=== PATIENT | female | born 1990 | race Caucasian/White ===

== ENCOUNTER 2024-10-25 11:36 | Outpatient (CLI) | payer BC, SELFPAY | END 2024-10-25 11:37 | disposition home or self-care (01) | LOC: AMB 10-30 13:13 | PROVIDERS: Visit Provider Emergency Medicine | DX: R52 Pain, unspecified (principal); F41.9 Anxiety disorder, unspecified; Z59.02 Unsheltered homelessness | CPT/HCPCS: A0998 ==

== ENCOUNTER 2024-10-25 12:32 | Emergency (ER) | payer BC, SELFPAY ==
--- OUTSIDE RECORDS SUMMARY | 2014-03-06 08:46 | XMS_ITS | Continuity of Care Document ---
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 Operator Multiple Name Role Phone Unavailable Unavailable Unavailable Procedures Procedure Date Subsqt Hosp-da E&m Minr Compl 4 Init Inpt Cons [place] [facility] [place] Advance Directives Directive Yes / No Effective Date File Name No Information Encounters Encounter Description Practice Location Reason(s) For Visit Diagnoses Date Provider Providers Copied on Encounter [facility] [place], [address] [address], [place], [place], [id number], tel:[phone] [facility] No Information No Information Referring Provider: Referral Self, USE FOR SELF REFERRALS. Subsqt Hosp-da E&m Minr Compl [facility] [place], [address] [address], [place], [place], [id number], [place] tel:[phone] [facility] No Information 4 Aleksander Rahman. [address] [facility], [facility] [address], [place], [place], [id number], [place]. tel:[phone] Referring Provider: Boris Burdick, [address] [place], [address] . tel:[phone] Init Inpt [facility] New/est [facility] [place], [address] [address], [place], [place], [id number], [place] tel:[phone] [facility] No Information No Information Referring Provider: Boris Burdick, [address] [place], [address] . tel:[phone] Family History Family Member Type Diagnosis Age At Onset No Information Payers Payer name Insurance type Covered alliance party ID [id number] guillermo(s) [facility] [id number] Social History Type Description Quantity Date Captured Comments Sex Female Smoking Status No Information Chief Complaint And Reason For Visit No Information Reason For Referral Reason For Referral No Information History Of Present Illness Encounter Date Complaint History Of Prese nt Illness No Information Functional Status Date Functional Assessmen t No Information Instructions Date Instruction Additional Infor mation No Information Assessments Type Assessment Date No Information Patient Care Teams Name Effective Dates (start - stop) Status Members No Information
--- OUTSIDE RECORDS SUMMARY | 2024-09-30 17:13 | XMS_ITS | Encounter Summary ---
Author Organization [facility] Address [address] [place] [address] Care Team Providers Care Carpenter Mold Name Role Phone Lorraine Castaneda MD Unavailable [phone] Lorraine Castaneda MD Primary Care Provider Shell Menjivar MD Unavailable [phone] Bo Jiang MD Unavailable [phone] Jozef Sanchez [facility] Unavailable [phone] Alicia Montero Unavailable Unavailable Leonides Hernandez [facility] Unavailable [phone] Babar Ferrari PA-C Unavailable [phone] Priscilla Stoddard Unavailable Yaw Mckinney MD Unavailable [phone] Edmund Patel MD Unavailable [phone] Edmund Patel MD Unavailable [phone] Yaw Mckinney MD Unavailable [phone] Jenny Terrazas Pascual Unavailable + [phone] Petty Hassan DO Unavailable [phone] Gil Danielson SHANK CARRIER Unavailable Unavailable Reason for Referral * Care Coordination (Routine: Next available opening) - Pending Review Specialty Diagnoses / Procedures Referred By Lazaro t Referred To Contact Diagnoses Housing instability PTSD (post-traumatic stress disorder) Javy Ta CNP [address] [place] [address] Phone: tel: fax: Referral ID Status Reason Start Date Expiration Date V isits Requested Visits Authorized [id number] Pending Review 10/01/2024 10/01/2025 1 1 Question Answer Reason for Referral: Financial Support Financial Support: Housing, Food Clinical Staff have discussed the Care Coordination Referral with the patient and/or caregiver: Yes Comments Reason for Visit * Reason Comments Anxiety Encounter Details Date Type Department Care Team (Late st Contact Info) Description 09/30/2024 5:13 PM CDT - 10/01/2024 12:40 PM CDT Hospital Encounter [facility] Emergency Dept [address] [place] [id number] Oswaldo Florian MD Frohreich, Lucas, WAYNE [address] [place] [address] Preston Mathew MD [address] [facility] [address] [place], [place] [id number] Anxiety; Housing instability; PTSD (post-traumatic stress disorder) Discharge Disposition: Home or Self Care Social History Tobacco Use Types Packs/Day Years Used Date Smoking Tobacco: Some Days Cigarettes Passive Smoke Exposure: Never Smokeless Tobacco: Never Alcohol Use Standard Drinks/Week Comments No 0 (1 standard drink = 0.6 oz pur e alcohol) PHQ-2 Answer Date Recorded PHQ-2 Score 3 08/21/2024 Adolescent Education Answer Date Record ed Getting School Help Needed Not on file 01/29 Food Insecurity Answer Date Recorded Within the past 12 months, d id you worry that your food would run out before you got money to buy more? Yes 05/11/2023 Within the past 12 months, d id the food you bought just not last and you didn t have money to get more? No 05/11/2023 Housing Stability Answer Date Recorded Do you have housing? (Sawyer wilson is defined as stable permanent housing and does not include staying outside in a car, in a tent, in an abandoned building, in an overnight penitentiary, or couch-surfing.) Yes 05/11/2023 Are you worried about losing your housing? No 05/11/2023 Financial Resource Strain Answer Date R ecorded Within the past 12 months, h ave you or your family members you live with been unable to get utilities (heat, electricity) when it was really needed? No 05/11/2023 Transportation Needs Answer Date Record ed Within the past 12 months, h as lack of transportation kept you from medical appointments, getting your medicines, non-medical meetings or appointments, work, or from getting things that you need? No 05/11/2023 Interpersonal Safety Answer Date Record ed Do you feel physically and e motionally safe where you currently live? Yes 08/29/2024 Within the past 12 months, h ave you been hit, slapped, kicked or otherwise physically hurt by someone? No 08/29/2024 Within the past 12 months, h ave you been humiliated or emotionally abused in other ways by your partner or ex-partner? No 08/29/2024 Comments No Sex and Gender Information Value Date Recorded Sex Assigned at Female 11/23/2017 12:16 PM CDT Legal Sex Female 11:38 AM CDT Gender Identity Genderqueer 04/15/2024 10:21 PM AUTO BRAKE MECHANIC Sexual Orientation Lesbian 04/15/2024 10 :21 PM AUTO BRAKE MECHANIC Sexual Orientation Something else 04/15/2024 10 :21 PM AUTO BRAKE MECHANIC documented as of this encounter Last Filed Vital Signs Vital Sign Reading Time Taken Comments Blood Pressure 129/82 10/01/2024 10:00 AM CDT Pulse 61 10/01/2024 10:00 AM CDT Temperature 36.7 C (98 F) 10/01/2024 10:00 AM CDT Respiratory Rate 18 10/01/2024 10:00 AM CDT Oxygen Saturation 99% 10/01/2024 10:00 AM CDT Inhaled Oxygen Concentration - - Weight 78.9 kg (174 lb) 09/30/2024 5:14 PM CDT Height 165.1 cm (5' 5) 09/30/2024 5:14 PM CDT Body Mass Index 28.96 09/30/2024 5:14 PM CDT documented in this encounter Functional Status * Calculated C-SSRS Risk Score (Lifetime/Recent) Answer Date of Assessment Author No Risk Indicated 09/30/2024 9:33 PM CDT Megan Newberry LICSW * Question Answer Date of Assessment Author 3. Active Suicidal Ideation with any Methods (Not Plan) Without Intent to Act (Lifetime) No 09/30/2024 9:30 PM CDT Megan Hall LICSW 4. Active Suicidal Ideation with Some Intent to Act, Without Specific Plan (Lifetime) No 09/30/2024 9:30 PM CDT Megan Hall LICSW 5. Active Suicidal Ideation with Specific Plan and Intent (Lifetime) No 09/30/2024 9:30 PM CDT Megan Hall LICSW * Question Answer Date of Assessment Author Most Severe Ideation Rating (Past 1 Month) 2 09/30/2024 9:33 PM CDT Megan Hall LICSW Description of Most Severe Ideation (Past 1 Month) thoughts of wishing to be when feeling overwhelmed this past month 09/30/2024 9:33 PM CDT Megan Hall LICSW Frequency (Past 1 Month) 3 025 9:33 PM CDT Megan Hall LICSW Duration (Past 1 Month) 2 10/01/19 25 9:33 PM CDT Megan Hall LICSW Controllability (Past 1 Month) 2 09/30/2024 9:33 PM CDT Megan Hall LICSW Deterrents (Past 1 Month) 1 2024 9:33 PM CDT Megan Hall LICSW Reasons for Ideation (Past 1 Month) 5 09/30/2024 9:33 PM CDT Megan Hall LICSW * Question Answer Date of Assessment Author Actual Attempt (Past 3 Months) No 09/30/2024 9:33 PM CDT Megan Hall LICSW Total Number of Actual Attem pts (Past 3 Months) 0 09/30/2024 9:33 PM CDT Stottrup, Megan, BRAKE REPAIR MECHANIC Has subject engaged in non-suicidal self-injurious behavior? (Past 3 Months) No 09/30/2024 9:33 PM CDT StottruEmi patel, BRAKE REPAIR MECHANIC Interrupted Attempts (Past 3 Months) No 09/30/2024 9:33 PM CDT Stottrup, Megan, BRAKE REPAIR MECHANIC Total Number of Interrupted Attempts (Past 3 Months) 0 09/30/2024 9:33 PM CDT Stottrup, Ba alpay, BRAKE REPAIR MECHANIC Aborted or Self-Interrupted Attempt (Past 3 Months) No 09/30/2024 9:33 PM CDT Stottrup, Divine javad, BRAKE REPAIR MECHANIC Total Number of Aborted or Self-Interrupted Attempts (Past 3 Months) 0 09/30/2024 9:33 PM CDT Stottrup, Megan, BRAKE REPAIR MECHANIC Preparatory Acts or Behavior (Past 3 Months) No 09/30/2024 9:33 PM CDT Stottrup, Megan, BRAKE REPAIR MECHANIC Total Number of Preparatory Acts (Past 3 Months) 0 09/30/2024 9:33 PM CDT Stottrup, Megan , BRAKE REPAIR MECHANIC * Question Answer Date of Assessment Author Actual Attempt (Lifetime) No 09/30/2024 9:30 PM CDT Stottrup, Megan, BRAKE REPAIR MECHANIC Has subject engaged in non-suicidal self-injurious behavior? (Lifetime) No 09/30/2024 9:30 PM CDT Stottrup, Megan , BRAKE REPAIR MECHANIC Interrupted Attempts (Lifetime) No 9:30 PM CDT Stottrup, Megan, BRAKE REPAIR MECHANIC Aborted or Self-Interrupted Attempt (Lifetime) No 09/30/2024 9:30 PM CDT Stottrup, Megan, BRAKE REPAIR MECHANIC Preparatory Acts or Behavior (Lifetime) No 09/30/2024 9:30 PM CDT Stottrup, Megan, BRAKE REPAIR MECHANIC * Question Answer Date of Assessment Author Most Severe Ideation Rating (Lifetime) 2 09/30/2024 9:30 PM CDT Stottrup, Megan, BRAKE REPAIR MECHANIC Frequency (Lifetime) 1 09/30/2024 9:30 PM C DT Stottrup, Megan, BRAKE REPAIR MECHANIC Duration (Lifetime) 1 09/30/2024 9:30 PM CD T Stottrup, Megan, BRAKE REPAIR MECHANIC Controllability (Lifetime) 1 09/30/2024 9:3 0 PM CDT Megan Hall LICSW Deterrents (Lifetime) 1 09/30/2024 9:30 PM CDT Megan Hall LICSW Reasons for Ideation (Lifetime) 5 9:30 PM CDT Megan Hall LICSW documented as of this encounter Discharge Instructions * Discharge Instructions* Savana Layton AJ - 10/01/2024 8:36 AM CDT Mental health recommendations Please follow-up with your outpatient team about your visit today. 2. One of our care coordinators will reach out to you after your discharge. If you have any questions about additional resources please call our coordinators at # [phone]. If you would like to schedule an appointment for therapy or psychiatry please call our Behavioral Access Scheduling officeat [phone]. 3. Please use aftercare plan and already established coping skills and safety planning as needed. 4. Please call 911 and/or return to the emergency department if her symptoms worsen or your safety becomes compromised. [facility] Adult crisis line, Crisis Lines Crisis Text Line Text 594738 You will be connected with a trained live crisis counselor to provide support. Crisis Text Line provides free, text-based support 30/11. Caregiver Help Desk [phone] 7 am - 6 pm Staffed by caregiving experts, the Help Desk helps you find the right information you need to help you navigate your complex caregiving challenges. Disaster Distress Helpline The national Disaster Distress Helpline is available for anyone experiencing emotional #distress related to natural or human-caused disasters. Call or text to be connected to a trained, caring counselor, . disasterdistress.samhsa.gov Gambling Hotline [hope] [place] .[place] [address] or 800GAM 1800gamblerchat.org mnapg.org www.mnapg.org l??michael de crisis espa??laith [phone] [facility] Helpline [phone] [place] Domestic Violence Hot[place] [address] Boost Media.The Grandparent Caregivers Center for victims or survivors who need support National Sexual Assault Hotline 547.531.WXIG [1073] Speak with a trained staff member from a sexual assault service provider in your area. National Hope Line [hope] National Suicide Prevention Lifeline Free and confidential support 988 http://suicidepreventionlifeline.org The Artis Project (LGBTQ Youth Crisis Line) text START to 733810 A national 24-hour, toll free confidential suicide hotline for LGBTQ youth. Trans Lifeline 698.902.9350 Peer support hotline run by trans people, for trans, and questioning callers Miguel Ángel [place] Helpline Confidential and anonymous culturally-appropriate domestic violence and dating violence helpline for [place] Americans, available every day from 7 a.m. to 10 p.m. 's Crisis Line 988 (Press 1) or text 715861 [facility] Mental Health Crisis Response [facility] Crisis [phone] [facility] Mobile Crisis [phone] [facility] Crisis [phone] [facility] Mobile Crisis [phone] [facility] Mobile Crisis [phone] (adults) [phone] (children) [facility] Mobile Crisis [phone] [facility] Mobile Crisis [phone] Community Resources Fast Tracker Linking people to mental health and substance use disorder resources fasttrackermn.org [facility] Warmline Peer to peer support 9 am to 9 pm, 7 days/week 857.060.1488 [place] 855[place] [address] https://mentalhealthmn.org/ National [place] on Mental Illness (PAMELA) 075.070.5830 or 1.888.PAMELA.HELPS https://namimn.org/ [facility] Urgent Care for Adult Mental Health [facility] residents [address] [phone] [facility] Free mental health counseling https://walkin.org/ 182.236.5495 Mental Health Apps Calm Harm https://calmharm.co.uk/ My3 https://my3app.org/ VirtualHopeBox https://VideoPros/apps/jgvtmeq-cviz-zdu/ Suicide Safety Plan (eReplicant) Misael[employer]Utkarsh [employer] Safety Plan https://www.Sensinodelan.org/ TRANS SPECIFIC RESOURCES Name Change https://transequality.org/documents/nehkfsggy-cwkgmxew-fcqyyhfnu Therapy Specific Resources [facility] offers queer and trans folks ages 13-25 with individual, family, and couples counseling focused on identity development as it relates to sexuality, gender identity, and or gender expression. [facility] offers its counseling services with sliding scale and has equity-based pricing. https://www.recla.[facility]/what-we-do/overview.html [facility] Support Group list: https://[facility] state hospitalim.org/wp-content/uploads/sites//Vmeocep-Vgphw-Dvxy-for-We bsite__july.pdf Support Groups [place] Transgender [place] Support Group: http://www.UnderstorygenderalTORIA.LucidPort Technology/ General Supports [facility] T-Time (transfemme Brine Tank Operator) https://aliveness.org/tea-time/ OutFront [place] https://www.[facility].org/emjbetc-rlskrviaur-xasthcixmovzt Transgender, Intersex, Gender-Expansive [facility] Resources & Services https://tigerrs.org/ https://docs.Wisembly.com/document/d/1-1Z7KYtcjrxwvMOy3Luwt6ICnCpt5sgNTrYGPZtW_yk/ edit Transforming Families: https://tffmn.org/ Gender Affirming Care / HRT [facility] https://www.familytreeclinic.org/ THRIVE at Aliveness 783-587-1810 Planned Parenthood https://www.plannedparenthood.org/ The following DBT skills can assist me when: I want to act on your emotions and acting on them willonly make things worse, I am overwhelmed by my emotions, I want to try to be skillful and not act on self destructive behavior. Reduce Extreme Emotion QUICKLY: Changing Your Body Chemistry T: Change your body Temperature to change your autonomic nervous system Use Ice pack to calm yourself down FAST. Place ice pack underneath your eyes for a count of 30 seconds to initiate the divers reflex which will naturally calm down your heart rate and breathing. I: Intensely exercise to calm down a body revved up by emotion Examples: running, walking fast, jumping, playing basketball, weight lifting, swimming, calisthenics, etc. Engage in exercises that DO NOT include violent behaviors. Exercises that utilize violent behaviorstend to function as ???behavioral rehearsal,?? and rather than calming the person down, may actually ???rev?? the person up more, increasing the likelihood of violence, and lessening the likelihoodthat they will ???burn off?? energy P: Progressively relax your muscles Starting with your hands, moving to your forearms, upper arms, shoulders, neck, forehead, eyes, cheeks and lips, tongue and teeth, chest, upper back, stomach, buttocks, thighs, calves, ankles, feet Tense (10 seconds, ?? of the way), then relax each muscle (all the way) Notice the tension Notice the difference when relaxed (by tensing first, and then relaxing, you are able to get a morethorough relaxation than by simply relaxing) P: Paced breathing to relax The standard technique is to begin with counting the number of steps one takes for a typical inhale, then counting the steps one takes for a typical exhale, and then lengthening the amount of steps for the exhalation by one or two steps. OR repeat this pattern for 1-2 minutes: Inhale for four (4) seconds Exhale for six (6) to eight (8) seconds After using Distress Tolerance TIPP, TRY TO STOP! S- Stop Do not just react on your emotion urge. Stop! Freeze! Do not move a muscle! Your emotions may try to make you act without thinking. Stay in control! Take a step back Take a step back from the situation. T- Take a break Let go. Take a deep breath. Do not let your feelings make you act impulsively. O- Observe Notice what is going on inside and outside you. What is the situation? What are your thoughts and feelings? What are others saying or doing? Does my emotion make sense, is it justified? What is it that my emotions want me to do? Would that be effective? P- Proceed mindfully Act with awareness. In deciding what to do, consider your thoughts and feelings, the situation, andother people???s thoughts and feelings. Think about your goals. Ask Monroy Mind: Which actions will make it better or worse? If my emotion action urge would not be effective or helpful, practice acting OPPOSITE to the EMOTION ACTION URGE can help reduce the intensity or even change the emotion. Consider these examples: with FEAR we have the urge to run away/avoid. OPPOSITE would be to approach it with caution. ANGER we have the urge to attack. OPPOSITE would be to gently avoid or to demonstrate kindness towards it. SADNESS we have the urge to withdraw/isolate. OPPOSITE would be to get self to move and be active physically or socially. These additional skills may help with self-soothing and distracting you: Activities Focus attention on a task you need to get done. Rent movies; watch TV. Clean a room in your house. Find an event to go to. Play computer games. Go walking. Exercise. Surf the Internet. Write e-mails.Play sports. Go out for a meal or eat a favorite food. Call or go out with a friend. Listen to youriPod; download music. Build something. Spend time with your children. Play cards. Read magazines, books, comics. Do crossword puzzles or Sudoku. Emotions Read emotional books or stories, old letters. Watch emotional TV shows; go to emotional movies. Listen to emotional music. (Be sure the event creates different emotions.) Ideas: Scary movies, joke books, comedies, funny records, scientologist music, soothing music or music that fires you up, going to astore and reading funny greeting cards. Thoughts Count to 10; count colors in a painting or applications administrator or out the window; count anything. Repeat words to a song in your mind. Work puzzles. Watch TV or read. Sensations Squeeze a rubber ball very hard. Listen to very loud music. Hold ice in your hand or mouth. Go out in the rain or snow. Take a hot or cold shower. Remember that you can use your 5 senses as helpful self-soothing tools! I can help my own emotions by practicing the following to keep my emotional mind healthy and bring positive emotions: The ABC PLEASE skill is about taking good care of ourselves so that we can take care of others. Also, an important component of DBT is to reduce our vulnerability. When we take good care of ourselves, we are less likely to be vulnerable to disease and emotional crisis. ABC A- Accumulate positive emotions by doing things that are pleasant. B- Build mastery by doing things we enjoy. Whether it is reading, cooking, cleaning, fixing a car, working a cross word puzzle, or playing a musical instrument. Practice these things to manufactured buildings supervisor and in time we feel competent. C- Science [place] Ahead by rehearsing a plan ahead of time so that we can be prepared to cope skillfully. (Think of what makes situations difficult, and what helps in those situations) PLEASE Treat Physical Illness and take medications as prescribed. Balance eating in order to avoid mood swings. Avoid mood-Altering substances and have mood control. Maintain good sleep so you can enjoy your life. Get exercise to maintain high spirits. Here is the appointment details: Date: 10/04/2024 Time: 10:00 am - 11:00 am Provider: Maryellen GARCIA BUSINESS QUALITY ASSURANCE ANALYST,PMHNP,RN Location: [facility], [address] [place] [address], [address], [place] [address] Type: Medication Mgmt - (In-Person) Scheduling instructions Please no same-day or next day appointments- allow 3 business days between the time of scheduling & appointment date. This allows us time to confirm the patient???s appointment. You can assist patients in doing this by calling , after you have made the referral. *Appointments mustbe verified by the [facility] Intake Dept.*Date & time not guarenteed* If the patient does not s peak to our intake team, they will be unable to be seen for their scheduled appointment. IN-PERSON /Wed Patient instructions Thank you for choosing [facility]! *Due to high demand, your appt date & time is only guaranteed after you speak with [facility] intake. Our intake team will attempt to contact you. If you do nothear from them within 24 hours, please call them at and tell them you are a [facility] referral. If you do not speak with our Intake Department and complete the necessary paperwork they send you, we cannot see you at your scheduled appointment time. Thank you for helping us to help you! documented in this encounter Medications at Time of Discharge acetaminophen (TYLENOL) 500 MG tablet Take 500-1,000 mg by mouth every 6 hours as needed for mild pain celecoxib (CELEBREX) 200 MG capsuleIndication s:Polyarthralgia Take 1 capsule (200 mg) by mouth daily. 30 capsule 1 05/15/2024 EPINEPHrine (ANY BX GENERIC EQUIV) 0.3 MG/0.3ML injection 2-packIndications :Other allergy, initial encounter Inject 0.3 mLs (0.3 mg) into the muscle as needed for anaphylaxis. May repeat one time in 5-15 minutes if response to initial dose is inadequate. 2 each 3 01/26/2024 levonorgestrel (MIRENA) 52 MG (20 mcg/day) IUD 1 each by Intrauterine route once. Needle, Disp, 23G X 1 MISCIndications:T ransgender person on hormone therapy To use with weekly IM injection 25 each 3 05/24/2024 prazosin (MINIPRESS) 1 MG capsuleIndication s:PTSD (post-traumatic stress disorder),Nightma res TAKE 1 CAPSULE BY MOUTH AT BEDTIME 30 capsule 05/22/2024 sertraline (ZOLOFT) 100 MG tabletIndications :Anxiety,Moderate episode of recurrent major depressive disorder (H),PTSD (post-traumatic stress disorder),Mixed obsessional thoughts and acts TAKE 2 TABLETS BY MOUTH EVERY DAY 180 tablet 07/10/2024 syringe, disposable, 1 ML MISCIndications:T ransgender person on hormone therapy To use with weekly IM injection 25 each 3 05/24/2024 testosterone cypionate (DEPOTESTOSTERONE ) 200 MG/ML injectionIndicati ons:Transgender person on hormone therapy Inject 0.25 mLs (50 mg) into the muscle once a week. 4 mL 08/30/2024 documented as of this encounter Progress Notes * Savana Layton, BRAKE REPAIR MECHANIC - 10/01/2024 12:40 PM CDT Triage and Transition Services Extended Care Reassessment Patient: Nani goes by Nani, uses they/them pronouns Date of Service: October 01, 2024 Site of Service: [facility] Emergency Dept Patient was seen Mode of Assessment: Reason for Reassessment: History of Patient's Original Emergency Room Encounter: Pt reports that their worsening intrusive thoughts and anxiety symptoms of excessive worrying and insomnia have increased since they lost theirjob in May of this year. Pt says their intrusive thoughts don't center around a certain subjectand are mixed with trauma thoughts and catastrophizing. Pt reports that they decided to come to the hospital due to their stay at their hotel ending tomorrow and not knowing where else to go for help. Pt reports that they have diagnoses of OCD, ADHD, ADHD, and PTSD. Current Patient Presentation: Craft Coordinator met with pt in their recliner in the milieu. They were restingcomfortably. They were agreeable to meet with this caption writer in a conference room. Pt reported gettingsome rest last night. They still feel anxious and angry at their circumstances. They were open to talking and cooperative. Presentation Summary: Craft Coordinator met with pt in their recliner in the milieu. They were resting comfortably. They were agreeable to meet with this caption writer in a conference room. Pt reported getting some rest last night. They still feel anxious and angry at their circumstances. They have lots of supports from friends. Pt still does not have a plan for housing and is hoping to get some tangible support to stay with a friend until they can get housing. Pt is open to a crisis bed if one is available. If not, they would like to discharge and go on a road trip, and be adventurous. Pt has 2 cats and needs to find housing where they can have their cats. The cats are staying with the pt's friend for thetime being. Does not endorse SI, HI, SIB, substance use concerns, or AVH. Changes Observed Since Initial Assessment: decrease in presenting symptoms Therapeutic Interventions Provided: Engaged in safety planning, Coached on coping techniques/relaxation skills to help improve distress tolerance and managing intense emotions., Identified and practiced coping skills. Current Symptoms: anxious, racing thoughts low self esteem, impaired decision making, irritable, helplessness wandering, racing thoughts, anxious impulsive, flight of ideas (not assessed) Mental Status Exam Affect: Appropriate Appearance: Appropriate Attention Span/Concentration: Attentive Eye Contact: Engaged Fund of Knowledge: Appropriate Language /Speech Content: Fluent Language /Speech Volume: Normal Language /Speech Rate/Productions: Normal Recent Memory: Intact Remote Memory: Intact Mood: Anxious, Irritable Orientation to Person: Yes Orientation to Place: Yes Orientation to Time of Day: Yes Orientation to Date: Yes Situation (Do they understand why they are here?): Yes Psychomotor Behavior: Normal Thought Content: Clear Thought Form: Intact, Obsessive/Perseverative, Tangential Treatment Objective(s) Addressed: rapport building, orienting the patient to therapy, identifying and practicing coping strategies, processing feelings, safety planning, identifying an appropriate aftercare plan, building distress tolerance, anger management, assessing safety, identifying treatmentgoals, building self-esteem, identifying additional supports, exploring obstacles to safety in the community, building skills Patient Response to Interventions: acceptance expressed, verbalizes understanding Progress Towards Goals: Patient Reports Symptoms Are: stable Patient Progress Toward Goals: is making progress Comment: Pt ready to d/c and get fresh air and talk with their support network to decide next steps Next Step to Work Toward Discharge: follow up on referrals Symptom Stabilization Comment: referral made for med management Case Management: Case Management Included: completing or following up on referrals Details on completing or following up on referrals: referral made of op med management Summary of Interaction: appointment made C-SSRS Since Last Contact: 1. Wish to be (Since Last Contact): No 2. Non-Specific Active Suicidal Thoughts (Since Last Contact): No Actual Attempt (Since Last Contact): No Has subject engaged in non-suicidal self-injurious behavior? (Since Last Contact): No Interrupted Attempts (Since Last Contact): No Aborted or Self-Interrupted Attempt (Since Last Contact): No Preparatory Acts or Behavior (Since Last Contact): No Suicide (Since Last Contact): No Calculated C-SSRS Risk Score (Since Last Contact): No Risk Indicated Plan: Final Disposition / Recommended Care Path: discharge Plan for Care reviewed with assigned Medical Provider: yes Plan for Care Team Review: provider, RN Comments: Osamn Ta CNP Patient and/or validated legal guardian concurs: yes Clinical Substantiation: Pt came to the ED with increased depression and anxiety sxs related to significant psychosocial stressors. The pt remained in [facility] on observation overnight on 09/30. On 10/01ey were reassessed and reported their sxs of anxiety are continuing. They reported they have a robust community of supports who are willing to support them after d/c, they were willing to safety plan and were able to identify coping strategies to mitigate an upcoming mh crisis. Pt does not endorse SI, HI, SIB, AVH, or GLENN concerns. Discharge is recommended for this pt and an appointment was made with op psychiatry. This caption writer also collaborated with the pt's friend, Jose Armando to coordinate aftercare follow up and support. Legal Status: Legal Status: Voluntary/Patient has signed consent for treatment Session Status: Time session started: 756 Time session ended: 810 Session Duration (minutes): 14 minutes Session Number: 1 Anticipated number of sessions or this episode of care: 1 Session Start Time: 756 Session Stop Time: 810 CPT codes: Non-Billable Time Spent: 14 minutes CPT code(s) utilized: Non-Billable Diagnosis: Patient Active Problem List Diagnosis Code Moderate episode of recurrent major depressive disorder (H) F33.1 PTSD (post-traumatic stress disorder) F43.10 Anxiety F41.9 Bilateral hand pain M79.641, M79.642 Bilateral knee pain M25.561, M25.562 Hypermobility syndrome M35.7 Inflammatory arthritis M19.90 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.0, Z79.899 Mild intermittent asthma without complication J45.20 Rectal bleeding K62.5 Family history of endometriosis Z84.2 Irritable bowel syndrome with both constipation and diarrhea K58.2 Migraine without aura and without status migrainosus, not intractable G43.009 Nightmares F51.5 Housing instability Z59.819 Obsessive-compulsive disorder F42.9 Primary Problem This Admission: Active Hospital Problems Housing instability Obsessive-compulsive disorder Anxiety *PTSD (post-traumatic stress disorder) Savana [facility] Licensed Mental Health Professional (LMHP), [facility] [phone] * Tomasa Rosas RN - 10/01/2024 12:39 PM CDT Discharge instructions reviewed with patient including follow-up care plan. Educated on medication regimen and advised not to stop prescribed medication without consulting their physician. Reviewed safety plan and outpatient resources. Pt denies active SI. Pt has contracted for safety and completedsafety plan with [facility]. All belongings which were brought into the hospital have been returned to patient. Escorted off the unit at 12:39 PM, pt preferred to wait in ED lobby for friend to pick them up. Walked to lobby at 12:39 PM * Tomasa Rosas RN - 10/01/2024 11:30 AM CDT RN gave pt's friend, Jose Armando, an update on plan of care. He reports that pt's phone is getting turned off and would like his phone number used for the referrals to reach out to. Pt agrees with this. [facility] notified. * Tomasa Rosas RN - 10/01/2024 10:58 AM CDT Pt is calm and cooperative this morning. Pleasant and jovial with staff. They report feeling sad, helpless related to being denied disability and currently in a very stressful situation regarding possible homelessness. Pt notes her MA does not cover gender affirming care and feels frustrated and let down by this. Pt denies active SI today. They plan to call a friend to see if they can stay with them tonight. * Syed Suggs RN - 09/30/2024 9:40 PM CDT [id number]: Pt spent time this shift speaking with [facility]. Was going to d/c, however after consideration pt electedto stay night. Pt has chronic back pain and requested a sensory room with mattress. Pt also requested shoes as has chronic bilateral foot pain, and waking in socks is not comfortable. Plan to reassess in morning. * Yelitza Brown RN - 09/30/2024 7:39 PM CDT Patient reports uncontrolled anxiety about their living and employment situation. Patient denies any current SI, but has had intrusive (OCD) thoughts in the past month about SI with no plan. Patient is resting comfortably in their recliner. documented in this encounter Consult Notes * Megan Hall LICSW - 09/30/2024 10:28 PM CDTAssociated Order(s): DIAGNOSTIC EVALUATION CENTER (DEC) ASSESSMENT ORDER Diagnostic Evaluation Consultation Crisis Assessment Patient Name: Zoe Mcghee Age: [age] year old Legal Sex: unknown Gender Identity: genderqueer Pronouns: they/them/theirs Race: White Ethnicity: Not or Language: Citizen Of [place] Patient was assessed: In person Crisis Assessment Start Date: 09/30/24 Crisis Assessment Start Time: 1921 Crisis Assessment Stop Time: 2003 Patient location: [facility] Emergency Dept [id number] Referral Data and Chief Complaint Zoe Mcghee presents to the ED with family/friends. Patient is presenting to the ED for the following concerns: Anxiety, Worsening psychosocial stress. Factors that make the mental health crisis life threatening or complex are: Pt arrives to the ED with friends and reports that their anxiety and intrusive thoughts from OCD have been markedly worsening since May of this year when theylost their employment. Pt reports that they lost their job due to being bullied by a colleague and that since their job loss, have experienced stressors of subsequently losing their housing and benefits such as health insurance. Pt has been staying at a hotel for the past month, but their funds have run out and they face imminent homelessness. Pt says they have two cats, and their plan is to livein their car and go on an adventure since they do not want to stay in a penitentiary and don't have a friend or family's place to go to. Pt reports that their job loss was a trauma event for them, and that they face PTSD symptoms that make it difficult for them to return to working. Pt has been attempting to get set up with benefits and has been successful in establishing Medical Assistance and SNAP, but has been denied SSDI and is on waiting lists for housing assistance. Pt reports multiple friend supports who have been helping them with applying for these services. Pt is not currently set up with any mental health providers and is open to re-establishing services such as outpatient psychotherapy and psychiatry, but says that their number one priority right now is securing housing and that going to therapy appointments might stress them out more right now during their situation of housing instability. Pt expressed that they have coping skills, which include art, journaling, being in nature, and playing video games, but that the stress of their current housing instability has overwhelmed them, and their usual coping strategies are no longer helping. Pt denies AH/VH/HI/NSSIB. Pt endorses passive suicidal ideation that has increased in the past few days and includes thoughts of wishing they were , but denies having any thoughts around methods and denies any intent to kill their self, noting that they are very attached to their friends and pet cats and want to stay alive for them. Pt presents as engaged and oriented during assessment and became tearful a couple times upon describing their frustration about their housing instability. Pt is open to spending the night at [facility] for symptom stabilization. Pt is open to a ED Drag Out Worker referral in regards to their housing. Pt endorses daily THC use for their chronic pain. Pt says they take their prescribed psychotropic medications regularly.. Informed Consent and Assessment Methods Explained the crisis assessment process, including applicable information disclosures and limits toconfidentiality, assessed understanding of the process, and obtained consent to proceed with the assessment. Assessment methods included conducting a formal interview with patient, review of medical records, collaboration with medical staff, and obtaining relevant collateral information from familyand community providers when available. : done History of the Crisis Pt reports that their worsening intrusive thoughts and anxiety symptoms of excessive worrying and insomnia have increased since they lost their job in May of this year. Pt says their intrusive thoughts don't center around a certain subject and are mixed with trauma thoughts and catastrophizing. Pt reports that they decided to come to the hospital due to their stay at their hotel ending tomorrow and not knowing where else to go for help. Pt reports that they have diagnoses of OCD, ADHD, ADHD, and PTSD. Brief Psychosocial History Family: Single, Children no Support System: Friend (aunt) Employment Status: unemployed Source of Income: none Financial Environmental Concerns: unemployed Current Hobbies: arts/crafts, interaction with pets, outdoor activities, writing/journaling/blogging Barriers in Personal Life: mobility limitations Significant Clinical History Current Anxiety Symptoms: obsessions/compulsions, excessive worry, anxious Current Depression/Trauma: thoughts of /suicide, helplessness Current Somatic Symptoms: Current Psychosis/Thought Disturbance: Current Eating Symptoms: Chemical Use History: Alcohol: None Benzodiazepines: None Opiates: None Cocaine: None Marijuana: Daily Last Use:: 09/30/24 Other Use: None Past diagnosis: ADHD, PTSD, Anxiety Disorder (per pt, history of Autism rule-out) Family history: Depression, PTSD Past treatment: Individual therapy, Partial Hospitalization, Psychiatric Medication Management, Primary Care Details of most recent treatment: Pt reports they have completed DBT treatment twice. Pt completed IOP via [facility] in the Fall of 2023. Pt not currently established with any mental health providers. Pt denies any previous psychiatric inpatient hospitalizations. Other relevant history: Have there been any medication changes in the past two weeks: no Is the patient compliant with medications: yes Collateral Information Is there collateral information: Yes Collateral information name, relationship, phone number: Jose Armando Patel and Rose Melgar (friends of pt) What happened today: Pt has been living in a hotel the past month and faces homelessness tomorrow due to their funds running out. Pt lost their job in May of this year and since that time has been struggling with the stress of navigating social service systems. Pt has been unsuccessful in getting disability granted but with the help of [employer], has gotten SNAP benefits set up as well as Medical Assistance. Pt is currently on the waitlist for alexander assistance and housing services. Since pt's job loss, they have been exhibiting memory issues, increased dissociation, and trauma flashbacks that have made it hard for pt to function and seek employment again. They seem to become stuck more easily and fixate on things to the extent that it makes it hard for pt to problem-solve. What is different about patient's functioning: Pt's symptoms described above are markedly worsening. Pt used to be able to navigate problem-solving tough scenarios more easily in the past, but their current anxiety and mental health symptoms appear to be making it harder for pt to get back on theirfeet and be independent. Pt has never needed as much significant support as they have been requiring the past few months. 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 Pt's reporting of events and perception of events has been inconsistent and sometimes skewed. What do you think the patient needs: possibly a AR MANAGER to help pt with things like filling out web content & social media manager forms and other tasks Has patient made comments about wanting to kill themselves/others: no If d/c is recommended, can they take part in safety/aftercare planning: yes Additional collateral information: Pt uses cannabis daily for pain management. Risk Assessment Lipscomb Suicide Severity Rating Scale Full Clinical Version: 09/30/2024 Suicidal Ideation Q1 Wish to be (Lifetime): Yes Q2 Non-Specific Active Suicidal Thoughts (Lifetime): Yes 3. Active Suicidal Ideation with any Methods (Not Plan) Without Intent to Act (Lifetime): No 4. Active Suicidal Ideation with Some Intent to Act, Without Specific Plan (Lifetime): No 5. Active Suicidal Ideation with Specific Plan and Intent (Lifetime): No Q6 Suicide Behavior (Lifetime): no Intensity of Ideation (Lifetime) Most Severe Ideation Rating (Lifetime): 2 Frequency (Lifetime): Less than once a week Duration (Lifetime): Fleeting, few seconds or minutes Controllability (Lifetime): Easily able to control thoughts Deterrents (Lifetime): Deterrents definitely stopped you from attempting suicide Reasons for Ideation (Lifetime): Completely to end or stop the pain (You couldn't go on living withthe pain or how you were feeling) Suicidal Behavior (Lifetime) Actual Attempt (Lifetime): No Has subject engaged in non-suicidal self-injurious behavior? (Lifetime): No Interrupted Attempts (Lifetime): No Aborted or Self-Interrupted Attempt (Lifetime): No Preparatory Acts or Behavior (Lifetime): No Lipscomb Suicide Severity Rating Scale Recent: 09/30/2024 Suicidal Ideation (Recent) Q1 Wished to be (Past Month): yes Q2 Suicidal Thoughts (Past Month): yes Q3 Suicidal Thought Method: no Q4 Suicidal Intent without Specific Plan: no Q5 Suicide Intent with Specific Plan: no Level of Risk per Screen: low risk Intensity of Ideation (Recent) Most Severe Ideation Rating (Past 1 Month): 2 Description of Most Severe Ideation (Past 1 Month): thoughts of wishing to be when feeling overwhelmed this past month Frequency (Past 1 Month): 2-5 times in week Duration (Past 1 Month): Less than 1 hour/some of the time Controllability (Past 1 Month): Can control thoughts with little difficulty Deterrents (Past 1 Month): Deterrents definitely stopped you from attempting suicide (pt says that their cats are very important to them and they want to stay alive for them) Reasons for Ideation (Past 1 Month): Completely to end or stop the pain (You couldn't go on living with the pain or how you were feeling) Suicidal Behavior (Recent) Actual Attempt (Past 3 Months): No Total Number of Actual Attempts (Past 3 Months): 0 Actual Attempt Description (Past 3 Months): n/a Has subject engaged in non-suicidal self-injurious behavior? (Past 3 Months): No Interrupted Attempts (Past 3 Months): No Total Number of Interrupted Attempts (Past 3 Months): 0 Interrupted Attempt Description (Past 3 Months): n/a Aborted or Self-Interrupted Attempt (Past 3 Months): No Total Number of Aborted or Self-Interrupted Attempts (Past 3 Months): 0 Aborted or Self-Interrupted Attempt Description (Past 3 Months): n/a Preparatory Acts or Behavior (Past 3 Months): No Total Number of Preparatory Acts (Past 3 Months): 0 Preparatory Acts or Behavior Description (Past 3 Months): n/a Environmental or Psychosocial Events: helplessness/hopelessness, unemployment/underemployment, unstable housing, homelessness Protective Factors: Protective Factors: strong rocha to family unit, community support, or employment, responsibilities and duties to others, including pets and children, help seeking, reality testingability Does the patient have thoughts of harming others? Feels Like Hurting Others: no Previous Attempt to Hurt Others: no Is the patient engaging in sexually inappropriate behavior?: no Does Patient have a known history of aggressive behavior: No Has aggression occurred as a result of MH concerns/diagnosis: n/a Does patient have history of aggression in hospital: n/a Is the patient engaging in sexually inappropriate behavior? no Mental Status Exam Affect: Appropriate Appearance: Appropriate Attention Span/Concentration: Attentive Eye Contact: Engaged Fund of Knowledge: Appropriate Language /Speech Content: Fluent Language /Speech Volume: Normal Language /Speech Rate/Productions: Normal Recent Memory: Intact Remote Memory: Intact Mood: Depressed, Anxious Orientation to Person: Yes Orientation to Place: Yes Orientation to Time of Day: Yes Orientation to Date: Yes Situation (Do they understand why they are here?): Yes Psychomotor Behavior: Normal Thought Content: Clear Thought Form: Intact, Obsessive/Perseverative Medication Psychotropic medications: Medication Orders - Psychiatric (From admission, onward) Start Dose/Rate Route Frequency Ordered Stop 10/01/24 0800 sertraline (ZOLOFT) tablet 200 mg 200 mg Oral DAILY 09/30/24205809/30/242056 OLANZapine zydis (zyPREXA) ODT tab 5 mg 5 mg Oral EVERY 6 HOURS PRN 09/30/24205609/30/242056 traZODone (DESYREL) tablet 50 mg 50 mg Oral AT BEDTIME PRN 09/30/24205609/30/242056 hydrOXYzine HCl (ATARAX) tablet 25 mg 25 mg Oral EVERY 6 HOURS PRN 09/30/24205609/30/242055 nicotine polacrilex (NICORETTE) gum 4 mg Placed in Or Linked Group 4 mg Buccal EVERY 1 HOUR PRN 09/30/24205609/30/242055 nicotine (COMMIT) lozenge 4 mg Placed in Or Linked Group 4 mg Buccal EVERY 1 HOUR PRN 09/30/242056 Current Care Team Patient Care Team: Lorraine Castaneda MD as PCP - General (Family Practice) Lorraine Castaneda MD as Assigned PCP Shell Menjivar MD as MD (Dermatology) Bo Jiang MD as Physician (Plastic Surgery) [facility] Drag Out Worker (Plastic Surgery) Alicia Montero as Specialty Command Center Officer Leonides Hernandez [facility] as Pharmacist Babar Ferrari PA-C as Physician Sql Server Developer (Gastroenterology) Priscilla Stoddard as Assigned Behavioral Health Provider Yaw Mckinney MD as Physician (Rheumatology) Edmund Patel MD as MD (Allergy & Immunology) Edmund Patel MD as Assigned Allergy Provider Yaw Mckinney MD as Assigned Rheumatology Provider Jenny Terrazas CNM as Assigned OBGYN Provider Petty Hassan DO as Resident (Neurology) Gil Danielson LSW as Specialty Command Center Officer Diagnosis Patient Active Problem List Diagnosis Code Moderate episode of recurrent major depressive disorder (H) F33.1 PTSD (post-traumatic stress disorder) F43.10 Anxiety F41.9 Bilateral hand pain M79.641, M79.642 Bilateral knee pain M25.561, M25.562 Hypermobility syndrome M35.7 Inflammatory arthritis M19.90 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.0, Z79.899 Mild intermittent asthma without complication J45.20 Rectal bleeding K62.5 Family history of endometriosis Z84.2 Irritable bowel syndrome with both constipation and diarrhea K58.2 Migraine without aura and without status migrainosus, not intractable G43.009 Nightmares F51.5 Housing instability Z59.819 Obsessive-compulsive disorder F42.9 Primary Problem This Admission Active Hospital Problems Housing instability Obsessive-compulsive disorder (H) - F42.9 Anxiety - F41.9 *PTSD (post-traumatic stress disorder) - F43.10 Clinical Summary and Substantiation of Recommendations Clinical Substantiation: It is the recommendation of this clinician that the pt remain at [facility] inobservation status. Pt reports having increased anxiety related symptoms such as intrusive thoughts, insomnia, and excessive worrying due to psychosocial stressors. Pt lost their job in May of this year, which then led to an eviction and current housing instability, as well as loss of services such as health insurance. With the help of friends, pt has gotten set up with health insurance againbut is facing imminent houselessness. Pt reports that they are unable to return to work due to their symptoms of PTSD. During assessment, pt oriented and engaged. Pt appears to exhibit signs of helplessness and hoplessness. Pt is denying AH/VH/HI/NSSIB and endorses suicidal ideation that is passivein nature and is limited to thoughts of wishing they were . Pt endorses multiple supports and coping skills and has reality testing ability. Pt is med compliant and wishing to get set up with psychotherapy and psychiatry services again at some point but says that resumption of these services while they are without housing might make them feel more stressed. Pt said their primary goal at this point is to secure housing that is not at a penitentiary. Given pt's presentation, observation is the least restrictive level of care that also provides adequate risk mitigation. Additional time on the unit gives time and space from the precipitating stressor while engaging in therapeutic intervention aimed at increasing distress tolerance skills and creating a cope ahead plan for interpersonal stressors. There is a likelihood that this time in observation will lessen the acuity of the crisis, enabling the pt to effectively safety plan and return to the community. Goals for crisis stabilization: symptom stabilization Next steps for Care Team: safety planning prior to discharge, set-up of psychiatry or outpatient psychotherapy services to pt prior to discharge if they want them (pt was ambivalent about these service referrals during assessment), social work consult w/ pt for housing resources has been put in by caption writer Treatment Objectives Addressed: rapport building, processing feelings Therapeutic Interventions: Engaged in cognitive restructuring/ reframing, looked at common cognitive distortions and challenged negative thoughts., Taught the link between thoughts, feelings, and behaviors. Has a specific means been identified for suicidal/homicide actions: No Patient coping skills attempted to reduce the crisis: pt reports that they attempted coping skills of art, journaling, and video games Disposition Recommended referrals: Individual Therapy, Medication Management Reviewed case and recommendations with attending provider. Attending Name: Osman Ta CNP Attending concurs with disposition: yes Patient and/or validated legal guardian concurs with disposition: yes Final disposition: observation Legal status: Voluntary/Patient has signed consent for treatment Reviewed court records: yes Assessment Details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 oral disintegrating tablet through foil backing. Administer immediately on tongue and oral disintegrating tablet dissolves in seconds, then swallow with saliva. Liquid not required. sertraline (ZOLOFT) tablet 200 mg 200 mg, Oral, DAILY, First dose on 10/01/24 at 0800 $Given 10/01/2024 7:36 AM CDT 200 mg traZODone (DESYREL) tablet 50 mg 50 mg, Oral, AT BEDTIME PRN, sleep, Starting on 09/30/24 at 2056 $Given 09/30/2024 10:10 PM CDT 50 mg documented in this encounter Active and Recently Administered Medications Times are shown in CDT. Scheduled Medication Order 09/29/2024 09/30/2024 10/01/2024 celecoxib (celeBREX) capsule 200 mg 200 mg, Oral, DAILY, First dose on 10/01/24 at 0800 1022 ($Given - Provi merlyn: Tomasa Rosas RN) sertraline (ZOLOFT) tablet 200 mg 200 mg, Oral, DAILY, First dose on 10/01/24 at 0800 0736 ($Given - Provi merlyn: Tomasa Rosas RN) PRN Medication Order 09/29/2024 09/30/2024 10/01/2024 acetaminophen (TYLENOL) tablet 650 mg 650 mg, Oral, EVERY 6 HOURS PRN, mild pain, headaches, Starting on 09/30/24 at 2057, Maximum acetaminophen dose from all sources = 75 mg/kg/day not to exceed 4 grams/day. 2209 ($Given - Provider: Hakeem Suggs RN) hydrOXYzine HCl (ATARAX) tablet 25 mg 25 mg, Oral, EVERY 6 HOURS PRN, anxiety, Starting on 09/30/24 at 2056 nicotine (COMMIT) lozenge 4 mg(Linked Group 1) 4 mg, Buccal, EVERY 1 HOUR PRN, nicotine withdrawal symptoms, Starting on 09/30/24 at 2055, Allow lozenge to dissolve completely. Do Not Bite, Chew, or Swallow. nicotine polacrilex (NICORETTE) gum 4 mg(Linked Group 1) 4 mg, Buccal, EVERY 1 HOUR PRN, nicotine withdrawal symptoms, Starting on 09/30/24 at 2055, Gum should be chewed slowly until it tingles, then placed between cheek and gum: when tingle gone, repeat process until tingle gone (about 30 minutes). OLANZapine zydis (zyPREXA) ODT tab 5 mg 5 mg, Oral, EVERY 6 HOURS PRN, agitation, Starting on 09/30/24 at 2056, Combined IM and PO doses may significantly increase the risk of orthostatic hypotension at 30 mg per day or higher. With dry hands, peel back foil backing and gently remove tablet. Do not push oral disintegrating tablet through foil backing. Administer immediately on tongue and oral disintegrating tablet dissolves in seconds, then swallow with saliva. Liquid not required. traZODone (DESYREL) tablet 50 mg 50 mg, Oral, AT BEDTIME PRN, sleep, Starting on 09/30/24 at 2056 2209 ($Given - Provider: Hakeem Suggs RN) Linked Groups Order Group 1: nicotine polacrilex (NICORETTE) gum 4 mgJump to med 4 mg, Buccal, EVERY 1 HOUR PRN, nicotine withdrawal symptoms, Starting on 09/30/24 at 2055, Gum should be chewed slowly until it tingles, then placed between cheek and gum: when tingle gone, repeat process until tingle gone (about 30 minutes). Or nicotine (COMMIT) lozenge 4 mgJump to med 4 mg, Buccal, EVERY 1 HOUR PRN, nicotine withdrawal symptoms, Starting on 09/30/24 at 2055, Allow lozenge to dissolve completely. Do Not Bite, Chew, or Swallow. documented in this encounter Additional Health Concerns Assessment Noted Time PHQ-9 Depression Total Score: 025 10:01 AM CDT documented as of this encounter Care Teams Carpenter Mold Relationship Specialty Start Date End Date Lorraine Castaneda MD [address] [address] PCP - General Family Practice 07/25/19 Lorraine Castaneda MD [address] [address] Assigned PCP 06/18/19 Shell Menjivar MD [address] [place], [place] [address] Dermatology 08/31/19 Bo Jiang MD [address] [facility] [address] [place] [address] Physician Plastic Surgery 10/09/21 Jozef Sanchez [facility] [address] [place] [address] Drag Out Worker Plastic Surgery 10/09/21 Alicia Montero [facility] [employer] [facility] Officer 10/09/21 Leonides Hernandez [facility] [address] [facility] Pharmacist 05/18/23 Babar Ferrari PA-C [address] [place] [address] Physician Sql Server Developer Gastroenterology 06/01/23 Priscilla Stoddard [address] [place], [place] [address] Assigned Behavioral Health Provider 08/31/23 Yaw Mckinney MD [address] [place] [address] [id number] Physician Rheumatology 12/22/23 Edmund Patel MD [address] [place], [place] [phone] Allergy & Immunology 12/27/23 Edmund Patel MD [address] [place] [address] [id number] Assigned Allergy Provider 01/31/24 Yaw Mckinney MD [address] [place] [address] [id number] Assigned Rheumatology Provider 03/01/24 Jenny Terrazas CNM [address] [place], [place] [address] Assigned OBGYN Provider 03/01/24 Petty Hassan DO [address] [place], [place] [address] Resident Neurology 05/01/24 Gil Danielson LSW Specialty Command Center Officer 09/19/24 documented as of this encounter
--- OUTSIDE RECORDS SUMMARY | 2024-10-25 12:34 | XMS_ITS | Clinical Summary ---
Author Organization [facility] Address [address] [place] [id number] Care Team Providers Care Sales Representative Printing Paper Name Role Phone Keisha Astudillo Unavailable Unava ilable Pcp, No Primary Care Provider Unavailabl e Allergies Active Allergy Reactions Criticality Noted Date Comments Amoxicillin-Pot Clavulanate Diarrhea 07/10/2005 Blood-Group Specific Substance Other - Describe In Comment Field 07/07/2012 Pt has an anti-M. Blood product orders may be delayed. Draw two red top and two purple top tubes for all Type and Screen/Type and Crossmatch. This antibody does not cause HDN. Titers are not needed. Codeine Shortness Of Breath 07/10/2005 Medications No known medications Active Problems Patient Care Coordination No te Formatting of this note migh t be different from the original. Discussed pap smear recommendations and recommended paps every 3 years - next pap due 2014. 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 Allergic rhinitis, cause unspecified 01/06/2006 Resolved Problems Problem Noted Date Diagnosed Date Resolved Date GBS (group B Streptococcus c arrier), +RV culture, currently 02/02/2017 10/29/2021 Normal labor 02/02/2017 10/29/2021 Vacuum extractor delivery, delivered 02/02/2017 10/29/2021 care, subsequent 07/01/2016 10/29/2021 Overview (01/15/2017): Planned A Rh+ Hx of forceps delivery SAB on 12/23/15 +Antibody screen (anti-M), not clinically significant [ ] early Type/ Screen if necessary GCT: nl HGB: 11.8 GBS: pos TDAP: given US: NL care, subsequent 12/10/2015 07/30/2016 Overview (12/10/2015): Planned Hx of forceps delivery Hx of +GBS GCT: HGB: GBS: TDAP: US: Post term , deliver ed with or without mention of antepartum condition 02/23/2013 04/05/2013 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 1 06/05/2012 Supervision of normal first 07/06/2012 04/05/2013 Overview (01/10/2013): Pt with anti-M antibody (low titer)--this is NOT implicated in hemolytic disease of the Pt met with Holli and is cleared for Water Immunizations Immunization Administration Dates Next Due DTP 09/11/1989, 6,09/06/1984,09/1984,04/11/1984 HIB PRP-T (ActHIB,Hiberix) 02/15/1986 Hepatitis B (Adult) 12/26/2002,08/08/2002,2002 Influenza, IIV3 (Age >=3 years) 01/31/2013 Influenza,CCIIV4 PRESERV FREE 03/17/2017 Influenza,LAIV4 Live Intrana fabian (Flumist) 02/07/2020 MMR 11/10/1995,05/15/1985 Meningococcal Vaccine 12/26/2002 Oral Polio Vaccine 09/15/1989, 6,06/14/1984,07/1983 Td (Age >=7 Years) 11/10/1995 Tdap 11/23/2016,11/22/2012,12/03/2008 11/23/2026 Family History Medical History Relation Name Comments Good Health Brother Oswaldo Good Health Daughter Ailyn 13' Diabetes type II Father Heart Disease Father triple heart b ypass 2007 Stroke Father Heart Disease Maternal Grandfather No Known Problems Maternal Grandmother Good Health Mother Unknown Paternal Grandfather Lung cancer Paternal Grandmother Good Health Son Baudilio 17' Cancer-breast No Family History Cancer-colon No Family History Cancer-ovarian No Family History Relation Name Status Comments Brother Oswaldo Alive Daughter Ailyn 13' Alive Father Maternal Grandfather (Age 75) he art attack Maternal Grandmother (Age 70) ol d age Mother Alive Paternal Grandfather (Age 62) he art attack Paternal Grandmother (Age 58) co suresh cancer Son Baudilio 17' Alive Social History Tobacco Use Types Packs/Day Years Used Date Smoking Tobacco: Never Cigarettes Qu it: 10/07/2011 Passive Smoke Exposure: Never Smokeless Tobacco: Never Tobacco Cessation:Counseling Given: Not Answered Comments:non-smoker Alcohol Use Standard Drinks/Week Comments Yes 0 (1 standard drink = 0.6 oz pur e alcohol) occ PHQ-2 Answer Date Recorded PHQ-2 TOTAL SCORE 0 03/19/2023 Social Connections Answer Date Recorded Do you often feel lonely or isolated from those around you? 0 03/22/2024 Financial Resource Strain Answer Date R ecorded Difficulty of Paying Living Expenses 3 03/22/2024 Difficulty of Paying Living Expenses Not on file 03/22/2024 Food Insecurity Answer Date Recorded Do you worry your food will run out before you are able to buy more? 1 03/22/2024 Transportation Needs Answer Date Record ed Does lack of transportation keep you from medica l appointments? 1 03/22/2024 Does lack of transportation keep you from work, meetings or getting things that you need? 1 03/22/2024 Housing Stability Answer Date Recorded What is your housing situation today? 1 03/22/2024 Utilities Answer Date Recorded Do you have trouble paying f or utilities (for example, heat, electricity, water, phone)? 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 Last Filed Vital Signs Vital Sign Reading Time Taken Comments Blood Pressure 108/63 03/22/2024 6:49 PM LETTUCE CUTTER Pulse 70 03/22/2024 6:49 PM LETTUCE CUTTER Temperature 37.1 C (98.8 F) 03/22/2024 6:49 PM LETTUCE CUTTER Respiratory Rate 14 03/22/2024 6:49 PM LETTUCE CUTTER Oxygen Saturation 99% 03/22/2024 6:4 9 PM LETTUCE CUTTER Inhaled Oxygen Concentration - - Weight 68.1 kg (150 lb 3.2 oz) 03/22/20 6:49 PM LETTUCE CUTTER with shoes Height 167 cm (5' 5.75) 03/19/2023 10: 14 AM LETTUCE CUTTER Body Mass Index 24.43 03/19/2023 10:14 AM LETTUCE CUTTER Plan of Treatment Health Maintenance Due Date Last Done Comments COVID-19 vaccine series ( season) 2024 09/23/2020 BMI (ht and wt on same day) for age 18+ 03/19/2024 03/19/2023, 02/25/2022, 02/28/2020, Additional history exists Depression screening for age 12+ 03/19/2024 03/19/2023, 02/28/2020, 03/17/2017 Influenza Vaccine (Season Ended) 2025 02/07/2020, 03/17/2017, 01/31/2013 Pap test for age 21-65 02/27/2025 , 02/28/2020, 03/12/2015, Additional history exists Tetanus booster 11/23/2026 11/23/2016, 11/07, 12/03/2008, Additional history exists Hepatitis B series for 19+ Completed 12/26, 08/08/2002, 06/30/2002 HIV for age 15-65 Completed 07/01/2016, , 07/06/2012, Additional history exists Hepatitis C screening for age 18-79 Completed 07/01/2016, 06/19/2011, 04/17/2009, Additional history exists Tdap Completed 11/23/2016, 11/07, 12/03/2008 Pneumococcal series for age 6-49 Aged Out No longer eligible based on patient's age to complete this topic Procedures Procedure Name Priority Date/Time Associated Diagnosis Comments SENIOR OUTSIDE SALES REPRESENTATIVE THIN PREP PAP SCREEN IMAGED Routine 02/28/2020 11:06 AM CDT Cervical cancer screening ANTI HIV 1/2 Routine 07/01/2016 11:50 AM LETTUCE CUTTER care, subsequent , unspecified trimester (HC) ANTI HCV Routine 07/01/2016 11:50 AM LETTUCE CUTTER care, subsequent , unspecified trimester (HC) from Last 3 Months or Most Recently Relevant to Health Maintenance Results * SENIOR OUTSIDE SALES REPRESENTATIVE THIN PREP PAP SCREEN IMAGED (02/28/2020 11:06 AM CDT) Case Report Gynecologic Cytology Report Case: [id number] Authorizing Provider: Soumya Foster, Collected: 02/28/2020 1106 MD [facility]: 02/28/2020 1133 Clinic First Screen: Phyllis Calderón Pathologist: Neil Hensley MD Specimen: SENIOR OUTSIDE SALES REPRESENTATIVE ThinPrep Vial Screening, Cervical 03/06/2020 11:53 AM CDT [facility] INTERPRETATION/ RESULT NEGATIVE FOR INTRAEPITHELIAL LESION OR MALIGNANCY (NIL) (none) 03/06/2020 11:53 AM CDT [facility] at 1153 CDT OTHER NON-NEOPLASTIC FINDING(S) Reactive cellular changes associated with inflammation/repa ir 03/06/2020 11:53 AM CDT [facility] SPECIMEN ADEQUACY Satisfactory for evaluation Endocervical component present 03/06/2020 11:53 AM CDT [facility] HPV REQUEST HPV and PAP 03/06/2020 11:53 AM CDT [facility] Date of LMP 02/21/2020 03/06/2020 11:53 AM CDT [facility] Last Pap Date 03/12/15 03/06/2020 11:53 AM CDT [facility] Last Pap Result NIL 0 11:53 AM CDT [facility] Abnormal Pap or [place] Bx in last 5 years No 03/06/2020 11:53 AM CDT [facility] Menstrual Status Regular Periods 03/06/2020 11:53 AM CDT [facility] [place] Bx Done Today No 03/06/2020 11:53 AM CDT [facility] Additional Information None given 03/06/2020 11:53 AM CDT [facility] Comment: Cytology is screened at [facility] - [address], [place] [address] and [facility] - [address] [place] [address] and [facility] - [address] [place] [address] Interpreted at [facility] - [address], [place] [address] Automated Review Successful 03/06/2020 11:53 AM CDT [facility] Comment:Specimen processed s uccessfully by automated assembler deck and hull device, ThinPrep Imaging System, [employer] ANCILLARY TESTING SENIOR OUTSIDE SALES REPRESENTATIVE HPV Ordered, Please see separate report 03/06/2020 11:53 AM CDT [facility] Note The pap test is a screening technique, not a diagnostic procedure. It is used primarily to screen for squamous cancers and precursor lesions. Published studies have shown that it is subject to both false negative and false positive results. The pap test should not be used as the sole means to diagnose or exclude pre-malignant and malignant lesions. 03/06/2020 11:53 AM CDT [facility] Other (Cervical) Non-Blood / Unknown 02/28/2020 11:06 AM CDT 02/28/2020 11:33 AM CDT us Soumya Foster MD PATHOLOGY/CYTOLOGY Fi nal Result [facility] [address] [place] [address], * ANTI HCV (07/01/2016 11:50 AM LETTUCE CUTTER) HEPATITIS C ANTIBODY Non-Reacti ve Non-Reacti ve 07/01/2016 8:16 PM LETTUCE CUTTER [facility] Blood BLOOD SPECIMEN / Unknown Venipuncture / Unknown 07/01/2016 11:50 AM LETTUCE CUTTER 07/01/2016 11:54 AM LETTUCE CUTTER Narrative [facility] - 07/01/2016 8:16 PM LETTUCE CUTTER Antibodies to HCV not detected; does not exclude the possibility of exposure to HCV. Jerrica Ochoa MD SEND OUTS Final Res ult [facility] [address] [place] [address], * ANTI HIV 1/2 (07/01/2016 11:50 AM LETTUCE CUTTER) HIV-1/HIV-2 ANTIBODY Non-Reacti ve Non-Reacti ve 07/01/2016 8:16 PM LETTUCE CUTTER [facility] Blood BLOOD SPECIMEN / Unknown Venipuncture / Unknown 07/01/2016 11:50 AM LETTUCE CUTTER 07/01/2016 11:54 AM LETTUCE CUTTER Narrative [facility] - 07/01/2016 8:16 PM LETTUCE CUTTER HIV-1 p24 and HIV-1/HIV-2 Ab not detected Jerrica Ochoa MD SEND OUTS Final Res ult [facility] [address] [place] [address], from Last 3 Months or Most Recently Relevant to Health Maintenance Insurance [employer] Advance Directives * Full Code (Latest Code Status on File) Date Activated Date Inactivated Comments 02/02/2017 7:43 PM 02/03/2017 10:50 PM * Full Code Date Activated Date Inactivated Comments 02/02/2017 12:02 PM 02/02/2017 7:43 PM * Full Code Date Activated Date Inactivated Comments 02/02/2017 11:28 AM 02/02/2017 12:02 PM * Full Code Date Activated Date Inactivated Comments 02/23/2013 12:16 PM 02/25/2013 1:26 PM * Full Code Date Activated Date Inactivated Comments 02/23/2013 3:57 AM 02/23/2013 12:16 PM Care Teams Sales Representative Printing Paper Relationship Specialty Start Date End Date Pcp, Kathrin . PCP - General 02/28/20 Keisha Astudillo PA Dermatology Physician Section Repairer 05/17/17
--- OUTSIDE RECORDS SUMMARY | 2024-10-25 12:34 | XMS_ITS | Clinical Summary ---
Author Organization [facility] Address [address] [place] [address] Care Team Providers Care Tow Truck Dispatcher Name Role Phone Unassigned, Provider Primary Care Provider Unava ilable Source Comments You are receiving this document as you are listed as the primary care provider,follow-up provider, or the patient has been referred to you for consultation.This is in compliance with the Medicare and[facility] EHR Incentive Program,which states Providers who transition their patient to another setting of careor provider of care or refers their patient to another provider of care shouldprovide summary care record for each transition of care or referral. [employer] Allergies No known active allergies Medications multivitamin with minerals tablet Take 1 Tablet by mouth daily. Active probiotic (AKA SUPER PROBIOTIC) Take 2 Capsules by mouth daily. Active Active Problems No known active problems Immunizations Immunization Administration Dates Next Due DTP 09/11/1989, 6,09/06/1984,06/14,04/11/1984 Flu Vac (3+ yrs) 01/31/2013 HepB Adult (Engerix-B, 20+ y rs, 3 dose series) 12/26/2002,08/08/2002,06/30/2002 Hib (ActHIB) 02/15/1986 Influenza (Flucelvax), Prese rv Free QIV 03/17/2017 Influenza LAIV (Nasal, 2-49 yrs) 02/07/2020 Katiana COVID-19 Vaccine 09/23/2020 MMR 11/10/1995,05/15/1985 Meningococcal MCV4, Unspecif ied Formulation 12/26/2002 OPV, Trivalent (Orimune or tOPV) 990,08/17/1985,06/14/1984,04/11 Td 11/10/1995 Tdap 11/23/2016,11/22/2012,12/03/2008 Family History Medical History Relation Name Comments Diabetes, Type II Father Stroke Father Relation Name Status Comments Father (Age 69) Mother Alive Brother Alive Daughter Ailyn Alive Son Baudilio Alive Social History Tobacco Use Types Packs/Day Years Used Date Smoking Tobacco: Never Smokeless Tobacco: Never Tobacco Cessation:Counseling Given: Not Answered Alcohol Use Standard Drinks/Week Comments Yes 7 (1 standard drink = 0.6 oz pur e alcohol) 0-8 drinks per week Hunger Vital Sign Answer Date Recorded Within the past 12 months, y ou worried that your food would run out before you got the money to buy more. Never true 05/17/19 25 Within the past 12 months, t he food you bought just didn't last and you didn't have money to get more. Never true 05/17/2024 PRAPARE - Transportation Answer Date Re corded In the past 12 months, has l ack of transportation kept you from medical appointments or from getting medications? No 12/2024 In the past 12 months, has l ack of transportation kept you from meetings, work, or from getting things needed for daily living? No 05/17/2024 Housing Stability Vital Sign Answer Clarence e Recorded In the last 12 months, was t here a time when you were not able to pay the mortgage or rent on time? No 05/17/2024 In the past 12 months, how m any times have you moved where you were living? 1 05/17/2024 At any time in the past 12 m [facility], were you homeless or living in a usp (including now)? No 05/17/2024 Comments No Sex and Gender Information Value Date Recorded Sex Assigned at Not on file Legal Sex Female 4:45 PM CDT Gender Identity Not on file Sexual Orientation Not on file Last Filed Vital Signs Vital Sign Reading Time Taken Comments Blood Pressure 89/49 05/17/2024 8:48 AM [employer] Pulse 55 05/17/2024 8:48 AM [employer] Temperature 37.2 C (98.9 F) 03/29/2023 8:14 AM [employer] Respiratory Rate 14 03/29/2023 8:14 AM [employer] Oxygen Saturation 100% 03/29/2023 8:14 AM [employer] Inhaled Oxygen Concentration - - Weight 68 kg (150 lb) 05/17/2024 8:45 AM [employer] Height 166.4 cm (5' 5.5) 05/17/2024 8:45 AM [employer] Body Mass Index 24.58 05/17/2024 8:45 AM [employer] Plan of Treatment Health Maintenance Due Date Last Done Comments Mammogram 02/13/1984 COVID-19 Vaccine ( season) 2024 09/23/2020 Influenza Vaccine (Season Ended) 2025 02/07/2020, 03/17/2017, 01/31/2013 Cervical Cancer Screening 02/27/2025 02/28/2020 (Com pleted) Adult Preventive Visit 05/17/2026 05/17/2024 DTaP/Tdap/Td Vaccine (9 - Tdap) 11/23/2026 11/23/2016, 11/22/2012, 12/03/2008, Additional history exists Zoster/Shingles Vaccine (1 of 2) 02/11/2034 Hib Vaccine Completed 02/15/1986 IPV (Polio) Vaccine Completed 09/15/1989, 08/17/1985, 06/14/1984, Additional history exists HepB Vaccine Completed 12/26/2002, 05/2002, 06/30/2002 MCV4 Vaccine Completed 12/26/2002 HIV Screening (Preventive Services) Completed 05/17/2024, 07/01/2016, 12/10/2015, Additional history exists Hep C Screening (Preventive Services) Completed 05/17/2024 HPV Vaccine Aged Out No longer eligi ble based on patient's age to complete this topic HepA Vaccine Aged Out No longer eligi ble based on patient's age to complete this topic Meningococcal B Vaccine Aged Out No l onger eligible based on patient's age to complete this topic Pneumococcal Vaccine Aged Out No long er eligible based on patient's age to complete this topic Procedures Procedure Name Priority Date/Time Associated Diagnosis Comments HIV 1/2 AG/AB 4TH GEN Routine 05/17/2024 8:21 AM [employer] Preventative health care HEPATITIS C ANTIBODY, WITH REFLEX (ANTI-HCV) Routine 05/17/2024 8:21 AM [employer] Preventative health care from Last 3 Months or Most Recently Relevant to Health Maintenance Results * HIV 1/2 Ag/Ab 4th Generation (05/17/2024 8:21 AM [employer]) HIV 1/2 Antigen/Antib anselmo (4th generation) Negative (Non Reactive) Negative (Non Reactive) 05/17/2024 12:01 PM [employer] [facility] Comment:HIV-1 p24 Antigen an d HIV-1/HIV-2 Antibody not detected Blood Venipuncture / Unknown 05/17/2024 8:21 AM [employer] 05/17/2024 8:21 AM [employer] us Saskia Morales MD LAB_1 Final Resu lt Performing Organization Address [facility] de Phone Number [facility] [address] * Hepatitis C Antibody, with Reflex (05/17/2024 8:21 AM [employer]) Hepatitis C Antibody Negative (Non Reactive) Negative (Non Reactive) 05/17/2024 12:01 PM [employer] [facility] Comment:Antibodies to HCV no t detected. Does not exclude the possiblity of exposure to HCV. Blood Venipuncture / Unknown 05/17/2024 8:21 AM [employer] 05/17/2024 8:21 AM [employer] Saskia Morales MD LAB_1 Final Resu lt Performing Organization Address [facility] Co de Phone Number [facility] [address] from Last 3 Months or Most Recently Relevant to Health Maintenance Insurance [employer] [id number] [facility] [id number] Care Teams Tow Truck Dispatcher Relationship Specialty Start Date End Date Unassigned, Provider [address] [place] [id number] PCP - General 02/11/00
[2024-10-25 12:45] VITALS: BP 140/93; PULSE 96; RESP 18; TEMP 37.4; O2SAT 98; BMI 27.5
--- NOTE | 2024-10-25 14:11 | ED_ITS ---
HPI - General Adult General Time Seen by Provider: 14:11 Date Seen: 10/25/24 Chief complaint: Unspecified Complaint, Adult Stated complaint: dehydrated and feel weak Time Seen by Provider: 10/25/24 13:47 Source: patient Mode of arrival: ambulatory Limitations: no limitations History of Present Illness HPI narrative: Zoe is a 38-year-old female who presents emerged department with depression via private car and by herself with dehydration. Patient states that she has been living in a tent in her car over the last few months, she has had trouble finding housing, she states that she was camping yesterday but has had difficulty with her joint pain due to a history of some autoimmune inflammatory arthritis. Patient's only medication she is taking is Sertraline, patient has not seen a medical provider for her inflammatory arthritis for some time. Patient feels her depression has been worsened, she denies any suicidal or homicidal ideation, she denies any drug or alcohol use. Patient has not been eating or drinking. She has been living in her car with her cat. Patient's pain is mostly in her joints, including her wrists, elbows and knees. She den ies any recent falls or injury. Patient denies any recent tick bites. Patient has not had any fevers or chills, she denies any cough, chest pain or shortness of breath. Patient was seen in [place] last month for similar symptoms in the emergency department. Patient denies any chest pain or abdominal pain, she has had normal bowel movements, she states that her urine has been more dark, sh e denies any burning, normal menstrual cycles, she denies being . Related Data Home Medications ?Medication ?Instructions ?Recorded ?Confirmed sertraline 100 mg tablet (Zoloft) 100 mg PO DAILY 10/0810/25/24 Previous Rx's ?Medication ?Instructions ?Recorded ketorolac 10 mg tablet 10 mg PO Q6H PRN pain 5 days #20 10/25/24 tabs prednisone 20 mg tablet 20 mg PO DAILY #5 tabs 10/25 sulfamethoxazole 800 1 tab PO BID 5 days #10 tabs 10/25/24 mg-trimethoprim 160 mg tablet (Bactrim DS) Allergies Allergy/AdvReac Type Severity Reaction Status Date / Time Penicillins Allergy Unknown Unverified 10/25/24 12:51 fentanyl AdvReac Severe Unverified 10/25/24 12:51 codiene Allergy Mild Uncoded 05/16/23 09:13 Review of Systems Status of ROS: Reports: 10 or more systems reviewed and unremarkable except as noted in History and below [facility] Medical History (Updated 10/25/24 @ 17:56 by Michael Vanegas MD) Pityriasis rosea ?L42 - Pityriasis rosea (ICD-10) Social History Smoking Status: Current every day smoker How often do you have a drink containing alcohol: never AUDIT-C Alcohol total score: 0 Non-prescribed substance use: marijuana (any form) service: No Exam Narrative: Exam Narrative: General: laying on her side, comfortrably, no obvious distress HEENT: Pupils equal round reactive to light, extraocular muscles intact, tympa alexander membranes within normal limits bilaterally, oropharynx is clear and moist, uvula midline Neck: No meningeal signs, full range of motion, supple Lungs: Clear to auscultation bilaterally Heart: Normal sinus rhythm S1-S2 Abdomen: Soft, nontender, bowel sounds present Muscle skeletal: Moving upper lower extremities with no difficulty, no appreciable swelling of joints Neuro: Alert awake and oriented x3 Psych: Mood and affect normal Const: Vital Signs, click to edit/add: Vital Signs - 24 hr 10/25/24 12:45 Temperature 99.3 F Pulse Rate [Right Pulse Oximeter] 96 Respiratory Rate 18 Blood Pressure [Ri ght Upper Arm] 140/93 H Pulse Oximetry 98 Oxygen Delivery Me thod Room Air Course Course ED Course: ED course: 2:00 PM: aidet performed. Vitals are normal at this time, workup will include social work consult, will obtain CBC, CRP, ESR, TSH, CMP, urinalysis, take and Lyme panel, serum hCG , IV peripheral, 0.9 normal saline bolus, 15 mg IV Toradol for her joint pain. Differential diagnosis include electrolyte imbalance, anemia, UTI, medication reactions, depression, anxiety, as well as other etiologies. After further review mckeon patient did see rheumatology in the past, she did have a workup for autoimmune and inflammatory arthritis which were reassuring, she also had imaging which was ressuring, plan to treat symptomatically, will wait for lab results see further imaging will be obtained. Patient was in agreement, ED disposition pending clinical course. Reevaluation(s) Time of Reevaluation #1: 18:02 Reevaluation #1: CBC showed no real leukocytosis, CRP and sedimentation rate were within normal limits, serum test negative, comprehensive metabolic panel showed normal electrolytes, renal function, AST 39, otherwise LFTs within normal limits, TSH within normal limits, Lyme and tick panel pending, UA showed trace leukocyte esterase, few bacteria, patient has had UTIs in the past, based on her allergies to penicillins and cephalosporins will treat with Bactrim DS twice daily the next 5 days until urine culture returns, she will also be given Toradol 10 mg every 6 hours for her arthritis along with 20 mg prednisone over the next 5 days. Post ED follow to be arranged will be made when she calls clinic. Reasons to return given. Vital Signs Vital signs: Initial Vital Signs Temperature 99.3 F 10/25/24 12:45 Temperature Source Temporal Artery Scan 10/25/24 12:45 Pulse Rate 96 10/25/24 12:45 Pulse Rhythm Regular 10/25/24 12:45 Pulse Strength 3+ Normal 10/25/24 12:45 Respiratory Rate 18 10/25/24 12:45 Blood Pressure 140/93 H 10/25/24 12:45 Blood Pressure Mean 108 H 10/25/24 12:45 Blood Pressure Position Sitting 10/25/24 12:45 Pulse Oximetry 98 10/25/24 12:45 Oxygen Delivery Method Room Air 10/25/24 12:45 Vital Signs Temperature 99.3 F 10/25/24 12:45 Pulse Rate 96 10/25/24 12:45 Respiratory Rate 18 10/25/24 12:45 Blood Pressure 140/93 H 10/25/24 12:45 Pulse Oximetry 98 10/25/24 12:45 Oxygen Delivery Method Room Air 10/25/24 12:45 Temperature 99.3 F 10/25/24 12:45 Pulse Rate 96 10/25/24 12:45 Respiratory Rate 18 10/25/24 12:45 Blood Pressure 140/93 H 10/25/24 12:45 Pulse Oximetry 98 10/25/24 12:45 Oxygen Delivery Method Room Air 10/25/24 12:45 Medications Administered Medications: Discontinued Medications Generic Name Dose Route Start Last Admin Trade Name Freq PRN Reason Stop Dose Admin Sodium Chloride 1,000 mls @ 1,000 mls/hr 10/25/24 14:10 10/25/24 15:57 0.9 % Sodium Chloride 1000 Ml IV 10/25/24 15:09 Infused .Q1H TREY Infusion Medical Decision Making Lab Data Labs: Lab Results 10/25/24 10/25/24 Range/Units 13:49 14:30 WBC 11.05 H (4.50-11.00) K/uL RBC 5.33 (4.30-5.90) m/uL Hgb 16.1 (13.5-17.5) gm/dL Hct 46.5 (33.0-51.0) % MCV 87 (80-100) fL MCH 30 (26-34) pg MCHC 35 (32-36) gm/dL RDW Coeff of Tiburcio 12.9 (11.5-15.5) % Plt Count 293 (140-440) K/uL Neut % (Auto) 77.7 H (42.0-72.0) % Lymph % (Auto) 14.3 L (20-44) % Eddy % (Auto) 7.1 (0.0-11.0) % Eos % (Auto) 0.3 (0.0-7.0) % Baso % (Auto) 0.5 (0.0-3.0) % Neut # (Auto) 8.60 H (1.7-7.0) K/uL Lymph # (Auto) 1.60 (0.90-2.90) K/uL Eddy # (Auto) 0.80 (0.00-0.90) K/UL Eos # (Auto) 0.00 (0.00-0.50) K/uL Baso # (Auto) 0.10 (0.00-0.30) K/uL Abs Immat Gran (auto) 0.00 (0.00-0.30) K/uL Imm/Tot Granulo (auto) 0.1 % ESR 7 (2-20) mm/hr Sodium 138 (135-149) mmol/L Potassium 3.8 (3.6-5.1) mmol/L Chloride 104 (96-114) mmol/L Carbon Dioxide 24 (20-32) mmol/L Anion Gap 10 (7-15) mEq/L BUN 12 (5-24) mg/dL Creatinine 0.9 (0.5-1.5) mg/dL Estimated Creat Clear 77.76 Estimated GFR Not Reportable Glucose 84 (60-115) mg/dL Calcium 9.3 (8.4-10.6) mg/dL Total Bilirubin 0.9 (0.1-1.5) mg/dL AST 39 H (12-35) U/L ALT 27 (4-50) U/L Alkaline Phosphatase 106 (40-150) U/L C-Reactive Protein 0.7 (0.5-1.0) mg/dL Total Protein 8.0 (6.0-8.3) g/dL Albumin 4.7 (3.3-5.0) g/dL TSH 2.050 (0.270-4.20) uIU/mL HCG, Quant < 2.39 mIU/mL Urine Color Yellow (Yellow) Urine Appearance Clear (Clear) Urine pH 7.0 (5.0-8.5) Ur Specific [place] <= 1.005 (1.000-1.030) Urine Protein Negative (Negative) Urine Glucose (UA) Negative (Negative) Urine Ketones 2+ A (Negative) Urine Blood Trace-intact A (Negative) Urine Nitrite Negative (Negative) Urine Bilirubin Negative (Negative) Urine Urobilinogen 0.2 (0.2-1.0) Ur Leukocyte Esterase 2+ A (Negative) Urine RBC 0-2 (0-2) Urine WBC 2-5 (0-5) Ur Squamous Epith Cells Few (None-Few) Urine Bacteria Few A (None) Discharge Plan Discharge Clinical Impression: Arthritis Patient Disposition: Home, Self-Care Additional Instructions: Due to her allergies to penicillin and cephalosporins, take Bactrim DS twice daily over the next 5 days for possible UTI. Prednisone 20 mg once daily over the next 5 days, Toradol 10 mg every 6 hours as needed for pain, can add Tylenol 1000 mg every 6 hours in addition, call Clinic number and set up an appointment here in [place]. Activity Level: No Restrictions Prescriptions: New prednisone 20 mg tablet 20 mg PO DAILY Qty: 5 0RF ketorolac 10 mg tablet 10 mg PO Q6H PRN (Reason: pain) 5 Days Qty: 20 0RF Rx Instructions: maximum total duration of 5 days from all oral, intranasal, or parenteral formulations sulfamethoxazole-trimethoprim [Bactrim DS] 800-160 mg tablet 1 tab PO BID 5 Days Qty: 10 0RF No Action sertraline [Zoloft] 100 mg tablet 100 mg PO DAILY Follow Up/Referrals: Provider,Not a Local [Primary Care Provider, Family Practice] Stand Alone Forms: [employer] Info Instructions
[2024-10-25 14:32] LABS: Appearance Urine Clear (Clear); Bilirubin Urine Negative (Negative); Blood Urine Trace-intact (Negative); Color Urine Yellow (Yellow); Glucose Urine Negative (Negative); Ketones Urine 2+ (Negative); Leukocyte Esterase Urine 2+ (Negative); Nitrite Urine Negative (Negative); Protein Urine Negative (Negative); Specific Gravity Urine <= 1.005 (1.000-1.030); Urobilinogen Urine 0.2 (0.2-1.0)
[2024-10-25] MEDS: 0.9 % SODIUM CHLORIDE 1000 ml 1,000 ML IV (14:39)
[2024-10-25 14:48] LABS: Bacteria Urine Few; RBC Urine 0-2 (0-2); Squamous Epithelial Cell Urine Few (None-Few)
[2024-10-25 14:56] LABS: Basophils Percent Auto 0.5 % (0.0-3.0); Eosinophils Percent Auto 0.3 % (0.0-7.0); Hematocrit 46.5 % (33.0-51.0); Hemoglobin* 16.1 gm/dL (13.5-17.5); Immature Granulocytes Pct Auto 0.1 %; Lymphocytes Percent Auto 14.3 % (20-44); Mean Corpuscular HGB Conc 35 gm/dL (32-36); Mean Corpuscular Hemoglobin 30 pg (26-34); Mean Corpuscular Volume 87 fL (80-100); Monocytes Percent Auto 7.1 % (0.0-11.0); Neutrophils Percent Auto 77.7 % (42.0-72.0); Platelet Count* 293 K/uL (140-440); RDW Coefficient of Variation % 12.9 % (11.5-15.5); Red Blood Count 5.33 m/uL (4.30-5.90); White Blood Count* 11.05 K/uL (4.50-11.00)
[2024-10-25 14:57] LABS: Slide Review Reflex No
[2024-10-25 15:12] LABS: Albumin* 4.7 g/dL (3.3-5.0); Chloride* 104 mmol/L (96-114); Potassium* 3.8 mmol/L (3.6-5.1); Sodium* 138 mmol/L (135-149)
[2024-10-25 15:15] LABS: Alanine Aminotransferase* 27 U/L (4-50); Alkaline Phosphatase* 106 U/L (40-150); Anion Gap 10 mEq/L (7-15); Aspartate Amino Transferase* 39 U/L (12-35); Bilirubin Total* 0.9 mg/dL (0.1-1.5); Blood Urea Nitrogen* 12 mg/dL (5-24); Carbon Dioxide* 24 mmol/L (20-32); Creatinine* 0.9 mg/dL (0.5-1.5); Est. Creatinine Clearance* 77.76
[2024-10-25 15:16] LABS: Calcium* 9.3 mg/dL (8.4-10.6); Glucose* 84 mg/dL (60-115)
[2024-10-25 15:18] LABS: C Reactive Protein* 0.7 mg/dL (0.5-1.0)
--- OUTSIDE RECORDS SUMMARY | 2024-10-25 15:28 | XMS_ITS | Encounter Summary ---
Author Organization [facility] Address [address] [place] [address] Care Team Providers Care Electric Power Line Examiner Name Role Phone Lorraine Castaneda MD Unavailable [phone] Lorraine Castaneda MD Primary Care Provider Shell Menjivar MD Unavailable [phone] Chinedu Fleming MD Unavailable [phone] Mere Andres PsyD Unavailable Unavailab Bo Reid MD Unavailable [phone] Jozef Sanchez [facility] Unavailable [phone] Alicia Montero Unavailable Unavailable Bo Jiang MD Unavailable [phone] Leonides Hernandez [facility] Unavailable [phone] Babar Ferrari PA-C Unavailable [phone] Priscilla Stoddard Unavailable Yaw Mckinney MD Unavailable [phone] Edmund Patel MD Unavailable [phone] Edmund Patel MD Unavailable [phone] Yaw Mckinney MD Unavailable [phone] Jenny Terrazas Unavailable + [phone] Petty Hassan DO Unavailable [phone] Gil DanielsonW Unavailable Unavailable Reason for Visit * Reason Comments Medication Refill Encounter Details Date Type Department Care Team (Late st Contact Info) Description 12/04/2021 Refill [facility] [address], [address] [place] [address] oLrraine Castaneda MD [address] [place] [address] Medication Refill Social History Tobacco Use Types Packs/Day Years Used Date Smoking Tobacco: Never Smokeless Tobacco: Never Alcohol Use Standard Drinks/Week Comments No 0 (1 standard drink = 0.6 oz pur e alcohol) PHQ-2 Answer Date Recorded PHQ-2 Score 2 11/19/2021 Comments No Sex and Gender Information Value Date Recorded Sex Assigned at Female 11/23/2017 12:16 PM CDT Legal Sex Female 11:38 AM CDT Gender Identity Genderqueer 04/15/2024 10:21 PM FARM LOAN REPRESENTATIVE Sexual Orientation Lesbian 04/15/2024 10 :21 PM FARM LOAN REPRESENTATIVE Sexual Orientation Something else 04/15/2024 10 :21 PM FARM LOAN REPRESENTATIVE documented as of this encounter Miscellaneous Notes * Telephone Encounter - Claudia Duvall RN - 12/08/2021 11:23 AM CDT Denied Pt on 100mg dose Pharmacy will fix in system Claudia Devi RN * Telephone Encounter - Adriana Garduno DO - 12/05/2021 5:42 PM CDT Looks like [facility] just sent a prescription for Sertraline 100mg tablets on 11/19/2021 It said take 100mg daily Not clear why this Rx for 50mg tablets? Can you reach out to pharmacy to make sure they filled the 100mg? Thanks PN * Telephone Encounter - Tiffany Alonso RN - 12/05/2021 4:52 PM CDT PN ([facility]), Routing refill request to provider for review/approval because: Drug interaction warning Please authorize if appropriate. ThanksTiffany RN Pt is scheduled for apt next month documented in this encounter Plan of Treatment Not on file documented as of this encounter Visit Diagnoses Diagnosis Anxiety Anxiety state, unspecified Moderate episode of recurrent major depressive disorder (H) Mixed obsessional thoughts and acts PTSD (post-traumatic stress disorder) Posttraumatic stress disorder documented in this encounter Additional Health Concerns Assessment Noted Time PHQ-9 Depression Total Score: 10 022 11:10 AM CDT documented as of this encounter Care Teams Electric Power Line Examiner Relationship Specialty Start Date End Date Lorraine Castaneda MD [address] [address] PCP - General Family Practice 07/25/19 Lorraine Castaneda MD [address] [address] Assigned PCP 06/18/19 Shell Menjivar MD [address] [place] [address] Dermatology 08/31/19 [place] [address] [place] [address] Assigned Rheumatology Provider 02/23/21 02/29/24 Mere Andres PsyD [address] [place] [address] Assigned Behavioral Health Provider 03/30/21 07/31/22 [place] [address] [place] [address] Physician Plastic Surgery 10/09/21 Jozef Sanchez [facility] [address] [place] [address] Coating Machine Operator Helper Plastic Surgery 10/09/21 Alicia Montero Specialty Dressmaker Or Tailor 10/09/21 [place] [address] [place] [address] Assigned Surgical Provider 11/01/21 09/29/23 Leonides Hernandez [facility] [address] [place] [address] Pharmacist 05/18/23 Babar Ferrari PA-C [address] [place] [address] Physician Agricultural Aircraft Pilot Gastroenterology 06/01/23 Priscilla Stoddard [address] [place] [address] Assigned Behavioral Health Provider 08/31/23 Yaw Mckinney MD [address] [place] [address] Physician Rheumatology 12/22/23 Edmund Patel MD [address] [place], [place] [address] Allergy & Immunology 12/27/23 Edmund Patel MD [address] [place], [place] [id number] Assigned Allergy Provider 01/31/24 Yaw Mckinney MD [address] [place] [address] Assigned Rheumatology Provider 03/01/24 Jenny Terrazas CNM [address] [place] [address] Assigned OBGYN Provider 03/01/24 Petty Hassan DO [address] [place] [address] Resident Neurology 05/01/24 Gil Danielson LSW Specialty Dressmaker Or Tailor 09/19/24 documented as of this encounter
--- OUTSIDE RECORDS SUMMARY | 2024-10-25 15:28 | XMS_ITS | Encounter Summary ---
Author Organization [facility] [facility] Address [address] [place] [address] Care Team Providers Care Digital Publishing Specialist Name Role Phone Lorraine Castaneda MD Unavailable [phone] Lorraine Castaneda MD Primary Care Provider Shell Menjivar MD Unavailable [phone] Matt Shaver MD Unavailable [phone] Shell Menjivar MD Unavailable [phone] Shell Menjivar MD Unavailable +[phone] Chinedu Fleming MD Unavailable [phone] Mree Andres Unavailable Unavailab Bo Reid MD Unavailable [phone] Jozef Sanchez [facility] Unavailable [phone] Alicia Montero Unavailable Unavailable Bo Jiang MD Unavailable [phone] Leonides Hernandez [facility] Unavailable [phone] Babar Ferrari PA-C Unavailable [phone] Priscilla Stoddard Unavailable Yaw Mckinney MD Unavailable [phone] Edmund Patel MD Unavailable [phone] Edmund Patel MD Unavailable [phone] Yaw Mckinney MD Unavailable +[phone] Jenny Terrazas [facility] Unavailable [phone] Petty Hassan DO Unavailable Gil Danielson Unavailable Unavailable Reason for Visit * Reason Onset Date Comments MyChart Communication 07/25/2019 Symptoms Encounter Details Date Type Department Care Team (Late st Contact Info) Description 07/25/2019 MyC Medical Advice [facility] [address], [address] [place] [address] Lorraine Castaneda MD [address] [place] [address] MyChart Communication (Symptoms) Social History Tobacco Use Types Packs/Day Years Used Date Smoking Tobacco: Never Smokeless Tobacco: Never Alcohol Use Standard Drinks/Week Comments No 0 (1 standard drink = 0.6 oz pur e alcohol) PHQ-2 Answer Date Recorded PHQ-2 Score 3 06/07/2019 Comments No Sex and Gender Information Value Date Recorded Sex Assigned at Female 11/23/2017 12:16 PM CDT Legal Sex Female 11:38 AM CDT Gender Identity Genderqueer 04/15/2024 10:21 PM DIRECTOR FUNDS DEVELOPMENT Sexual Orientation Lesbian 04/15/2024 10 :21 PM DIRECTOR FUNDS DEVELOPMENT Sexual Orientation Something else 04/15/2024 10 :21 PM DIRECTOR FUNDS DEVELOPMENT documented as of this encounter Miscellaneous Notes * Telephone Encounter - Claudia Duvall RN - 07/26/2019 4:37 PM CDT CW, FYI: See update from pt Claudia Magallon RN * Telephone Encounter - Dinorah Conway RN - 07/26/2019 9:19 AM CDT Mycrobertat message sent to patient. Elizabeth Conway RN * Telephone Encounter - Lorraine Castaneda MD - 07/26/2019 9:16 AM CDT Sounds like she meets criteria for oncare per those flowsheets- would direct her to call there. Thanks- CW * Telephone Encounter - Dinorah Conway RN - 07/26/2019 7:28 AM CDT CW, Please see Curiyo message below. Do you want to see patient? Do a telephone visit? Please advise. Thanks, Elizabeth Conway RN documented in this encounter Plan of Treatment Not on file documented as of this encounter Visit Diagnoses Not on filedocumented in this encounter Additional Health Concerns Assessment Noted Time PHQ-9 Depression Total Score: 13 020 2:38 PM DIRECTOR FUNDS DEVELOPMENT documented as of this encounter Care Teams Digital Publishing Specialist Relationship Specialty Start Date End Date Lorraine Castaneda MD [address] [address] PCP - General Family Practice 07/25/19 Lorraine Castaneda MD [address] [address] Assigned PCP 06/18/19 Shell Menjivar MD [address] [place] [address] 326025 Dermatology 08/31/19 Matt Shaver MD [address] [place] [address] Assigned Musculoskeletal Provider 03/01/20 04/12/21 Shell Menjivar MD [address] [place] [address] Assigned Pediatric Specialist Provider 03/01/20 06/09/20 Shell Menjivar MD [address] [place] [address] Assigned Surgical Provider 03/01/20 05/31/21 [place] [address] [place] [address] Assigned Rheumatology Provider 02/23/21 02/29/24 Mere Andres PsyD [address] [address] Assigned Behavioral Health Provider 03/30/21 07/31/22 Bo Jiang MD [address] [place] [address] Physician Plastic Surgery 10/09/21 Jozef Sanchez [facility] [address] [place] [address] Administrative Processor Plastic Surgery 10/09/21 Alicia Montero Specialty Ethnoarchaeologist 10/09/21 Bo Jiang MD [address] [place] [address] Assigned Surgical Provider 11/01/21 09/29/23 Leonides Hernandez [facility] [address] [place] [address] Pharmacist 05/18/23 Babar Ferrari PA-C [address] [place] [address] Physician Package Delivery Room Service Runner Gastroenterology 06/01/23 Priscilla Stoddard [address] [place] [address] Assigned Behavioral Health Provider 08/31/23 Yaw Mckinney MD [address] [place] [address] 036735 Physician Rheumatology 12/22/23 Edmund Patel MD [address] [place] [address] Allergy & Immunology 12/27/23 Edmund Patel MD [address] [place] [address] 943820 Assigned Allergy Provider 01/31/24 Yaw Mckinney MD [address] [place] [address] 218405 Assigned Rheumatology Provider 03/01/24 Jenny Terrazas CNM [address] [place], [place] [address] Assigned OBGYN Provider 03/01/24 Petty Hassan DO [address] [place] [address] 012125 Resident Neurology 05/01/24 Gil Danielson LSW Specialty Ethnoarchaeologist 09/19/24 documented as of this encounter
--- OUTSIDE RECORDS SUMMARY | 2024-10-25 15:28 | XMS_ITS | Encounter Summary ---
Author Organization [facility] Address [address] [place] [address] Care Team Providers Care Autocad Name Role Phone Lorraine Castaneda MD Unavailable [phone] Lorraine Castaneda MD Primary Care Provider Shell Menjivar MD Unavailable [phone] Shell Menjivar MD Unavailable [phone] Chinedu Fleming MD Unavailable [phone] Mere Andres PsyD Unavailable Unavailab Bo Reid MD Unavailable [phone] Jozef Sanchez [facility] Unavailable [phone] Alicia Montero Unavailable Unavailable Bo Jiang MD Unavailable Leonides Hernandez [facility] Unavailable [phone] Babar Ferrari PA-C Unavailable [phone] Priscilla Stoddard Unavailable Yaw Mckinney MD Unavailable [phone] Edmund Patel MD Unavailable [phone] Edmund Ptael MD Unavailable [phone] Yaw Mckinney MD Unavailable [phone] Jenny Terrazas [facility] Unavailable + [phone] Petty Hassan DO Unavailable Gil Danielson BRANCH DIRECTOR Unavailable Unavailable Encounter Details Date Type Department Care Team (Late st Contact Info) Description 05/12/2021 MyC Medical Advice [address] [address] Zeynep Morales Nasim, RMA Social History Tobacco Use Types Packs/Day Years Used Date Smoking Tobacco: Never Smokeless Tobacco: Never Alcohol Use Standard Drinks/Week Comments No 0 (1 standard drink = 0.6 oz pur e alcohol) PHQ-2 Answer Date Recorded PHQ-2 Score 0 02/20/2021 Comments No Sex and Gender Information Value Date Recorded Sex Assigned at Female 11/23/2017 12:16 PM CDT Legal Sex Female 11:38 AM CDT Gender Identity Genderqueer 04/15/2024 10:21 PM TILE ROOFER Sexual Orientation Lesbian 04/15/2024 10 :21 PM TILE ROOFER Sexual Orientation Something else 04/15/2024 10 :21 PM TILE ROOFER documented as of this encounter Plan of Treatment Not on file documented as of this encounter Visit Diagnoses Not on filedocumented in this encounter Additional Health Concerns Assessment Noted Time PHQ-9 Depression Total Score: 6 05/30/19 21 7:05 AM TILE ROOFER documented as of this encounter Care Teams Autocad Relationship Specialty Start Date End Date Lorraine Castaneda MD [address] [employer] [address] [address] PCP - General Family Practice 07/25/19 Lorraine Castaneda MD [address] [place] [address] Assigned PCP 06/18/19 Shell Menjivar MD 9 [place], [place] 379535 Dermatology 08/31/19 Shell Menjivar MD [address] [place] [address] Assigned Surgical Provider 03/01/20 05/31/21 [place] [address] [place] [address] Assigned Rheumatology Provider 02/23/21 02/29/24 Mere Andres PsyD [address] [place] [address] Assigned Behavioral Health Provider 03/30/21 07/31/22 [place] [address] [place] [address] Physician Plastic Surgery 10/09/21 Jozef Sanchez [facility] [address] [place] [address] Crap Shooter Plastic Surgery 10/09/21 Alicia Montero Specialty Customer Service And Sales Consultant 10/09/21 Bo Jiang MD [address] [place] [address] Assigned Surgical Provider 11/01/21 09/29/23 Leonides Hernandez [facility] [address] [place] [address] Pharmacist 05/18/23 Babar Ferrari PA-C [address] [place] [address] Physician Garbage Collector Gastroenterology 06/01/23 Priscilla Stoddard [address] [place] [address] Assigned Behavioral Health Provider 08/31/23 Yaw Mckinney MD [address] [place] [address] 039225 Physician Rheumatology 12/22/23 Edmund Patel MD [address] [place], [place] 517390 Allergy & Immunology 12/27/23 Edmund Patel MD [address] [place], [place] 023980 Assigned Allergy Provider 01/31/24 Yaw Mckinney MD [address] [place] [address] 578365 Assigned Rheumatology Provider 03/01/24 Jenny Terrazas CNM [address], [place] 6[address] Assigned OBGYN Provider 03/01/24 Petty Hassan DO [address] [place] [address] 691305 Resident Neurology 05/01/24 Gil Danielson LSW Specialty Customer Service And Sales Consultant 09/19/24 documented as of this encounter
--- OUTSIDE RECORDS SUMMARY | 2024-10-25 15:28 | XMS_ITS | Encounter Summary ---
Author Organization [facility] Address [address] [place] [address] Care Team Providers Care Production Tool Engineer Name Role Phone Lorraine Castaneda MD Unavailable [phone] Lorraine Castaneda MD Primary Care Provider Shell Menjivar MD Unavailable [phone] Chinedu Fleming MD Unavailable [phone] Mere Andres PsyD Unavailable Unavailab Bo Reid MD Unavailable [phone] Jozef Sanchez [facility] Unavailable [phone] Alicia Montero Unavailable Unavailable Bo Jiang MD Unavailable [phone] Leonides Hernandez [facility] Unavailable [phone] Babar Ferrari PA-C Unavailable [phone] Priscilla Stoddard Unavailable Yaw Mckinney MD Unavailable [phone] Edmund Patel MD Unavailable [phone] Edmund Patel MD Unavailable [phone] Yaw Mckinney MD Unavailable [phone] Jenny Terrazas Unavailable + [phone] Petty Hassan DO Unavailable [phone] Gil DanielsonW Unavailable Unavailable Reason for Visit * Reason Comments Medication Refill methotrexate sodium 2.5 MG TABS Encounter Details Date Type Department Care Team (Late st Contact Info) Description 01/21/2022 Refill [facility] [address] [place] [phone] [place] [address] [place] [address] Medication Refill (methotrexate sodium 2.5 MG TABS) Social History Tobacco Use Types Packs/Day Years Used Date Smoking Tobacco: Never Smokeless Tobacco: Never Alcohol Use Standard Drinks/Week Comments No 0 (1 standard drink = 0.6 oz pur e alcohol) PHQ-2 Answer Date Recorded PHQ-2 Score 2 01/06/2022 Comments No Sex and Gender Information Value Date Recorded Sex Assigned at Female 11/23/2017 12:16 PM CDT Legal Sex Female 11:38 AM CDT Gender Identity Genderqueer 04/15/2024 10:21 PM DIGITAL MARKETING ANALYST Sexual Orientation Lesbian 04/15/2024 10 :21 PM DIGITAL MARKETING ANALYST Sexual Orientation Something else 04/15/2024 10 :21 PM DIGITAL MARKETING ANALYST COVID-19 Exposure Response Date Recorded In the last 10 days, have yo u been in contact with someone who was confirmed or suspected to have Coronavirus/COVID-19? No / Unsure 01/06/2022 7:46 AM CDT documented as of this encounter Miscellaneous Notes * Telephone Encounter - Andrew Saravia RN - 01/21/2022 8:19 AM CDT Medication/Dose: methotrexate sodium 2.5 MG TABS Last Written : 10/30/21 Last Quantity: 72, # refills: 0 Last Office Visit : 09/23/21 Pending appointment: None WBC Date Value Ref Range Status 07/06/2018 10.2 4.0 - 11.0 10e9/L Final WBC Count Date Value Ref Range Status 01/06/2022 10.7 4.0 - 11.0 10e3/uL Final RBC Count Date Value Ref Range Status 01/06/2022 4.88 3.80 - 5.90 10e6/uL Final Comment: Sex Specific Reference Ranges: Female 3.80-5.20 10e6/uL Male 4.40-5.90 10e6/uL 07/06/2018 4.67 3.8 - 5.2 10e12/L Final Hemoglobin Date Value Ref Range Status 01/06/2022 14.4 11.7 - 17.7 g/dL Final Comment: Sex Specific Reference Ranges: Female 11.7-15.7 g/dL Male 13.3-17.7 g/dL 07/06/2018 14.0 11.7 - 15.7 g/dL Final Hematocrit Date Value Ref Range Status 01/06/2022 43.2 35.0 - 53.0 % Final Comment: Sex Specific Reference Ranges: Female ??35.0-47.0 % Male ? 40.0-53.0 % 07/06/2018 41.2 35.0 - 47.0 % Final MCV Date Value Ref Range Status 01/06/2022 89 78 - 100 fL Final 07/06/2018 88 78 - 100 fl Final MCH Date Value Ref Range Status 01/06/2022 29.5 26.5 - 33.0 pg Final 07/06/2018 30.0 26.5 - 33.0 pg Final MCHC Date Value Ref Range Status 01/06/2022 33.3 31.5 - 36.5 g/dL Final 07/06/2018 34.0 31.5 - 36.5 g/dL Final RDW Date Value Ref Range Status 01/06/2022 14.3 10.0 - 15.0 % Final 07/06/2018 12.9 10.0 - 15.0 % Final Platelet Count Date Value Ref Range Status 01/06/2022 330 150 - 450 10e3/uL Final 07/06/2018 353 150 - 450 10e9/L Final AST Date Value Ref Range Status 01/06/2022 25 0 - 45 U/L Final 06/07/2019 22 0 - 45 U/L Final ALT Date Value Ref Range Status 01/06/2022 40 0 - 70 U/L Final Comment: Female All ages0-50 U/L Male 0 - 19 years 0-50 U/L 20 years and older0-70 U/L 06/07/2019 32 0 - 50 U/L Final Creatinine Date Value Ref Range Status 01/06/2022 0.85 0.52 - 1.25 mg/dL Final Comment: 20 y and older Female0.52-1.04 mg/dL 20 y and older Male0.66-1.25 mg/dL Varies with the amount of muscle mass present. GICH Female: 0.6-1.2 mg/dL Male: 0.7-1.3 mg/dL 06/07/2019 0.75 0.52 - 1.04 mg/dL Final Albumin Date Value Ref Range Status 01/06/2022 3.8 3.4 - 5.0 g/dL Final 06/07/2019 3.9 3.4 - 5.0 g/dL Final CRP Inflammation Date Value Ref Range Status 01/06/2022 4.90 <5.00 mg/L Final 09/25/2021 8.0 0.0 - 8.0 mg/L Final 07/06/2018 6.5 0.0 - 8.0 mg/L Final No components found for: ESR Prescription set up and routed to provider per Refill Protocol, also routed to scheduling team asking for assistance in scheduling follow-up appointment. ANNA Day, RN documented in this encounter Plan of Treatment Not on file documented as of this encounter Visit Diagnoses Diagnosis Polyarthralgia Pain in joint, multiple sites Bilateral hand pain Pain in limb documented in this encounter Additional Health Concerns Assessment Noted Time PHQ-9 Depression Total Score: 9 01/07/20 22 7:43 AM CDT documented as of this encounter Care Teams Production Tool Engineer Relationship Specialty Start Date End Date Lorraine Castaneda MD [email or web address] [place] [address] PCP - General Family Practice 07/25/19 Lorraine Castaneda MD [address] [place] [address] Assigned PCP 06/18/19 Shell Menjivar MD [address] [place] [address] Dermatology 08/31/19 [place] [address] [place] [address] Assigned Rheumatology Provider 02/23/21 02/29/24 Mere Andres PsyD [address] [place] [address] Assigned Behavioral Health Provider 03/30/21 07/31/22 Bo Jiang MD [address] [place] [address] Physician Plastic Surgery 10/09/21 Jozef Sanchez [facility] [address] [place] [address] Automatic Engraver Plastic Surgery 10/09/21 Alicia Montero Specialty Restaurant Inspector 10/09/21 Bo Jiang MD [address] [place] [address] Assigned Surgical Provider 11/01/21 09/29/23 Leonides Hernandez [facility] [address] [place] [address] Pharmacist 05/18/23 Babar Ferrari PA-C [address] [place] [address] Physician Neon Sign Maker Gastroenterology 06/01/23 Priscilla Stoddard [address] [place] [address] Assigned Behavioral Health Provider 08/31/23 Yaw Mckinney MD [address] [place] [address] Physician Rheumatology 12/22/23 Edmund Patel MD [address] [place], [place] 791120 Allergy & Immunology 12/27/23 Edmund Patel MD [address] [place], [place] 680840 Assigned Allergy Provider 01/31/24 Yaw Mckinney MD [address] [place] [address] 778855 Assigned Rheumatology Provider 03/01/24 Jenny Terrazas CNM [address] [place], [place] [address] Assigned OBGYN Provider 03/01/24 Petty Hassan DO [address] [place] [address] 458205 Resident Neurology 05/01/24 Gil Danielson LSW Specialty Restaurant Inspector 09/19/24 documented as of this encounter
--- OUTSIDE RECORDS SUMMARY | 2024-10-25 15:28 | XMS_ITS | Encounter Summary ---
Author Organization [place] Address [address] [place] [address] Care Team Providers Care Pathology Secretary Name Role Phone Lorraine Castaneda MD Unavailable [phone] Lorraine Castaneda MD Primary Care Provider Shell Menjivar MD Unavailable [phone] Chinedu Fleming MD Unavailable [phone] Mere Andres PsyD Unavailable Unavailab Bo Reid MD Unavailable [phone] Jozef Sanchez [facility] Unavailable [phone] Alicia Montero Unavailable Unavailable Bo Jiang MD Unavailable [phone] Leonides Hernandez [facility] Unavailable [phone] Bbaar Ferrari PA-C Unavailable [phone] Priscilla Stoddard Unavailable Yaw Mckinney MD Unavailable [phone] Edmund Patel MD Unavailable [phone] Edmund Patel MD Unavailable [phone] Yaw Mckinney MD Unavailable [phone] Jenny Terrazas Unavailable + [phone] Petty Hassan DO Unavailable [phone] Gil DanielsonW Unavailable Unavailable Reason for Visit * Reason Comments Medication Refill Encounter Details Date Type Department Care Team (Late st Contact Info) Description 10/26/2021 Refill [facility] [address] [place] [address] [place] [address] [place] [address] Medication Refill Social History Tobacco Use Types Packs/Day Years Used Date Smoking Tobacco: Never Smokeless Tobacco: Never Alcohol Use Standard Drinks/Week Comments No 0 (1 standard drink = 0.6 oz pur e alcohol) PHQ-2 Answer Date Recorded PHQ-2 Score 4 10/16/2021 Comments No Sex and Gender Information Value Date Recorded Sex Assigned at Female 11/23/2017 12:16 PM CDT Legal Sex Female 11:38 AM CDT Gender Identity Genderqueer 04/15/2024 10:21 PM PLANNER SCHEDULER Sexual Orientation Lesbian 04/15/2024 10 :21 PM PLANNER SCHEDULER Sexual Orientation Something else 04/15/2024 10 :21 PM PLANNER SCHEDULER COVID-19 Exposure Response Date Recorded In the last 10 days, have yo u been in contact with someone who was confirmed or suspected to have Coronavirus/COVID-19? No / Unsure 10/24/2021 9:45 AM CDT documented as of this encounter Miscellaneous Notes * Telephone Encounter - Coby Gastelum RN - 10/29/2021 12:19 PM CDT methotrexate 2.5 MG tablet 4 tab once a week and increase by 1 tab every week to reach at 6 tab once a week dose. Last Written Prescription Date: 08/11/21 Last Fill Quantity: 24, # refills: 2 Last Office Visit: 09/23/21 - Will continue 6 tablets of methotrexate once a week Future Office visit: 12/16/21 CBC RESULTS: Recent Labs Lab Test 09/25/21 1537 WBC 9.2 RBC 4.76 HGB 13.8 HCT 40.7 MCV 86 MCH 29.0 MCHC 33.9 RDW 13.7 PLT 331 Creatinine Date Value Ref Range Status 09/25/2021 0.96 0.52 - 1.04 mg/dL Final 06/07/2019 0.75 0.52 - 1.04 mg/dL Final ] Liver Function Studies - Recent Labs Lab Test 09/25/21 1537 06/07/19 1522 PROTTOTAL -- 8.2 ALBUMIN 3.7 3.9 BILITOTAL -- 0.2 ALKPHOS -- 155* AST 28 22 ALT 38 32 Routing refill request to provider for review/approval because: DMARD documented in this encounter Plan of Treatment Not on file documented as of this encounter Visit Diagnoses Diagnosis Polyarthralgia Pain in joint, multiple sites Bilateral hand pain Pain in limb documented in this encounter Additional Health Concerns Assessment Noted Time PHQ-9 Depression Total Score: 15 022 2:47 PM CDT documented as of this encounter Care Teams Pathology Secretary Relationship Specialty Start Date End Date Lorraine Castaneda MD [address] [address] PCP - General Family Practice 07/25/19 Lorraine Castaneda MD [address] [address] Assigned PCP 06/18/19 Shell Menjivar MD [address] [place] [address] 969335 Dermatology 08/31/19 [place] [address] [place] [address] Assigned Rheumatology Provider 02/23/21 02/29/24 Mere Andres PsyD [address] [place] [address] Assigned Behavioral Health Provider 03/30/21 07/31/22 [place] [address] [place] [address] Physician Plastic Surgery 10/09/21 Jozef Sanchez [facility] [address] [place] [address] Attending Pathologist Plastic Surgery 10/09/21 Alicia Montero Specialty Production Operations Inspector 10/09/21 [place] [address] [place] [address] Assigned Surgical Provider 11/01/21 09/29/23 [facility] [address] [place] [address] Pharmacist 05/18/23 Babar Ferrari PA-C [address] [place] [address] Physician Ladle Repairer Gastroenterology 06/01/23 Priscilla Stoddard [address] [place], [place] 710996 Assigned Behavioral Health Provider 08/31/23 Yaw Mckinney MD [address] [place] [address] Physician Rheumatology 12/22/23 Edmund Patel MD [address] [place] [address] Allergy & Immunology 12/27/23 Edmund Patel MD [address] [place] [address] Assigned Allergy Provider 01/31/24 Yaw Mckinney MD [address] [place] [address] Assigned Rheumatology Provider 03/01/24 Jenny Terrazas CNM [address], [place] [address] Assigned OBGYN Provider 03/01/24 Petty Hassan DO [address] [place] [address] 875275 Resident Neurology 05/01/24 Gil Danielson LSW Specialty Production Operations Inspector 09/19/24 documented as of this encounter
--- OUTSIDE RECORDS SUMMARY | 2024-10-25 15:28 | XMS_ITS | Encounter Summary ---
Author Organization [facility] Address [address] [place] [address] Care Team Providers Care Weigh Box Tender Name Role Phone Lorraine Castaneda MD Unavailable [phone] Lorraine Castaneda MD Primary Care Provider Shell Menjivar MD Unavailable +[phone] Chinedu Fleming MD Unavailable +[phone] Mere Andres PsyD Unavailable Unavailab Bo Reid MD Unavailable +[phone] Jozef Sanchez [facility] Unavailable [phone] Alicia Montero Unavailable Unavailable Bo Jiang MD Unavailable +[phone] Leonides Hernandez [facility] Unavailable +[phone] Babar Ferrari PA-C Unavailable +[phone] Priscilla Stoddard Unavailable Yaw Mckinney MD Unavailable +[phone] Edmund Patel MD Unavailable [phone] Edmund Patel MD Unavailable [phone] Yaw Mckinney MD Unavailable +[phone] Jenny Terrazas Unavailable + [phone] Petty Hassan DO Unavailable +[phone] Erum, Gil PANTS CLOSER Unavailable Unavailable Encounter Details Date Type Department Care Team (Late st Contact Info) Description 11/07/2021 Andrew Medical Advice M [address] [address] Vy Carrington Social History Tobacco Use Types Packs/Day Years [...] CDT Gender Identity Genderqueer 04/15/2024 10:21 PM GREEN BELT Sexual Orientation Lesbian 04/15/2024 10 :21 PM GREEN BELT Sexual Orientation Something else 04/15/2024 10 :21 PM GREEN BELT COVID-19 Exposure Response Date Recorded In the last 10 days, have yo u been in contact with someone who was confirmed or suspected to have Coronavirus/COVID-19? No / Unsure 10/24/2021 9:45 AM CDT documented as of this encounter Plan of Treatment Not on file documented as of this encounter Visit Diagnoses Not on filedocumented in this encounter Additional Health Concerns Assessment Noted Time PHQ-9 Depression Total Score: 15 022 2:47 PM CDT documented as of this encounter Care Teams Weigh Box Tender Relationship Specialty Start Date End Date Lorraine Castaneda MD [address] [email or web address] [address] [address] PCP - General Family Practice 07/25/19 Lorraine Castaneda MD [email or web address] [address] Assigned PCP 06/18/19 Shell Menjivar MD [address] [place] [address] Dermatology 08/31/19 [place] [address] [place] [address] Assigned Rheumatology Provider 02/23/21 02/29/24 Mere Andres PsyD [address], [place] [address] Assigned Behavioral Health Provider 03/30/21 07/31/22 [place] [address] [place] [address] Physician Plastic Surgery 10/09/21 Jozef Sanchez [facility] [address] [place] [address] Insurance Instructor Plastic Surgery 10/09/21 Alicia Montero Specialty Saxophone Player 10/09/21 Bo Jiang MD [address] [place] [id number] Assigned Surgical Provider 11/01/21 09/29/23 Leonides Hernandez [facility] [address] [place] [address] Pharmacist 05/18/23 Babar Ferrari PA-C [address] [place] [address] Physician Weaver Apprentice Gastroenterology 06/01/23 Priscilla Stoddard 3033 [place] [address] Assigned Behavioral Health Provider 08/31/23 Yaw Mckinney MD [address] [place] [address] Physician Rheumatology 12/22/23 Edmund Patel MD 290 [place] [address] Allergy & Immunology 12/27/23 Edmund Patel MD [address] [place] [address] Assigned Allergy Provider 01/31/24 Yaw Mckinney MD [address] [place] [address] Assigned Rheumatology Provider 03/01/24 Jenny Terrazas CNM [address], [place] [address] Assigned OBGYN Provider 03/01/24 Petty Hassan DO [address] [place] [address] Resident Neurology 05/01/24 Gil Danielson LSW Specialty Saxophone Player 09/19/24 documented as of this encounter
--- OUTSIDE RECORDS SUMMARY | 2024-10-25 15:28 | XMS_ITS | Encounter Summary ---
Author Organization [facility] Address [address] [place] [address] Care Team Providers Care Reading Coach Name Role Phone Lorraine Castaneda MD Unavailable [phone] Lorraine Castaneda MD Primary Care Provider Shell Menjivar MD Unavailable +[phone] Chinedu Fleming MD Unavailable [phone] Mere Andres PsyD Unavailable Unavailab Bo Reid MD Unavailable +[phone] Jozef Sanchez [facility] Unavailable [phone] Alicia Montero Unavailable Unavailable Bo Jiang MD Unavailable +[phone] Leonides Hernandez [facility] Unavailable +[phone] Babar Ferrari PA-C Unavailable [phone] Priscilla Stoddard Unavailable Yaw Mckinney MD Unavailable +[phone] Edmund Patel MD Unavailable [phone] Edmund Patel MD Unavailable [phone] Yaw Mckinney MD Unavailable +[phone] Jenny Terrazas Unavailable + [phone] Petty Hassan DO Unavailable +[phone] Erum, Gil DRILLER'S ASSISTANT Unavailable Unavailable Encounter Details Date Type Department Care Team (Late st Contact Info) Description 10/09/2021 MyC Medical Advice [facility] [address] [place] [address] Alicia Montero Social History Tobacco Use Types Packs/Day Years Used Date Smoking Tobacco: Never Smokeless Tobacco: Never Alcohol Use Standard Drinks/Week Comments No 0 (1 standard drink = 0.6 oz pur e alcohol) PHQ-2 Answer Date Recorded PHQ-2 Score 5 10/08/2021 Comments No Sex and Gender Information Value Date Recorded Sex Assigned at Female 11/23/2017 12:16 PM CDT Legal Sex Female 11:38 AM CDT Gender Identity Genderqueer 04/15/2024 10:21 PM CLERK FUNERAL DETAIL Sexual Orientation Lesbian 04/15/2024 10 :21 PM CLERK FUNERAL DETAIL Sexual Orientation Something else 04/15/2024 10 :21 PM CLERK FUNERAL DETAIL COVID-19 Exposure Response Date Recorded In the last 10 days, have yo u been in contact with someone who was confirmed or suspected to have Coronavirus/COVID-19? No / Unsure 09/25/2021 3:04 PM CDT documented as of this encounter Plan of Treatment Not on file documented as of this encounter Visit Diagnoses Not on filedocumented in this encounter Additional Health Concerns Assessment Noted Time PHQ-9 Depression Total Score: 15 022 2:25 PM CDT documented as of this encounter Care Teams Reading Coach Relationship Specialty Start Date End Date Lorraine Castaneda MD [address] [address] PCP - General Family Practice 07/25/19 Lorraine Castaneda MD [address] [address] Assigned PCP 06/18/19 Shell Menjivar MD [address] [place] [address] Dermatology 08/31/19 [place] [address] [place] [address] Assigned Rheumatology Provider 02/23/21 02/29/24 Mere Andres PsyD [address] [address] Assigned Behavioral Health Provider 03/30/21 07/31/22 [place] [address] [place] [address] Physician Plastic Surgery 10/09/21 Jozef Sanchez [facility] [address] [place] [address] Caption Writer Plastic Surgery 10/09/21 Alicia Montero Specialty Trucksmith 10/09/21 Bo Jiang MD [address] [place] [address] Assigned Surgical Provider 11/01/21 09/29/23 Leonides Hernandez [facility] [address] [place] [address] Pharmacist 05/18/23 Babar Ferrari PA-C [address] [place] [address] Physician Reservations Manager Gastroenterology 06/01/23 Priscilla Stoddard 3033 [place] [address] Assigned Behavioral Health Provider 08/31/23 Yaw Mckinney MD [address] [place] [address] Physician Rheumatology 12/22/23 Edmund Patel MD [address] [place] [address] Allergy & Immunology 12/27/23 Edmund Patel MD [address] [place] [address] Assigned Allergy Provider 01/31/24 Yaw Mckinney MD [address] [place] [address] Assigned Rheumatology Provider 03/01/24 Jenny Terrazas CNM 606 [place] [address] Assigned OBGYN Provider 03/01/24 Petty Hassan DO [address] [place] [address] Resident Neurology 05/01/24 Gil Danielson LSW Specialty Trucksmith 09/19/24 documented as of this encounter
--- OUTSIDE RECORDS SUMMARY | 2024-10-25 15:28 | XMS_ITS | Encounter Summary ---
Author Organization [facility] Address [address] [place] [address] Care Team Providers Care Pillow Filler Name Role Phone Lorraine Castaneda MD Unavailable [phone] Lorraine Castaneda MD Primary Care Provider Shell Menjivar MD Unavailable +[phone] Chinedu Fleming MD Unavailable [phone] Mere Andres PsyD Unavailable Unavailab Bo Reid MD Unavailable [phone] Jozef Sanchez [facility] Unavailable [phone] Alicia Motnero Unavailable Unavailable Bo Jiang MD Unavailable [phone] Leonides Hernandez [facility] Unavailable [phone] Babar Ferrari PA-C Unavailable [phone] Priscilla Stoddard Unavailable Yaw Mckinney MD Unavailable +[phone] Edmund Patel MD Unavailable [phone] Edmund Patel MD Unavailable [phone] Yaw Mckinney MD Unavailable +[phone] Jenny Terrazas Unavailable + [phone] Petty Hassan DO Unavailable +[phone] Erum, Gil THREADING MACHINE SETTER Unavailable Unavailable Encounter Details Date Type Department Care Team (Late st Contact Info) Description 01/13/2022 [facility] Medical Advice [facility] [place] [address] [place] [address], [address] [place] [id number] Bo Jiang MD 2945 [facility] 200 [place] [address] Social History Tobacco Use Types Packs/Day Years [...] CDT Gender Identity Genderqueer 04/15/2024 10:21 PM OIL WELL SERVICES FIELD SUPERVISOR Sexual Orientation Lesbian 04/15/2024 10 :21 PM OIL WELL SERVICES FIELD SUPERVISOR Sexual Orientation Something else 04/15/2024 10 :21 PM OIL WELL SERVICES FIELD SUPERVISOR COVID-19 Exposure Response Date Recorded In the [...] documented as of this encounter Care Teams Pillow Filler Relationship Specialty Start Date End Date Lorraine Castaneda MD [address] [employer] [facility] [address] [place] [address] PCP - General Family Practice 07/25/19 Lorraine Castaneda MD [address] [address] Assigned PCP 06/18/19 Shell Menjivar MD [address] [place] [address] Dermatology 08/31/19 [place] [address] [place] [address] Assigned Rheumatology Provider 02/23/21 02/29/24 Mere Andres PsyD [address], [place] [address] Assigned Behavioral Health Provider 03/30/21 07/31/22 Bo Jiang MD [address] [place] [address] Physician Plastic Surgery 10/09/21 Jozef Sanchez [facility] [address] [place] [address] Neonatal Surgeon Plastic Surgery 10/09/21 Alicia Montero Specialty Controller Mechanic 10/09/21 Bo Jiang MD [address] [place] [address] Assigned Surgical Provider 11/01/21 09/29/23 [facility] [address] [place] [address] Pharmacist 05/18/23 Babar Ferrari PA-C [address] [place] [address] Physician Chemical Equipment Sales Engineer Gastroenterology 06/01/23 Priscilla Stoddard 3033 [place] [address] Assigned Behavioral Health Provider 08/31/23 Yaw Mckinney MD [address] [place] [address] Physician Rheumatology 12/22/23 Edmund Patel MD [address] [place], [place] 094570 Allergy & Immunology 12/27/23 Edmund Patel MD [address] [place] [address] 141810 Assigned Allergy Provider 01/31/24 Yaw Mckinney MD [address] [place] [address] Assigned Rheumatology Provider 03/01/24 Jenny Terrazas CNM [address] [place] [address] Assigned OBGYN Provider 03/01/24 Petty Hassan DO [address] [place] [address] 943545 Resident Neurology 05/01/24 Gil Danielson LSW Specialty Controller Mechanic 09/19/24 documented as of this encounter
--- OUTSIDE RECORDS SUMMARY | 2024-10-25 15:28 | XMS_ITS | Encounter Summary ---
Author Organization [facility] Address [address] [place] [address] Care Team Providers Care Rn Plastic Surgery Name Role Phone Lorraine Castaneda MD Unavailable [phone] Lorraine Castaneda MD Primary Care Provider Shell Menjivar MD Unavailable +[phone] Chinedu Fleming MD Unavailable [phone] Mere Andres PsyD Unavailable Unavailab Bo Reid MD Unavailable [phone] Jozef Sanchez [facility] Unavailable [phone] Alicia Montero Unavailable Unavailable Bo Jiang MD Unavailable [phone] Leonides Hernandez [facility] Unavailable [phone] Babar Ferrari PA-C Unavailable [phone] Priscilla Stoddard Unavailable Yaw Mckinney MD Unavailable +[phone] Edmund Patel MD Unavailable [phone] Edmund Patel MD Unavailable [phone] Yaw Mckinney MD Unavailable +[phone] Jenny Terrazas Unavailable + [phone] Petty Hassan DO Unavailable +[phone] Erum, Gil MOTION PICTURE ACTOR Unavailable Unavailable Encounter Details Date Type Department Care Team (Late st Contact Info) Description 10/10/2021 MyC Medical Advice [facility] [address] [place] [phone] Priscilla Stoddard [address] [place] [address] Social History Tobacco Use Types Packs/Day Years [...] CDT Gender Identity Genderqueer 04/15/2024 10:21 PM SHED HAND Sexual Orientation Lesbian 04/15/2024 10 :21 PM SHED HAND Sexual Orientation Something else 04/15/2024 10 :21 PM SHED HAND COVID-19 Exposure Response Date Recorded In the [...] documented as of this encounter Care Teams Rn Plastic Surgery Relationship Specialty Start Date End Date Lorraine Castaneda MD [address] [address] [place] [address] PCP - General Family Practice 07/25/19 Lorraine Castaneda MD [address] [place] [address] Assigned PCP 06/18/19 Shell Menjivar MD [address] [place] [address] Dermatology 08/31/19 [place] [address] [place] [address] Assigned Rheumatology Provider 02/23/21 02/29/24 Mere Andres PsyD [address] [place] [address] Assigned Behavioral Health Provider 03/30/21 07/31/22 Bo Jiang MD [address] [place] [address] Physician Plastic Surgery 10/09/21 Jozef Sanchez [facility] [address] [place] [address] Teaching Supervisor Plastic Surgery 10/09/21 Alicia Montero Specialty Traveling Passenger Agent 10/09/21 Bo Jiang MD [address] [place] [address] Assigned Surgical Provider 11/01/21 09/29/23 Leonides Hernandez [facility] [address] [place] [address] Pharmacist 05/18/23 Babar Ferrari PA-C [address] [place] [address] Physician Power Plant Supervisor Gastroenterology 06/01/23 Priscilla Stoddard 3033 [place] [address] Assigned Behavioral Health Provider 08/31/23 Yaw Mckinney MD [address] [place] [address] Physician Rheumatology 12/22/23 Edmund Patel MD 290 [place], [place] [address] Allergy & Immunology 12/27/23 Edmund Patel MD 290 [place], [place] 844600 Assigned Allergy Provider 01/31/24 Yaw Mckinney MD [address] [place] [address]185 Assigned Rheumatology Provider 03/01/24 Jenny Terrazas CNM [address], [place] [address] Assigned OBGYN Provider 03/01/24 Petty Hassan DO [address] [place] [address] 521565 Resident Neurology 05/01/24 Gil Danielson LSW Specialty Traveling Passenger Agent 09/19/24 documented as of this encounter
--- OUTSIDE RECORDS SUMMARY | 2024-10-25 15:28 | XMS_ITS | Encounter Summary ---
Author Organization [facility] Address [address] [place] [address] Care Team Providers Care Executive Legal Secretary Name Role Phone [facility] Primary Care Provider Clarisse Mejia MD Unavailable [phone] Lorraine Castaneda MD Unavailable [phone] Lorraine Castaneda MD Primary Care Provider Shell Menjivar MD Unavailable +[phone] Matt Shaver MD Unavailable [phone] Shell Menjivar MD Unavailable +[phone] Shell Menjivar MD Unavailable +[phone] Chinedu Fleming MD Unavailable +[phone] Mere Andres PsyD Unavailable Unavailab Bo Reid MD Unavailable [phone] Jozef Sanchez [facility] Unavailable [phone] Alicia Montero Unavailable Unavailable Bo Jiang MD Unavailable [phone] Leonides Hernandez [facility] Unavailable [phone] Babar Ferrari PA-C Unavailable +[phone] Priscilla Stoddard Unavailable Yaw Mckinney MD Unavailable +[phone] Edmund Patel MD Unavailable [phone] Edmund Patel MD Unavailable [phone] Yaw Mckinney MD Unavailable +[phone] Jenny Terrazas [facility] Unavailable [phone] Petty Hassan Unavailable +[phone] Gil Danielson [facility] Unavailable Unavailable Encounter Details Date Type Department Care Team (Latest Contact Info) Description 06/07/2019 Historic Results Social History Tobacco Use Types Packs/Day Years [...] CDT Gender Identity Genderqueer 04/15/2024 10:21 PM LIGHTING EQUIPMENT OPERATOR Sexual Orientation Lesbian 04/15/2024 10 :21 PM LIGHTING EQUIPMENT OPERATOR Sexual Orientation Something else 04/15/2024 10 :21 PM LIGHTING EQUIPMENT OPERATOR documented as of this encounter Plan of Treatment Not on file documented as of this encounter Visit Diagnoses Not on filedocumented in this encounter Additional Health Concerns Assessment Noted Time PHQ-9 Depression Total Score: 13 020 2:38 PM LIGHTING EQUIPMENT OPERATOR documented as of this encounter Care Teams Executive Legal Secretary Relationship Specialty Start Date End Date Clinic - [address], [address] [place] [address] PCP - General Clinic 08/19/17 07/24/19 Lorraine Castaneda MD [facility] [address] PCP - General Family Practice 07/25/19 Clarisse Mejia MD [address] [place] [address] Assigned PCP 04/30/19 06/17/19 Lorraine Castaneda MD [address] [address] Assigned PCP 06/18/19 Shell Menjivar MD [address] [place] [address] MD Dermatology 08/31/19 Matt Shaver MD [address] [place] [address] 144045 Assigned Musculoskeletal Provider 03/01/20 04/12/21 Shell Menjivar MD [address] [place] [address] Assigned Pediatric Specialist Provider 03/01/20 06/09/20 Shell Menjivar MD [address] [place] [address] 664155 Assigned Surgical Provider 03/01/20 05/31/21 [place] [address] [place] [address] Assigned Rheumatology Provider 02/23/21 02/29/24 Mere Andres PsyD [address] [address] Assigned Behavioral Health Provider 03/30/21 07/31/22 Bo Jiang MD 2945 [facility] 200 [place] [address] Physician Plastic Surgery 10/09/21 Jozef Sanchez [facility] [address] [place] [place] [address] [place] Plastic Surgery 10/09/21 Alicia Montero Specialty Service Architect 10/09/21 Bo Jiang MD [address] [address] Assigned Surgical Provider 11/01/21 09/29/23 [facility] 9[facility] Pharmacist 05/18/23 Babar Ferrari PA-C [address] [place] [address] Physician Educational Consultant Gastroenterology 06/01/23 Priscilla Stoddard 3033 [place] [address] Assigned Behavioral Health Provider 08/31/23 Yaw Mckinney MD [address] [place] [address] Physician Rheumatology 12/22/23 Edmund Patel MD 290 [place] [address] Allergy & Immunology 12/27/23 Edmund Patel MD 290 [place], [place] 580670 Assigned Allergy Provider 01/31/24 Yaw Mckinney MD [address] [place] [address] Assigned Rheumatology Provider 03/01/24 Jenny Terrazas CNM [address] [place] [address] Assigned OBGYN Provider 03/01/24 Petty Hassan DO [address] [place] [address] 574345 Resident Neurology 05/01/24 Gil Danielson LSW Specialty Service Architect 09/19/24 documented as of this encounter
--- OUTSIDE RECORDS SUMMARY | 2024-10-25 15:28 | XMS_ITS | Encounter Summary ---
Author Organization [facility] Address [address] [place] [address] Care Team Providers Care Home Health Speech Therapist Name Role Phone Lorraine Castaneda MD Unavailable [phone] Lorraine Castaneda MD Primary Care Provider Shell Menjivar MD Unavailable +[phone] Chinedu Fleming MD Unavailable +[phone] Mere Andres PsyD Unavailable Unavailab Bo Reid MD Unavailable [phone] Jozef Sanchez [facility] Unavailable [phone] Alicia Montero Unavailable Unavailable oB Jiang MD Unavailable Leonides Hernandez [facility] Unavailable [phone] Babar Ferrari PA-C Unavailable [phone] Priscilla Stoddard Unavailable Yaw Mckinney MD Unavailable +[phone] Edmund Patel MD Unavailable [phone] Edmund Patel MD Unavailable [phone] Yaw Mckinney MD Unavailable +[phone] Jenny Terrazas Unavailable + [phone] Petty Hassan DO Unavailable +[phone] Erum, Gil HEALTH ANALYTICS CONSULTANT Unavailable Unavailable Encounter Details Date Type Department Care Team (Late st Contact Info) Description 06/20/2021 MyC Medical Advice [facility] [address] [place] [address] [place] [address] [place] [address] Social History Tobacco Use Types Packs/Day Years [...] CDT Gender Identity Genderqueer 04/15/2024 10:21 PM MAINTENANCE ADVISOR Sexual Orientation Lesbian 04/15/2024 10 :21 PM MAINTENANCE ADVISOR Sexual Orientation Something else 04/15/2024 10 :21 PM MAINTENANCE ADVISOR documented as of this encounter Plan of Treatment Not on file documented as of this encounter Visit Diagnoses Not on filedocumented in this encounter Additional Health Concerns Assessment Noted Time PHQ-9 Depression Total Score: 6 05/30/19 21 7:05 AM MAINTENANCE ADVISOR documented as of this encounter Care Teams Home Health Speech Therapist Relationship Specialty Start Date End Date Lorraine Castaneda MD [address] [facility] [address] [place] [address] PCP - General Family Practice 07/25/19 Lorraine Castaneda MD [address] [employer] [facility] [address] [place] [address] Assigned PCP 06/18/19 Shell Menjivar MD 909 [place] [address] Dermatology 08/31/19 [place] [address] [place] [address] Assigned Rheumatology Provider 02/23/21 02/29/24 Mere Andres PsyD [address] [address] Assigned Behavioral Health Provider 03/30/21 07/31/22 Bo Jiang MD [address] [place] [address] Physician Plastic Surgery 10/09/21 Jozef Sanchez [facility] [address] [place] [address] Rn Quality Plastic Surgery 10/09/21 Alicia Montero Specialty Mirror Framer 10/09/21 Bo Jiang MD [address] [place] [address] Assigned Surgical Provider 11/01/21 09/29/23 Leonides Hernandez [facility] [address] [place] [address] Pharmacist 05/18/23 Babar Ferrari PA-C [address] [place] [address] Physician Administrative Law Judge Gastroenterology 06/01/23 Priscilla Stoddard [address] [place] [address] Assigned Behavioral Health Provider 08/31/23 Yaw Mckinney MD [address] [place] [address] Physician Rheumatology 12/22/23 Edmund Patel MD 290 [place] [address] Allergy & Immunology 12/27/23 Edmund Patel MD 290 [place] [address] Assigned Allergy Provider 01/31/24 Yaw Mckinney MD [address] [place] [address] 327815 Assigned Rheumatology Provider 03/01/24 Jenny Terrazas CNM [address], [place] [address]24 Assigned OBGYN Provider 03/01/24 Petty Hassan DO [address] [place] [address] 585125 Resident Neurology 05/01/24 Gil Danielson LSW Specialty Mirror Framer 09/19/24 documented as of this encounter
--- OUTSIDE RECORDS SUMMARY | 2024-10-25 15:28 | XMS_ITS | Encounter Summary ---
Author Organization [facility] Address [address] [place] [address] Care Team Providers Care Bird Sitter Name Role Phone Lorraine Castaneda MD Unavailable [phone] Lorraine Castaneda MD Primary Care Provider Shell Menjivar MD Unavailable +[phone] Chinedu Fleming MD Unavailable [phone] Mere Andres PsyD Unavailable Unavailab Bo Reid MD Unavailable [phone] Jozef Sanchez [facility] Unavailable [phone] Alicia Montero Unavailable Unavailable Bo Jiang MD Unavailable +[phone] Leonides Hernandez [facility] Unavailable [phone] Babar Ferrari PA-C Unavailable Priscilla Stoddard Unavailable Yaw Mckinney MD Unavailable +[phone] Edmund Patel MD Unavailable [phone] Edmund Patel MD Unavailable [phone] Yaw Mckinney MD Unavailable +[phone] Jenny Terrazas Unavailable + [phone] Petty Hassan DO Unavailable +[phone] Gil DanielsonW Unavailable Unavailable Encounter Details Date Type Department Care Team (Late st Contact Info) Description 09/23/2021 MyC Medical Advice [address] [address] Andrew Zeynep Nasim, [facility] Social History Tobacco Use Types Packs/Day Years Used Date Smoking Tobacco: Never Smokeless Tobacco: Never Alcohol Use Standard Drinks/Week Comments No 0 (1 standard drink = 0.6 oz pur e alcohol) PHQ-2 Answer Date Recorded PHQ-2 Total Score (Adult) - Positive if 3 or more points; Administer PHQ-9 if positive 1 08/06/2021 Comments No Sex and Gender Information Value Date Recorded Sex Assigned at Female 11/23/2017 12:16 PM CDT Legal Sex Female 11:38 AM CDT Gender Identity Genderqueer 04/15/2024 10:21 PM SIDEWALK INSPECTOR Sexual Orientation Lesbian 04/15/2024 10 :21 PM SIDEWALK INSPECTOR Sexual Orientation Something else 04/15/2024 10 :21 PM SIDEWALK INSPECTOR COVID-19 Exposure Response Date Recorded In the [...] Assessment Noted Time PHQ-9 Depression Total Score: 11 08/07/ 022 7:02 AM CDT documented as of this encounter Care Teams Bird Sitter Relationship Specialty Start Date End Date Lorraine Castaneda MD [address] [address] PCP - General Family Practice 07/25/19 Lorraine Castaneda MD [address] [address] Assigned PCP 06/18/19 Shell Menjivar MD [address] [place] [address] Dermatology 08/31/19 [place] [address] [place] [address] Assigned Rheumatology Provider 02/23/21 02/29/24 Mere Andres PsyD [address] [place] [address] Assigned Behavioral Health Provider 03/30/21 07/31/22 Bo Jiang MD [address] [place] [address] Physician Plastic Surgery 10/09/21 Jozef Sanchez [facility] [address] [place] [address] Robotic Machine Tender Production Plastic Surgery 10/09/21 Alicia Montero Specialty Pre Billing Clinician 10/09/21 Bo Jiang MD [address] [place] [address] Assigned Surgical Provider 11/01/21 09/29/23 [facility] [address] [place] [address] Pharmacist 05/18/23 Babar Ferrari PA-C [address] [place] [address] Physician Drafter Tool Design Gastroenterology 06/01/23 Priscilla Stoddard 3033 [place] [address] Assigned Behavioral Health Provider 08/31/23 Yaw Mckinney MD [address] [place] [address] Physician Rheumatology 12/22/23 Edmund Patel MD 290 [place], [place] 646680 Allergy & Immunology 12/27/23 Edmund Patel MD [address] [place], [place] 159890 Assigned Allergy Provider 01/31/24 Yaw Mckinney MD [address] [place] [address] Assigned Rheumatology Provider 03/01/24 Jenny Terrazas CNM [address] [place], [place] 8[address] Assigned OBGYN Provider 03/01/24 Petty Hassan DO [address] [place] [address] Resident Neurology 05/01/24 Gil Danielson LSW Specialty Pre Billing Clinician 09/19/24 documented as of this encounter
--- OUTSIDE RECORDS SUMMARY | 2024-10-25 15:28 | XMS_ITS | Encounter Summary ---
Author Organization [facility] Address [address] [place] [address] Care Team Providers Care Sales Marketing Director Name Role Phone Lorraine Castaneda MD Unavailable [phone] Lorraine Castaneda MD Primary Care Provider Shell Menjivar MD Unavailable +[phone] Matt Shaver MD Unavailable [phone] Shell Menjivar MD Unavailable +[phone] Chinedu Fleming MD Unavailable +[phone] Mere Andres Unavailable Unavailab Bo Reid MD Unavailable [phone] Jozef Sanchez [facility] Unavailable [phone] Alicia Montero Unavailable Unavailable Bo Jiang MD Unavailable [phone] Leonides Hernandez [facility] Unavailable [phone] Babar Ferrari PA-C Unavailable [phone] Priscilla Sotddard Unavailable Yaw Mckinney MD Unavailable +[phone] Edmund Patel MD Unavailable [phone] Edmund Patel MD Unavailable [phone] Yaw Mckinney MD Unavailable +[phone] Jenny Terrazas [facility] Unavailable [phone] Petty Hassan DO Unavailable ErumGil chamorro CUSTOMER FACILITIES SUPERVISOR Unavailable Unavailable Encounter Details Date Type Department Care Team (Late st Contact Info) Description 02/24/2021 MyC Medical Advice [facility] [address] [place] [address] [place] [address] [place], [place] [address] Bilateral hand pain; Hypermobility syndrome; Polyarthralgia Social History Tobacco Use Types Packs/Day Years [...] CDT Gender Identity Genderqueer 04/15/2024 10:21 PM A&P MECHANIC Sexual Orientation Lesbian 04/15/2024 10 :21 PM A&P MECHANIC Sexual Orientation Something else 04/15/2024 10 :21 PM A&P MECHANIC COVID-19 Exposure Response Date Recorded In the last month, have you been in contact with someone who was confirmed or suspected to have Coronavirus / COVID-19? No / Unsure 02/20/2021 2:19 PM CDT documented as of this encounter Miscellaneous Notes * Telephone Encounter - Tomasa Calixto RN - 03/05/2021 8:07 AM CDT Mychart sent to patient. ANNA Sands, RN Rheumatology RN Filteration Operator [facility] [phone] * Telephone Encounter - Chinedu Fleming MD - 03/04/2021 10:10 PM CDT Since you have notice marked improvement with prednisone it supports the possibility of inflammatory arthritis as the cause of joint pains. I will start you on Plaquenil 400 mg daily. You will also continue prednisone and will taper gradually. Plaquenil can take long time to show improvement. Hopefully in the interim prednisone helps. Plaquenil has a rare side effect of eye toxicity (1/40,000 before 5 yr of use), the risk could go up to 1% after 5 yr of continous use and is more with doses above 5 mg/kg. It requires an annual eye exam. documented in this encounter Plan of Treatment Not on file documented as of this encounter Visit Diagnoses Diagnosis Bilateral hand pain Pain in limb Hypermobility syndrome Polyarthralgia Pain in joint, multiple sites documented in this encounter Additional Health Concerns Assessment Noted Time PHQ-9 Depression Total Score: 6 05/30/19 21 7:05 AM A&P MECHANIC documented as of this encounter Care Teams Sales Marketing Director Relationship Specialty Start Date End Date Lorraine Castaneda MD [address] [facility] [address] PCP - General Family Practice 07/25/19 Lorraine Castaneda MD [facility] [address] Assigned PCP 06/18/19 Shell Menjivar MD [address] [place] [address] Dermatology 08/31/19 Matt Shaver MD [address] [place] [address] 587895 Assigned Musculoskeletal Provider 03/01/20 04/12/21 Shell Menjivar MD [address] [place] [address] Assigned Surgical Provider 03/01/20 05/31/21 [place] [address] [place] [address] Assigned Rheumatology Provider 02/23/21 02/29/24 Mere Andres, Isabelle [address] [address] Assigned Behavioral Health Provider 03/30/21 07/31/22 [place] [address] [place] [address] Physician Plastic Surgery 10/09/21 Jozef Sanchez [facility] [address] [place] [address] Metal Fitter Plastic Surgery 10/09/21 Alicia Montero Specialty Filteration Operator 10/09/21 Bo Jiang MD [address] [place] [address] [id number] Assigned Surgical Provider 11/01/21 09/29/23 Leonides Hernandez [facility] [address] [place] [address] Pharmacist 05/18/23 Babar Ferrari PA-C [address] [place] [address] Physician Tap Grinder Gastroenterology 06/01/23 Priscilla Stoddard 3033 [place] [address] Assigned Behavioral Health Provider 08/31/23 Yaw Mckinney MD [address] [place] [address] Physician Rheumatology 12/22/23 Edmund Patel MD 290 [place], [place] 774630 Allergy & Immunology 12/27/23 Edmund aPtel MD 290 [place] [address] Assigned Allergy Provider 01/31/24 Yaw Mckinney MD [address] [place] [address] Assigned Rheumatology Provider 03/01/24 Jenny Terrazas CNM 606 [place] [address] Assigned OBGYN Provider 03/01/24 Petty Hassan DO [address] [place] [address] Resident Neurology 05/01/24 Gil Danielson LSW Specialty Filteration Operator 09/19/24 documented as of this encounter
--- OUTSIDE RECORDS SUMMARY | 2024-10-25 15:28 | XMS_ITS | Encounter Summary ---
Author Organization [facility] Address [address] [place] [address] Care Team Providers Care Sheriff Deputy Name Role Phone Lorraine Castaneda MD Unavailable [phone] Lorraine Castaneda MD Primary Care Provider Shell Menjivar MD Unavailable +[phone] Chinedu Fleming MD Unavailable [phone] Mere Andres PsyD Unavailable Unavailab Bo Reid MD Unavailable [phone] Jozef Sanchez [facility] Unavailable [phone] Alicia Montero Unavailable Unavailable Bo Jiang MD Unavailable [phone] Leonides Hernandez [facility] Unavailable [phone] Babar Ferrari PA-C Unavailable [phone] Priscilla Stoddard Unavailable Yaw Mckinney MD Unavailable +[phone] Edmund Patel MD Unavailable [phone] Edmund Patel MD Unavailable [phone] Yaw Mckinney MD Unavailable +[phone] Jenny Terrazas Unavailable + [phone] Petty Hassan DO Unavailable +[phone] Gil DanielsonW Unavailable Unavailable Encounter Details Date Type Department Care Team (Late st Contact Info) Description 09/23/2021 MyC Medical Advice [address] [address] Tomsaa Lamar Social History Tobacco Use Types Packs/Day Years [...] CDT Gender Identity Genderqueer 04/15/2024 10:21 PM JUKEBOX COIN COLLECTOR Sexual Orientation Lesbian 04/15/2024 10 :21 PM JUKEBOX COIN COLLECTOR Sexual Orientation Something else 04/15/2024 10 :21 PM JUKEBOX COIN COLLECTOR COVID-19 Exposure Response Date Recorded In the [...] documented as of this encounter Care Teams Sheriff Deputy Relationship Specialty Start Date End Date Lorraine Castaneda MD [address] [address] PCP - General Family Practice 07/25/19 Lorraine Castaneda MD [address] [address] Assigned PCP 06/18/19 Shell Menjivar MD [address] [place] [address] Dermatology 08/31/19 [place] [address] [place] [address] Assigned Rheumatology Provider 02/23/21 02/29/24 Mere Andres PsyD [address] [place] [address] Assigned Behavioral Health Provider 03/30/21 07/31/22 Bo Jiang MD [address] [place] [address] Physician Plastic Surgery 10/09/21 Jozef Sanchez [facility] [address] [place] [address] Exhibition Specialist Plastic Surgery 10/09/21 Alicia Montero Specialty Electrical Installer 10/09/21 Bo Jiang MD [address] [place] [address] Assigned Surgical Provider 11/01/21 09/29/23 [facility] [address] [place] [address] Pharmacist 05/18/23 Babar Ferrari PA-C [address] [place] [address] Physician Shank Stapler Gastroenterology 06/01/23 Priscilla Stoddard 3033 [place] [address] Assigned Behavioral Health Provider 08/31/23 Yaw Mckinney MD 420 [place] [address] Physician Rheumatology 12/22/23 Edmund Patel MD 290 [place] [address] Allergy & Immunology 12/27/23 Edmund Patel MD [address] [place], [place] 429240 Assigned Allergy Provider 01/31/24 Yaw Mckinney MD [address] [place] [address] Assigned Rheumatology Provider 03/01/24 Jenny Terrazas CNM [address] [place], [place] 501[address] Assigned OBGYN Provider 03/01/24 Petty Hassan DO [address] [place] [address] Resident Neurology 05/01/24 Gil Danielson LSW Specialty Electrical Installer 09/19/24 documented as of this encounter
--- OUTSIDE RECORDS SUMMARY | 2024-10-25 15:29 | XMS_ITS | Encounter Summary ---
Author Organization [facility] Address [address] [place] [address] Care Team Providers Care Dog Track Kennel Manager Name Role Phone Lorraine Castaneda MD Unavailable [phone] Lorraine Castaneda MD Primary Care Provider Shell Menjivar MD Unavailable +[phone] Matt Shaver MD Unavailable [phone] Shell Menjivar MD Unavailable +[phone] Shell Menjivar MD Unavailable +[phone] Chinedu Fleming MD Unavailable +[phone] Mere Andres Unavailable Unavailab Bo Reid MD Unavailable [phone] Jozef Sanchez [facility] Unavailable [phone] Alicia Montero Unavailable Unavailable Bo Jiang MD Unavailable [phone] Leonides Hernandez [facility] Unavailable [phone] Babar Ferrari PA-C Unavailable [phone] Priscilla Stoddard Unavailable Yaw Mckinney MD Unavailable +[phone] Edmund Patel MD Unavailable [phone] Edmund Patel MD Unavailable [phone] Yaw Mckinney MD Unavailable +[phone] SunilnelsymikJenny blanc [facility] Unavailable +[phone] Petty Hassan DO Unavailable [phone] Gil Danielson CYBERATHLETE Unavailable Unavailable Encounter Details Date Type Department Care Team (Late st Contact Info) Description 10/24/2019 MyC Medical Advice [address] 5[address] [place] [address] Radha Suarez, PT ANGELES CARI 6793 [facility] [address] [place] [address] Social History Tobacco Use Types Packs/Day Years Used Date Smoking Tobacco: Never Smokeless Tobacco: Never Alcohol Use Standard Drinks/Week Comments No 0 (1 standard drink = 0.6 oz pur e alcohol) PHQ-2 Answer Date Recorded PHQ-2 Score 4 10/21/2019 Comments No Sex and Gender Information Value Date Recorded Sex Assigned at Female 11/23/2017 12:16 PM CDT Legal Sex Female 11:38 AM CDT Gender Identity Genderqueer 04/15/2024 10:21 PM PIPE WRAPPING MACHINE OPERATOR Sexual Orientation Lesbian 04/15/2024 10 :21 PM PIPE WRAPPING MACHINE OPERATOR Sexual Orientation Something else 04/15/2024 10 :21 PM PIPE WRAPPING MACHINE OPERATOR documented as of this encounter Plan of Treatment Not on file documented as of this encounter Visit Diagnoses Not on filedocumented in this encounter Additional Health Concerns Assessment Noted Time PHQ-9 Depression Total Score: 14 020 7:04 AM CDT documented as of this encounter Care Teams Dog Track Kennel Manager Relationship Specialty Start Date End Date Lorraine Castaneda MD [address] [place] [address] [place] [address] PCP - General Family Practice 07/25/19 Lorraine Castaneda MD [address] [place] [address] [place] [address] Assigned PCP 06/18/19 Shell Menjivar MD [address] [place] [address] Dermatology 08/31/19 Matt Shaver MD [address] [place] [address] Assigned Musculoskeletal Provider 03/01/20 04/12/21 Shell Menjivar MD [address] [place] [address] 343235 Assigned Pediatric Specialist Provider 03/01/20 06/09/20 Shell Menjivar MD [address] [place] [address] Assigned Surgical Provider 03/01/20 05/31/21 [place] [address] [place] [address] Assigned Rheumatology Provider 02/23/21 02/29/24 Mere Andres PsyD [address], [place] [address] Assigned Behavioral Health Provider 03/30/21 07/31/22 Bo Jiang MD [address] [place] [address] Physician Plastic Surgery 10/09/21 Jozef Sanchez [facility] [address] [place] [address] Mine Exploration Engineer Plastic Surgery 10/09/21 Alicia Montero Specialty Manager Of Marketing 10/09/21 Bo Jiang MD [address] [address] Assigned Surgical Provider 11/01/21 09/29/23 Leonides Hernandez As[facility] 909 [facility] Pharmacist 05/18/23 Babar Ferrari PA-C [address] [place] [address] Physician Ceo Na Gastroenterology 06/01/23 Priscilla Stoddard 30[address] [place], [place] 816696 Assigned Behavioral Health Provider 08/31/23 Yaw Mckinney MD 420 [place], [place] 642385 Physician Rheumatology 12/22/23 Edmund Patel MD 290 [place], [place] 370940 Allergy & Immunology 12/27/23 Edmund Patel MD [address] [place], [place] 302440 Assigned Allergy Provider 01/31/24 Yaw Mckinney MD [address] [place] [address] 904555 Assigned Rheumatology Provider 03/01/24 Jenny Terrazas CNM [address] [place], [place] [address] Assigned OBGYN Provider 03/01/24 Petty Hassan DO [address] [place] [address] Resident Neurology 05/01/24 Gil Danielson LSW Specialty Manager Of Marketing 09/19/24 documented as of this encounter
--- OUTSIDE RECORDS SUMMARY | 2024-10-25 15:29 | XMS_ITS | Encounter Summary ---
Author Organization [facility] Address [address] [place] [address] Care Team Providers Care Fur Glazer Name Role Phone Lorraine Castaneda MD Unavailable [phone] Lorraine Castaneda MD Primary Care Provider Shell Menjivar MD Unavailable +[phone] Chinedu Fleming MD Unavailable [phone] Bo Jiang MD Unavailable [phone] Jozef Sanchez [facility] Unavailable [phone] Alicia Montero Unavailable Unavailable Bo Jiang MD Unavailable [phone] Leonides Hernandez [facility] Unavailable [phone] Babar Ferrari PA-C Unavailable [phone] Priscilla Stoddard Unavailable Yaw Mckinney MD Unavailable +[phone] Edmund Patel MD Unavailable [phone] Emdund Patel MD Unavailable [phone] Yaw Mckinney MD Unavailable +[phone] Jenny Terrazas CNM Unavailable + [phone] Petty Hassan DO Unavailable +[phone] Gil Danielson TRIM INSTALLER Unavailable Unavailable Encounter Details Date Type Department Care Team (Late st Contact Info) Description 08/27/2022 MyC Medical Advice [address] [address] Kate Manuel Social History Tobacco Use Types Packs/Day Years Used Date Smoking Tobacco: Never Smokeless Tobacco: Never Alcohol Use Standard Drinks/Week Comments No 0 (1 standard drink = 0.6 oz pur e alcohol) PHQ-2 Answer Date Recorded PHQ-2 Score 0 08/26/2022 Comments No Sex and Gender Information Value Date Recorded Sex Assigned at Female 11/23/2017 12:16 PM CDT Legal Sex Female 11:38 AM CDT Gender Identity Genderqueer 04/15/2024 10:21 PM FINANCIAL REPRESENTATIVE Sexual Orientation Lesbian 04/15/2024 10 :21 PM FINANCIAL REPRESENTATIVE Sexual Orientation Something else 04/15/2024 10 :21 PM FINANCIAL REPRESENTATIVE COVID-19 Exposure Response Date Recorded In the last 10 days, have yo u been in contact with someone who was confirmed or suspected to have Coronavirus/COVID-19? No / Unsure 08/12/2022 10:00 AM CDT documented as of this encounter Plan of Treatment Not on file documented as of this encounter Visit Diagnoses Not on filedocumented in this encounter Additional Health Concerns Assessment Noted Time PHQ-9 Depression Total Score: 8 08/13/19 23 10:06 AM CDT documented as of this encounter Care Teams Fur Glazer Relationship Specialty Start Date End Date Lorraine Castaneda MD [address] [place] [address] [place] [address] PCP - General Family Practice 07/25/19 Lorraine Castaneda MD [address] [place] [address] [place] [address] Assigned PCP 06/18/19 Shell Menjivar MD 909 [place] [address] Dermatology 08/31/19 [place] [address] [place] [address] Assigned Rheumatology Provider 02/23/21 02/29/24 [place] [address] [place] [address] Physician Plastic Surgery 10/09/21 Jozef Sanchez [facility] [address] [place] [address] 265105 Cotton Broker Plastic Surgery 10/09/21 Alicia Montero Specialty Girl 10/09/21 Bo Jiang MD [address] [place] [address] Assigned Surgical Provider 11/01/21 09/29/23 Leonides Hernandez [facility] [address] [place] [address] Pharmacist 05/18/23 Babar Ferrari PA-C [address] [place] [address] Physician Yeast Supervisor Gastroenterology 06/01/23 Priscilla Stoddard [address] [place] [address] 709696 Assigned Behavioral Health Provider 08/31/23 Yaw Mckinney MD [address] [place] [address] 051805 Physician Rheumatology 12/22/23 Edmund Patel MD 290 [place] [address] Allergy & Immunology 12/27/23 Edmund Patel MD 290 [place] [address] Assigned Allergy Provider 01/31/24 Yaw Mckinney MD [address] [place] [address] Assigned Rheumatology Provider 03/01/24 Jenny Terrazas CNM [address] [place] [address] Assigned OBGYN Provider 03/01/24 Petty Hassan DO [address] [place] [address] 406355 Resident Neurology 05/01/24 Gil Danielson LSW Specialty Girl 09/19/24 documented as of this encounter
--- OUTSIDE RECORDS SUMMARY | 2024-10-25 15:29 | XMS_ITS ---
Author Organization [facility] Address [address] [place] [address] Care Team Providers Care Manpower Development Specialist Name Role Phone Lorraine Castaneda MD Unavailable [phone] Lorraine Castaneda MD Primary Care Provider Shell Menjivar MD Unavailable [phone] Bo Jiang MD Unavailable [phone] Jozef Sanchez [facility] Unavailable [phone] Alicia Montero Unavailable Unavailable Leonides Hernandez [facility] Unavailable [phone] Babar Ferrari PA-C Unavailable [phone] Priscilla Stoddard Unavailable Yaw Mckinney MD Unavailable +[phone] Edmund Patel MD Unavailable [phone] Edmund Patel MD Unavailable [phone] Yaw Mckinney MD Unavailable +[phone] Jenny Terrazas Pascual Unavailable + [phone] Petty Hassan DO Unavailable +[phone] Gil Danielson CONCRETE POURING SUPERVISOR Unavailable Unavailable Primary Care Behavioral Health Status:Identified (Enrolling) Start date:09/19/2024 Enrollment reason:Referred by provider or care team Overview Bindu Boyle-- financial & housing support. Case Team Name Relationship Phone Gil OZUNA(Responsible Staff) Specialty Wire Weaver Continued Care and Services Coordination
--- OUTSIDE RECORDS SUMMARY | 2024-10-25 15:29 | XMS_ITS | Encounter Summary ---
Author Organization [place] Address [address] [place] [address] Care Team Providers Care Project Coordinator Rn Name Role Phone Lorraine Castaneda MD Unavailable [phone] Lorraine Castaneda MD Primary Care Provider Shell Menjivar MD Unavailable +[phone] Matt Shaver MD Unavailable +[phone] Shell Menjivar MD Unavailable +[phone] Shell Menjivar MD Unavailable +[phone] Chinedu Fleming MD Unavailable +[phone] Mere Andres Unavailable Unavailab Bo Reid MD Unavailable +[phone] Jozef Sanchez [facility] Unavailable +[phone] Alicia Montero Unavailable Unavailable Bo Jiang MD Unavailable +[phone] Leonides Hernandez [facility] Unavailable +[phone] Babar Ferrari PA-C Unavailable +[phone] Priscilla Stoddard Unavailable Yaw Mckinney MD Unavailable +[phone] Edmund Patel MD Unavailable [phone] Edmund Patel MD Unavailable [phone] Yaw Mckinney MD Unavailable +[phone] SunilJenny mcallister CN Unavailable +[phone] Petty Hassan DO Unavailable +[phone] Gil Danielson [facility] OB Unavailable Unavailable Encounter Details Date Type Department Care Team (Late st Contact Info) Description 11/23/2019 MyC Medical Advice [address] 5th [place] [address] Radha Suarez, PT ANGELES CARI 8971 [facility] 450 [place] [address] Social History Tobacco Use Types [...] CDT Gender Identity Genderqueer 04/15/2024 10:21 PM MAIL WEIGHER Sexual Orientation Lesbian 04/15/2024 10 :21 PM MAIL WEIGHER Sexual Orientation Something else 04/15/2024 10 :21 PM MAIL WEIGHER COVID-19 Exposure Response Date Recorded In the last month, have you been in contact with someone who was confirmed or suspected to have Coronavirus / COVID-19? No / Unsure 11/22/2019 11:57 AM CDT documented as of this encounter Plan of Treatment Not on file documented as of this encounter Visit Diagnoses Not on filedocumented in this encounter Additional Health Concerns Assessment Noted Time PHQ-9 Depression Total Score: 14 020 7:06 AM CDT documented as of this encounter Care Teams Project Coordinator Rn Relationship Specialty Start Date End Date Lorraine Castaneda MD 3033 [facility] 275 [place] [address] PCP - General Family Practice 07/25/19 Lorraine Castaneda MD [address] [address] Assigned PCP 06/18/19 Shell Menjivar MD [address] [place] [address] Dermatology 08/31/19 Matt Shaver MD [address] [place] [address] Assigned Musculoskeletal Provider 03/01/20 04/12/21 Shell Menjivar MD [address] [place] [address] Assigned Pediatric Specialist Provider 03/01/20 06/09/20 Shell Menjivar MD [address] [place] [address] Assigned Surgical Provider 03/01/20 05/31/21 [place] [address] [address] [place] [address] Assigned Rheumatology Provider 02/23/21 02/29/24 Mere Andres PsyD [address], [place] [address] Assigned Behavioral Health Provider 03/30/21 07/31/22 Bo Jiang MD 2945 [facility] 200 [place] [address] Physician Plastic Surgery 10/09/21 Jozef Sanchez [facility] [address] [place] [address]295 Hydrogen Plant Operator Plastic Surgery 10/09/21 Alicia Montero Specialty Record Tabulating Clerk 10/09/21 Bo Jiang MD [address] [address] Assigned Surgical Provider 11/01/21 09/29/23 [facility] 909 [facility] Pharmacist 05/18/23 Babar Ferrari PA-C [address] [place] [address] Physician New Car Sales Manager Gastroenterology 06/01/23 Priscilla Stoddard [address]33 [place] [address] Assigned Behavioral Health Provider 08/31/23 Yaw Mckinney MD [address] [place] [address] 958155 Physician Rheumatology 12/22/23 Edmund Patel MD 290 [place] [address] Allergy & Immunology 12/27/23 Edmund Patel MD [address] [place], [place] 7[address]40 Assigned Allergy Provider 01/31/24 Yaw Mckinney MD 420 [place] [address] Assigned Rheumatology Provider 03/01/24 Jenny Terrazas CNM [address] [place] [address] Assigned OBGYN Provider 03/01/24 Petty Hassan DO [address] [place] [address] 177015 Resident Neurology 05/01/24 Gil Danielson LSW Specialty Record Tabulating Clerk 09/19/24 documented as of this encounter
--- OUTSIDE RECORDS SUMMARY | 2024-10-25 15:29 | XMS_ITS ---
Author Organization [facility] Address [address] [place] [address] Care Team Providers Care Tripoler Name Role Phone Lorraine Castaneda MD Unavailable +[phone] Lorraine Castaneda MD Primary Care Provider Shell Menjivar MD Unavailable +[phone] Bo Jiang MD Unavailable [phone] Jozef Sanchez [facility] Unavailable [phone] Alicia Montero Unavailable Unavailable Leonides Hernandez [facility] Unavailable [phone] Babar Ferrari PA-C Unavailable [phone] Priscilla Stoddard Unavailable Yaw Mckinney MD Unavailable +[phone] Edmund Patel MD Unavailable [phone] Edmund Patel MD Unavailable [phone] Yaw Mckinney MD Unavailable +[phone] Jenny Terrazas [facility] Unavailable + [phone] Petty Hassan DO Unavailable +[phone] Gil Danielson MILK HOUSE WORKER Unavailable Unavailable Transitional Care Management Status:Closed (Closed) Start date:10/03/2024 Enrollment date:10/06/2024 End date:10/11/2024 Close reason:Goals met Continued Care and Services Coordination
--- OUTSIDE RECORDS SUMMARY | 2024-10-25 15:29 | XMS_ITS | Encounter Summary ---
Author Organization [facility] Address [address] [place] [address] Care Team Providers Care Stator Connector Name Role Phone Lorraine Castaneda MD Unavailable [phone] Lorraine Castaneda MD Primary Care Provider Shell Menjivar MD Unavailable +[phone] Matt Shaver MD Unavailable [phone] Shell Menjivar MD Unavailable +[phone] Shell Menjivar MD Unavailable +[phone] Chinedu Fleming MD Unavailable +[phone] Mere Andres Unavailable Unavailab Bo Reid MD Unavailable [phone] Jozef Sanchez [facility] Unavailable [phone] Alicia Montero Unavailable Unavailable Bo Jiang MD Unavailable +[phone] Leonides Hernandez [facility] Unavailable [phone] Babar Ferrari PA-C Unavailable [phone] Priscilla Stoddard Unavailable Yaw Mckinney MD Unavailable +[phone] Edmund Patel MD Unavailable [phone] Edmund Patel MD Unavailable [phone] Yaw Mckinney MD Unavailable +[phone] SunilJenny mcallister CN Unavailable [phone] Petty Hassan DO Unavailable [phone] Gil Danielson COOPERAGE SHOP SUPERVISOR Unavailable Unavailable Encounter Details Date Type Department Care Team (Late st Contact Info) Description 12/15/2019 MyC Medical Advice [address] 5th [place] [address] Radha Suarez, PT ANGELES CARI 8019 [facility] 450 [place] [address] Social History Tobacco Use Types [...] CDT Gender Identity Genderqueer 04/15/2024 10:21 PM RESTAURANT BARTENDER Sexual Orientation Lesbian 04/15/2024 10 :21 PM RESTAURANT BARTENDER Sexual Orientation Something else 04/15/2024 10 :21 PM RESTAURANT BARTENDER COVID-19 Exposure Response Date Recorded In the last month, have you been in contact with someone who was confirmed or suspected to have Coronavirus / COVID-19? No / Unsure 12/06/2019 9:26 AM CDT documented as of this encounter Plan of Treatment Not on file documented as of this encounter Visit Diagnoses Not on filedocumented in this encounter Additional Health Concerns Assessment Noted Time PHQ-9 Depression Total Score: 14 020 7:06 AM CDT documented as of this encounter Care Teams Stator Connector Relationship Specialty Start Date End Date Lorraine Castaneda MD 3033 [facility] 275 [place] [address] PCP - General Family Practice 07/25/19 Lorraine Castaneda MD [address] [address] Assigned PCP 06/18/19 Shell Menjivar MD [address] [place] [address] Dermatology 08/31/19 Matt Shaver MD [address] [place] [address] Assigned Musculoskeletal Provider 03/01/20 04/12/21 Shell Menjivar MD [address] [place] [address] Assigned Pediatric Specialist Provider 03/01/20 06/09/20 Shell Menjivar MD [address] [place] [address] Assigned Surgical Provider 03/01/20 05/31/21 [place] [address] [address] [address] Assigned Rheumatology Provider 02/23/21 02/29/24 Mere Andres PsyD [address], [place] [address] Assigned Behavioral Health Provider 03/30/21 07/31/22 Bo Jiang MD 2945 [facility] 200 [place] [address] Physician Plastic Surgery 10/09/21 Jozef Sanchez [facility] [address] [place] [address] 867745 Neon Sign Erector Plastic Surgery 10/09/21 Alicia Montero Specialty Key Ringer 10/09/21 Bo Jiang MD [address] [address] Assigned Surgical Provider 11/01/21 09/29/23 [facility] 909 [facility] Pharmacist 05/18/23 Babar Ferrari PA-C [address] [place] [address] Physician Prototype Machine Operator Gastroenterology 06/01/23 Priscilla Stoddard 3033 [place] [address] Assigned Behavioral Health Provider 08/31/23 Yaw Mckinney MD [address] [place] [address] 167775 Physician Rheumatology 12/22/23 Edmund Patel MD 290 [place] [address] Allergy & Immunology 12/27/23 Edmund Patel MD 290 [place], [place] 885090 Assigned Allergy Provider 01/31/24 Yaw Mckinney MD 420 [place] [address] Assigned Rheumatology Provider 03/01/24 Jenny Terrazas CNM [address] [place] [address] Assigned OBGYN Provider 03/01/24 Petty Hassan DO [address] [place] [address] 959835 Resident Neurology 05/01/24 Gil Danielson LSW Specialty Key Ringer 09/19/24 documented as of this encounter
--- OUTSIDE RECORDS SUMMARY | 2024-10-25 15:29 | XMS_ITS | Encounter Summary ---
Author Organization [place] Address [address] [place] [address] Care Team Providers Care Personal Care Aide Name Role Phone Lorraine Castaneda MD Unavailable [phone] Lorraine Castaneda MD Primary Care Provider Shell Menjivar MD Unavailable +[phone] Matt Shaver MD Unavailable [phone] Shell Menjivar MD Unavailable +[phone] Shell Menjivar MD Unavailable +[phone] Chinedu Fleming MD Unavailable +[phone] Mere Andres Unavailable Unavailab Bo Reid MD Unavailable [phone] Jozef Sanchez [facility] Unavailable [phone] Alicia Montero Unavailable Unavailable Bo Jiang MD Unavailable [phone] Leonides Hernandez [facility] Unavailable [phone] Babar Ferrari PA-C Unavailable [phone] Priscilla Stoddard Unavailable Yaw Mckinney MD Unavailable +[phone] Edmund Patel MD Unavailable [phone] Edmund Patel MD Unavailable [phone] Yaw Mckinney MD Unavailable +[phone] Jenny Terrazas [facility] Unavailable [phone] Petty Hassan DO Unavailable +[phone] Gil Danielson NET SQL DEVELOPER Unavailable Unavailable Encounter Details Date Type Department Care Team (Late st Contact Info) Description 11/21/2019 MyC Medical Advice [facility] Dermatologic Surgery [address] [facility] 3rd [place] [address] Yvonne Taylor CMA Social History Tobacco Use Types Packs/Day Years [...] CDT Gender Identity Genderqueer 04/15/2024 10:21 PM PROJECT CONTROLS SCHEDULER Sexual Orientation Lesbian 04/15/2024 10 :21 PM PROJECT CONTROLS SCHEDULER Sexual Orientation Something else 04/15/2024 10 :21 PM PROJECT CONTROLS SCHEDULER COVID-19 Exposure Response Date Recorded In [...] documented as of this encounter Care Teams Personal Care Aide Relationship Specialty Start Date End Date Lorraine Castaneda MD 3033 [employer] [facility] [address] [place] [address] PCP - General Family Practice 07/25/19 Lorraine Castaneda MD [address] [employer] [facility] [address] [place] [address] Assigned PCP 06/18/19 Shell Menjivar MD [address] [place] [address] MD Dermatology 08/31/19 Matt Shaver MD [address] [place] [address] Assigned Musculoskeletal Provider 03/01/20 04/12/21 Shell Menjivar MD [address] [place] [address] 724475 Assigned Pediatric Specialist Provider 03/01/20 06/09/20 Shell Menjivar MD [address] [place] [address] Assigned Surgical Provider 03/01/20 05/31/21 [place] [address] [address] [address] Assigned Rheumatology Provider 02/23/21 02/29/24 Mere Andres PsyD [address] [address] Assigned Behavioral Health Provider 03/30/21 07/31/22 Bo Jiang MD [address] [place] [address] Physician Plastic Surgery 10/09/21 Jozef Sanchez [facility] [address] [place] [address] Knife Changer Plastic Surgery 10/09/21 Alicia Montero Specialty First Press Operator 10/09/21 Bo Jiang MD 2945 [facility] 200 [place] [address] Assigned Surgical Provider 11/01/21 09/29/23 Leonides Hernandez [facility] 909 [facility] Pharmacist 05/18/23 Babar Ferrari PA-C [address] [place] [address] Physician Inbound Sales Representative Gastroenterology 06/01/23 Priscilla Stoddard [address] [place] [address] Assigned Behavioral Health Provider 08/31/23 Yaw Mckinney MD [address] [place] [address] Physician Rheumatology 12/22/23 Edmund Patel MD 290 [place], [place] 526200 Allergy & Immunology 12/27/23 Edmund Patel MD 290 [place], [place] 532300 Assigned Allergy Provider 01/31/24 Yaw Mckinney MD [address] [place] [address] Assigned Rheumatology Provider 03/01/24 Jenny Terrazas CNM [address] [place] [address] Assigned OBGYN Provider 03/01/24 Petty Hassan DO [address] [place] [address] Resident Neurology 05/01/24 Gil Danielson LSW Specialty First Press Operator 09/19/24 documented as of this encounter
--- OUTSIDE RECORDS SUMMARY | 2024-10-25 15:29 | XMS_ITS | Encounter Summary ---
Author Organization [facility] Address [address] [place] [address] Care Team Providers Care Flask Carrier Name Role Phone [facility] Primary Care Provider Michael Diaz MD Unavailable +[phone] Michael Diaz MD Unavailable +[phone] Lorraine Castaneda MD Unavailable +[phone] Clarisse Mejia MD Unavailable [phone] Lorraine Castaneda MD Unavailable +[phone] Lorraine Castaneda MD Primary Care Provider Shell Menjivar MD Unavailable +[phone] Matt Shaver MD Unavailable +[phone] Shell Menjivar MD Unavailable +[phone] Shell Menjivar MD Unavailable +[phone] Chinedu Fleming MD Unavailable +[phone] Mere Andres PsyD Unavailable Unavailab Bo Reid MD Unavailable [phone] Jozef Sanchez [facility] Unavailable +[phone] Alicia Montero Unavailable Unavailable Bo Jiang MD Unavailable [phone] Leonides Hernandez [facility] Unavailable +[phone] Babar Ferrari PA-C Unavailable +[phone] Priscilla Stoddard Unavailable Yaw Mckinney MD Unavailable +[phone] Edmund Patel MD Unavailable [phone] Edmund Patel MD Unavailable [phone] Yaw Mckinney MD Unavailable +[phone] JohnniemikJenny blanc [facility] Unavailable +- [phone] Gildardogagandeep Petty Unavailable +[phone] Gil Danielson ACID LEVELER Unavailable Unavailable Reason for Visit * Reason Onset Date Comments Rectal Problem 09/08/2017 Encounter Details Date Type Department Care Team (Late st Contact Info) Description 09/08/2017 [facility] [address] [id number] Mil Bates MD NO INFO AVAILABLE 03/13/2022 Rectal Problem Social History Tobacco Use Types Packs/Day Years Used Date Smoking Tobacco: Never Smokeless Tobacco: Never Alcohol Use Standard Drinks/Week Comments No 0 (1 standard drink = 0.6 oz pur e alcohol) Comments No Sex and Gender Information Value Date Recorded Sex Assigned at Female 11/23/2017 12:16 PM CDT Legal Sex Female 11:38 AM CDT Gender Identity Genderqueer 04/15/2024 10:21 PM TRAINING ANALYST Sexual Orientation Lesbian 04/15/2024 10 :21 PM TRAINING ANALYST Sexual Orientation Something else 04/15/2024 10 :21 PM TRAINING ANALYST documented as of this encounter Plan of Treatment Not on file documented as of this encounter Visit Diagnoses Not on filedocumented in this encounter Additional Health Concerns Assessment Noted Time PHQ-9 Depression Total Score: 15 09/03/ 018 7:34 AM CDT documented as of this encounter Care Teams Flask Carrier Relationship Specialty Start Date End Date Clinic - [address], [address] [place], [place] [id number] PCP - General Clinic 08/19/17 07/24/19 Michael Diaz MD [facility] [address] [address] PCP - Assigned PCP 10/24/17 07/12/18 Lorraine Castaneda MD [facility] [address] [address] PCP - General Family Practice 07/25/19 Michael Diaz MD [facility] [address] [address] Assigned PCP 10/24/17 11/12/18 Lorraine Castaneda MD [facility] [employer] [address] [address] Assigned PCP 11/13/18 04/29/19 Clarisse Mejia MD [facility] [employer] [place] [address] Assigned PCP 04/30/19 06/17/19 Lorraine Castaneda MD [facility] [address] [address] Assigned PCP 06/18/19 Shell Menjivar MD [address] [place] [address] 993085 Dermatology 08/31/19 Matt Shaver MD [address] [place] [address] 296475 Assigned Musculoskeletal Provider 03/01/20 04/12/21 Shell Menjivar MD [address] [place] [address] Assigned Pediatric Specialist Provider 03/01/20 06/09/20 Shell Menjivar MD [address] [place] [address] Assigned Surgical Provider 03/01/20 05/31/21 [place] [address] [place] [address] Assigned Rheumatology Provider 02/23/21 02/29/24 Mere Andres [facility] [address] [place] [address] Assigned Behavioral Health Provider 03/30/21 07/31/22 Bo Jiang MD [address] [place] [address] Physician Plastic Surgery 10/09/21 [facility] [address] [place] [address] Unit Educator Plastic Surgery 10/09/21 Alicia Montero Specialty Promotional Advertising Assistant 10/09/21 Bo Jiang MD [address] [place] [address] [id number] Assigned Surgical Provider 11/01/21 09/29/23 Leonides Hernandez [facility] [address] [place] [address] Pharmacist 05/18/23 Babar Ferrari PA-C [address] [place] [address] Physician Plate Former Gastroenterology 06/01/23 Priscilla Stoddard 3033 [place] [address] Assigned Behavioral Health Provider 08/31/23 Yaw Mckinney MD [address] [place] [address] 859245 Physician Rheumatology 12/22/23 Edmnud Patel MD 290 [place] [address] Allergy & Immunology 12/27/23 Edmund Patel MD 290 [place] [address] Assigned Allergy Provider 01/31/24 Yaw Mckinney MD [address] [place] [address] Assigned Rheumatology Provider 03/01/24 Jenny Terarzas CNM [address] [place] [address] Assigned OBGYN Provider 03/01/24 Petty Hassan DO 420 [place], [place] 5[address] Resident Neurology 05/01/24 Gil Dainelson LSW Specialty Promotional Advertising Assistant 09/19/24 documented as of this encounter
--- OUTSIDE RECORDS SUMMARY | 2024-10-25 15:29 | XMS_ITS | Encounter Summary ---
Author Organization [place] Address [address] [place] [address] Care Team Providers Care Human Resources Department Supervisor Name Role Phone Lorraine Castaneda MD Unavailable [phone] Lorraine Castaneda MD Primary Care Provider Shell Menjivar MD Unavailable [phone] Matt Shaver MD Unavailable [phone] Shell Menjivar MD Unavailable +[phone] Shell Menjivar MD Unavailable [phone] Chinedu Fleming MD Unavailable +[phone] Mere Andres Unavailable Unavailab Bo Reid MD Unavailable [phone] Jozef Sanchez [facility] Unavailable [phone] Alicia Montero Unavailable Unavailable Bo Jiang MD Unavailable [phone] Leonides Hernandez [facility] Unavailable [phone] Babar Ferrari PA-C Unavailable [phone] Priscilla Stoddard Unavailable Yaw Mckinney MD Unavailable +[phone] Edmund Patel MD Unavailable [phone] Edmund Patel MD Unavailable [phone] Yaw Mckinney MD Unavailable +[phone] Jenny Terrazas [facility] Unavailable [phone] Petty Hassan DO Unavailable Gil Danielson CORE EXTRUDER Unavailable Unavailable Reason for Visit * Reason Onset Date Comments MyChart Communication 03/20/2020 refill and joint pain Encounter Details Date Type Department Care Team (Late st Contact Info) Description 03/20/2020 MyC Medical Advice [facility] [address], [address] [place] [address] Lorraine Castaneda MD [address] [place] [address] MyChart Communication (refill and joint pain) Social History Tobacco Use Types Packs/Day Years [...] CDT Gender Identity Genderqueer 04/15/2024 10:21 PM PAPER PATTERN FOLDER Sexual Orientation Lesbian 04/15/2024 10 :21 PM PAPER PATTERN FOLDER Sexual Orientation Something else 04/15/2024 10 :21 PM PAPER PATTERN FOLDER documented as of this encounter Miscellaneous Notes * Telephone Encounter - Claudia Duvall RN - 03/21/2020 10:45 AM CST Sent MyChart to patient Claudia Devi RN R PATTERN FOLDER * Telephone Encounter - Lorraine Castaneda MD - 03/21/2020 10:23 AM PAPER PATTERN FOLDER Sent in rx for #30. She definitely should come in for an appt- can be a physical, but then we may not have time to get to all her concerns. Thanks- CW R PATTERN FOLDER * Telephone Encounter - Annie Figueredo RN - 03/21/2020 8:26 AM CST CW Please see mychart message Last visit with you was 08/29 - virtual Was instructed to f/u in November and is due for a physical Triage can help with scheduling Ok to refill her clomipramine? 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 Anxiety Anxiety state, unspecified PTSD (post-traumatic stress disorder) Posttraumatic stress disorder documented in this encounter Additional Health Concerns Assessment Noted Time PHQ-9 Depression Total Score: 14 11/06/ 020 7:06 AM CDT documented as of this encounter Care Teams Human Resources Department Supervisor Relationship Specialty Start Date End Date Lorraine Castaneda MD [address] [address] PCP - General Family Practice 07/25/19 Lorraine Castaneda MD [address] [address] Assigned PCP 06/18/19 Shell Menjivar MD [address] [place] [address] 046315 Dermatology 08/31/19 Matt Shaver MD [address] [place] [address] 349275 Assigned Musculoskeletal Provider 03/01/20 04/12/21 Shell Menjivar MD [address] [place] [address] Assigned Pediatric Specialist Provider 03/01/20 06/09/20 Shell Menjivar MD [address] [place] [address] Assigned Surgical Provider 03/01/20 05/31/21 [place] [address] [place] [address] Assigned Rheumatology Provider 02/23/21 02/29/24 Mere Andres PsyD [address] [place] [address] Assigned Behavioral Health Provider 03/30/21 07/31/22 Bo Jiang MD [address] [place] [address] Physician Plastic Surgery 10/09/21 Jozef Sanchez [facility] [address] [place] [address] Billing Services Manager Plastic Surgery 10/09/21 Alicia Montero Specialty Digital Commentator 10/09/21 Bo Jiang MD [address] [place] [address] Assigned Surgical Provider 11/01/21 09/29/23 Leonides Hernandez [facility] [address] [place] [address] Pharmacist 05/18/23 Babar Ferrari PA-C [address] [place] [address] Physician Salmon Gillnet Vessel Operator Gastroenterology 06/01/23 Priscilla Stoddard [address] [place], [place] 810336 Assigned Behavioral Health Provider 08/31/23 Yaw Mckinney MD [address] [place] [address] 611255 Physician Rheumatology 12/22/23 Edmund Patel MD [address] [place], [place] 357090 Allergy & Immunology 12/27/23 Edmund Patel MD [address] [place], [place] 724970 Assigned Allergy Provider 01/31/24 Yaw Mckinney MD [address] [place] [address] 237925 Assigned Rheumatology Provider 03/01/24 Jenny Terrazas CNM [address] [place], [place] 973[address] Assigned OBGYN Provider 03/01/24 Petty Hassan DO [address] [place] [address] 340175 Resident Neurology 05/01/24 Gil Danielson LSW Specialty Digital Commentator 09/19/24 documented as of this encounter
--- OUTSIDE RECORDS SUMMARY | 2024-10-25 15:29 | XMS_ITS | Encounter Summary ---
Author Organization [place] Address [address] [place] [address] Care Team Providers Care Graphics Production Specialist Name Role Phone Lorraine Castaneda MD Unavailable [phone] Lorraine Castaneda MD Primary Care Provider Shell Menjivar MD Unavailable [phone] Matt Shaver MD Unavailable [phone] Shell Menjivar MD Unavailable [phone] Shell Menjivar MD Unavailable +[phone] Chinedu Fleming MD Unavailable [phone] Mere Andres Unavailable Unavailab Bo Reid MD Unavailable [phone] Jozef Sanchez [facility] Unavailable [phone] Alicia Montero Unavailable Unavailable Bo Jiang MD Unavailable [phone] Leonides Hernandez [facility] Unavailable [phone] Babar Ferrari PA-C Unavailable [phone] Priscilla Stoddard Unavailable Yaw Mckinney MD Unavailable +[phone] Edmund Patel MD Unavailable [phone] Edmund Patel MD Unavailable [phone] Yaw Mckinney MD Unavailable +[phone] SunilJenny mcallister CN Unavailable [phone] Petty Hassan DO Unavailable [phone] Gil Danielson IMPORT AND EXPORT CLERK Unavailable Unavailable Encounter Details Date Type Department Care Team (Late st Contact Info) Description 11/30/2019 MyC Medical Advice [facility] Dermatology [address] [facility] 3rd [place] [address] Alicia Morales, RN Social History Tobacco Use Types Packs/Day Years [...] CDT Gender Identity Genderqueer 04/15/2024 10:21 PM BUYER PLANNER Sexual Orientation Lesbian 04/15/2024 10 :21 PM BUYER PLANNER Sexual Orientation Something else 04/15/2024 10 :21 PM BUYER PLANNER COVID-19 Exposure Response Date Recorded In the last month, have you been in contact with someone who was confirmed or suspected to have Coronavirus / COVID-19? No / Unsure 11/30/2019 10:46 AM CDT documented as of this encounter Plan of Treatment Not on file documented as of this encounter Visit Diagnoses Not on filedocumented in this encounter Additional Health Concerns Assessment Noted Time PHQ-9 Depression Total Score: 14 020 7:06 AM CDT documented as of this encounter Care Teams Graphics Production Specialist Relationship Specialty Start Date End Date Lorraine Castaneda MD [address] [place] [address] PCP - General Family Practice 07/25/19 Lorraine Castaneda MD [address] [place] [address] Assigned PCP 06/18/19 Shell Menjivar MD [address] [place] [address] Dermatology 08/31/19 Matt Shaver MD [address] [place] [address] Assigned Musculoskeletal Provider 03/01/20 04/12/21 Shell Menjivar MD [address] [place] [address] 734535 Assigned Pediatric Specialist Provider 03/01/20 06/09/20 Shell Menjivar MD [address] [place] [address] 366605 Assigned Surgical Provider 03/01/20 05/31/21 [place] [address] [place], [place] [address] Assigned Rheumatology Provider 02/23/21 02/29/24 Mere Andres PsyD [address] [address] Assigned Behavioral Health Provider 03/30/21 07/31/22 Bo Jiang MD [address] [place] [address] Physician Plastic Surgery 10/09/21 Jozef Snachez [facility] [address] [place] [address] Manufacturing Baker Plastic Surgery 10/09/21 Alicia Montero Specialty Developing Machine Tender 10/09/21 Bo Jiang MD 2945 [facility] 200 [place] [address] Assigned Surgical Provider 11/01/21 09/29/23 Leonides Hernandez [facility] 909 [facility] Pharmacist 05/18/23 Babar Ferrari PA-C [address] [place] [address] Physician Videotape Editor Gastroenterology 06/01/23 Priscilla Stoddard 3033 [place] [address] Assigned Behavioral Health Provider 08/31/23 Yaw Mckinney MD [address] [place] [address] 896885 Physician Rheumatology 12/22/23 Edmund Patel MD [address] [place], [place] 099400 Allergy & Immunology 12/27/23 Edmund Patel MD [address] [place], [place] 339000 Assigned Allergy Provider 01/31/24 Yaw Mckinney MD [address] [place] [address] 781665 Assigned Rheumatology Provider 03/01/24 Jenny Terrazas CNM [address] [place], [place] 197474 Assigned OBGYN Provider 03/01/24 Petty Hassan DO [address] [place] [address] Resident Neurology 05/01/24 Gil Danielson LSW Specialty Developing Machine Tender 09/19/24 documented as of this encounter
--- OUTSIDE RECORDS SUMMARY | 2024-10-25 15:29 | XMS_ITS | Encounter Summary ---
Author Organization [place] Address [address] [place] [address] Care Team Providers Care Waxer Name Role Phone Lorraine Castaneda MD Unavailable [phone] Lorraine Castaneda MD Primary Care Provider Shell Menjivar MD Unavailable [phone] Chinedu Fleming MD Unavailable [phone] Bo Jiang MD Unavailable [phone] Jozef Sanchez [facility] Unavailable [phone] Alicia Montero Unavailable Unavailable Bo Jiang MD Unavailable [phone] Leonides Hernandez [facility] Unavailable [phone] Babar Ferrari PA-C Unavailable [phone] Priscilla Stoddard Unavailable Yaw Mckinney MD Unavailable [phone] Edmund Patel MD Unavailable [phone] Edmund Patel MD Unavailable [phone] Yaw Mckinney MD Unavailable +[phone] Jenny Terrazas CNM Unavailable + [phone] Petty Hassan DO Unavailable [phone] Gil Danielson BUILDING SERVICEMAN Unavailable Unavailable Reason for Visit * Reason Onset Date Comments Refill Request 10/21/2022 methotrexate sod ium 2.5 MG TABS Encounter Details Date Type Department Care Team (Late st Contact Info) Description 10/21/2022 MyC Refill [facility] [address] [place] [phone] [place] [address] [place] [address] Refill Request (methotrexate sodium 2.5 MG... Social History Tobacco Use Types Packs/Day Years Used Date Smoking Tobacco: Never Smokeless Tobacco: Never Alcohol Use Standard Drinks/Week Comments No 0 (1 standard drink = 0.6 oz pur e alcohol) PHQ-2 Answer Date Recorded PHQ-2 Score 1 10/06/2022 Comments No Sex and Gender Information Value Date Recorded Sex Assigned at Female 11/23/2017 12:16 PM CDT Legal Sex Female 11:38 AM CDT Gender Identity Genderqueer 04/15/2024 10:21 PM TEACHER Sexual Orientation Lesbian 04/15/2024 10 :21 PM TEACHER Sexual Orientation Something else 04/15/2024 10 :21 PM TEACHER COVID-19 Exposure Response Date Recorded In the last 10 days, have yo u been in contact with someone who was confirmed or suspected to have Coronavirus/COVID-19? No / Unsure 10/06/2022 7:05 AM CDT documented as of this encounter Miscellaneous Notes * Telephone Encounter - Zeynep Morales RMA - 10/27/2022 4:02 PM CDT Labs completed. HARPER Laureano [facility] - Rheumatology * Telephone Encounter - Charisse Sharma RMA - 10/26/2022 8:31 AM CDT Mychart message sent to patient she is due for labs for further refills. HARPER Taylor Rheumatology/Infectious disease [facility] Rheumatology ph:[phone] Infectious Disease ph:[phone] * Telephone Encounter - Chinedu Fleming MD - 10/26/2022 5:54 AM CDT Need labs before further refills. * Telephone Encounter - Lizzy Pa RN - 10/24/2022 10:14 AM CDT methotrexate sodium 2.5 MG TABS Last Written Prescription Date: 07/16/22 Last Fill Quantity: 72, # refills: 0 Last Office Visit: 08/26/22 Future Office visit: 05/04/23 CBC RESULTS: Recent Labs Lab Test 06/09/221850 WBC 14.5* RBC 4.79 HGB 13.8 HCT 40.6 MCV 85 MCH 28.8 MCHC 34.0 RDW 13.3 PLT 340 Creatinine Date Value Ref Range Status 06/09/2022 0.78 0.51 - 1.17 mg/dL Final Comment: Male and Female 0-2 Months 0.31-0.88 mg/dL 2-12 Months 0.16-0.39 mg/dL 1-2 Years 0.18-0.35 mg/dL 3-4 Years 0.26-0.42 mg/dL 5-6 Years 0.29-0.47 mg/dL 7-8 Years 0.34-0.53 mg/dL 9-10 Years 0.33-0.64 mg/dL 11-12 Years 0.44-0.68 mg/dL 13-14 Years 0.46-0.77 mg/dL Female 15 Years and older 0.51-0.95 mg/dL Male 15 Years and older 0.67-1.17 mg/dL 06/07/2019 0.75 0.52 - 1.04 mg/dL Final ] Liver Function Studies - Recent Labs Lab Test 06/09/22 1851 09/25/21 1537 06/07/19 1522 PROTTOTAL -- -- 8.2 ALBUMIN 4.2 < > 3.9 BILITOTAL -- -- 0.2 ALKPHOS -- -- 155* AST 29 < > 22 ALT 25 < > 32 < > = values in this interval not displayed. Routing refill request to provider for review/approval because:labs past due. documented in this encounter Plan of Treatment Not on file documented as of this encounter Visit Diagnoses Diagnosis Polyarthralgia Pain in joint, multiple sites Bilateral hand pain Pain in limb documented in this encounter Additional Health Concerns Assessment Noted Time PHQ-9 Depression Total Score: 7 10/07/19 23 7:08 AM CDT documented as of this encounter Care Teams Waxer Relationship Specialty Start Date End Date Lorraine Castaneda MD [address] [facility] 275 [place] [address] PCP - General Family Practice 07/25/19 Lorraine Castaneda MD [address] [employer] [address] [address] Assigned PCP 06/18/19 Shell Menjivar MD 909 [place] [address] Dermatology 08/31/19 [place] [address] [place] [address] Assigned Rheumatology Provider 02/23/21 02/29/24 Bo Jiang MD 2945 [facility] 200 [place] [address] Physician Plastic Surgery 10/09/21 Jozef Sanchez [facility] [address] [place] [address] Fertilizer Supervisor Plastic Surgery 10/09/21 Alicia Montero Specialty Chip Washer 10/09/21 Bo Jiang MD 2945 [facility] 200 [place] [address] Assigned Surgical Provider 11/01/21 09/29/23 [facility] 909 [facility] Pharmacist 05/18/23 Babar Ferrari PA-C [address] [place] [address] Physician Side Show Entertainer Gastroenterology 06/01/23 Priscilla Stoddard 3033 [place] [address] Assigned Behavioral Health Provider 08/31/23 Yaw Mckinney MD [address] [place] [address] Physician Rheumatology 12/22/23 Edmund Patel MD 290 [place], [place] 942830 Allergy & Immunology 12/27/23 Edmund Patel MD [address] [place], [place] 235020 Assigned Allergy Provider 01/31/24 Yaw Mckinney MD [address] [place] [address] Assigned Rheumatology Provider 03/01/24 Jenny Terrazas CNM [address] [place] [address] Assigned OBGYN Provider 03/01/24 Petty Hassan DO [address] [place] [address] Resident Neurology 05/01/24 Gil Danielson LSW Specialty Chip Washer 09/19/24 documented as of this encounter
--- OUTSIDE RECORDS SUMMARY | 2024-10-25 15:29 | XMS_ITS | Encounter Summary ---
Author Organization [place] Address [address] [place] [address] Care Team Providers Care Inspector Packer Glass Container Name Role Phone [facility] Primary Care Provider Michael Diaz MD Unavailable [phone] Michael Diaz MD Unavailable [phone] Lorraine Castaneda MD Unavailable [phone] Clarisse Mejia MD Unavailable [phone] Lorraine Castaneda MD Unavailable [phone] Lorraine Castaneda MD Primary Care Provider Shell Menjivar MD Unavailable +[phone] Matt Shaver MD Unavailable +[phone] Shell Menjivar MD Unavailable [phone] Shell Menjivar MD Unavailable [phone] Chinedu Fleming MD Unavailable [phone] Mere Andres PsyD Unavailable Unavailab Bo Reid MD Unavailable [phone] Jozef Sanchez [facility] Unavailable [phone] Alicia Montero Unavailable Unavailable Bo Jiang MD Unavailable [phone] Leonides Hernandez [facility] Unavailable [phone] Babar Ferrari PA-C Unavailable [phone] Priscilla Stoddard Unavailable Yaw Mckinney MD Unavailable Edmund Patel MD Unavailable [phone] Edmund Patel MD Unavailable [phone] Yaw Mckinney MD Unavailable Jenny Terrazas [facility] Unavailable [phone] ElizabethjacielPetty donis Unavailable Gil Danielson CREDIT ADJUSTER Unavailable Unavailable Reason for Visit * Reason Onset Date Comments MyChart Communication 10/28/2017 BV Followu p Encounter Details Date Type Department Care Team (Late st Contact Info) Description 10/28/2017 MyC Medical Advice [facility] [address] [place] [address] Michael Diaz MD [address] [facility] [address] [place] [address] MyChart Communication (BV Followup) Social History Tobacco Use Types Packs/Day Years Used Date Smoking Tobacco: Never Smokeless Tobacco: Never Alcohol Use Standard Drinks/Week Comments No 0 (1 standard drink = 0.6 oz pur e alcohol) Comments No Sex and Gender Information Value Date Recorded Sex Assigned at Female 11/23/2017 12:16 PM CDT Legal Sex Female 11:38 AM CDT Gender Identity Genderqueer 04/15/2024 10:21 PM SECURITY ESCORT Sexual Orientation Lesbian 04/15/2024 10 :21 PM SECURITY ESCORT Sexual Orientation Something else 04/15/2024 10 :21 PM SECURITY ESCORT documented as of this encounter Plan of Treatment Not on file documented as of this encounter Visit Diagnoses Not on filedocumented in this encounter Additional Health Concerns Assessment Noted Time PHQ-9 Depression Total Score: 10 018 4:07 AM CDT documented as of this encounter Care Teams Inspector Packer Glass Container Relationship Specialty Start Date End Date Clinic - [facility] [address] [facility], [address] [place] [address] PCP - General Clinic 08/19/17 07/24/19 Michael Diaz MD [address] [address] PCP - Assigned PCP 10/24/17 07/12/18 Lorraine Castaneda MD [facility] [address] PCP - General Family Practice 07/25/19 Michael Diaz MD [facility] [address] Assigned PCP 10/24/17 11/12/18 Lorraine Castaneda MD [facility] [address] Assigned PCP 11/13/18 04/29/19 Clarisse Mejia MD [facility] [place] [address] Assigned PCP 04/30/19 06/17/19 Lorraine Castaneda MD [address] [address] Assigned PCP 06/18/19 Shell Menjivar MD [address] [place] [address] Dermatology 08/31/19 Matt Shaver MD [address] [place] [address] Assigned Musculoskeletal Provider 03/01/20 04/12/21 Shell Menjivar MD [address] [place] [address] Assigned Pediatric Specialist Provider 03/01/20 06/09/20 Shell Menjivar MD [address] [place] [address] Assigned Surgical Provider 03/01/20 05/31/21 [place] [address] [place] [address] Assigned Rheumatology Provider 02/23/21 02/29/24 Mere Andres PsyD [address] [place] [address] Assigned Behavioral Health Provider 03/30/21 07/31/22 Bo Jiang MD [address] [place] [address] Physician Plastic Surgery 10/09/21 Jozef Sanchez [facility] [address] [place] [address] Anatomy Professor Plastic Surgery 10/09/21 Alicia Montero Specialty Field Sales Trainer 10/09/21 [place] [address] [place] [address] Assigned Surgical Provider 11/01/21 09/29/23 Leonides Hernandez [facility] 909 [facility] Pharmacist 05/18/23 Babar Ferrari PA-C [address] [place] [address] Physician Transmission Assembler Gastroenterology 06/01/23 Priscilla Stoddard 3033 [place], [place] 264196 Assigned Behavioral Health Provider 08/31/23 Yaw Mckinney MD [address] [place] [address] 212285 Physician Rheumatology 12/22/23 Edmund Patel MD 290 [place], [place] 131230 Allergy & Immunology 12/27/23 Edmund Patel MD [address] [place] [address] Assigned Allergy Provider 01/31/24 Yaw Mckinney MD [address] [place] [address] 721065 Assigned Rheumatology Provider 03/01/24 Jenny Terrazas CNM [address] [place], [place] [address] Assigned OBGYN Provider 03/01/24 Petty Hassan DO [address] [place], [place] [address] Resident Neurology 05/01/24 Gil Danielson LSW Specialty Field Sales Trainer 09/19/24 documented as of this encounter
--- OUTSIDE RECORDS SUMMARY | 2024-10-25 15:29 | XMS_ITS | Encounter Summary ---
Author Organization [facility] Address [address] [place] [address] Care Team Providers Care Ore Fielder Name Role Phone Lorraine Castaneda MD Unavailable [phone] Lorraine Castaneda MD Primary Care Provider Shell Menjivar MD Unavailable +[phone] Matt Shaver MD Unavailable [phone] Shell Menjivar MD Unavailable +[phone] Shell Menjivar MD Unavailable +[phone] Chinedu Fleming MD Unavailable +[phone] Mere Andres Unavailable Unavailab Bo Reid MD Unavailable +[phone] Jozef Sanchez [facility] Unavailable [phone] Alicia Montero Unavailable Unavailable Bo Jiang MD Unavailable +[phone] Leonides Hernandez [facility] Unavailable [phone] Babar Ferrari PA-C Unavailable +[phone] Priscilla Stoddard Unavailable Yaw Mckinney MD Unavailable +[phone] Edmund Patel MD Unavailable [phone] Edmund Patel MD Unavailable [phone] Yaw Mckinney MD Unavailable +[phone] Jenny Terrazas [facility] Unavailable +[phone] Petty Hassan DO Unavailable [phone] Gil Danielson ECONOMIC DEVELOPMENT DIRECTOR Unavailable Unavailable Encounter Details Date Type Department Care Team (Late st Contact Info) Description 11/27/[address] [facility] Dermatologic Surgery 9[address] [facility] 3rd [place] [address] Yvonne Taylor CMA Social History [...] CDT Gender Identity Genderqueer 04/15/2024 10:21 PM COTTON OPENER Sexual Orientation Lesbian 04/15/2024 10 :21 PM COTTON OPENER Sexual Orientation Something else 04/15/2024 10 :21 PM COTTON OPENER COVID-19 Exposure Response Date Recorded In the [...] documented as of this encounter Care Teams Ore Fielder Relationship Specialty Start Date End Date Lorraine Castaneda MD [address] [place] [address] PCP - General Family Practice 07/25/19 Lorraine Castaneda MD [address] [place] [address] Assigned PCP 06/18/19 Shell Menjivar MD [address] [place] [address] MD Dermatology 08/31/19 Matt Shaver MD [address] [place] [address] Assigned Musculoskeletal Provider 03/01/20 04/12/21 Shell Menjivar MD [address] [place] [address] 046305 Assigned Pediatric Specialist Provider 03/01/20 06/09/20 Shell Menjivar MD [address] [place] [address] Assigned Surgical Provider 03/01/20 05/31/21 [place] [address] [place], [place] [address] Assigned Rheumatology Provider 02/23/21 02/29/24 Mere Andres PsyD [address] [address] Assigned Behavioral Health Provider 03/30/21 07/31/22 Bo Jiang MD [address] [place] [address] Physician Plastic Surgery 10/09/21 Jozef Sanchez [facility] [address] [place] [address] Catalyst Operator Plastic Surgery 10/09/21 Alicia Montero Specialty Storage And Backup Administrator 10/09/21 Bo Jiang MD 2945 [facility] 200 [place] [address] Assigned Surgical Provider 11/01/21 09/29/23 Leonides Hernandez [facility] [address] [facility] Pharmacist 05/18/23 Babar Ferrari PA-C [address] [place] [address] Physician Defense Attorney Gastroenterology 06/01/23 Priscilla Stoddard 3033 [place] [address] Assigned Behavioral Health Provider 08/31/23 Yaw Mckinney MD [address] [place] [address] Physician Rheumatology 12/22/23 Edmund Patel MD 290 [place], [place] 178430 Allergy & Immunology 12/27/23 Edmund Patel MD [address] [place], [place] 609570 Assigned Allergy Provider 01/31/24 Yaw Mckinney MD [address] [place] [address] Assigned Rheumatology Provider 03/01/24 Jenny Terrazas CNM [address] [place] [address] Assigned OBGYN Provider 03/01/24 Petty Hassan DO [address] [place] [address] Resident Neurology 05/01/24 Gil Danielson LSW Specialty Storage And Backup Administrator 09/19/24 documented as of this encounter
--- OUTSIDE RECORDS SUMMARY | 2024-10-25 15:29 | XMS_ITS | Encounter Summary ---
Author Organization [place] Address [address] [place] [address] Care Team Providers Care Environmental Advisor Name Role Phone Lorraine Castaneda MD Unavailable [phone] Lorraine Castaneda MD Primary Care Provider Shell Menjivar MD Unavailable +[phone] Chinedu Fleming MD Unavailable [phone] Mere Andres PsyD Unavailable Unavailab Bo Reid MD Unavailable [phone] Jozef Sanchez [facility] Unavailable [phone] Alicia Montero Unavailable Unavailable Bo Jiang MD Unavailable [phone] Leonides Hernandez [facility] Unavailable [phone] Babar Ferrari PA-C Unavailable [phone] Priscilla Stoddard Unavailable Yaw Mckinney MD Unavailable +[phone] Edmund Patel MD Unavailable [phone] Edmund Patel MD Unavailable [phone] Yaw Mckinney MD Unavailable +[phone] Jenny Terrazas Unavailable + [phone] Petty Hassan DO Unavailable +[phone] Erum, Gil SUPERVISOR COMMUNICATIONS AND SIGNALS Unavailable Unavailable Encounter Details Date Type Department Care Team (Late st Contact Info) Description 06/15/2022 MyC Medical Advice [facility] [address] [place] [address] [place] [address] [place] [address] Social History Tobacco Use Types [...] CDT Gender Identity Genderqueer 04/15/2024 10:21 PM OFFBEARER Sexual Orientation Lesbian 04/15/2024 10 :21 PM OFFBEARER Sexual Orientation Something else 04/15/2024 10 :21 PM OFFBEARER COVID-19 Exposure Response Date Recorded In the last 10 days, have yo u been in contact with someone who was confirmed or suspected to have Coronavirus/COVID-19? No / Unsure 06/09/2022 6:37 PM OFFBEARER documented as of this encounter Plan of Treatment Not on file documented as of this encounter Visit Diagnoses Not on filedocumented in this encounter Additional Health Concerns Assessment Noted Time PHQ-9 Depression Total Score: 9 01/07/20 22 7:43 AM CDT documented as of this encounter Care Teams Environmental Advisor Relationship Specialty Start Date End Date Lorraine Castaneda MD [address] [place] [address] PCP - General Family Practice 07/25/19 Lorraine Castaneda MD [address] [place] [address] Assigned PCP 06/18/19 Shell Menjivar MD [address] [place] [address] Dermatology 08/31/19 [place] [address] [place] [address] Assigned Rheumatology Provider 02/23/21 02/29/24 Mere Andres PsyD [address] [address] Assigned Behavioral Health Provider 03/30/21 07/31/22 Bo Jiang MD [address] [place] [address] Physician Plastic Surgery 10/09/21 Jozef Sanchez [facility] [address] [place] [address] Chief Clinical Dietitian Plastic Surgery 10/09/21 Alicia Montero Specialty Cinema Or Theatre Manager 10/09/21 Bo Jiang MD [address] [place] [address] Assigned Surgical Provider 11/01/21 09/29/23 [facility] [address] [place] [address] Pharmacist 05/18/23 Babar Ferrari PA-C [address] [place] [address] Physician Slurry Plant Operator Gastroenterology 06/01/23 Priscilla Stoddard 3033 [place] [address] Assigned Behavioral Health Provider 08/31/23 Yaw Mckinney MD [address] [place] [address] Physician Rheumatology 12/22/23 Edmund Patel MD [address] [place], [place] 340700 Allergy & Immunology 12/27/23 Edmund Patel MD [address] [place], [place] [address] Assigned Allergy Provider 01/31/24 Yaw Mckinney MD [address] [place] [address] Assigned Rheumatology Provider 03/01/[address]M [address] [place], [place] 8[address] Assigned OBGYN Provider 03/01/24 Petty Hassan DO [address] [place] [address] 525285 Resident Neurology 05/01/24 Gil Danielson LSW Specialty Cinema Or Theatre Manager 09/19/24 documented as of this encounter
--- OUTSIDE RECORDS SUMMARY | 2024-10-25 15:29 | XMS_ITS | Encounter Summary ---
Author Organization [facility] Address [address] [place] [address]672 Care Team Providers Care Director Of Restaurant Operations Name Role Phone Lorraine Castaneda MD Unavailable [phone] Lorraine Castaneda MD Primary Care Provider Shell Menjivar MD Unavailable +[phone] Chinedu Fleming MD Unavailable [phone] Bo Jiang MD Unavailable [phone] Jozef Sanchez [facility] Unavailable [phone] Alicia Montero Unavailable Unavailable Bo Jiang MD Unavailable [phone] Leonides Hernandez [facility] Unavailable [phone] Babar Ferrari PA-C Unavailable [phone] Priscilla Stoddard Unavailable Yaw Mckinney MD Unavailable +[phone] Edmund Patel MD Unavailable [phone] Edmund Patel MD Unavailable [phone] Yaw Mckinney MD Unavailable +[phone] Jenny Terrazas CNM Unavailable + [phone] Petty Hassan DO Unavailable +[phone] Gil Danielson CONSTRUCTION DIRECTOR Unavailable Unavailable Reason for Visit * Reason Onset Date Comments Piot Communication 10/25/2022 Form Encounter Details Date Type Department Care Team (Late st Contact Info) Description 10/25/2022 MyC Medical Advice [facility] [place] [address], [address] [place] [address] Lorraine Castaneda MD [address] [place] [address] MyChart Communication (Form) Social History Tobacco Use Types Packs/Day Years [...] CDT Gender Identity Genderqueer 04/15/2024 10:21 PM SOLUTION COORDINATOR Sexual Orientation Lesbian 04/15/2024 10 :21 PM SOLUTION COORDINATOR Sexual Orientation Something else 04/15/2024 10 :21 PM SOLUTION COORDINATOR COVID-19 Exposure Response Date Recorded In the last 10 days, have yo u been in contact with someone who was confirmed or suspected to have Coronavirus/COVID-19? No / Unsure 10/26/2022 10:47 AM CDT documented as of this encounter Miscellaneous Notes * Telephone Encounter - Lorraine Castaneda MD - 10/27/2022 6:02 PM CDT See message back to patient- thanks- CW * Telephone Encounter - Roselyn Dawson RN - 10/26/2022 9:43 AM CDT CW, Please see below Troovalhart message and advise. Can get copy of form if desired first. Roselyn Magallon RN documented in this encounter Plan of Treatment Not on file documented as of this encounter Visit Diagnoses Not on filedocumented in this encounter Additional Health Concerns Assessment Noted Time PHQ-9 Depression Total Score: 7 10/07/19 23 7:08 AM CDT documented as of this encounter Care Teams Director Of Restaurant Operations Relationship Specialty Start Date End Date Lorraine Castaneda MD [address] [address] PCP - General Family Practice 07/25/19 Lorraine Castaneda MD [address] [employer] [address] [address] Assigned PCP 06/18/19 Shell Menjivar MD [address] [place] [address] 832495 Dermatology 08/31/19 [place] [address] [place] [address] Assigned Rheumatology Provider 02/23/21 02/29/24 Bo Jiang MD [address] [place] [address] Physician Plastic Surgery 10/09/21 [facility] [address] [place] [address] Travel Administrator Plastic Surgery 10/09/21 Alicia Montero Specialty Physiotherapy Assistant 10/09/21 [place] [address] [place] [address] Assigned Surgical Provider 11/01/21 09/29/23 Leonides Hernandez [facility] 909 [facility] Pharmacist 05/18/23 Babar Ferrari PA-C [address] [place] [address] Physician Peer Financial Counselor Gastroenterology 06/01/23 Priscilla Stoddard 3033 [place], [place] [address]646 Assigned Behavioral Health Provider 08/31/23 Yaw Mckinney MD [address] [place] [address] 200405 Physician Rheumatology 12/22/23 Edmund Patel MD 290 [place], [place] 006960 Allergy & Immunology 12/27/23 Edmund Patel MD [address] [place] [address] 506780 Assigned Allergy Provider 01/31/24 Yaw Mckinney MD [address] [place] [address] 259215 Assigned Rheumatology Provider 03/01/24 Jenny Terrazas CNM [address] [place], [place] [address] Assigned OBGYN Provider 03/01/24 Petty Hassan DO [address] [place], [place] [address] Resident Neurology 05/01/24 Gil Danielson LSW Specialty Physiotherapy Assistant 09/19/24 documented as of this encounter
--- OUTSIDE RECORDS SUMMARY | 2024-10-25 15:29 | XMS_ITS | Encounter Summary ---
Author Organization [facility] Address [address] [place] [address] Care Team Providers Care Court Manager Name Role Phone Lorraine Castaneda MD Unavailable [phone] Lorraine Castaneda MD Primary Care Provider Shell Menjivar MD Unavailable +[phone] Chinedu Fleming MD Unavailable [phone] Mere Andres PsyD Unavailable Unavailab Bo Reid MD Unavailable [phone] Jozef Sanchez [facility] Unavailable [phone] Alicia Montero Unavailable Unavailable Bo Jiang MD Unavailable [phone] Leonides Hernandez [facility] Unavailable [phone] Babar Ferrari PA-C Unavailable [phone] Priscilla Stoddard Unavailable Yaw Mckinney MD Unavailable +[phone] Edmund Patel MD Unavailable [phone] Edmund Patel MD Unavailable [phone] Yaw Mckinney MD Unavailable +[phone] Jenny Terrazas Unavailable + [phone] Petty Hassan DO Unavailable [phone] Gil DanielsonW Unavailable Unavailable Reason for Visit * Reason Comments Medication Refill Encounter Details Date Type Department Care Team (Late st Contact Info) Description 07/21/[address] [facility] [address], [address] [place] [address] Lorraine Castaneda MD [address] [place] [address] Medication Refill Social History Tobacco [...] CDT Gender Identity Genderqueer 04/15/2024 10:21 PM ENROLLMENT SERVICES VICE PRESIDENT Sexual Orientation Lesbian 04/15/2024 10 :21 PM ENROLLMENT SERVICES VICE PRESIDENT Sexual Orientation Something else 04/15/2024 10 :21 PM ENROLLMENT SERVICES VICE PRESIDENT COVID-19 Exposure Response Date Recorded In the last 10 days, have yo u been in contact with someone who was confirmed or suspected to have Coronavirus/COVID-19? Unable to assess 07/22/2022 11:31 PM CDT documented as of this encounter Miscellaneous Notes * Telephone Encounter - Capo Lozoya RN - 07/23/2022 11:47 AM CDT [facility]. Future Appointments 07/23/2022 - 01/19/2023 Date Visit Type Length Department Provider 08/26/2022 1:00 PM VIDEO VISIT RETURN 30 min [facility] Chinedu Fleming MD 10/06/2022 7:30 AM OFFICE VISIT 30 min [facility] Lorraine Castaneda MD Location Instructions: [facility] is in [address] of the [facility] [place] [address] [place] is at the intersection with [facility] and along [facility].??This is the large, blue, glass building with a sculpture on the roof; please note there is no [place] signage on the exterior. Free lot parking is available. Capo Varela RN [facility] * Telephone Encounter - Josi Corral RN - 07/21/2022 11:18 AM CDT Left non detailed VM for pt asking that they callback and schedule Due for follow up Last 12/2021 Josi Forde RN documented in this encounter Plan of [...] documented as of this encounter Care Teams Court Manager Relationship Specialty Start Date End Date Lorraine Castaneda MD [address] [address] PCP - General Family Practice 07/25/19 Lorraine Castaneda MD [address] [address] Assigned PCP 06/18/19 Shell Menjivar MD 909 [place] [address] Dermatology 08/31/19 [place] [address] [place] [address] Assigned Rheumatology Provider 02/23/21 02/29/24 Mere Andres PsyD [address] [address] Assigned Behavioral Health Provider 03/30/21 07/31/22 [place] [address] [place] [address] Physician Plastic Surgery 10/09/21 Jozef Sanchez [facility] [address] [place] [address] Panel Edge Painter Plastic Surgery 10/09/21 Alicia Montero Specialty Assembler Plastic Boat 10/09/21 Bo Jiang MD [address] [place] [address] Assigned Surgical Provider 11/01/21 09/29/23 Leonides Hernandez [facility] [address] [place] [address] Pharmacist 05/18/23 Babar Ferrari PA-C [address] [place] [address] Physician Assessment Consultant Gastroenterology 06/01/23 Priscilla Stoddard [address]33 [place], [place] [address]356 Assigned Behavioral Health Provider 08/31/23 Yaw Mckinney MD [address] [place] [address] 813475 Physician Rheumatology 12/22/23 Edmund Patel MD 290 [place] [address] Allergy & Immunology 12/27/23 Edmund Patel MD 290 [place] [address] Assigned Allergy Provider 01/31/24 Yaw Mckinney MD [address] [place] [address] Assigned Rheumatology Provider 03/01/24 Jenny Terrazas CNM [address], [place] [address] Assigned OBGYN Provider 03/01/24 Petty Hassan DO [address] [place] [address] 319535 Resident Neurology 05/01/24 Gil Danielson LSW Specialty Assembler Plastic Boat 09/19/24 documented as of this encounter
--- OUTSIDE RECORDS SUMMARY | 2024-10-25 15:29 | XMS_ITS | Encounter Summary ---
Author Organization [facility] Address [address] [place] [address] Care Team Providers Care Stationary Engineer Supervisor Name Role Phone Lorraine Castaneda MD Unavailable [phone] Lorraine Castaneda MD Primary Care Provider Shell Menjivar MD Unavailable [phone] Matt Shaver MD Unavailable [phone] Shell Menjivar MD Unavailable [phone] Shell Menjivar MD Unavailable +[phone] Chinedu Fleming MD Unavailable +[phone] Mere Andres Unavailable Unavailab Bo Reid MD Unavailable [phone] Jozef Sanchez [facility] Unavailable [phone] Alicia Montero Unavailable Unavailable Bo Jiang MD Unavailable [phone] Leonides Hernandez [facility] Unavailable [phone] Babar Ferrari PA-C Unavailable [phone] Priscilla Stoddard Unavailable Yaw Mckinney MD Unavailable +[phone] Edmund Patel MD Unavailable [phone] Edmund Patel MD Unavailable [phone] Yaw Mckinney MD Unavailable +[phone] SunilnelsymikJenny blanc [facility] Unavailable [phone] Petty Hassan DO Unavailable Gil Danielson Unavailable Unavailable Encounter Details Date Type Department Care Team (Late st Contact Info) Description 10/20/2019 MyC Medical Advice [facility] [address] [facility] [place] [id number] Jenny Mart Social History Tobacco Use Types Packs/Day Years [...] CDT Gender Identity Genderqueer 04/15/2024 10:21 PM HISTOTECHNOLOGIST SUPERVISOR Sexual Orientation Lesbian 04/15/2024 10 :21 PM HISTOTECHNOLOGIST SUPERVISOR Sexual Orientation Something else 04/15/2024 10 :21 PM HISTOTECHNOLOGIST SUPERVISOR documented as of this encounter Plan of Treatment Not on file documented as of this encounter Visit Diagnoses Not on filedocumented in this encounter Additional Health Concerns Assessment Noted Time PHQ-9 Depression Total Score: 14 020 7:04 AM CDT documented as of this encounter Care Teams Stationary Engineer Supervisor Relationship Specialty Start Date End Date Lorraine Castaneda MD [address] [employer] [address] [address] PCP - General Family Practice 07/25/19 Lorraine Castaneda MD [address] [employer] [address] [address] Assigned PCP 06/18/19 Shell Menjivar MD 909 [place] [address] Dermatology 08/31/19 Matt Shaver MD [address] [place] [address] Assigned Musculoskeletal Provider 03/01/20 04/12/21 Shell Menjivar MD [address] [place] [address] Assigned Pediatric Specialist Provider 03/01/20 06/09/20 Shell Menjivar MD [address] [place] [address] Assigned Surgical Provider 03/01/20 05/31/21 [place] [address] [place] [address] Assigned Rheumatology Provider 02/23/21 02/29/24 Mere Andres PsyD [address] [address] Assigned Behavioral Health Provider 03/30/21 07/31/22 Bo Jiang MD [address] [place] [address] Physician Plastic Surgery 10/09/21 [facility] [address] [place] [address] Candle Pourer Plastic Surgery 10/09/21 Alicia Montero Specialty Leather Tanner 10/09/21 [place] [address] [place] [address] Assigned Surgical Provider 11/01/21 09/29/23 Leonides Hernandez [facility] 909 [facility] Pharmacist 05/18/23 Babar Ferrari PA-C [address] [place] [address] Physician Linux Systems Engineer Gastroenterology 06/01/23 Priscilla Stoddard 3033 [place], [place] 18[address] Assigned Behavioral Health Provider 08/31/23 Yaw Mckinney MD [address] [place] [address]55 Physician Rheumatology 12/22/23 Edmund Patel MD 290 [place], [place] 1785[address] Allergy & Immunology 12/27/23 Edmund Patel MD 290 [place] [address] Assigned Allergy Provider 01/31/24 Yaw Mckinney MD [address] [place] [address] 087275 Assigned Rheumatology Provider 03/01/24 Jenny Terrazas CNM [address] [place], [place] 49[address] Assigned OBGYN Provider 03/01/24 Petty Hassan DO [address] [place], [place] 6[address] Resident Neurology 05/01/24 Gil Danielson LSW Specialty Leather Tanner 09/19/24 documented as of this encounter
--- OUTSIDE RECORDS SUMMARY | 2024-10-25 15:29 | XMS_ITS | Encounter Summary ---
Author Organization [place] Address [address] [place] [address] Care Team Providers Care Utility Worker Driver Name Role Phone Lorraine Castaneda MD Unavailable [phone] Lorraine Castaneda MD Primary Care Provider Shell Menjivar MD Unavailable +[phone] Chinedu Fleming MD Unavailable +[phone] Bo Jiang MD Unavailable [phone] Jozef Sanchez [facility] Unavailable [phone] Alicia Montero Unavailable Unavailable Bo Jiang MD Unavailable Leonides Hernandez [facility] Unavailable [phone] Babar Ferrari PA-C Unavailable [phone] Priscilla Stoddard Unavailable Yaw Mckinney MD Unavailable +[phone] Edmund Patel MD Unavailable [phone] Edmund Patel MD Unavailable [phone] Yaw Mckinney MD Unavailable +[phone] Jenny Terrazas CNM Unavailable + [phone] Petty Hassan DO Unavailable +[phone] Gil Danielson GRAVITY PROSPECTING OBSERVER Unavailable Unavailable Encounter Details Date Type Department Care Team (Late st Contact Info) Description 01/29/2023 MyC Medical Advice [facility] [address], [address] [place] [phone] Daniela Malik Social History Tobacco Use Types Packs/Day Years Used Date Smoking Tobacco: Never Smokeless Tobacco: Never Alcohol Use Standard Drinks/Week Comments No 0 (1 standard drink = 0.6 oz pur e alcohol) PHQ-2 Answer Date Recorded PHQ-2 Score 4 02/01/2023 Adolescent Education Answer Date Record ed Getting School Help Needed Not on file 01/29 Comments No Sex and Gender Information Value Date Recorded Sex Assigned at Female 11/23/2017 12:16 PM CDT Legal Sex Female 11:38 AM CDT Gender Identity Genderqueer 04/15/2024 10:21 PM BUSINESS TEACHER Sexual Orientation Lesbian 04/15/2024 10 :21 PM BUSINESS TEACHER Sexual Orientation Something else 04/15/2024 10 :21 PM BUSINESS TEACHER COVID-19 Exposure Response Date Recorded In the last 10 days, have ben u been in contact with someone who was confirmed or suspected to have Coronavirus/COVID-19? No / Unsure 01/18/2023 10:05 AM CDT documented as of this encounter Plan of Treatment Not on file documented as of this encounter Visit Diagnoses Not on filedocumented in this encounter Additional Health Concerns Assessment Noted Time PHQ-9 Depression Total Score: 13 11/27/ 023 8:48 AM CDT documented as of this encounter Care Teams Utility Worker Driver Relationship Specialty Start Date End Date Lorraine Castaneda MD [address] [address] PCP - General Family Practice 07/25/19 Lorraine Castaneda MD [id number] [address] Assigned PCP 06/18/19 Shell Menjivar MD [address] [place] [address] MD Dermatology 08/31/19 [place] [address] [place] [address] Assigned Rheumatology Provider 02/23/21 02/29/24 Bo Jiang MD [address] [place] [address] Physician Plastic Surgery 10/09/21 Jozef Sanchez [facility] [address] [place] [address] Hand Embroiderer Plastic Surgery 10/09/21 Alicia Montero Specialty Winder Fixer 10/09/21 Bo Jiang MD [address] [place] [address] Assigned Surgical Provider 11/01/21 09/29/23 Leonides Hernandez [facility] [address] [place] [address] Pharmacist 05/18/23 Babar Ferrari PA-C [address] [place] [address] Physician Contact Lens Fitter Gastroenterology 06/01/23 Priscilla Stoddard [address] [place] [address] 942876 Assigned Behavioral Health Provider 08/31/23 Yaw Mckinney MD [address] [place] [address] 323065 Physician Rheumatology 12/22/23 Edmund Patel MD 290 [place] [address] Allergy & Immunology 12/27/23 Edmund Patel MD [address] [place], [place] 852570 Assigned Allergy Provider 01/31/24 Yaw Mckinney MD [address] [place] [address] 446395 Assigned Rheumatology Provider 03/01/24 Jenny Terrazas CNM [address] [place], [place] [address] Assigned OBGYN Provider 03/01/24 Petty Hassan DO [address] [place] [address] [id number] Resident Neurology 05/01/24 Gil Danielson LSW Specialty Winder Fixer 09/19/24 documented as of this encounter
--- OUTSIDE RECORDS SUMMARY | 2024-10-25 15:29 | XMS_ITS | Encounter Summary ---
Author Organization [place] Address [address] [place] [address] Care Team Providers Care Private Branch Exchange Operator Name Role Phone Lorraine Castaneda MD Unavailable [phone] Lorraine Castaneda MD Primary Care Provider Shell Menjivar MD Unavailable [phone] Matt Shaver MD Unavailable [phone] Shell Menjivar MD Unavailable +[phone] Chinedu Fleming MD Unavailable Mere Andres Unavailable Unavailab Bo Reid MD Unavailable [phone] Jozef Sanchez [facility] Unavailable [phone] Alicia Montero Unavailable Unavailable Bo Jiang MD Unavailable [phone] Leonides Hernandez [facility] Unavailable [phone] Babar Ferrari PA-C Unavailable [phone] Priscilla Stoddard Unavailable Yaw Mckinney MD Unavailable [phone] Edmund Patel MD Unavailable [phone] Edmund Patel MD Unavailable [phone] Yaw Mckinney MD Unavailable [phone] Jenny Terrazas CNM Unavailable [phone] Petty Hassan DO Unavailable [phone] Erum, Gil SHREDDING SPECIALIST Unavailable Unavailable Reason for Referral * Consultation (Routine) - Closed Specialty Diagnoses / Procedures Referred By Lazaro t Referred To Contact Pain Medicine Diagnoses Hypermobility syndrome Lorraine Castaneda MD [address] [place] [address] Phone: tel: fax: [facility] Referral ID Status Reason Start Date Expiration Date Visits Re quested Visits Authorized [id number] Closed 06/26/2020 06/26/2021 1 1 Question Answer My Clinical Question Is: hypermobility syndrome, multiple joint/muscle pains, saw rheum/sports med, PT partially helpful, but still in significant pain- other thoughts?? Timeframe Requested: Routine: Next available opening Priority: Routine [1] Reason for Referral: Evaluation for Comprehensive Services Please review opioid agreement in process instructions, do you agree to these terms? Yes Are there any red flags that may impact the assessment or management of the patient? Mental Illness / Communication Difficulties - use comments - Depression, sees psychiatry, multiple meds Preferred Location: [facility] - Various Locations - Dr. Franz Scheduling Instructions Please call us to schedule your appointment Comments Please be aware that coverage of these services is subject to the terms and limitations of your health insurance plan. Call member services at your health plan with any benefit or coverage questions. Please call us to schedule your appointment P CLEANER Reason for Visit * Reason Onset Date Comments MyChart Communication 06/25/2020 Referral Encounter Details Date Type Department Care Team (Late st Contact Info) Description 06/25/2020 MyC Medical [facility] [address], [address] [place] [address] Lorraine Castaneda MD [address] [place] [address] MyChart Communication (Referral ) Social History Tobacco Use Types Packs/Day Years Used Date Smoking Tobacco: Never Smokeless Tobacco: Never Alcohol Use Standard Drinks/Week Comments No 0 (1 standard drink = 0.6 oz pur e alcohol) PHQ-2 Answer Date Recorded PHQ-2 Total Score (Adult) - Positive if 3 or more points; Administer PHQ-9 if positive 2 05/29/2020 Comments No Sex and Gender Information Value Date Recorded Sex Assigned at Female 11/23/2017 12:16 PM CDT Legal Sex Female 11:38 AM CDT Gender Identity Genderqueer 04/15/2024 10:21 PM STRIP CLEANER Sexual Orientation Lesbian 04/15/2024 10 :21 PM STRIP CLEANER Sexual Orientation Something else 04/15/2024 10 :21 PM STRIP CLEANER COVID-19 Exposure Response Date Recorded In the last month, have you been in contact with someone who was confirmed or suspected to have Coronavirus / COVID-19? No / Unsure 06/04/2020 2:36 PM STRIP CLEANER documented as of this encounter Miscellaneous Notes * Telephone Encounter - Lorraine Castaneda MD - 06/26/2020 5:21 PM STRIP CLEANER Ah, sorry. I did put the [facility] location, instead of the [facility] options, which is where Dr. Franz practices. Placed the order now with the correct location. Please let her know I'm sorry for the confusion. Thanks! CW P CLEANER * Telephone Encounter - Claudia Duvall RN - 06/25/2020 5:18 PM CST CW, Please see below [employer] message and advise. Thanks, Claudia Devi RN P CLEANER documented in this encounter Plan of Treatment Scheduled Referrals Name Type Priority Associated Diagnoses Orde r Schedule PAIN MANAGEMENT REFERRAL Referral Routine Hypermobility syndrome Expected: 06/26/2020 (Approximate), Expires: 06/26/2021 documented as of this encounter Visit Diagnoses Diagnosis Hypermobility syndrome- Primary documented in this encounter Additional Health Concerns Assessment Noted Time PHQ-9 Depression Total Score: 6 05/30/19 21 7:05 AM STRIP CLEANER documented as of this encounter Care Teams Private Branch Exchange Operator Relationship Specialty Start Date End Date Lorraine Castaneda MD [address] [address] PCP - General Family Practice 07/25/19 Lorraine Castaneda MD [address] [address] Assigned PCP 06/18/19 Shell Menjivar MD [address] [place] [address] Dermatology 08/31/19 Matt Shaver MD 909 [place] [address] Assigned Musculoskeletal Provider 03/01/20 04/12/21 Shell Menjivar MD [address] [place] [address] Assigned Surgical Provider 03/01/20 05/31/21 [place] [address] [place] [address] Assigned Rheumatology Provider 02/23/21 02/29/24 Mere Andres PsyD [address] [address] Assigned Behavioral Health Provider 03/30/21 07/31/22 Bo Jiang MD 2945 [facility] 200 [place] [address] Physician Plastic Surgery 10/09/21 [facility] [address] [place] [address] Armature Winder Plastic Surgery 10/09/21 Alicia Montero Specialty Resin Filterer 10/09/21 Bo Jiang MD [address] [address] Assigned Surgical Provider 11/01/21 09/29/23 Leonides Hernandez [facility] [address] [place] [address] Pharmacist 05/18/23 Babar Ferrari PA-C [address] [place], [place] [address] Physician Head Banquet Waitress Gastroenterology 06/01/23 Priscilla Stoddard 3033 [place], [place] 507636 Assigned Behavioral Health Provider 08/31/23 Yaw Mckinney MD [address] [place] [address] 549475 Physician Rheumatology 12/22/23 Edmund Patel MD 290 [place], [place] [address] Allergy & Immunology 12/27/23 Edmund Patel MD 290 [place] [address] Assigned Allergy Provider 01/31/24 Yaw Mckinney MD 420 [place] [address] Assigned Rheumatology Provider 03/01/24 Jenny Terrazas CNM [address] [place] [address] Assigned OBGYN Provider 03/01/24 Petty Hassan DO [address] [place] [address] Resident Neurology 05/01/24 Gil Danielson LSW Specialty Resin Filterer 09/19/24 documented as of this encounter
--- OUTSIDE RECORDS SUMMARY | 2024-10-25 15:29 | XMS_ITS | Encounter Summary ---
Author Organization [place] Address [address] [place] [address] Care Team Providers Care Slice Plug Cutter Operator Helper Name Role Phone Lorraine Castaneda MD Unavailable [phone] Lorraine Castaneda MD Primary Care Provider Shell Menjivar MD Unavailable +[phone] Chinedu Fleming MD Unavailable [phone] Mere Andres PsyD Unavailable Unavailab Bo Reid MD Unavailable [phone] Jozef Sanchez [facility] Unavailable [phone] Alicia Montero Unavailable Unavailable Bo Jiang MD Unavailable [phone] Leonides Hernandez [facility] Unavailable [phone] Babar Ferrari PA-C Unavailable [phone] Priscilla Stoddard Unavailable Yaw Mckinney MD Unavailable [phone] Edmund Patel MD Unavailable [phone] Edmund Patel MD Unavailable [phone] Yaw Mckinney MD Unavailable [phone] Jenny Terrazas Unavailable + [phone] Petty Hassan DO Unavailable [phone] Erum, Gil PULMONARY PHYSICIAN Unavailable Unavailable Encounter Details Date Type Department Care Team (Late st Contact Info) Description 02/03/2022 MyC Medical Advice [facility] [address], [facility] [address] [place] [address] Claudia Duvall, RN Social History Tobacco Use Types Packs/Day [...] CDT Gender Identity Genderqueer 04/15/2024 10:21 PM LOOM CONTROL CHAIN BUILDER Sexual Orientation Lesbian 04/15/2024 10 :21 PM LOOM CONTROL CHAIN BUILDER Sexual Orientation Something else 04/15/2024 10 :21 PM LOOM CONTROL CHAIN BUILDER COVID-19 Exposure Response Date Recorded In the last 10 days, have ben u been in contact with someone who was confirmed or suspected to have Coronavirus/COVID-19? No / Unsure 02/05/2022 9:35 AM CDT documented as of this encounter Plan of Treatment Not on file documented as of this encounter Visit Diagnoses Not on filedocumented in this encounter Additional Health Concerns Assessment Noted Time PHQ-9 Depression Total Score: 9 01/07/20 22 7:43 AM CDT documented as of this encounter Care Teams Slice Plug Cutter Operator Helper Relationship Specialty Start Date End Date Lorraine Castaneda MD [address] [address] PCP - General Family Practice 07/25/19 Lorraine Castaneda MD [address] [address] Assigned PCP 06/18/19 Shell Menjivar MD [address] [place] [address] Dermatology 08/31/19 [place] [address] [place] [address] Assigned Rheumatology Provider 02/23/21 02/29/24 Mere Andres, Isabelle [address] [address] Assigned Behavioral Health Provider 03/30/21 07/31/22 [place] [address] [place] [address] Physician Plastic Surgery 10/09/21 Jozef Sanchez [facility] [address] [place] [address] Station Examiner Plastic Surgery 10/09/21 Alicia Montero Specialty Fast Food Cashier 10/09/21 Bo Jiang MD [address] [place] [address] Assigned Surgical Provider 11/01/21 09/29/23 Leonides Hernandez [facility] [address] [place] [address] Pharmacist 05/18/23 Babar Ferrari PA-C [address] [facility] [place] [address] Physician Air Crew Supervisor Gastroenterology 06/01/23 Priscilla Stoddard 3033 [place] [address] Assigned Behavioral Health Provider 08/31/23 Yaw Mckinney MD 420 [place] [address] Physician Rheumatology 12/22/23 Edmund Patel MD 290 [place], [place] 498470 Allergy & Immunology 12/27/23 Edmund Patel MD 290 [place] [address] Assigned Allergy Provider 01/31/24 Yaw Mckinney MD [address] [place] [address] Assigned Rheumatology Provider 03/01/24 Jenny Terrazas CNM 606 [place] [address] Assigned OBGYN Provider 03/01/24 Petyt Hassan DO [address] [place] [address] Resident Neurology 05/01/24 Gil Danielson LSW Specialty Fast Food Cashier 09/19/24 documented as of this encounter
--- OUTSIDE RECORDS SUMMARY | 2024-10-25 15:29 | XMS_ITS | Encounter Summary ---
Author Organization [place] Address [address] [place] [address] Care Team Providers Care Broom Maker Name Role Phone Lorraine Castaneda MD Unavailable [phone] Lorraine Castaneda MD Primary Care Provider Shell Menjivar MD Unavailable [phone] Matt Shaver MD Unavailable [phone] Shell Menjivar MD Unavailable [phone] Shell Menjivar MD Unavailable [phone] Chinedu Fleming MD Unavailable [phone] Mere Andres Unavailable Unavailab Bo Reid MD Unavailable [phone] Jozef Sanchez [facility] Unavailable [phone] Alicia Montero Unavailable Unavailable Bo Jiang MD Unavailable [phone] Leonides Hernandez [facility] Unavailable [phone] Babar Ferrari PA-C Unavailable [phone] Priscilla Stoddard Unavailable aYw Mckinney MD Unavailable +[phone] Edmund Patel MD Unavailable [phone] Edmund Patel MD Unavailable [phone] Yaw Mckinney MD Unavailable +[phone] SunilnelsymikJenny blanc CN Unavailable [phone] Petty Hassan DO Unavailable [phone] Gil Danielson Unavailable Unavailable Encounter Details Date Type Department Care Team (Late st Contact Info) Description 11/15/2019 MyC Medical Advice [facility] [address] [facility] [place] [phone] Jenny Mart Social History Tobacco Use Types [...] CDT Gender Identity Genderqueer 04/15/2024 10:21 PM COIN MACHINE SERVICER REPAIRER Sexual Orientation Lesbian 04/15/2024 10 :21 PM COIN MACHINE SERVICER REPAIRER Sexual Orientation Something else 04/15/2024 10 :21 PM COIN MACHINE SERVICER REPAIRER COVID-19 Exposure Response Date Recorded In the last month, have you been in contact with someone who was confirmed or suspected to have Coronavirus / COVID-19? No / Unsure 11/13/2019 9:58 AM CDT documented as of this encounter Plan of Treatment Not on file documented as of this encounter Visit Diagnoses Not on filedocumented in this encounter Additional Health Concerns Assessment Noted Time PHQ-9 Depression Total Score: 14 020 7:06 AM CDT documented as of this encounter Care Teams Broom Maker Relationship Specialty Start Date End Date Lorraine Castaneda MD [address] [employer] [address] [place] [address] PCP - General Family Practice 07/25/19 Lorraine Castaneda MD [address] [place] [address] Assigned PCP 06/18/19 Shell Menjivar MD [address] [place] [address] Dermatology 08/31/19 Matt Shaver MD [address] [place] [address] Assigned Musculoskeletal Provider 03/01/20 04/12/21 Shell Menjivar MD [address] [place] [address] 249905 Assigned Pediatric Specialist Provider 03/01/20 06/09/20 Shell Menjivar MD [address] [place] [address] Assigned Surgical Provider 03/01/20 05/31/21 [place] [address] 99 [place] [address] Assigned Rheumatology Provider 02/23/21 02/29/24 Mere Andres PsyD [address] [address] Assigned Behavioral Health Provider 03/30/21 07/31/22 Bo Jiang MD [address] [place] [address] Physician Plastic Surgery 10/09/21 Jozef Sanchez [facility] [address] [place] [address] Cycle Specialist Plastic Surgery 10/09/21 Alicia Montero Specialty Publishing Systems Analyst 10/09/21 Bo Jiang MD 2945 [facility] 200 [place] [address] Assigned Surgical Provider 11/01/21 09/29/23 Leonides Hernandez [facility] 909 [facility] Pharmacist 05/18/23 Babar Ferrari PA-C [address] [place] [address] Physician Snack Stewardess Gastroenterology 06/01/23 Priscilla Stoddard 3033 [place], [place] 861616 Assigned Behavioral Health Provider 08/31/23 Yaw Mckinney MD [address] [place] [address] Physician Rheumatology 12/22/23 Edmund Patel MD 290 [place] [address] Allergy & Immunology 12/27/23 Edmund Patel MD 290 [place] [address] Assigned Allergy Provider 01/31/24 Yaw Mckinney MD [address] [place] [address] 659215 Assigned Rheumatology Provider 03/01/24 Jenny Terrazas CNM [address] [place], [place] [address] Assigned OBGYN Provider 03/01/24 Petty Hassan DO [address] [place] [address] Resident Neurology 05/01/24 Gil Danielson LSW Specialty Publishing Systems Analyst 09/19/24 documented as of this encounter
--- OUTSIDE RECORDS SUMMARY | 2024-10-25 15:29 | XMS_ITS | Encounter Summary ---
Author Organization [place] Address [address] [place] [address] Care Team Providers Care Foot Miter Operator Name Role Phone Lorraine Castaneda MD Unavailable [phone] Lorraine Castaneda MD Primary Care Provider Shell Menjivar MD Unavailable [phone] Matt Shaver MD Unavailable [phone] Shell Menjivar MD Unavailable [phone] Shell Menjivar MD Unavailable [phone] Chinedu Fleming MD Unavailable [phone] Mere Andres Unavailable Unavailab Bo Reid MD Unavailable [phone] Jozef Sanchez [facility] Unavailable [phone] Alicia Montero Unavailable Unavailable Bo Jiang MD Unavailable [phone] Leonides Hernandez [facility] Unavailable [phone] Babar Ferrari PA-C Unavailable [phone] Priscilla Stoddard Unavailable Yaw Mckinney MD Unavailable [phone] Edmund Patel MD Unavailable [phone] Edmund Patel MD Unavailable [phone] Yaw Mckinney MD Unavailable +[phone] Jenny Terrazas [facility] Unavailable [phone] Petty Hassan DO Unavailable Gil Danielson Unavailable Unavailable Encounter Details Date Type Department Care Team (Late st Contact Info) Description 01/10/2020 MyC Medical Advice [facility] [address], [facility] 275 [place] [phone] Annie Figueredo, TARA Social History Tobacco Use Types Packs/Day Years [...] CDT Gender Identity Genderqueer 04/15/2024 10:21 PM BRIDGE WORKER APPRENTICE Sexual Orientation Lesbian 04/15/2024 10 :21 PM BRIDGE WORKER APPRENTICE Sexual Orientation Something else 04/15/2024 10 :21 PM BRIDGE WORKER APPRENTICE documented as of this encounter Plan of Treatment Not on file documented as of this encounter Visit Diagnoses Not on filedocumented in this encounter Additional Health Concerns Assessment Noted Time PHQ-9 Depression Total Score: 14 020 7:06 AM CDT documented as of this encounter Care Teams Foot Miter Operator Relationship Specialty Start Date End Date Lorraine Castaneda MD [facility] [employer] [address] [address] PCP - General Family Practice 07/25/19 Lorraine Castaneda MD [address] [address] Assigned PCP 06/18/19 Shell Menjivar MD [address] [place] [address] 291865 MD Dermatology 08/31/19 Matt Shaver MD [address] [place] [address] Assigned Musculoskeletal Provider 03/01/20 04/12/21 Shell Menjivar MD [address] [place] [address] Assigned Pediatric Specialist Provider 03/01/20 06/09/20 Shell Menjivar MD [address] [place] [address] Assigned Surgical Provider 03/01/20 05/31/21 [place] [address] [place] [address] Assigned Rheumatology Provider 02/23/21 02/29/24 Mere Andres PsyD [facility] [address] [address] Assigned Behavioral Health Provider 03/30/21 07/31/22 Bo Jiang MD [address] [place] [address] Physician Plastic Surgery 10/09/21 Jozef Sanchez [facility] [address] [place] [address] Hearing Impaired Teacher Plastic Surgery 10/09/21 Alicia Montero Specialty Rescue Instructor 10/09/21 [place] [address] [place] [address] Assigned Surgical Provider 11/01/21 09/29/23 Leonides Hernandez [facility] 909 [facility] Pharmacist 05/18/23 Babar Ferrari PA-C [address] [place] [address] Physician Criminal Investigative Agent Gastroenterology 06/01/23 Priscilla Stoddard 3033 [place], [place] 791636 Assigned Behavioral Health Provider 08/31/23 Yaw Mckinney MD [address] [place] [address] 296075 Physician Rheumatology 12/22/23 Edmund Patel MD 290 [place], [place] 52[address] Allergy & Immunology 12/27/23 Edmund Patel MD 290 [place], [place] 8[address]40 Assigned Allergy Provider 01/31/24 Yaw Mckinney MD [address] [place] [address] 672235 Assigned Rheumatology Provider 03/01/24 Jenny Terrazas CNM [address] [place], [place] [address] Assigned OBGYN Provider 03/01/24 Petty Hassan DO [address] [place] [address] Resident Neurology 05/01/24 Gil Danielson LSW Specialty Rescue Instructor 09/19/24 documented as of this encounter
--- OUTSIDE RECORDS SUMMARY | 2024-10-25 15:30 | XMS_ITS | Encounter Summary ---
Author Organization [place] Address [address] [place] [address] Care Team Providers Care Sweat Band Separator Name Role Phone Lorraine Castaneda MD Unavailable [phone] Lorraine Castaneda MD Primary Care Provider Shell Menjivar MD Unavailable +[phone] Bo Jiang MD Unavailable [phone] Jozef Sanchez [facility] Unavailable [phone] Alicia Montero Unavailable Unavailable Leonides Hernandez [facility] Unavailable [phone] Babar Ferrari PA-C Unavailable [phone] Priscilla Stoddard Unavailable Yaw Mckinney MD Unavailable +[phone] Edmund Patel MD Unavailable [phone] Edmund Patel MD Unavailable [phone] Yaw Mckinney MD Unavailable +[phone] Jenny Terrazas [facility] Unavailable + [phone] Petty Hassan DO Unavailable [phone] Gil Danielson YOKER Unavailable Unavailable Encounter Details Date Type Department Care Team (Late st Contact Info) Description 05/17/2024 Orders Only [facility] [address] [place] [address] Outside, Provider Social History Tobacco Use Types Packs/Day Years Used Date Smoking Tobacco: Never Passive Smoke Exposure: Never Smokeless Tobacco: Never Alcohol Use Standard Drinks/Week Comments No 0 (1 standard drink = 0.6 oz pur e alcohol) PHQ-2 Answer Date Recorded PHQ-2 Score 0 03/20/2024 Adolescent Education Answer Date Record ed Getting [...] Date Recorded Do you have housing? (Sawyer g is defined as stable permanent housing and does not include staying outside in a car, in a tent, in an abandoned building, in an overnight fci, or couch-surfing.) Yes 05/11/2023 Are you worried [...] motionally safe where you currently live? Yes 12/29/2023 Within the past 12 months, h ave you been hit, slapped, kicked or otherwise physically hurt by someone? No 12/29/2023 Within the past 12 months, h ave you been humiliated or emotionally abused in other ways by your partner or ex-partner? No 12/29/2023 Comments No Sex and Gender Information Value Date Recorded Sex Assigned at Female 11/23/2017 12:16 PM CDT Legal Sex Female 11:38 AM CDT Gender Identity Genderqueer 04/15/2024 10:21 PM PIN DRAFTER OPERATOR Sexual Orientation Lesbian 04/15/2024 10 :21 PM PIN DRAFTER OPERATOR Sexual Orientation Something else 04/15/2024 10 :21 PM PIN DRAFTER OPERATOR documented as of this encounter Plan of Treatment Not on file documented as of this encounter Procedures Procedure Name Priority Date/Time Associated Diagnosis Comments HLA RESULT REPORT 05/17/2024 1:46 PM PIN DRAFTER OPERATOR documented in this encounter Results * HLA Result Report (05/17/2024 1:46 PM PIN DRAFTER OPERATOR) us Provider Outside LAB - IMMUNOLOGY ORDERABLES Fin al Result documented in this encounter Visit Diagnoses Not on filedocumented in this encounter Additional Health Concerns Assessment Noted Time PHQ-9 Depression Total Score: 7 03/20/20 24 9:49 AM PIN DRAFTER OPERATOR documented as of this encounter Care Teams Sweat Band Separator Relationship Specialty Start Date End Date Lorraine Castaneda MD [address] [address] [address] PCP - General Family Practice 07/25/19 Lorraine Castaneda MD [address] [address] Assigned PCP 06/18/19 Shell Menjivar MD [address] [place] [address] 171875 Dermatology 08/31/19 [place] [address] [place] [address] 200 [place] [address] Physician Plastic Surgery 10/09/21 [facility] [address] [place] [address] Professor Of Forest Planning Plastic Surgery 10/09/21 Alicia Montero Specialty Auto Bumper Straightener 10/09/21 Leonides Hernandez, [facility] [address] [place] [address] Pharmacist 05/18/23 Babar Ferrari PA-C [address] [place] [address] Physician Vehicle Maintenance Technician Gastroenterology 06/01/23 Priscilla Stoddard [address] [place], [place] 399626 Assigned Behavioral Health Provider 08/31/23 Yaw Mckinney MD [address] [place] [address] 167735 Physician Rheumatology 12/22/23 Edmund Patel MD [address] [place], [place] 728850 Allergy & Immunology 12/27/23 Edmund Patel MD [address] [place], [place] 052670 Assigned Allergy Provider 01/31/24 Yaw Mckinney MD [address] [place] [address] 235775 Assigned Rheumatology Provider 03/01/24 Jenny Terrazas CNM [address] [place], [place] 9315[address] Assigned OBGYN Provider 03/01/24 Petty Hassan DO [address] [place], [place] 048845 Resident Neurology 05/01/24 Gil Danielson LSW Specialty Auto Bumper Straightener 09/19/24 documented as of this encounter
--- OUTSIDE RECORDS SUMMARY | 2024-10-25 15:30 | XMS_ITS | Encounter Summary ---
Author Organization [place] Address [address] [place] [address] Care Team Providers Care Practice Specialist Name Role Phone Lorraine Castaneda MD Unavailable [phone] Lorraine Castaneda MD Primary Care Provider Shell Menjivar MD Unavailable +[phone] Bo Jiang MD Unavailable [phone] Jozef Sanchez [facility] Unavailable [phone] Alicia Montero Unavailable Unavailable Leonides Hernandez [facility] Unavailable [phone] Babar Ferrari PA-C Unavailable [phone] Priscilla Stoddard Unavailable Yaw Mckinney MD Unavailable +[phone] Edmund Patel MD Unavailable [phone] Edmund Patel MD Unavailable [phone] Yaw Mckinney MD Unavailable +[phone] Jenny Terrazas [facility] Unavailable + [phone] Petty Hassan DO Unavailable [phone] Gil Danielson FANCY WIRE DRAWER Unavailable Unavailable Encounter Details Date Type Department Care Team (Late st Contact Info) Description 05/06/2024 [facility] [address], [address] [place] [address] Lorraine Castaneda MD [address] [facility] [address] [place], [place] [address] Social History Tobacco Use Types Packs/Day Years [...] in an abandoned building, in an overnight skilled nursing, or couch-surfing.) Yes 05/11/2023 Are you worried [...] CDT Gender Identity Genderqueer 04/15/2024 10:21 PM STEAM BOILER FIREMAN Sexual Orientation Lesbian 04/15/2024 10 :21 PM STEAM BOILER FIREMAN Sexual Orientation Something else 04/15/2024 10 :21 PM STEAM BOILER FIREMAN documented as of this encounter Plan of Treatment Not on file documented as of this encounter Visit Diagnoses Not on filedocumented in this encounter Additional Health Concerns Assessment Noted Time PHQ-9 Depression Total Score: 7 03/20/20 24 9:49 AM STEAM BOILER FIREMAN documented as of this encounter Care Teams Practice Specialist Relationship Specialty Start Date End Date Lorraine Castaneda MD [address] [employer] [address] [address] PCP - General Family Practice 07/25/19 Lorraine Castaneda MD [facility] [employer] [address] [address] Assigned PCP 06/18/19 Shell Menjivar MD [address] [place] [address] Dermatology 08/31/19 Bo Jiang MD 2945 [facility] 200 [place] [address] Physician Plastic Surgery 10/09/21 [facility] [address] [place] [address] 715655 Manager Agriculture Plastic Surgery 10/09/21 Alicia Montero Specialty Cyber Software Engineer 10/09/21 Leonides Hernandez [facility] [address] [place] [address] Pharmacist 05/18/23 Babar Ferrari PA-C [address] [place] [address] Physician Gaming Dealer Gastroenterology 06/01/23 Priscilla Stoddard 3033 [place] [address] Assigned Behavioral Health Provider 08/31/23 Yaw Mckinney MD [address] [place] [address] 575185 Physician Rheumatology 12/22/23 Edmund Patel MD [address] [place] [address] Allergy & Immunology 12/27/23 Edmund Patel MD [address] [place] [address] Assigned Allergy Provider 01/31/24 Yaw Mckinney MD [address] [place] [address] Assigned Rheumatology Provider 03/01/24 Jenny Terrazas CNM [address] [place] [address] Assigned OBGYN Provider 03/01/24 Petty Hassan DO [address] [place], [place] [address]415 Resident Neurology 05/01/24 Gil Danielson LSW Specialty Cyber Software Engineer 09/19/24 documented as of this encounter
--- OUTSIDE RECORDS SUMMARY | 2024-10-25 15:30 | XMS_ITS | Encounter Summary ---
Author Organization [facility] Address [address] [place] [address] Care Team Providers Care Automotive Glass Specialist Name Role Phone Lorraine Castaneda MD Unavailable [phone] Lorraine Castaneda MD Primary Care Provider Shell Menjivar MD Unavailable +[phone] Chinedu Fleming MD Unavailable [phone] Bo Jiang MD Unavailable [phone] Jozef Sanchez [facility] Unavailable [phone] Alicia Montero Unavailable Unavailable Bo Jiang MD Unavailable [phone] Leonides Hernandez [facility] Unavailable [phone] Babar Ferrari PA-C Unavailable [phone] Priscilla Stoddard Unavailable Yaw Mckinney MD Unavailable [phone] Edmund Patel MD Unavailable [phone] Edmund Patel MD Unavailable [phone] Yaw Mckinney MD Unavailable [phone] Jenny Terrazas CNM Unavailable + [phone] Petty Hassan DO Unavailable [phone] Gil Danielson INDEPENDENT CONSULTANT Unavailable Unavailable Encounter Details Date Type Department Care Team (Late st Contact Info) Description 04/14/2023 MyC Medical Advice [facility] [address] [place] [address] Kate Manuel Social History Tobacco Use Types Packs/Day Years Used Date Smoking Tobacco: Never Smokeless Tobacco: Never Alcohol Use Standard Drinks/Week Comments No 0 (1 standard drink = 0.6 oz pur e alcohol) PHQ-2 Answer Date Recorded PHQ-2 Score 0 04/13/2023 Adolescent Education Answer Date Record ed Getting School Help Needed Not on file 01/29 Comments No Sex and Gender Information Value Date Recorded Sex Assigned at Female 11/23/2017 12:16 PM CDT Legal Sex Female 11:38 AM CDT Gender Identity Genderqueer 04/15/2024 10:21 PM MEDICAL DIRECTOR OCCUPATIONAL HEALTH Sexual Orientation Lesbian 04/15/2024 10 :21 PM MEDICAL DIRECTOR OCCUPATIONAL HEALTH Sexual Orientation Something else 04/15/2024 10 :21 PM MEDICAL DIRECTOR OCCUPATIONAL HEALTH documented as of this encounter Plan of Treatment Not on file documented as of this encounter Visit Diagnoses Not on filedocumented in this encounter Additional Health Concerns Assessment Noted Time PHQ-9 Depression Total Score: 7 03/22/20 23 9:36 AM MEDICAL DIRECTOR OCCUPATIONAL HEALTH documented as of this encounter Care Teams Automotive Glass Specialist Relationship Specialty Start Date End Date Lorraine Castaneda MD [address] [employer] [address] PCP - General Family Practice 07/25/19 Lorraine Castaneda MD [address] [address] Assigned PCP 06/18/19 Shell Menjivar MD 9[address] [place] [address] Dermatology 08/31/19 [place] [address] [place] [address] Assigned Rheumatology Provider 02/23/21 02/29/24 [place] [address] [place] [address] Physician Plastic Surgery 10/09/21 Jozef Sanchez [facility] [address] [place] [address] Oil Tank Car Cleaner Plastic Surgery 10/09/21 Alicia Montero Specialty Application Software Developer 10/09/21 Bo Jiang MD [address] [place] [address] Assigned Surgical Provider 11/01/21 09/29/23 [facility] [address] [place] [address] Pharmacist 05/18/23 Babar Ferrari PA-C [address] [place] [address] Physician Remote Operations Producer Gastroenterology 06/01/23 Priscilla Stoddard [address] [place] [address] Assigned Behavioral Health Provider 08/31/23 Yaw Mckinney MD [address] [place] [address] 092985 Physician Rheumatology 12/22/23 Edmund Patel MD [address] [place] [address] Allergy & Immunology 12/27/23 Edmund Patel MD [address] [place] [address] 281050 Assigned Allergy Provider 01/31/24 Yaw Mckinney MD [address] [place] [address] 814195 Assigned Rheumatology Provider 03/01/24 Jenny Terrazas CNM [address], [place] [address] Assigned OBGYN Provider 03/01/24 Petty Hassan DO [address] [place] [address] [id number] Resident Neurology 05/01/24 Gil Daneilson LSW Specialty Application Software Developer 09/19/24 documented as of this encounter
--- OUTSIDE RECORDS SUMMARY | 2024-10-25 15:30 | XMS_ITS | Encounter Summary ---
Author Organization [facility] Address [address] [place] [address] Care Team Providers Care Diesel Electrician Name Role Phone Lorraine Castaneda MD Unavailable [phone] Lorraine Castaneda MD Primary Care Provider Shell Menjivar MD Unavailable [phone] Chinedu Fleming MD Unavailable [phone] Bo Jiang MD Unavailable [phone] Jozef Sanchez [facility] Unavailable [phone] Alicia Montero Unavailable Unavailable Bo Jiang MD Unavailable [phone] Leonides Hernandez [facility] Unavailable [phone] Babar Ferrari PA-C Unavailable [phone] Priscilla Stoddard Unavailable Yaw Mckinney MD Unavailable [phone] Edmund Patel MD Unavailable [phone] Edmund Patel MD Unavailable [phone] Yaw Mckinney MD Unavailable [phone] Jenny Terrazas CNM Unavailable + [phone] Petty Hassan DO Unavailable [phone] Gil Danielson DOOR BUILDER Unavailable Unavailable Encounter Details Date Type Department Care Team (Late st Contact Info) Description 05/11/2023 MyC Medical Advice [facility] D [facility] [address] [place] [address] Tiffanie Wong Social History Tobacco Use Types Packs/Day Years Used Date Smoking Tobacco: Never Smokeless Tobacco: Never Alcohol Use Standard Drinks/Week Comments No 0 (1 standard drink = 0.6 oz pur e alcohol) PHQ-2 Answer Date Recorded PHQ-2 Score 2 05/11/2023 Adolescent Education Answer Date Record ed Getting [...] Answer Date Recorded Do you have housing? (Housin g is defined as stable permanent housing and does not include staying outside in a car, in a tent, in an abandoned building, in an overnight [place] [facility], or couch-surfing.) Yes 05/11/2023 Are you worried [...] motionally safe where you currently live? Yes 05/11/2023 Within the past 12 months, h ave you been hit, slapped, kicked or otherwise physically hurt by someone? No 05/11/2023 Within the past 12 months, h ave you been humiliated or emotionally abused in other ways by your partner or ex-partner? No 05/11/2023 Comments No Sex and Gender Information Value Date Recorded Sex Assigned at Female 11/23/2017 12:16 PM CDT Legal Sex Female 11:38 AM CDT Gender Identity Genderqueer 04/15/2024 10:21 PM PATTERN HANGER Sexual Orientation Lesbian 04/15/2024 10 :21 PM PATTERN HANGER Sexual Orientation Something else 04/15/2024 10 :21 PM PATTERN HANGER documented as of this encounter Plan of Treatment Not on file documented as of this encounter Visit Diagnoses Not on filedocumented in this encounter Additional Health Concerns Assessment Noted Time PHQ-9 Depression Total Score: 12 024 11:17 AM PATTERN HANGER documented as of this encounter Care Teams Diesel Electrician Relationship Specialty Start Date End Date Lorraine Castaneda MD [address] [employer] [address] [address] PCP - General Family Practice 07/25/19 Lorraine Castaneda MD [address] [address] Assigned PCP 06/18/19 Shell Menjivar MD 909 [place], [place] 27[address] Dermatology 08/31/19 [place] [address] [place] [address] Assigned Rheumatology Provider 02/23/21 02/29/24 Bo Jiang MD 2945 [facility] 200 [place] [address] Physician Plastic Surgery 10/09/21 [facility] [address] [place] [address] Water Rights Specialist Plastic Surgery 10/09/21 Alicia Montero Specialty Molding Associate 10/09/21 Bo Jiang MD [address] [address] Assigned Surgical Provider 11/01/21 09/29/23 Leonides Hernandez [facility] 909 [facility] Pharmacist 05/18/23 Babar Ferrari PA-C [address] [place], [place] [address] Physician Brim Ironer Hand Gastroenterology 06/01/23 Priscilla Stoddard 3033 [place], [place] 387676 Assigned Behavioral Health Provider 08/31/23 Yaw Mckinney MD [address] [place] [address] 666585 Physician Rheumatology 12/22/23 Edmund Patel MD 290 [place], [place] 403970 Allergy & Immunology 12/27/23 Edmund Patel MD 290 [place] [address] Assigned Allergy Provider 01/31/24 Yaw Mckinney MD [address] [place] [address] 399085 Assigned Rheumatology Provider 03/01/24 Jenny Terrazas CNM [address] [place], [place] 3[address] Assigned OBGYN Provider 03/01/24 Petty Hassan DO [address] [place] [address] Resident Neurology 05/01/24 Gil Danielson LSW Specialty Molding Associate 09/19/24 documented as of this encounter
--- OUTSIDE RECORDS SUMMARY | 2024-10-25 15:30 | XMS_ITS | Encounter Summary ---
Author Organization [facility] Address [address] [place] [address] Care Team Providers Care Feeder Driver Name Role Phone Lorraine Castaneda MD Unavailable [phone] Lorraine Castaneda MD Primary Care Provider Shell Menjivar MD Unavailable +[phone] Chinedu Fleming MD Unavailable [phone] Bo Jiang MD Unavailable [phone] Jozef Sanchez [facility] Unavailable [phone] Alicia Montero Unavailable Unavailable Leonides Hernandez [facility] Unavailable [phone] Babar Ferrari PA-C Unavailable [phone] Priscilla Stoddard Unavailable Yaw Mckinney MD Unavailable Edmund Patel MD Unavailable [phone] Edmund Patel MD Unavailable [phone] Yaw Mckinney MD Unavailable Jenny Terrazas Pascual Unavailable Petty Hassan DO Unavailable [phone] Gil Danielson LINE HAUL TRUCK DRIVER Unavailable Unavailable Encounter Details Date Type Department Care Team (Late st Contact Info) Description 12/22/2023 [facility] [address] [place] [address] [address] [place] [phone] Yaw Mckinney MD [address] [place] [address] Social History Tobacco Use Types Packs/Day Years Used Date Smoking Tobacco: Never Smokeless Tobacco: Never Alcohol Use Standard Drinks/Week Comments No 0 (1 standard drink = 0.6 oz pur e alcohol) PHQ-2 Answer Date Recorded PHQ-2 Score 2 12/15/2023 Adolescent Education Answer Date Record ed Getting [...] Answer Date Recorded Do you have housing? (Yandyin g is defined as stable permanent housing and does not include staying outside in a car, in a tent, in an abandoned building, in an overnight care home, or couch-surfing.) Yes 05/11/2023 Are you worried [...] CDT Gender Identity Genderqueer 04/15/2024 10:21 PM TALLOW PUMPER Sexual Orientation Lesbian 04/15/2024 10 :21 PM TALLOW PUMPER Sexual Orientation Something else 04/15/2024 10 :21 PM TALLOW PUMPER documented as of this encounter Plan of Treatment Not on file documented as of this encounter Visit Diagnoses Not on filedocumented in this encounter Additional Health Concerns Assessment Noted Time PHQ-9 Depression Total Score: 14 024 9:56 AM CDT documented as of this encounter Care Teams Feeder Driver Relationship Specialty Start Date End Date Lorraine Castaneda MD [id number] [address] PCP - General Family Practice 07/25/19 Lorraine Castaneda MD [address] [place] [address] Assigned PCP 06/18/19 Shell Menjivar MD 909 [place], [place] 585085 Dermatology 08/31/19 [place] [address] [place] [address] Assigned Rheumatology Provider 02/23/21 02/29/24 Bo Jiang MD 2945 [facility] 200 [place], [place] [address] Physician Plastic Surgery 10/09/21 Jozef Sanchez [facility] 500 [place], [place] [address] Compensation Coordinator Plastic Surgery 10/09/21 Alicia Montero Specialty Database Administrator 10/09/21 Leonides Hernandez [facility] [address] [place] [address] Pharmacist 05/18/23 Babar Ferrari PA-C [address] [place], [place] [address] Physician Box Blank Machine Feeder Gastroenterology 06/01/23 Priscilla Stoddard 3033 [place], [place] 475896 Assigned Behavioral Health Provider 08/31/23 Yaw Mckinney MD [address] [place] [address] 472675 Physician Rheumatology 12/22/23 Edmund Patel MD 290 [place], [place] 524470 Allergy & Immunology 12/27/23 Edmund Patel MD [address] [place], [place] 215910 Assigned Allergy Provider 01/31/24 Yaw Mckinney MD [address] [place] [address] 895575 Assigned Rheumatology Provider 03/01/24 Jenny Terrazas CNM [address] [place], [place] [address] Assigned OBGYN Provider 03/01/24 Petty Hassan DO [address] [place] [address] Resident Neurology 05/01/24 Gil Danielson LSW Specialty Database Administrator 09/19/24 documented as of this encounter
--- OUTSIDE RECORDS SUMMARY | 2024-10-25 15:30 | XMS_ITS | Encounter Summary ---
Author Organization [facility] Address [address] [place] [address] Care Team Providers Care Concrete Spreader Name Role Phone Lorraine Castaneda MD Unavailable [phone] Lorraine Castaneda MD Primary Care Provider Shell Menjivar MD Unavailable [phone] Chinedu Fleming MD Unavailable Bo Jiang MD Unavailable [phone] Jozef Sanchez [facility] Unavailable [phone] Alicia Montero Unavailable Unavailable Leonides Hernandez [facility] Unavailable [phone] Babar Ferrari PA-C Unavailable Priscilla Stoddard Unavailable Yaw Mckinney MD Unavailable Edmund Patel MD Unavailable [phone] Edmund Patel MD Unavailable [phone] Yaw Mckinney MD Unavailable Jenny Terrazas Pascual Unavailable + [phone] Petty Hassan DO Unavailable +[phone] Gil Danielson COLOR BUFFER Unavailable Unavailable Reason for Visit * Reason Comments Medication Refill Encounter Details Date Type Department Care Team (Late st Contact Info) Description 11/07/[address] [facility] [address], [address] [place] [address] Lorraine Castaneda MD [address] [place], [place] [id number] Medication Refill Social History Tobacco Use Types Packs/Day Years Used Date Smoking Tobacco: Never Smokeless Tobacco: Never Alcohol Use Standard Drinks/Week Comments No 0 (1 standard drink = 0.6 oz pur e alcohol) PHQ-2 Answer Date Recorded PHQ-2 Score 2 11/08/2023 Adolescent Education Answer Date Record ed Getting [...] in an abandoned building, in an overnight retirement, or couch-surfing.) Yes 05/11/2023 Are you worried [...] CDT Gender Identity Genderqueer 04/15/2024 10:21 PM CLINICAL NURSE LEADER Sexual Orientation Lesbian 04/15/2024 10 :21 PM CLINICAL NURSE LEADER Sexual Orientation Something else 04/15/2024 10 :21 PM CLINICAL NURSE LEADER documented as of this encounter Miscellaneous Notes * Telephone Encounter - Luis Read MD - 11/08/2023 9:17 AM CDT Please mychart/call to do [id number]. Luis Read MD w documented in this encounter Plan of Treatment Not on file documented as of this encounter Visit Diagnoses Diagnosis Anxiety Anxiety state, unspecified Moderate episode of recurrent major depressive disorder (H) PTSD (post-traumatic stress disorder) Posttraumatic stress disorder Mixed obsessional thoughts and acts documented in this encounter Additional Health Concerns Assessment Noted Time PHQ-9 Depression Total Score: 7 09/20/19 24 10:01 AM CDT documented as of this encounter Care Teams Concrete Spreader Relationship Specialty Start Date End Date Lorraine Castaneda MD [address] [place] [address] PCP - General Family Practice 07/25/19 Lorraine Castaneda MD [address] [place] [address] [place] [address] Assigned PCP 06/18/19 Shell Menjivar MD [address] [place] [address] Dermatology 08/31/19 [place] [address] [place] [address] Assigned Rheumatology Provider 02/23/21 02/29/24 Bo Jiang MD [address] [address] Physician Plastic Surgery 10/09/21 Jozef Sanchez [facility] [address] [place] [address] Outside Salesman Plastic Surgery 10/09/21 Alicia Montero Specialty Sheet Pile Driver Operator 10/09/21 [facility] [address] [place] [address] Pharmacist 05/18/23 Babar Ferrari PA-C [address] [place] [address] Physician Treatment Specialist Gastroenterology 06/01/23 Priscilla Stoddard [address] [place] [address] Assigned Behavioral Health Provider 08/31/23 Yaw Mckinney MD [address] [place] [address] 6[address]255 Physician Rheumatology 12/22/23 Edmund Patel MD [address] [place], [place] 14[address] Allergy & Immunology 12/27/23 Edmund Patel MD [address] [place], [place] 5477[address] Assigned Allergy Provider 01/31/24 Yaw Mckinney MD [address] [place], [place] 4550[address] Assigned Rheumatology Provider 03/01/24 Jenny Terrazas CNM [address] [place] [address] Assigned OBGYN Provider 03/01/24 Petty Hassan DO [address] [place] [address] 1557[address] Resident Neurology 05/01/24 Gil Danielson LSW Specialty Sheet Pile Driver Operator 09/19/24 documented as of this encounter
--- OUTSIDE RECORDS SUMMARY | 2024-10-25 15:30 | XMS_ITS | Encounter Summary ---
Author Organization [facility] Address [address] [place] [address] Care Team Providers Care Kitchen Designer Name Role Phone Lorraine Castaneda MD Unavailable [phone] Lorraine Castaneda MD Primary Care Provider Shell Menjivar MD Unavailable [phone] Bo Jiang MD Unavailable [phone] Jozef Sanchez [facility] Unavailable [phone] Alicia Montero Unavailable Unavailable Leonides Hernandez [facility] Unavailable [phone] Babar Ferrari PA-C Unavailable [phone] Priscilla Stoddard Unavailable Yaw Mckinney MD Unavailable [phone] Edmund Patel MD Unavailable [phone] Edmund Patel MD Unavailable [phone] Yaw Mckinney MD Unavailable [phone] Jenny Terrazas [facility] Unavailable + [phone] Petty Hassan DO Unavailable [phone] Gil Danielson SUPERVISOR DIE CASTING Unavailable Unavailable Encounter Details Date Type Department Care Team (Late st Contact Info) Description 05/13/2024 [facility] [address] [place] [id number] Priscilla Stoddard [address] [place] [address] Social History Tobacco Use Types Packs/Day Years [...] in an abandoned building, in an overnight fpc, or couch-surfing.) Yes 05/11/2023 Are you worried [...] CDT Gender Identity Genderqueer 04/15/2024 10:21 PM HISTOLOGY TECHNICIAN Sexual Orientation Lesbian 04/15/2024 10 :21 PM HISTOLOGY TECHNICIAN Sexual Orientation Something else 04/15/2024 10 :21 PM HISTOLOGY TECHNICIAN documented as of this encounter Plan of Treatment Not on file documented as of this encounter Visit Diagnoses Not on filedocumented in this encounter Additional Health Concerns Assessment Noted Time PHQ-9 Depression Total Score: 7 03/20/20 24 9:49 AM HISTOLOGY TECHNICIAN documented as of this encounter Care Teams Kitchen Designer Relationship Specialty Start Date End Date Lorraine Castaneda MD [address] [address] [address] PCP - General Family Practice 07/25/19 Lorraine Castaneda MD [address] [address] [address] Assigned PCP 06/18/19 Shell Menjivar MD [address] [place] [address] Dermatology 08/31/19 Bo Jiang MD 2945 [facility] 200 [place] [address] Physician Plastic Surgery 10/09/21 Jozef Sanchez [facility] [address] [place] [address] Puppet Developer Plastic Surgery 10/09/21 Alicia Montero Specialty Mine Wirer 10/09/21 Leonides Hernandez [facility] [address] [place] [address] Pharmacist 05/18/23 Babar Ferrari PA-C [address] [place] [address] Physician Desk Representative Gastroenterology 06/01/23 Priscilla Stoddard [address] [place] [address] Assigned Behavioral Health Provider 08/31/23 Yaw Mckinney MD [address] [place] [address] Physician Rheumatology 12/22/23 Edmund Patel MD [address] [place] [address] Allergy & Immunology 12/27/23 Edmund Patel MD [address] [place] [address] Assigned Allergy Provider 01/31/24 Yaw Mckinney MD [address] [place] [address] Assigned Rheumatology Provider 03/01/24 Jenny Terrazas CNM [address] [place], [place] [address] Assigned OBGYN Provider 03/01/24 Petty Hassan DO [address] [place] [address] 440875 Resident Neurology 05/01/24 Gil Danielson LSW Specialty Mine Wirer 09/19/24 documented as of this encounter
--- OUTSIDE RECORDS SUMMARY | 2024-10-25 15:30 | XMS_ITS | Encounter Summary ---
Author Organization [facility] Address [address] [place] [address] Care Team Providers Care Mobile Paramedical Examiner Name Role Phone Lorraine Castaneda MD Unavailable [phone] Lorraine Castaneda MD Primary Care Provider Shell Menjivar MD Unavailable [phone] Chinedu Fleming MD Unavailable [phone] Bo Jiang MD Unavailable [phone] Jozef Sanchez [facility] Unavailable [phone] Alicia Montero Unavailable Unavailable Bo Jiang MD Unavailable [phone] Leoindes Hernandez [facility] Unavailable [phone] Babar Ferrari PA-C Unavailable [phone] Priscilla Stoddard Unavailable Yaw Mckinney MD Unavailable [phone] Edmund Patel MD Unavailable [phone] Edmund Patel MD Unavailable [phone] Yaw Mckinney MD Unavailable +[phone] Jenny Terrazas CNM Unavailable + [phone] Petty Hassan DO Unavailable [phone] Gil Danielson COSMETIC ASSEMBLER Unavailable Unavailable Encounter Details Date Type Department Care Team (Late st Contact Info) Description 05/18/2023 MyC Medical Advice [facility] [address] [address] David Leonides, [facility] 909 [facility] Social History Tobacco Use Types Packs/Day Years [...] CDT Gender Identity Genderqueer 04/15/2024 10:21 PM RUBBER MOULDING MACHINE OPERATOR Sexual Orientation Lesbian 04/15/2024 10 :21 PM RUBBER MOULDING MACHINE OPERATOR Sexual Orientation Something else 04/15/2024 10 :21 PM RUBBER MOULDING MACHINE OPERATOR documented as of this encounter Plan of Treatment Not on file documented as of this encounter Visit Diagnoses Not on filedocumented in this encounter Additional Health Concerns Assessment Noted Time PHQ-9 Depression Total Score: 12 024 11:17 AM RUBBER MOULDING MACHINE OPERATOR documented as of this encounter Care Teams Mobile Paramedical Examiner Relationship Specialty Start Date End Date Lorraine Castaneda MD [address] [address] PCP - General Family Practice 07/25/19 Lorraine Castaneda MD [address] [place] [address] Assigned PCP 06/18/19 Shell Menjivar MD 9 [place] [address] Dermatology 08/31/19 [place] [address] [place] [address] Assigned Rheumatology Provider 02/23/21 02/29/24 Bo Jiang MD 2945 [facility] 200 [place] [address] Physician Plastic Surgery 10/09/21 Jozef Sanchez [facility] [address] [place], [place] [address] Keller Machine Operator Plastic Surgery 10/09/21 Alicia Montero Specialty Life Science Technical Officer 10/09/21 Bo Jiang MD [address] [address] Assigned Surgical Provider 11/01/21 09/29/23 [facility] 909 [facility] Pharmacist 05/18/23 Babar Ferrari PA-C [address] [place] [address] Physician Avionics Technician Gastroenterology 06/01/23 Priscilla Stoddard 3033 [place] [address] Assigned Behavioral Health Provider 08/31/23 Yaw Mckinney MD [address] [place] [address] 167565 Physician Rheumatology 12/22/23 Edmund Patel MD 290 [place] [address] Allergy & Immunology 12/27/23 Edmund Patel MD 290 [place] [address] Assigned Allergy Provider 01/31/24 Yaw Mckinney MD 420 [place] [address] Assigned Rheumatology Provider 03/01/24 Jenny Terrazas CNM [address] [place], [place] [address] Assigned OBGYN Provider 03/01/24 Petty Hassan DO [address] [place] [address] 087835 Resident Neurology 05/01/24 Gil Danielson LSW Specialty Life Science Technical Officer 09/19/24 documented as of this encounter
--- OUTSIDE RECORDS SUMMARY | 2024-10-25 15:30 | XMS_ITS | Encounter Summary ---
Author Organization [facility] Address [address] [place] [address] Care Team Providers Care Senior Catering Sales Manager Name Role Phone Lorraine Castaneda MD Unavailable [phone] Lorraine Castaneda MD Primary Care Provider Shell Menjivar MD Unavailable +[phone] Matt Shaver MD Unavailable [phone] Shell Menjivar MD Unavailable +[phone] Chinedu Fleming MD Unavailable Mere Andres Unavailable Unavailab Bo Reid MD Unavailable [phone] Jozef Sanchez [facility] Unavailable [phone] Alicia Montero Unavailable Unavailable Bo Jiang MD Unavailable [phone] Leonides Hernandez [facility] Unavailable [phone] Babar Ferrari PA-C Unavailable [phone] Priscilla Stoddard Unavailable Yaw Mckinney MD Unavailable [phone] Edmund Patel MD Unavailable [phone] Edmund Patel MD Unavailable [phone] Yaw Mckinney MD Unavailable [phone] Jenny Terrazas CNM Unavailable [phone] Petty Hassan Unavailable Gil Danielson OPTICAL GOODS WORKER Unavailable Unavailable Encounter Details Date Type Department Care Team (Late st Contact Info) Description 11/20/2020 MyC Medical Advice [facility] [address] [address] Tomasa Zhu Social History Tobacco Use Types Packs/Day Years [...] CDT Gender Identity Genderqueer 04/15/2024 10:21 PM WAREHOUSE INVENTORY CLERK Sexual Orientation Lesbian 04/15/2024 10 :21 PM WAREHOUSE INVENTORY CLERK Sexual Orientation Something else 04/15/2024 10 :21 PM WAREHOUSE INVENTORY CLERK COVID-19 Exposure Response Date Recorded In the last month, have you been in contact with someone who was confirmed or suspected to have Coronavirus / COVID-19? No / Unsure 10/23/2020 2:17 PM CDT documented as of this encounter Plan of Treatment Not on file documented as of this encounter Visit Diagnoses Not on filedocumented in this encounter Additional Health Concerns Assessment Noted Time PHQ-9 Depression Total Score: 6 05/30/19 21 7:05 AM WAREHOUSE INVENTORY CLERK documented as of this encounter Care Teams Senior Catering Sales Manager Relationship Specialty Start Date End Date Lorraine Castaneda MD [address] [employer] [address] [address] [place] [address] PCP - General Family Practice 07/25/19 Lorraine Castaneda MD [address] [employer] [address] [address] [place] [address] Assigned PCP 06/18/19 Shell Menjivar MD [address] [place] [address] Dermatology 08/31/19 Matt Shaver MD [address] [place] [address] Assigned Musculoskeletal Provider 03/01/20 04/12/21 Shell Menjivar MD [address] [place] [address] Assigned Surgical Provider 03/01/20 05/31/21 [place] [address] [place] [address] Assigned Rheumatology Provider 02/23/21 02/29/24 Mere Andres PsyD [address], [place] [address] Assigned Behavioral Health Provider 03/30/21 07/31/22 Bo Jiang MD [address] [place] [address] Physician Plastic Surgery 10/09/21 Jozef Sanchez [facility] [address] [place] [address] Supervisor Specialty Plant Plastic Surgery 10/09/21 Alicia Montero Specialty Denial Management Representative 10/09/21 [place] [address] [place] [address] Assigned Surgical Provider 11/01/21 09/29/23 Leonides Hernandez [facility] 909 [facility] Pharmacist 05/18/23 Babar Ferrari PA-C [address] [place] [address] Physician Psych Specialist Gastroenterology 06/01/23 Priscilla Stoddard 3033 [place], [place] 448016 Assigned Behavioral Health Provider 08/31/23 Yaw Mckinney MD [address] [place] [address] 809015 Physician Rheumatology 12/22/23 Edmund Patel MD [address] [place], [place] [address] Allergy & Immunology 12/27/23 Edmund Patel MD [address] [place], [place] 630060 Assigned Allergy Provider 01/31/24 Yaw Mckinney MD [address] [place] [address] 818595 Assigned Rheumatology Provider 03/01/24 Jenny Terrazas CNM [address] [place], [place] [address] Assigned OBGYN Provider 03/01/24 Petty Hassan DO [address] [place], [place] [address] Resident Neurology 05/01/24 Gil Danielson LSW Specialty Denial Management Representative 09/19/24 documented as of this encounter
--- OUTSIDE RECORDS SUMMARY | 2024-10-25 15:30 | XMS_ITS | Clinical Summary ---
Author Organization [facility] Address [address] [place] [address] Care Team Providers Care Support Services Specialist Name Role Phone Lorraine Castaneda MD Unavailable [phone] Lorraine Castaneda MD Primary Care Provider Shell Menjivar MD Unavailable [phone] Bo Jiang MD Unavailable [phone] Jozef Sanchez [facility] Unavailable [phone] Alicia Montero Unavailable Unavailable Leonides Hernandez [facility] Unavailable [phone] Babar Ferrari PA-C Unavailable [phone] Priscilla Stoddard Unavailable Yaw Mckinney MD Unavailable Edmund Patel MD Unavailable [phone] Edmund Patel MD Unavailable [phone] Yaw Mckinney MD Unavailable [phone] Jenny Terrazas [facility] Unavailable [phone] Petty Hassan DO Unavailable [phone] Gil Danielson RELAY ASSEMBLER Unavailable Unavailable Allergies Active Allergy Reactions Criticality Noted Date Comments Fentanyl Nausea High 02/17/2014 Per pt made me dry heave really bad really fast Lemon Flavoring Agent (Non-Screening) Other (See Comments) 09/30/2024 Penicillins Unknown 11/08/2014 Medications * This document contains information received from the source organization and may not represent a complete record from that organization. acetaminophen (TYLENOL) 500 MG tablet Take 500-1,000 mg by mouth every 6 hours as needed for mild pain Active EPINEPHrine (ANY BX GENERIC EQUIV) 0.3 MG/0.3ML injection 2-packIndicatio ns:Other allergy, initial encounter Inject 0.3 mLs (0.3 mg) into the muscle as needed for anaphylaxis. May repeat one time in 5-15 minutes if response to initial dose is inadequate. 2 each 3 4 Active levonorgestrel (MIRENA) 52 MG (20 mcg/day) IUD 1 each by Intrauterine route once. Active celecoxib (CELEBREX) 200 MG capsuleIndicati ons:Polyarthral filomena Take 1 capsule (200 mg) by mouth daily. 30 capsule 1 5 Active prazosin (MINIPRESS) 1 MG capsuleIndicati ons:PTSD (post-traumatic stress disorder),Night navarro TAKE 1 CAPSULE BY MOUTH AT BEDTIME 30 capsule 5 Active Needle, Disp, 23G X 1 MISCIndications :Transgender person on hormone therapy To use with weekly IM injection 25 each 3 5 Active syringe, disposable, 1 ML MISCIndications :Transgender person on hormone therapy To use with weekly IM injection 25 each 3 5 Active sertraline (ZOLOFT) 100 MG tabletIndicatio ns:Anxiety,Mode rate episode of recurrent major depressive disorder (H),PTSD (post-traumatic stress disorder),Mixed obsessional thoughts and acts TAKE 2 TABLETS BY MOUTH EVERY DAY 180 tablet 5 Active testosterone cypionate (DEPOTESTOSTERO NE) 200 MG/ML injectionIndica tions:Transgend er person on hormone therapy Inject 0.25 mLs (50 mg) into the muscle once a week. 4 mL 5 Active Active Problems Problem Noted Date Diagnosed Date Housing instability 09/30/2024 Obsessive-compulsive disorder 09/30/2024 Nightmares 05/22/2024 Overview (05/22/2024): Prazosin 1mg/d (trying to find new psychiatrist to take over psych meds 06/03) Migraine without aura and wi thout status migrainosus, not intractable 02/29/2024 Rectal bleeding 02/02/2024 Family history of endometriosis 02/02/2024 Irritable bowel syndrome wit h both constipation and diarrhea 02/02/2024 Mild intermittent asthma without complication Overview (05/11/2023): Albuterol prn. Triggers- poor air qualifty, RADHAI's Transgender person on hormone therapy 12/26/2021 Overview (08/29/2024): Top surgery in 01/[address] Warren - testosterone Inflammatory arthritis 10/08/2021 Overview (10/08/2021): Dx in , following with Dr. Fleming at [facility] Rheum. Methotrexate started in ~-08/29, and pt notes significant improvement in pain symptoms (though still present in 10/29). Hypermobility syndrome 06/04/2020 Overview (08/13/2022): - following with Dr. Fleming, dx updated to inflammatory arthritis, started on methotrexate with improvement in joint pain sx's (10/29 update). 12/29- 70-90% improvement in pain on the methotrexate. Consultation with Dr. Oliveros in 05/29, dx hypermobility syndrome. Rec PT. Labs +HALIMA- always positive, anti-CCP negative. Bilateral knee pain 10/26/2019 Bilateral hand pain 10/23/2019 Anxiety 03/18/2016 PTSD (post-traumatic stress disorder) 03/13/2016 Moderate episode of recurrent major depressive d isorder 01/11/2015 Overview (12/29/2023): Sertraline 200mg/d (increased doses '23-24) [facility], sertraline dose increased from 50mg/d in 11/28) Previously [facility] Previously on clomipramine, exzopiclone and mirtazapine w/ psychiatry. Resolved Problems Problem Noted Date Diagnosed Date Resolved Date Hypermobile joints 10/23/2019 Influenza A 04/27/2019 02/29/2024 Encounters * This document contains information received from the source organization and may not represent a complete record from that organization. Date Type Department Care Team Description 10/12/2024 [facility] [address] [address] Gil Danielson LSW 10/02/2024 Telephone [facility] Services - Behavioral Service Line [facility] [place] [phone] Carl Figueroa 09/30/2024 5:13 PM CDT - 10/01/2024 12:40 PM CDT Hospital Encounter [facility] Emergency Dept [address] [place] [phone] Oswaldo Florian MD Frohreich, Lucas, CNP Andish, Kevan K, MD Anxiety; Housing instability; PTSD (post-traumatic stress disorder) Discharge Disposition: Home or Self Care 09/30/2024 Travel 09/27/2024 [facility] [address] [address] Gil Danielson LSW 09/21/2024 [facility] [address] [phone] Gil Danielson LSW 09/19/2024 Telephone [facility] [address] [facility] [facility] [place] [phone] Lorraine Castaneda MD Forms 08/29/2024 9:30 AM CDT Office Visit [facility] [address] [facility], [address] [place] [phone] Lorraine Castaneda MD Skin lesion (Primary Dx); Generalized muscle weakness; Eye symptoms; PTSD (post-traumatic stress disorder); Moderate episode of recurrent major depressive disorder (H); Anxiety; Nightmares; Transgender person on hormone therapy 08/29/2024 Travel 08/25/2024 [facility] [address] [place] [address] Lorraine Castaneda MD 08/24/2024 6:45 PM CDT Lab [facility] [address] [facility] 1st [place] [address] Transgender person on hormone therapy; Weakness; Ptosis of left eyelid 08/24/2024 1:00 PM CDT Office Visit [facility] Neurology [address] [phone] Yaw Mckinney MD Looby, Christina, DO Weakness; Ptosis of left eyelid 08/24/2024 Travel 08/23/2024 Telephone [facility] Neurology [address] [place] [phone] Petty Hassan DO Appointment from Last 3 Months Immunizations Immunization Administration Dates Next Due COVID-19 12+ (Pfizer) 02/17/2024 COVID-19 MONOVALENT 12+ (Pfizer) 04/16/2021,05/0 01/2021,08/25/2020 DTAP (<7y) 02/19/2005, 3,05/11/1990,09/30,1988,1988 DTAP-IPV/HIB (PENTACEL) 01/01/1993 HIB (PRP-T) 06/10/1990 HepB 12/01/2000,09/03/2000,01/07/2000 Historical DTP/aP 02/19/2005, 1,1988,07/29,1988 Influenza (intradermal) 03/02/2012 Influenza Vaccine >6 months,quad, PF 04/03/2020, 06/07/2019 MMR (MMRII) 12/17/1992,07/30/1989 Meningococcal (Menomune ) 02/19/2005 OPV, trivalent, live 06/10/1990,09/30/18 89,1988,07/29,1988 Pneumococcal 20 valent Conju gate (Prevnar 20) 10/06/2022 TD,PF 7+ (Tenivac) 01/07/2000 TDAP (Adacel,Boostrix) 02/19/2005 TDAP Vaccine (Adacel) 03/18/2015 Td (Adult), Adsorbed 05/10/2005 Varicella (Varivax) 03/25/2005,02/19/2005 Family History Medical History Relation Comments Anxiety Disorder Father Depression Father Mental Illness Father Obesity Father Rheumatoid Arthritis Father Autoimmune Disease Maternal Grandfather Heart Disease Maternal Grandfather Anxiety Disorder Maternal Grandmother Depression Maternal Grandmother Myasthenia gravis Maternal Grandmother Ovarian Cancer Maternal Grandmother ~65 at diag nosis Anxiety Disorder Mother Autoimmune Disease Mother Fibromyalgia and later dx w/ RA Depression Mother Irritable Bowel Syndrome Mother Mental Illness Mother Bpd? Depression Obesity Mother Other - See Comments Mother endometrios is Rheumatoid Arthritis Mother Thyroid Disease Mother Breast Cancer Other maybe female mat ernal relative Depression Paternal Grandmother Relation Status Comments Father Alive Maternal Grandfather Alive Maternal Grandmother Mother Alive Other Paternal Grandmother Social History Tobacco Use Types Packs/Day Years Used Date Smoking Tobacco: Some Days Cigarettes Passive Smoke Exposure: Never Smokeless Tobacco: Never Tobacco Cessation:Ready to Q uit: Not Asked; Counseling Given: Yes Alcohol Use Standard Drinks/Week Comments No 0 [...] in an abandoned building, in an overnight custodial, or couch-surfing.) Yes 05/11/2023 Are you worried [...] CDT Gender Identity Genderqueer 04/15/2024 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 Sexual Orientation Lesbian 04/15/2024 10 :21 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 Sexual Orientation Something else 04/15/2024 10 :21 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 Last Filed Vital Signs Vital Sign Reading [...] Mass Index 28.96 09/30/2024 5:14 PM CDT Plan of Treatment Health Maintenance Due Date Last Done Comments ANNUAL REVIEW OF HM ORDERS 1988 NICOTINE/TOBACCO CESSATION COUNSELING Q 1 YR 1988 YEARLY PREVENTIVE VISIT 10/07/2023 10/06/2022, 01/20 ASTHMA CONTROL TEST 07/25/2024 01/26/2024, 12/29/2023, 11/27/2022 INFLUENZA VACCINE (Season Ended) 2025 04/03/2020, 06/07/2019, 03/02/2012 ASTHMA ACTION PLAN 02/01/2025 02/02/2024, 0 10/06/2022, 10/06/2022, Additional history exists PHQ-9 02/20/2025 08/21/2024, 05/10, 03/20/2024, Additional history exists DTAP/TDAP/TD VACCINE (11 - Td or Tdap) 03/18/2025 03/18/2015, 05/10/2005, 02/19/2005, Additional history exists DIABETES SCREENING 03/02/2027 03/02/2024, 0 10/06/2022, 06/07/2019, Additional history exists ADVANCE CARE PLANNING 10/09/2027 10/08/2022, 022 HPV TEST 02/02/2029 02/03/2024, 04/03/2020 PAP 02/02/2029 02/03/2024, 01/09, 02/03/2024, Additional history exists ZOSTER VACCINE (1 of 2) 2038 HEPATITIS B VACCINE Completed 12/01/2000, 09/03/2000, 01/07/2000 MENINGITIS VACCINE Aged Out 02/19/2005 No longer eligible based on patient's age to complete this topic DEPRESSION ACTION PLAN Completed 8, 03/13/2016, 03/25/2015 HEPATITIS C SCREENING Completed 08/11/2021 HIV SCREENING Completed 10/06/2022 PNEUMOCOCCAL VACCINE: PEDIATRICS (0 to 5 YEARS) AND AT-RISK PATIENTS (6 to 49 YEARS) Completed 10/06/2022 COVID-19 VACCINE Completed 02/17/2024, 12/2020, 09/15/2020, Additional history exists HPV VACCINE Aged Out No longer eligi ble based on patient's age to complete this topic Procedures Procedure Name Priority Date/Time Associated Diagnosis Comments TESTOSTERONE FREE AND TOTAL Routine 08/24/2024 6:20 PM CDT Transgender person on hormone therapy TESTOSTERONE FREE AND TOTAL Routine 08/24/2024 6:20 PM CDT Transgender person on hormone therapy SEX HORMONE BINDING GLOBULIN Routine 08/24/2024 6:20 PM CDT Transgender person on hormone therapy ACETYLCHOLINE RECEPTOR BLOCKING ISIDRO Routine 08/24/2024 6:20 PM CDT Weakness Ptosis of left eyelid ACETYLCHOLINE MODULATING ANTIBODY Routine 08/24/2024 6:20 PM CDT Weakness Ptosis of left eyelid STRIATED MUSCLE ANTIBODY IGG Routine 08/24/2024 6:20 PM CDT Weakness Ptosis of left eyelid ACETYLCHOLINE RECEPTOR BINDING ANTIBODY Routine 08/24/2024 6:20 PM CDT Weakness Ptosis of left eyelid MUSCLE-SPECIFIC KINASE ANTIBODY SCREEN WITH REFLEX TO TITER Routine 08/24/2024 6:20 PM CDT Weakness Ptosis of left eyelid HEMOGLOBIN Routine 08/24/2024 6:20 PM CDT Transgender person on hormone therapy COMPREHENSIVE METABOLIC PANEL Routine 03/02/2024 6:31 PM CDT Gender dysphoria in adult HPV AND GYNECOLOGIC CYTOLOGY PANEL Routine 02/03/2024 10:30 AM CDT Screening for malignant neoplasm of cervix Encounter for gynecological examination without abnormal finding ASTHMA ACTION PLAN Routine 02/02/2024 12 :45 PM CDT Mild intermittent asthma without complication HIV ANTIGEN ANTIBODY COMBO Routine 10/06/2022 8:36 AM CDT Encounter for routine adult health examination without abnormal findings HEPATITIS C ANTIBODY Routine 08/11/2021 5:17 PM CDT Polyarthralgia Bilateral hand pain from Last 3 Months or Most Recently Relevant to Health Maintenance Results * Testosterone Free and Total (08/24/2024 6:20 PM CDT) Free Testosterone Calculated 6.27 ng/dL 08/28/2024 8:07 AM CDT [facility] Testosterone Total 322 8 - 950 ng/dL 08/28/2024 8:07 AM CDT [facility] Comment: MALE: 0 to 5 months: 75-400 ng/dL 6 months to 9 years: <2-20 ng/dL 10 to 11 years: <2-130 ng/dL 12 to 13 years: <2-800 ng/dL 14 years: <2-1200 ng/dL 15 to 16 years: 100-1200 ng/dL 17 to 18 years: 300-1200 ng/dL 19 years and older: 240-950 ng/dL FEMALE: 0 to 5 months: 20-80 ng/dL 6 months to 9 years: <2-20 ng/dL 10 to 11 years: <2-44 ng/dL 12 to 16 years: <2-75 ng/dL 17 to 18 years: 20-75 ng/dL 19 years and older: 8-60 ng/dL Values by Arian Stage: Stage I (prepubertal) Male: <2 to 20 ng/dL Female: <2 to 20 ng/dL Stage II Male: 8 to 66 ng/dL Female: <2 to 47 ng/dL Stage III Male: 26 to 800 ng/dL Female: 17 to 75 ng/dL Stage IV Male: 85 to 1200 ng/dL Female: 20 to 75 ng/dL Stage V (young adult) Male: 300 to 950 ng/dL Female: 12 to 60 ng/dL Puberty onset (transition from Arian Stage I to Arian Stage II) occurs for boys at a median age of 11.5 years and for girls at median age of 10.5 years. There is evidence that it may occur up to 1 year earlier in obese girls and in girls. For boys there is no definite proven relationship between puberty onset and body weight or ethnic origin. Progression through Arian stages is variable. Arian Stage V (young adult) should be reached by age 18. Blood STRUCTURE OF LEFT UPPER LIMB / Unknown Venipuncture / Unknown 08/24/2024 6:20 PM CDT 08/24/2024 6:20 PM CDT Narrative [facility] - 08/28/2024 8:07 AM CDT The generation of reference intervals for this test is currently based on binary male or female sex. If the electronic health record information indicates another gender identity or if Legal Sex is recorded as Unknown, both male and female reference intervals are provided where applicable, and should be considered according to the individual's appropriate clinical context. This test was developed and its performance characteristics determined by the [facility], Special [facility]. It has not been cleared or approved by the FDA. The laboratory is regulated under CLIA as qualified to perform high-complexity testing. This test is used for clinical purposes. It should not be regarded as investigational or for research. us Humberto Warren MD LAB - BLOOD ORDERABLES Final Re sult [facility] [address] [facility] [phone] * Sex Hormone Binding Globulin (08/24/2024 6:20 PM CDT) Sex Hormone Binding Globulin 34 11 - 135 nmol/L 08/25/2024 3:01 AM CDT [facility] Comment: Female Reference Range: Arian Stage I: 30-173 nmol/L Arian Stage II: 16-127 nmol/L Arian Stage III: 12-98 nmol/L Arian Stage IV: 14-151 nmol/L Arian Stage V: 23-165 nmol/L Male Reference Range: Arian Stage I: 26-186 nmol/L Arian Stage II: 22-169 nmol/L Arian Stage III: 13-104 nmol/L Arian Stage IV: 11-60 nmol/L Arian Stage V: 11-71 nmol/L Blood STRUCTURE OF LEFT UPPER LIMB / Unknown Venipuncture / Unknown 08/24/2024 6:20 PM CDT 08/24/2024 6:20 PM CDT Narrative [facility] - 08/25/2024 3:01 AM CDT The generation of reference intervals for this test is currently based on binary male or female sex. If the electronic health record information indicates another gender identity or if Legal Sex is recorded as Unknown, both male and female reference intervals are provided where applicable, and should be considered according to the individual's appropriate clinical context. us Humberto Warren MD LAB - BLOOD ORDERABLES Final Re sult [facility] [address] [facility], [address] [phone] * Muscle-Specific Kinase Antibody Screen with Reflex to Titer (08/24/2024 6:20 PM CDT) [facility] Muscle-Specific Kinase Antibody Screen <1:10 <1:10 08/28/2024 9:41 PM CDT [facility] Comment: MuSK Antibody, IgG is not detected. No further testing will be performed. INTERPRETIVE INFORMATION: MuSK IgG Ab CBA, Serum, with Rflx Muscle-specific kinase (MuSK) antibody is found in a subset of patients with myasthenia gravis, primarily those seronegative for muscle acetylcholine receptor (AChR) antibody. Decreasing antibody levels may be associated with therapeutic response; therefore, clinical correlation must be strongly considered. A negative test result does not rule out a diagnosis of myasthenia gravis. This indirect fluorescent antibody cell-based assay (CBA) utilizes muscle-specific kinase (MuSK) transfected cells for the detection of the MuSK IgG antibody. This test was developed and its performance characteristics determined by [facility]. It has not been cleared or approved by the U.S. Food and Drug Administration. This test was performed in a CLIA-certified laboratory and is intended for clinical purposes. Performed By: [facility] [address] [place] [id number] [employer] Specialist: Christiano Harper MD, PhD CLIA Number: [id number] Blood STRUCTURE OF LEFT UPPER LIMB / Unknown Venipuncture / Unknown 08/24/2024 6:20 PM CDT 08/24/2024 6:20 PM CDT Petty Hassan DO LAB - BLOOD ORDERABLES Final Result [facility] [employer] [address] [place] [phone], [facility] [phone] * STRIATED MUSCLE ANTIBODY IGG (08/24/2024 6:20 PM CDT) Striated Muscle Antibodies, IgG Screen <1:40 <1:40 08/27/2024 3:13 PM CDT [facility] Comment: Striated Muscle Antibodies, IgG are not detected. No further testing will be performed. INTERPRETIVE DATA: Striated Muscle Antibodies, IgG Screen In the presence of acetylcholine receptor (AChR) antibody, striated muscle antibodies, which bind in a cross-striational pattern to skeletal and heart muscle tissue sections, are associated with late-onset myasthenia gravis (MG). Striated muscle antibodies recognize epitopes on three major muscle proteins, including: titin, ryanodine receptor (RyR) and Kv1.4 (an alpha subunit of voltage-gated potassium channel [VGKC]). Isolated cases of striated muscle antibodies may be seen in patients with certain autoimmune diseases, rheumatic fever, myocardial infarction, and following some cardiotomy procedures. This test was developed and its performance characteristics determined by [facility]. It has not been cleared or approved by the US Food and Drug Administration. This test was performed in a CLIA certified laboratory and is intended for clinical purposes. Performed By: [facility] [address] [place] [address] [employer] Specialist: Christiano Harper MD, PhD CLIA Number: [id number] Blood STRUCTURE OF LEFT UPPER LIMB / Unknown Venipuncture / Unknown 08/24/2024 6:20 PM CDT 08/24/2024 6:20 PM CDT us Petty Hassan DO LAB - BLOOD ORDERABLES Final Result [employer] [address] [place] [address], [facility] [phone] * Hemoglobin (08/24/2024 6:20 PM CDT) Pathologist [facility] Hemoglobin 15.4 11.7 - 17.7 g/dL 08/24/2024 6:23 PM CDT [facility] Comment:Reference Range: Fem carlos 11.7-15.7 g/dL Male 13.3-17.7 g/dL Blood STRUCTURE OF LEFT UPPER LIMB / Unknown Venipuncture / Unknown 08/24/2024 6:20 PM CDT 08/24/2024 6:20 PM CDT Narrative [facility] - 08/24/2024 6:23 PM CDT The generation of reference intervals for this test is currently based on binary male or female sex. If the electronic health record information indicates another gender identity or if Legal Sex is recorded as Unknown, both male and female reference intervals are provided where applicable, and should be considered according to the individual's appropriate clinical context. us Humberto Warren MD LAB - BLOOD ORDERABLES Final Re sult [facility] [address] [place] [address] 1st [place] [address] * ACETYLCHOLINE RECEPTOR BLOCKING ISIDRO (08/24/2024 6:20 PM CDT) AcetChol Block Isidro 21 0 - 26 % 2024 2:19 PM CDT [facility] Comment: INTERPRETIVE INFORMATION: Acetylcholine Blocking Ab Negative ............ 0-26 percent blocking Indeterminate ....... 27-41 percent blocking Positive ............ 42 percent or greater blocking Approximately 85-90 percent of patients with myasthenia gravis (MG) express antibodies to the acetylcholine receptor (AChR), which can be divided into binding, blocking, and modulating antibodies. Binding antibody can activate complement and lead to loss of AChR. Blocking antibody may impair binding of acetylcholine to the receptor, leading to poor muscle contraction. Modulating antibody causes receptor endocytosis resulting in loss of AChR expression, which correlates most closely with clinical severity of disease. Approximately 10-15 percent of individuals with confirmed myasthenia gravis have no measurable binding, blocking, or modulating antibodies. This test was developed and its performance characteristics determined by [facility]. It has not been cleared or approved by the US Food and Drug Administration. This test was performed in a CLIA certified laboratory and is intended for clinical purposes. Performed By: [facility] [address] [place] [id number] [employer] Specialist: Christiano Harper MD, PhD CLIA Number: [id number] Blood STRUCTURE OF LEFT UPPER LIMB / Unknown Venipuncture / Unknown 08/24/2024 6:20 PM CDT 08/24/2024 6:20 PM CDT Petyt Hassan DO LAB - BLOOD ORDERABLES Final Result [facility] [employer] [address] [place] [phone], [facility] [phone] * ACETYLCHOLINE RECEPTOR BINDING (08/24/2024 6:20 PM CDT) Acetylcholine Binding Antibody 0.0 0.0 - 0.4 nmol/L 08/27/2024 3:09 PM CDT [facility] Comment: INTERPRETIVE INFORMATION: Acetylcholine Binding Ab Negative ....... 0.0 - 0.4 nmol/L Positive ....... 0.5 nmol/L or greater Approximately 85-90 percent of patients with myasthenia gravis (MG) express antibodies to the acetylcholine receptor (AChR), which can be divided into binding, blocking, and modulating antibodies. Binding antibody can activate complement and lead to loss of AChR. Blocking antibody may impair binding of acetylcholine to the receptor, leading to poor muscle contraction. Modulating antibody causes receptor endocytosis resulting in loss of AChR expression, which correlates most closely with clinical severity of disease. Approximately 10-15 percent of individuals with confirmed myasthenia gravis have no measurable binding, blocking, or modulating antibodies. This test was developed and its performance characteristics determined by [facility]. It has not been cleared or approved by the US Food and Drug Administration. This test was performed in a CLIA certified laboratory and is intended for clinical purposes. Performed By: [facility] [address] [place] [address] [employer] Specialist: Christiano Harper MD, PhD CLIA Number: [id number] Blood STRUCTURE OF LEFT UPPER LIMB / Unknown Venipuncture / Unknown 08/24/2024 6:20 PM CDT 08/24/2024 6:20 PM CDT Petty Hassan DO LAB - BLOOD ORDERABLES Final Result [facility] [address] [place] [address], [facility] [phone] * ACETYLCHOLINE MODULATING ANTIBODY (08/24/2024 6:20 PM CDT) Pathologist [facility] AcetChol Modul Isidro 1 <=45 % 2024 11:19 AM CDT [employer] Comment: INTERPRETIVE INFORMATION: Acetylcholine Modulating Ab Negative .......... 0-45 percent modulating Positive .......... 46 percent or greater modulating Approximately 85-90 percent of patients with myasthenia gravis (MG) express antibodies to the acetylcholine receptor (AChR), which can be divided into binding, blocking, and modulating antibodies. Binding antibody can activate complement and lead to loss of AChR. Blocking antibody may impair binding of acetylcholine to the receptor, leading to poor muscle contraction. Modulating antibody causes receptor endocytosis resulting in loss of AChR expression, which correlates most closely with clinical severity of disease. Approximately 10-15 percent of individuals with confirmed myasthenia gravis have no measurable binding, blocking, or modulating antibodies. This test was developed and its performance characteristics determined by [facility]. It has not been cleared or approved by the [place] Food and Drug Administration. This test was performed in a CLIA certified laboratory and is intended for clinical purposes. Performed By: [facility] [address] [place], [place] [id number] Biodiesel Engine Specialist: Christiano Harper MD, PhD CLIA Number: [id number] Blood STRUCTURE OF LEFT UPPER LIMB / Unknown Venipuncture / Unknown 08/24/2024 6:20 PM CDT 08/24/2024 6:20 PM CDT Petty Hassan DO LAB - BLOOD ORDERABLES Final Result [facility] [address] [place] [address], [facility] [phone] * Comprehensive metabolic panel (03/02/2024 6:31 PM CDT) Sodium 137 135 - 145 mmol/L 03/02/2024 6:53 PM CDT [facility] Potassium 3.7 3.4 - 5.3 mmol/L 03/02/2024 6:53 PM CDT [facility] Carbon Dioxide (CO2) 23 22 - 29 mmol/L 03/02/2024 6:53 PM CDT [facility] Anion Gap 12 7 - 15 mmol/L 03/02/2024 6:53 PM CDT [facility] Urea Nitrogen 11.3 6.0 - 20.0 mg/dL 03/02/2024 6:53 PM CDT [facility] Creatinine 0.88 0.51 - 1.17 mg/dL 03/02/2024 6:53 PM CDT [facility] Comment: Male and Female 0-2 Months 0.31-0.88 mg/dL 2-12 Months 0.16-0.39 mg/dL 1-2 Years 0.18-0.35 mg/dL 3-4 Years 0.26-0.42 mg/dL 5-6 Years 0.29-0.47 mg/dL 7-8 Years 0.34-0.53 mg/dL 9-10 Years 0.33-0.64 mg/dL 11-12 Years 0.44-0.68 mg/dL 13-14 Years 0.46-0.77 mg/dL Female 15 Years and older 0.51-0.95 mg/dL Male 15 Years and older 0.67-1.17 mg/dL GFR Estimate 87 >60 mL/min/1. 73m2 03/02/2024 6:53 PM CDT [facility] Comment: The generation of the estimated GFR is currently based on binary male or female sex. If the electronic health record information indicates another gender identity or if Legal Sex is recorded as Unknown, GFR estimates are not automatically calculated, and application of GFR equations or a direct GFR measurement should be considered according to the individual's appropriate clinical context. eGFR calculated using 2020 CKD-EPI equation. Calcium 9.4 8.8 - 10.4 mg/dL 03/02/2024 6:53 PM CDT [facility] Comment:Reference intervals for this test were updated on 11/23/2023 to reflect our healthy population more accurately. There may be differences in the flagging of prior results with similar values performed with this method. Those prior results can be interpreted in the context of the updated reference intervals. Chloride 102 98 - 107 mmol/L 03/02/2024 6:53 PM CDT [facility] Glucose 91 70 - 99 mg/dL 03/02/2024 6:53 PM CDT [facility] Alkaline Phosphatase 117 40 - 150 U/L 03/02/2024 6:53 PM CDT [facility] Comment: Female: 0-15 days 83-248 U/L 15d-1 year 122-469 U/L 1-10 years 142-335 U/L 10-13 years 129-417 U/L 13-15 years 57-254 U/L 15-17 years 50-117 U/L 17-19 years 45-87 U/L 19 years and older 35-104 U/L Male: 0-15 days 83-248 U/L 15d-1 year 122-469 U/L 1-10 years 142-335 U/L 10-13 years 129-417 U/L 13-15 years 116-468 U/L 15-17 years 82-331 U/L 17-19 years 55-149 U/L 19 years and older 40-129 U/L AST 27 0 - 45 U/L 03/02/2024 6:53 PM CDT [facility] ALT 17 0 - 70 U/L 03/02/2024 6:53 PM CDT [facility] Comment: Female All ages 0-50 U/L Male 0-20 Years 0-50 U/L 20-Unsp. Years 0-70 U/L Protein Total 8.0 6.4 - 8.3 g/dL 03/02/2024 6:53 PM CDT [facility] Albumin 4.6 3.5 - 5.2 g/dL 03/02/2024 6:53 PM CDT [facility] Bilirubin Total 0.3 <=1.2 mg/dL 03/02/2024 6:53 PM CDT [facility] Patient Fasting > 8hrs? Unknown 03/02/2024 6:53 PM CDT [facility] Blood STRUCTURE OF RIGHT UPPER LIMB / Unknown Venipuncture / Unknown 03/02/2024 6:31 PM CDT 03/02/2024 6:31 PM CDT Narrative [facility] - 03/02/2024 6:53 PM CDT The generation of reference intervals for this test is currently based on binary male or female sex. If the electronic health record information indicates another gender identity or if Legal Sex is recorded as Unknown, both male and female reference intervals are provided where applicable, and should be considered according to the individual's appropriate clinical context. us Humberto Warren MD LAB - BLOOD ORDERABLES Final Re sult [facility] [place] [facility] [address] [facility] 1st [place] [address] * HPV and Gynecologic Cytology Panel - Recommended Age 30 - 65 Years (Select HPV order below) (02/03/2024 10:30 AM CDT) Human Papilloma Virus 16 DNA Negative Negative 02/04/2024 2:19 PM CDT [facility] Human Papilloma Virus 18 DNA Negative Negative 02/04/2024 2:19 PM CDT [facility] Human Papilloma Virus Other Negative Negative 02/04/2024 2:19 PM CDT [facility] FINAL DIAGNOSIS This patient's sample is negative for high risk HPV DNA. METHODOLOGY: The [employer] system uses automated extraction, simultaneous amplification of HPV (E6/E7 oncogenes) and beta-globin, followed by real time detection of fluorescent labeled HPV and beta globin using specific oligonucleotide probes. The test specifically identifies types HPV 16 DNA and HPV 18 DNA while concurrently detecting the rest of the high risk types (31, 33, 35, 39, 45, 51, 52, 56, 58, 59, 66 or 68). COMMENTS: This test is not intended for use as a screening device for woman under age 30 with normal cervical cytology. Results should be correlated with cytologic and histologic findings. Close clinical follow up is recommended. Please see the separate Gynecologic Cytology (Pap) report from the same collection date. 02/04/2024 2:19 PM CDT MOLECULAR DIAGNOSTICS Brushing ENDOCERVICAL STRUCTURE / Unknown Non-blood Collection / Unknown 02/03/2024 10:30 AM CDT 02/03/2024 7:02 PM CDT us Jenny Terrazas CNM LAB - BLOOD ORDERABL ES Final Result [facility] [address] [facility] [address], [address] [address], [facility] UM MOLECULAR DIAGNOSTICS [facility] Molecular Diagnostics [address] [facility] [address] [facility], [address] [address], [facility] * HIV Antigen Antibody Combo (10/06/2022 8:36 AM CDT) HIV Antigen Antibody Combo Nonreactive Nonreactive 10/06/2022 2:08 PM CDT [facility] DO Comment:HIV-1 p24 Ag & HIV-1 /HIV-2 Ab Not Detected Blood BLOOD SPECIMEN / Unknown Venipuncture / Unknown 10/06/2022 8:36 AM CDT 10/06/2022 8:36 AM CDT us Lorraine Castaneda MD LAB - BLOOD ORDERABLES Final Result [facility]Prot/Endo [address] [facility], [id number] [place] [address] * Hepatitis C antibody (08/11/2021 5:17 PM CDT) Hepatitis C Antibody Nonreactive Nonreactive 08/12/2021 12:59 PM CDT [facility] DO Blood STRUCTURE OF RIGHT UPPER LIMB / Unknown Venipuncture / Unknown 08/11/2021 5:17 PM CDT 08/11/2021 5:18 PM CDT Narrative [facility] - 08/12/2021 12:59 PM CDT Assay performance characteristics have not been established for newborns, infants, and children. us Chinedu Fleming MD LAB - BLOOD ORDERABLES Final Result [facility]ENDO [facility] Core/Prot/Endo [address] [facility] J Building, [address] [place] [address], [facility] [phone] from Last 3 Months or Most Recently Relevant to Health Maintenance [place] Care Teams Support Services Specialist Relationship Specialty Start Date End Date Lorraine Castaneda MD [address] [place] [address] PCP - General Family Practice 07/25/19 Lorraine Castaneda MD [address] [place] [address] Assigned PCP 06/18/19 Shell Menjivar MD [address] [place] [address] Dermatology 08/31/19 Bo Jiang MD [address] [facility] 200 [place] [address] Physician Plastic Surgery 10/09/21 Jozef Sanchez, [facility] [address] [place] [address] Circuit Rider Plastic Surgery 10/09/21 Alicia Montero Specialty Net Application Support Specialist 10/09/21 Leonides Hernandez, [facility] [address] [place] [address] Pharmacist 05/18/23 Babar Ferrari PA-C [address] [place] [address] Physician Mobile Marketing Specialist Gastroenterology 06/01/23 Priscilla Stoddard [address] [place] [address] Assigned Behavioral Health Provider 08/31/23 Yaw Mckinney MD [address] [place] [address] Physician Rheumatology 12/22/23 Edmund Patel MD [address] [place] [address] Allergy & Immunology 12/27/23 Edmund Patel MD [address] [place], [place] 867[address] Assigned Allergy Provider 01/31/24 Yaw Mckinney MD [address] [place] [address] Assigned Rheumatology Provider 03/01/24 Jenny Terrazas CNM [address] [place], [place] [address] Assigned OBGYN Provider 03/01/24 Petty Hassan DO [address] [place] [address] 290145 Resident Neurology 05/01/24 Gil Danielson LSW Specialty Net Application Support Specialist 09/19/24
--- OUTSIDE RECORDS SUMMARY | 2024-10-25 15:30 | XMS_ITS | Encounter Summary ---
Author Organization [facility] Address [address] [place] [address] Care Team Providers Care Lining Baster Name Role Phone Lorraine Castaneda MD Unavailable [phone] Lorraine Castaneda MD Primary Care Provider Shell Menjivar MD Unavailable [phone] Chinedu Fleming MD Unavailable [phone] Bo Jiang MD Unavailable [phone] Jozef Sanchez [facility] Unavailable [phone] Alicia Montero Unavailable Unavailable Leonides Hernandez [facility] Unavailable [phone] Babar Ferrari PA-C Unavailable [phone] Priscilla Stoddard Unavailable Yaw Mckinney MD Unavailable Edmund Patel MD Unavailable [phone] Edmund Patel MD Unavailable [phone] Yaw Mckinney MD Unavailable Jenny Terrazas CNPascual Unavailable + [phone] Petty Hassan DO Unavailable [phone] Gil Danielson VAN DRIVER Unavailable Unavailable Encounter Details Date Type Department Care Team (Late st Contact Info) Description 01/20/2024 MyC Medical Advice [place] [address], [address] [place] [address] Dinorah Perrin Social History Tobacco Use Types Packs/Day Years Used Date Smoking Tobacco: Never Smokeless Tobacco: Never Alcohol Use Standard Drinks/Week Comments No 0 (1 standard drink = 0.6 oz pur e alcohol) PHQ-2 Answer Date Recorded PHQ-2 Score 2 01/24/2024 Adolescent Education Answer Date Record ed Getting [...] CDT Gender Identity Genderqueer 04/15/2024 10:21 PM 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 Sexual Orientation Lesbian 04/15/2024 10 :21 PM 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 Sexual Orientation Something else 04/15/2024 10 :21 PM 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 documented as of this encounter Plan of Treatment Not on file documented as of this encounter Visit Diagnoses Not on filedocumented in this encounter Additional Health Concerns Assessment Noted Time PHQ-9 Depression Total Score: 8 01/05/20 24 8:48 AM CDT documented as of this encounter Care Teams Lining Baster Relationship Specialty Start Date End Date Lorraine Castaneda MD [address] [employer] [address] [address] PCP - General Family Practice 07/25/19 Lorraine Castaneda MD [address] [address] [address] Assigned PCP 06/18/19 Shell Menjivar MD 909 [place], [place] 7[address] Dermatology 08/31/19 [place] [address] [place] [address] Assigned Rheumatology Provider 02/23/21 02/29/24 Bo Jiang MD 2945 [facility] 200 [place] [address] Physician Plastic Surgery 10/09/21 Jozef Sanchez [facility] [address] [place] [address] Clinical Assistant Professor Plastic Surgery 10/09/21 Alicia Montero Specialty Utilization Review Specialist 10/09/21 Leonides Hernandez [facility] 909 [facility] Pharmacist 05/18/23 Babar Ferrari PA-C [address] [place] [address] Physician Tea Blender Gastroenterology 06/01/23 Priscilla Stoddard [address] [place] [address] Assigned Behavioral Health Provider 08/31/23 Yaw Mckinney MD [address] [place] [address] 869495 Physician Rheumatology 12/22/23 Edmund Patel MD [address] [place], [place] 8958[address] Allergy & Immunology 12/27/23 Edmund Patel MD [address] [place], [place] 927[address] Assigned Allergy Provider 01/31/24 Yaw Mckinney MD [address] [place] [address] Assigned Rheumatology Provider 03/01/24 Jenny Terrazas CNM [address] [place], [place] [address] Assigned OBGYN Provider 03/01/24 Petty Hassan DO [address] [place], [place] [address] Resident Neurology 05/01/24 Gil Danielson LSW Specialty Utilization Review Specialist 09/19/24 documented as of this encounter
--- OUTSIDE RECORDS SUMMARY | 2024-10-25 15:30 | XMS_ITS | Encounter Summary ---
Author Organization [facility] Address [address] [place] [address] Care Team Providers Care Sales Order Coordinator Name Role Phone Lorraine Castaneda MD Unavailable [phone] Lorraine Castaneda MD Primary Care Provider Shell Menjivar MD Unavailable [phone] Chinedu Fleming MD Unavailable [phone] Bo Jiang MD Unavailable [phone] Jozef Sanchez [facility] Unavailable [phone] Alicia Montero Unavailable Unavailable Bo Jiang MD Unavailable [phone] Leonides Hernandez [facility] Unavailable [phone] Babar Ferrari PA-C Unavailable Priscilla Stoddard Unavailable Yaw Mckinney MD Unavailable [phone] Edmund Patel MD Unavailable [phone] Edmund Patel MD Unavailable [phone] Yaw Mckinney MD Unavailable [phone] Jenny Terrazas CNM Unavailable + [phone] Petty Hassan DO Unavailable [phone] Gil Danielson DOSIMETRIST Unavailable Unavailable Reason for Visit * Reason Comments Medication Refill Encounter Details Date Type Department Care Team (Late st Contact Info) Description 09/21/2023 Refill [facility] [address], [address] [place] [address] Lorraine Castaneda MD [address] [place] [address] [place] [address] Medication Refill Social History Tobacco Use Types Packs/Day Years Used Date Smoking Tobacco: Never Smokeless Tobacco: Never Alcohol Use Standard Drinks/Week Comments No 0 (1 standard drink = 0.6 oz pur e alcohol) PHQ-2 Answer Date Recorded PHQ-2 Score 2 09/20/2023 Adolescent Education Answer Date Record ed Getting [...] in an abandoned building, in an overnight usp, or couch-surfing.) Yes 05/11/2023 Are you worried [...] CDT Gender Identity Genderqueer 04/15/2024 10:21 PM BUS VAN DRIVER Sexual Orientation Lesbian 04/15/2024 10 :21 PM BUS VAN DRIVER Sexual Orientation Something else 04/15/2024 10 :21 PM BUS VAN DRIVER documented as of this encounter Miscellaneous Notes * Telephone Encounter - Daniela Malik - 09/22/2023 7:49 AM CDT Called patient and left non-detailed voicemail to call clinic back at [phone]. When patient calls back, please relay message from CW below. Daniela Garner TC * Telephone Encounter - Lorraine Castaneda MD - 09/21/2023 7:06 PM CDT Pt seen in 06/02, rec 6 wk follow-up, no appt scheduled. Please call pt and let them know that they are overdue for appt- rec a video visit. #60 (1 month supply sent) in the meantime. Thank you! CW documented in this encounter Plan of Treatment Not on file documented as of this encounter Visit Diagnoses Diagnosis Anxiety Anxiety state, unspecified Moderate episode of recurrent major depressive disorder (H) PTSD (post-traumatic stress disorder) Posttraumatic stress disorder Mixed obsessional thoughts and acts documented in this encounter Additional Health Concerns Assessment Noted Time PHQ-9 Depression Total Score: 7 09/20/19 10:01 AM CDT documented as of this encounter Care Teams Sales Order Coordinator Relationship Specialty Start Date End Date Lorraine Castaneda MD [address] [address] PCP - General Family Practice 07/25/19 Lorraine Castaneda MD [address] [address] Assigned PCP 06/18/19 Shell Menjivar MD [address] [place] [address] MD Dermatology 08/31/19 [place] [address] [place] [address] Assigned Rheumatology Provider 02/23/21 02/29/24 Bo Jiang MD [address] [place] [address] Physician Plastic Surgery 10/09/21 Jozef Sanchez, [facility] [address] [place] [address] 669715 Licensed Investment Sales Assistant Plastic Surgery 10/09/21 Alicia Montero Specialty Stationary Engineer Refrigeration 10/09/21 Bo Jiang MD [address] [place] [address] Assigned Surgical Provider 11/01/21 09/29/23 Leonides Hernandez [facility] [address] [place] [address] Pharmacist 05/18/23 Babar Ferrari PA-C [address] [place] [address] Physician Specialist Employee Labor Relations Gastroenterology 06/01/23 Priscilla Stoddard [address] [place] [address] Assigned Behavioral Health Provider 08/31/23 Yaw Mckinney MD [address] [place] [address] Physician Rheumatology 12/22/23 Edmund Patel MD 290 [place], [place] 8[address] Allergy & Immunology 12/27/23 Edmund Patel MD [address] [place] [address] 643120 Assigned Allergy Provider 01/31/24 Yaw Mckinney MD [address] [place] [address] Assigned Rheumatology Provider 03/01/24 Jenny Terrazas CNM [address] [place] [address] Assigned OBGYN Provider 03/01/24 Petty Hassan DO [address] [place] [address] Resident Neurology 05/01/24 Gil Danielson LSW Specialty Stationary Engineer Refrigeration 09/19/24 documented as of this encounter
--- OUTSIDE RECORDS SUMMARY | 2024-10-25 15:30 | XMS_ITS | Encounter Summary ---
Author Organization [facility] Address [address] [place] [address] Care Team Providers Care Pallet Assembler Name Role Phone Lorraine Castaneda MD Unavailable [phone] Lorraine Castaneda MD Primary Care Provider Shell Menjivar MD Unavailable [phone] Chinedu Fleming MD Unavailable [phone] Bo Jiang MD Unavailable [phone] Jozef Sanchez [facility] Unavailable [phone] Alicia Montero Unavailable Unavailable Bo Jiang MD Unavailable [phone] Leonides Hernandez [facility] Unavailable [phone] Babar Ferrari PA-C Unavailable [phone] Priscilla Stoddard Unavailable Yaw Mckinney MD Unavailable [phone] Edmund Patel MD Unavailable [phone] Edmund Patel MD Unavailable [phone] Yaw Mckinney MD Unavailable [phone] Jenny Terrazas CNM Unavailable + [phone] Petty Hassan DO Unavailable [phone] Gil Danielson GAUGER DELIVERY Unavailable Unavailable Encounter Details Date Type Department Care Team (Late st Contact Info) Description 06/24/2023 MyC Medical Advice [address] [address] Craig Morales MA Social History Tobacco Use Types Packs/Day Years Used Date Smoking Tobacco: Never Smokeless Tobacco: Never Alcohol Use Standard Drinks/Week Comments No 0 (1 standard drink = 0.6 oz pur e alcohol) PHQ-2 Answer Date Recorded PHQ-2 Score 2 05/24/2023 Adolescent Education Answer Date Record ed Getting [...] in an abandoned building, in an overnight residential, or couch-surfing.) Yes 05/11/2023 Are you worried [...] CDT Gender Identity Genderqueer 04/15/2024 10:21 PM LONE LEAD LINEMAN Sexual Orientation Lesbian 04/15/2024 10 :21 PM LONE LEAD LINEMAN Sexual Orientation Something else 04/15/2024 10 :21 PM LONE LEAD LINEMAN documented as of this encounter Plan of Treatment Not on file documented as of this encounter Visit Diagnoses Not on filedocumented in this encounter Additional Health Concerns Assessment Noted Time PHQ-9 Depression Total Score: 8 05/24/19 24 10:47 AM LONE LEAD LINEMAN documented as of this encounter Care Teams Pallet Assembler Relationship Specialty Start Date End Date Lorraine Castaneda MD 3033 [employer] [address] [address] PCP - General Family Practice 07/25/19 Lorraine Castaneda MD 30[address] [employer] [address] [address] Assigned PCP 06/18/19 Shell Menjivar MD 909 [place], [place] [address] Dermatology 08/31/19 [place] [address] [place] [address] Assigned Rheumatology Provider 02/23/21 02/29/24 Bo Jiang MD 2945 [facility] 200 [place] [address] Physician Plastic Surgery 10/09/21 Joz[facility] Sanchez [facility] 500 [place] [address] Sheriffs Officer Plastic Surgery 10/09/21 Alicia Montero Specialty Inside Sales Director 10/09/21 Bo Jiang MD [address] [address] Assigned Surgical Provider 11/01/21 09/29/23 Leonides Hernandez [facility] 909 [facility] Pharmacist 05/18/23 Babar Ferrari PA-C [address] [place], [place] [address] Physician Binitrotoluene Operator Gastroenterology 06/01/23 Priscilla Stoddard 3033 [place], [place] [address] Assigned Behavioral Health Provider 08/31/23 Yaw Mckinney MD [address] [place] [address] Physician Rheumatology 12/22/23 Edmund Patel MD 290 [place], [place] 6744[address] Allergy & Immunology 12/27/23 Edmund Patel MD 290 [place] [address] Assigned Allergy Provider 01/31/24 Yaw Mckinney MD [address] [place] [address] Assigned Rheumatology Provider 03/01/24 Jenny Terrazas CNM [address] [place] [address] Assigned OBGYN Provider 03/01/24 Petty Hassan DO [address] [place] [address] Resident Neurology 05/01/24 Gil Danielson LSW Specialty Inside Sales Director 09/19/24 documented as of this encounter
--- OUTSIDE RECORDS SUMMARY | 2024-10-25 15:30 | XMS_ITS | Encounter Summary ---
Author Organization [facility] Address [address] [place] [address] Care Team Providers Care Intern Product Marketing Manager Name Role Phone Lorraine Castaneda MD Unavailable [phone] Lorraine Castaneda MD Primary Care Provider Shell Menjivar MD Unavailable [phone] Matt Shaver MD Unavailable [phone] Shell Menjivar MD Unavailable [phone] Chinedu Fleming MD Unavailable Mere Andres Unavailable Unavailab Bo Reid MD Unavailable [phone] Jozef Sanchez [facility] Unavailable [phone] Alicia Montero Unavailable Unavailable Bo Jiang MD Unavailable [phone] Leonides Hernandez [facility] Unavailable [phone] Babar Ferrari PA-C Unavailable [phone] Priscilla Stoddard Unavailable Yaw Mckinney MD Unavailable [phone] Edmund Patel MD Unavailable [phone] Edmund Patel MD Unavailable [phone] Yaw Mckinney MD Unavailable [phone] Jenny Terrazas CNM Unavailable [phone] Petty Hassan Unavailable Gil Danielson SENIOR VALIDATION ENGINEER Unavailable Unavailable Encounter Details Date Type Department Care Team (Late st Contact Info) Description 10/09/2020 MyC Medical Advice [facility] Heart [address] [address] Tomasa Zhu Social History Tobacco [...] CDT Gender Identity Genderqueer 04/15/2024 10:21 PM APARTMENT 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 No / Unsure 10/09/2020 2:26 PM CDT documented as of this encounter Plan of Treatment Not on file documented as of this encounter Visit Diagnoses Not on filedocumented in this encounter Additional Health Concerns Assessment Noted Time PHQ-9 Depression Total Score: 6 05/30/19 21 7:05 AM APARTMENT MAINTENANCE WORKER documented as of this encounter Care Teams Intern Product Marketing Manager Relationship Specialty Start Date End Date Lorraine Castaneda MD [address] [employer] [facility] [address] [place] [address] PCP - General Family Practice 07/25/19 Lorraine Castaneda MD [address] [employer] [facility] [address] [place] [address] Assigned PCP 06/18/19 Shell Menjivar MD [address] [place] [address] Dermatology 08/31/19 Matt Shaver MD [address] [place] [address] Assigned Musculoskeletal Provider 03/01/20 04/12/21 Shell Menjivar MD [address] [place] [address] Assigned Surgical Provider 03/01/20 05/31/21 [place] [address] [place] [address] Assigned Rheumatology Provider 02/23/21 02/29/24 Mere Andres PsyD [address], [place] [address] Assigned Behavioral Health Provider 03/30/21 07/31/22 Bo Jiang MD [address] [place] [address] Physician Plastic Surgery 10/09/21 Jozef Sanchez [facility] [address] [place] [address] Merchandise Associate Plastic Surgery 10/09/21 Alicia Montero Specialty Engraver Pantograph 10/09/21 [place] [address] [place] [address] Assigned Surgical Provider 11/01/21 09/29/23 Leonides Hernandez [facility] [address] [facility] Pharmacist 05/18/23 Babar Ferrari PA-C [address] [place] [address] Physician Legal Researcher Gastroenterology 06/01/23 Priscilla Stoddard [address] [place], [place] 567176 Assigned Behavioral Health Provider 08/31/23 Yaw Mckinney MD [address] [place] [address] 274255 Physician Rheumatology 12/22/23 Edmund Patel MD [address] [place], [place] 943520 Allergy & Immunology 12/27/23 Edmund Patel MD [address] [place], [place] 823920 Assigned Allergy Provider 01/31/24 Yaw Mckinney MD [address] [place] [address] 819225 Assigned Rheumatology Provider 03/01/24 Jenny Terrazas CNM [address] [place], [place] [address] Assigned OBGYN Provider 03/01/24 Petty Hassan DO [address] [place], [place] 509[address] Resident Neurology 05/01/24 Gil Danielson LSW Specialty Engraver Pantograph 09/19/24 documented as of this encounter
--- OUTSIDE RECORDS SUMMARY | 2024-10-25 15:30 | XMS_ITS | Encounter Summary ---
Author Organization [facility] Address [address] [place] [address] Care Team Providers Care Student Financial Services Counselor Name Role Phone Lorraine Castaneda MD Unavailable [phone] Lorraine Castaneda MD Primary Care Provider Shell Menjivar MD Unavailable [phone] Chinedu Fleming MD Unavailable Bo Jiang MD Unavailable [phone] Jozef Sanchez [facility] Unavailable [phone] Alicia Montero Unavailable Unavailable Leonides Hernandez [facility] Unavailable [phone] Babar Ferrari PA-C Unavailable [phone] Priscilla Stoddard Unavailable Yaw Mckinney MD Unavailable Edmund Patel MD Unavailable [phone] Edmund Patel MD Unavailable [phone] Yaw Mckinney MD Unavailable Jenny Terrazas CNPascual Unavailable + [phone] Petty Hassan DO Unavailable [phone] Gil Danielson OFFICE TECHNICIAN Unavailable Unavailable Encounter Details Date Type Department Care Team (Late st Contact Info) Description 12/14/2023 MyC Medical Advice [address] [address] Charisse Sharma RMA Social History Tobacco Use Types Packs/Day [...] CDT Gender Identity Genderqueer 04/15/2024 10:21 PM INSOLE AND HEEL STIFFENER Sexual Orientation Lesbian 04/15/2024 10 :21 PM INSOLE AND HEEL STIFFENER Sexual Orientation Something else 04/15/2024 10 :21 PM INSOLE AND HEEL STIFFENER documented as of this encounter Plan of Treatment Not on file documented as of this encounter Visit Diagnoses Not on filedocumented in this encounter Additional Health Concerns Assessment Noted Time PHQ-9 Depression Total Score: 7 11/08/19 24 10:47 AM CDT documented as of this encounter Care Teams Student Financial Services Counselor Relationship Specialty Start Date End Date Lorraine Castaneda MD [address] [employer] [address] [address] PCP - General Family Practice 07/25/19 Lorraine Castaneda MD [address] [address] Assigned PCP 06/18/19 Shell Menjivar MD 9[address] [place], [place] 1315[address] Dermatology 08/31/19 [place] [address] [place] [address] Assigned Rheumatology Provider 02/23/21 02/29/24 Bo Jiang MD 2945 [facility] 200 [place] [address] Physician Plastic Surgery 10/09/21 Jozef Sanchez [facility] [address] [place] [address] Element Winding Machine Tender Plastic Surgery 10/09/21 Alicia Montero Specialty Gas Burner Operator 10/09/21 Leonides Hernandez [facility] 909 [facility] Pharmacist 05/18/23 Babar Ferrari PA-C [address] [place] [address] Physician Baking Powder Mixer Gastroenterology 06/01/23 Priscilla Stoddard 30[address] [place], [place] 358876 Assigned Behavioral Health Provider 08/31/23 Yaw Mckinney MD [address] [place] [address] 137605 Physician Rheumatology 12/22/23 Edmund Patel MD [address] [place], [place] 0956[address] Allergy & Immunology 12/27/23 Edmund Patel MD [address] [place] [address] 465730 Assigned Allergy Provider 01/31/24 Yaw Mckinney MD [address] [place] [address] 896685 Assigned Rheumatology Provider 03/01/24 Jenny Terrazas CNM [address] [place], [place] [address] Assigned OBGYN Provider 03/01/24 Petty Hassan DO [address] [place], [place] 8[address]135 Resident Neurology 05/01/24 Gil Danielson LSW Specialty Gas Burner Operator 09/19/24 documented as of this encounter
--- OUTSIDE RECORDS SUMMARY | 2024-10-25 15:30 | XMS_ITS | Clinical Summary ---
Author Organization [employer] [facility] Address [address] [place] [address] Care Team Providers Care Hangar Attendant Name Role Phone [facility], [facility] Primary Care Provider [phone] Allergies Active Allergy Reactions Criticality Noted Date Comments Fentanyl Nausea Only High 02/17/2014 Per pt made me dry heave really bad really fast Penicillins *Unknown 11/11/2012 Medications melatonin 1 mg Take 1 mg by mouth at bedtime. Active escitalopram oxalate (LEXAPRO) 10 mg tabletIndications: anxiety with depression Take 10 mg by mouth at bedtime. Indications: ANXIETY WITH DEPRESSION Active ondansetron (ZOFRAN ODT) 4 mg disintegrating tabletIndications: Abdominal pain, unspecified abdominal location Place 1 Tablet (4 mg) on the tongue every 8 hours if needed for Nausea/Vomitin g. 15 Tablet 1 Active celecoxib (CeleBREX) 200 mg capsule Take 200 mg by mouth once daily. Active atomoxetine HCl (ATOMOXETINE ORAL) Take by mouth. Active ondansetron (ZOFRAN) 4 mg tabletIndications: Nausea Take 1-2 Tablets (4-8 mg) by mouth every 8 hours if needed for Nausea/Vomitin g. 10 Tablet 5 Active Active Problems Problem Noted Date Diagnosed Date Epigastric abdominal pain 03/12/2015 Acute pancreatitis 03/12/2015 Acute lipase elevation unclear etiology 02/19/20 14 Depression 02/17/2014 Resolved Problems Problem Noted Date Diagnosed Date Resolved Date Pancreatitis 02/17/2014 02/18/2014 Immunizations Immunization Administration Dates Next Due DTP 05/11/1990,1988,1988 ,1988 DTaP 01/01/1993 HIB HbOC (HibTITER) 06/10/1990 Hepatitis B (Peds) 12/01/2000,09/03/2000, 000 MMR 12/17/1992,07/30/1989 Meningococcal Vaccine (Menactra) 02/19/2005 Oral Polio Vaccine 06/10/1990,1988, 989,1988 Td (Age >=7 Years) 01/07/2000 Tdap 02/19/2005 Varicella Vaccine 03/25/2005,02/19/2005 Family History Medical History Relation Name Comments Other Father PTSD Other Mother fibromyalgia. T hyroid Relation Name Status Comments Father Mother Social History Tobacco Use Types Packs/Day Years Used Date Smoking Tobacco: Never Comments:e cigs Alcohol Use Standard Drinks/Week Comments No 0 (1 standard drink = 0.6 oz pur e alcohol) Interpersonal Safety Answer Date Record ed Are you being hit, kicked, p ushed or yelled at (see row info)? No 05/15/2024 Interpersonal Safety Abuse 12 - 18 Not on file 05/15/2024 Interpersonal Safety Ambulatory Vulnerability No t on file 05/15/2024 Comments No Sex and Gender Information Value Date Recorded Sex Assigned at Not on file Legal Sex Female 5:42 AM NARRATIVE WRITER Gender Identity Not on file Sexual Orientation Not on file Obstetrics History Last Filed Vital Signs Vital Sign Reading Time Taken Comments Blood Pressure 169/98 05/15/2024 4:23 PM NARRATIVE WRITER Pulse 99 05/15/2024 4:23 PM NARRATIVE WRITER Temperature 36.7 C (98.1 F) 05/15/2024 9:54 AM NARRATIVE WRITER Respiratory Rate 16 05/15/2024 4:23 PM NARRATIVE WRITER Oxygen Saturation 97% 05/15/2024 4:23 PM NARRATIVE WRITER Inhaled Oxygen Concentration - - Weight 79.4 kg (175 lb) 05/15/2024 9:54 AM NARRATIVE WRITER Height 166.4 cm (5' 5.5) 05/15/2024 9:54 AM NARRATIVE WRITER Body Mass Index 28.68 05/15/2024 9:54 AM NARRATIVE WRITER Plan of Treatment Health Maintenance Due Date Last Done Comments Depression screening for age 12+ 2000 HIV for age 15-65 2003 BMI (ht and wt on same day) for age 18+ 2006 Hepatitis C screening for ag e 18-79 2006 Pap test for age 21-65 2009 Tetanus booster 02/19/2015 02/19/2005, 01/07/2000 COVID-19 vaccine series ( season) 2024 04/16/2021, 09/15/2020, 08/25/2020 Influenza Vaccine (Season Ended) 2025 Hepatitis B series for 19+ Completed 12/01, 09/03/2000, 01/07/2000 Tdap Completed 02/19/2005 Pneumococcal series for age 6-49 Aged Out No longer eligible b ased on patient's age to complete this topic Insurance [facility] Advance Directives * Full Code (Latest Code Status on File) Date Activated Date Inactivated Comments 03/11/2015 12:58 PM 03/12/2015 2:16 PM * Full Code Date Activated Date Inactivated Comments 02/17/2014 6:11 AM 02/18/2014 4:54 PM Care Teams Hangar Attendant Relationship Specialty Start Date End Date [address] [address] PCP - General 03/11/15
--- OUTSIDE RECORDS SUMMARY | 2024-10-25 15:30 | XMS_ITS | Encounter Summary ---
Author Organization [facility] Address [address] [place] [address] Care Team Providers Care Automatic Chief Name Role Phone Mil Bates MD Primary Care Provider [facility] Primary Care Provider Michael Diaz MD Unavailable [phone] Michael Diaz MD Unavailable [phone] Lorraine Castaneda MD Unavailable [phone] Clarisse Mejia MD Unavailable +[phone] Lorraine Castaneda MD Unavailable [phone] Lorraine Castaneda MD Primary Care Provider Shell Menjivar MD Unavailable [phone] Matt Shaver MD Unavailable [phone] Shell Menjivar MD Unavailable [phone] Shell Menjivar MD Unavailable [phone] Chinedu Fleming MD Unavailable [phone] Mere Andres PsyD Unavailable Unavailab Bo Reid MD Unavailable [phone] Jozef Sanchez [facility] Unavailable [phone] Alicia Montero Unavailable Unavailable Bo Jiang MD Unavailable [phone] Leonides Hernandez [facility] Unavailable [phone] Babar Ferrari PA-C Unavailable [phone] Priscilla Stoddard Unavailable Yaw Mckinney MD Unavailable [phone] Edmund Patel MD Unavailable [phone] Edmund Patel MD Unavailable [phone] Yaw Mckinney MD Unavailable [phone] Jenny Terrazas [facility] Unavailable + [phone] Petty Hassan DO Unavailable [phone] Gil Danielson ENTOMOLOGY PROFESSOR Unavailable Unavailable Reason for Visit * Reason Onset Date Comments URI 05/02/2016 insomnia Encounter Details Date Type Department Care Team (Late st Contact Info) Description 05/02/2016 [facility] [address], [address] [place] [address] Dereck Maki PA-C [address] [facility] [address] [place] [address] URI (insomnia) Social History Tobacco Use Types Packs/Day Years Used Date Smoking Tobacco: Never Smokeless Tobacco: Never Alcohol Use Standard Drinks/Week Comments No 0 (1 standard drink = 0.6 oz pur e alcohol) Comments No Sex and Gender Information Value Date Recorded Sex Assigned at Female 11/23/2017 12:16 PM CDT Legal Sex Female 11:38 AM CDT Gender Identity Genderqueer 04/15/2024 10:21 PM FAST FOOD SUPERVISOR Sexual Orientation Lesbian 04/15/2024 10 :21 PM FAST FOOD SUPERVISOR Sexual Orientation Something else 04/15/2024 10 :21 PM FAST FOOD SUPERVISOR documented as of this encounter Miscellaneous Notes * Telephone Encounter - Tiffany Alonso RN - 05/04/2016 10:19 AM CST JS, FYI Pt sent MyChart sent to you below was sent when she was feeling worse but now feeling definatly better, finally got some rest. Pt says she slept good for two nights. She is working tonight and will contact us tomorrow if feeling worse. Thanks, Tiffany Alonso RN FOOD SUPERVISOR * Telephone Encounter - Lupe Grayson - 05/04/2016 10:09 AM CST Reason for Call: Other Detailed comments: see My chart message, Onel Maki not in til 05/07. Please advise. Phone Number Patient can be reached at: Home number on file [phone] (home) # on file Best Time: Can we leave a detailed message on this number? YES Call taken on 05/04/2016 at 10:09 AM by Lupe Grayson FOOD SUPERVISOR * Telephone Encounter - Reagan Mccarthy RN - 05/04/2016 9:23 AM CST Routing to provider to please advise. Reagan Mccarthy RN FOOD SUPERVISOR documented in this encounter Plan of Treatment Not on file documented as of this encounter Visit Diagnoses Not on filedocumented in this encounter Additional Health Concerns Assessment Noted Time PHQ-9 Depression Total Score: 16 04/01/ 016 7:13 AM FAST FOOD SUPERVISOR documented as of this encounter Care Teams Automatic Chief Relationship Specialty Start Date End Date Mil Bates MD PCP - General Family Practice 01/11/15 07/26/17 Clinic - [facility] [address] [facility], [address] [place] [address] PCP - General Clinic 08/19/17 07/24/19 Michael Diaz MD [address] [address] PCP - Assigned PCP 10/24/17 07/12/18 Lorraine Castaneda MD [facility] [address] PCP - General Family Practice 07/25/19 Michael Diaz MD [facility] [address] [address] Assigned PCP 10/24/17 11/12/18 Lorraine Castaneda MD [facility] [address] [address] Assigned PCP 11/13/18 04/29/19 Clarisse Mejia MD [facility] [place] [address] Assigned PCP 04/30/19 06/17/19 Lorraine Castaneda MD [facility] [address] [address] Assigned PCP 06/18/19 Shell Menjivar MD [address] [place] [address] Dermatology 08/31/19 Matt Shaver MD [address] [place] [address] 666165 Assigned Musculoskeletal Provider 03/01/20 04/12/21 Shell Menjivar MD [address] [place] [address] Assigned Pediatric Specialist Provider 03/01/20 06/09/20 Shell Menjivar MD 909 [place] [address] Assigned Surgical Provider 03/01/20 05/31/21 [place] [address] [place] [address] Assigned Rheumatology Provider 02/23/21 02/29/24 Mere Andres PsyD [address] [address] Assigned Behavioral Health Provider 03/30/21 07/31/22 [place] [address] [place] [address] Physician Plastic Surgery 10/09/21 Jozef Sanchez [facility] [address] [place] [address] Administrative Services Officer Plastic Surgery 10/09/21 Alicia Montero Specialty Janitorial Account Manager 10/09/21 Bo Jiang MD [address] [place] [address] Assigned Surgical Provider 11/01/21 09/29/23 Leonides Hernandez [facility] [address] [place] [address] Pharmacist 05/18/23 Babar Ferrari PA-C [address] [place] [address] Physician [id number] Armor Crewman Gastroenterology 06/01/23 Priscilla Stoddard [address] [place] [address] Assigned Behavioral Health Provider 08/31/23 Yaw Mckinney MD [address] [place] [address] Physician Rheumatology 12/22/23 Edmund Patel MD [address] [place], [place] [address] Allergy & Immunology 12/27/23 Edmund Patel MD [address] [place] [address] 132950 Assigned Allergy Provider 01/31/24 Yaw Mckinney MD [address] [place] [address] Assigned Rheumatology Provider 03/01/24 Jenny Terrazas CNM [address] [place] [address] Assigned OBGYN Provider 03/01/24 Petty Hassan DO [address] [place] [address] Resident Neurology 05/01/24 Gil Danielson LSW Specialty Janitorial Account Manager 09/19/24 documented as of this encounter
--- OUTSIDE RECORDS SUMMARY | 2024-10-25 15:30 | XMS_ITS | Encounter Summary ---
Author Organization [facility] Address [address] [place] [address] Care Team Providers Care Waxing Machine Operator Name Role Phone Lorraine Castaneda MD Unavailable [phone] Lorraine Castaneda MD Primary Care Provider Shell Menjivar MD Unavailable [phone] Bo Jiang MD Unavailable [phone] Jozef Sanchez [facility] Unavailable [phone] Alicia Montero Unavailable Unavailable Leonides Hernandez [facility] Unavailable [phone] Babar Ferrari PA-C Unavailable [phone] Priscilla Stoddard Unavailable Yaw Mckinney MD Unavailable [phone] Edmund Patel MD Unavailable [phone] Edmund Patel MD Unavailable [phone] Yaw Mckinney MD Unavailable Jenny Terrazas [facility] Unavailable + [phone] Petty Hassan DO Unavailable [phone] Gil Danielson DRESS MARKER Unavailable Unavailable Encounter Details Date Type Department Care Team (Late st Contact Info) Description 04/15/2024 Andrew Medical Advice [facility] Rheumatology [address] [place] [phone] Yaw Mckinney MD [address] [place] [address] Social History Tobacco Use Types Packs/Day Years [...] CDT Gender Identity Genderqueer 04/15/2024 10:21 PM PEARL PELLER Sexual Orientation Lesbian 04/15/2024 10 :21 PM PEARL PELLER Sexual Orientation Something else 04/15/2024 10 :21 PM PEARL PELLER documented as of this encounter Plan of Treatment Not on file documented as of this encounter Visit Diagnoses Not on filedocumented in this encounter Additional Health Concerns Assessment Noted Time PHQ-9 Depression Total Score: 7 03/20/20 24 9:49 AM PEARL PELLER documented as of this encounter Care Teams Waxing Machine Operator Relationship Specialty Start Date End Date Lorraine Castaneda MD [address] [address] [address] PCP - General Family Practice 07/25/19 Lorraine Castaneda MD [address] [address] [address] [address] Assigned PCP 06/18/19 Shell Menjivar MD [address] [place] [address] Dermatology 08/31/19 Bo Jiang MD 2945 [facility] 200 [place] [address] Physician Plastic Surgery 10/09/21 [facility] [address] [place] [address] Supervisor Warping Department Plastic Surgery 10/09/21 Alicia Montero Specialty Angle Bender 10/09/21 Leonides Hernandez [facility] [address] [place] [address] Pharmacist 05/18/23 Babar Ferrari PA-C [address] [place] [address] Physician Semaphore Operator Gastroenterology 06/01/23 Priscilla Stoddard [address] [place] [address] Assigned Behavioral Health Provider 08/31/23 Yaw Mckinney MD [address] [place] [address] Physician Rheumatology 12/22/23 Edmund Patel MD [address] [place] [address] Allergy & Immunology 12/27/23 Edmund Patel MD [address] [place] [address] Assigned Allergy Provider 01/31/24 Yaw Mckinney MD [address] [place] [address] Assigned Rheumatology Provider 03/01/24 Jenny Terrazas CNM [address] [place] [address] Assigned OBGYN Provider 03/01/24 Petty Hassan DO [address] [place] [address] 021165 Resident Neurology 05/01/24 Gil Danielson LSW Specialty Angle Bender 09/19/24 documented as of this encounter
--- OUTSIDE RECORDS SUMMARY | 2024-10-25 15:30 | XMS_ITS | Encounter Summary ---
Author Organization [place] Address [address] [place] [address] Care Team Providers Care Account Underwriter Name Role Phone Lorraine Casatneda MD Unavailable [phone] Lorraine Castaneda MD Primary Care Provider Shell Menjivar MD Unavailable +[phone] Chinedu Fleming MD Unavailable Bo Jiang MD Unavailable [phone] Jozef Sanchez [facility] Unavailable [phone] Alicia Montero Unavailable Unavailable Leonides Hernandez [facility] Unavailable [phone] Babar Ferrari PA-C Unavailable [phone] Priscilla Stoddard Unavailable Yaw Mckinney MD Unavailable +[phone] Edmund Patel MD Unavailable [phone] Edmund Patel MD Unavailable [phone] Yaw Mckinney MD Unavailable Jenny Terrazas CNPascual Unavailable + [phone] Petty Hassan DO Unavailable [phone] Gil Danielson PEA VINER MECHANIC Unavailable Unavailable Encounter Details Date Type Department Care Team (Late st Contact Info) Description 12/06/2023 MyC Medical [facility] [address] [place] [phone] Priscilla Stoddard [address] [place] [address] Social History Tobacco Use Types Packs/Day Years [...] CDT Gender Identity Genderqueer 04/15/2024 10:21 PM FIELD KILN BURNER Sexual Orientation Lesbian 04/15/2024 10 :21 PM FIELD KILN B[place]NER Sexual Orientation Something else 04/15/2024 10 :21 PM FIELD KILN BURNER documented as of this encounter Plan of Treatment Not on file documented as of this encounter Visit Diagnoses Not on filedocumented in this encounter Additional Health Concerns Assessment Noted Time PHQ-9 Depression Total Score: 7 11/08/19 24 10:47 AM CDT documented as of this encounter Care Teams Account Underwriter Relationship Specialty Start Date End Date Lorraine Castaneda MD [facility] [employer] [address] [address] PCP - General Family Practice 07/25/19 Lorraine Castaneda MD [address] [place] [address] Assigned PCP 06/18/19 Shell Menjivar MD [address] [place], [place] 307675 Dermatology 08/31/19 [place] [address] [place] [address] Assigned Rheumatology Provider 02/23/21 02/29/24 Bo Jiang MD 2945 [facility] 200 [place] [address] Physician Plastic Surgery 10/09/21 [facility] [address] [place] [address] Plant And Equipment Worker Plastic Surgery 10/09/21 Alicia Montero Specialty Band Top Maker 10/09/21 Leonides Hernadnez [facility] [address] [place] [address] Pharmacist 05/18/23 Babar Ferrari PA-C [address] [place] [address] Physician Wide Area Network Systems Administrator Gastroenterology 06/01/23 Priscilla Stoddard [address] [place], [place] 580406 Assigned Behavioral Health Provider 08/31/23 Yaw Mckinney MD [address] [place] [address] 634385 Physician Rheumatology 12/22/23 Edmund Patel MD [address] [place], [place] [address] Allergy & Immunology 12/27/23 Edmund Patel MD [address] [place], [place] 685080 Assigned Allergy Provider 01/31/24 Yaw Mckinney MD [address] [place] [address] 299[address] Assigned Rheumatology Provider 03/01/24 Jenny Terrazas CNM [address] [place], [place] [address] Assigned OBGYN Provider 03/01/24 Petty Hassan DO [address] [place] [address] Resident Neurology 05/01/24 Gil Danielson LSW Specialty Band Top Maker 09/19/24 documented as of this encounter
--- OUTSIDE RECORDS SUMMARY | 2024-10-25 15:30 | XMS_ITS | Encounter Summary ---
Author Organization [place] Address [address] [place] [address] Care Team Providers Care Dentist Attendant Name Role Phone Mil Bates MD Primary Care Provider [facility] Primary Care Provider Michael Diaz MD Unavailable +[phone] Michael Diaz MD Unavailable +[phone] Lorraine Castaneda MD Unavailable [phone] Clarisse Mejia MD Unavailable +[phone] Lorraine Castaneda MD Unavailable +[phone] Lorraine Castaneda MD Primary Care Provider Shell Menjivar MD Unavailable +[phone] Matt Shaver MD Unavailable +[phone] Shell Menjivar MD Unavailable [phone] Shell Menjivar MD Unavailable +[phone] Chinedu Fleming MD Unavailable +[phone] Mere Andres PsyD Unavailable Unavailab Bo Reid MD Unavailable [phone] Jozef Sanchez [facility] Unavailable [phone] Alicia Montero Unavailable Unavailable Bo Jiang MD Unavailable [phone] Leonides Hernandez [facility] Unavailable [phone] Babar Ferrari PA-C Unavailable [phone] Priscilla Stoddard Unavailable Yaw Mckinney MD Unavailable [phone] Edmund Patel MD Unavailable [phone] Edmund Patel MD Unavailable [phone] Yaw Mckinney MD Unavailable +[phone] Jenny Terrazas [facility] Unavailable + [phone] Petty Hassan DO Unavailable [phone] Gil Danielson POLO COACH Unavailable Unavailable Encounter Details Date Type Department Care Team (Late st Contact Info) Description 11/25/2015 [facility] Extended Documentation [facility] [address] [place] [address] Klaudia Block [place] [id number] [place] [address] Social History Tobacco Use Types Packs/Day Years Used Date Smoking Tobacco: Never Smokeless Tobacco: Never Alcohol Use Standard Drinks/Week Comments No 0 (1 standard drink = 0.6 oz pur e alcohol) Comments Unknown Sex and Gender Information Value Date Recorded Sex Assigned at Female 11/23/2017 12:16 PM CDT Legal Sex Female 11:38 AM CDT Gender Identity Genderqueer 04/15/2024 10:21 PM LINOLEUM PRINTER Sexual Orientation Lesbian 04/15/2024 10 :21 PM LINOLEUM PRINTER Sexual Orientation Something else 04/15/2024 10 :21 PM LINOLEUM PRINTER documented as of this encounter Plan of Treatment Not on file documented as of this encounter Visit Diagnoses Not on filedocumented in this encounter Additional Health Concerns Assessment Noted Time PHQ-9 Depression Total Score: 17 11/15/2 016 7:17 AM CDT documented as of this encounter Care Teams Dentist Attendant Relationship Specialty Start Date End Date Mil Bates MD PCP - General Family Practice 01/11/15 07/26/17 [facility] [place] [address] [facility], [address] [place] [address] PCP - General Clinic 08/19/17 07/24/19 Michael Diaz MD [address] [address] PCP - Assigned PCP 10/24/17 07/12/18 Lorraine Castaneda MD [address] [address] PCP - General Family Practice 07/25/19 Michael Diaz MD [facility] [address] Assigned PCP 10/24/17 11/12/18 Lorraine Castaneda MD [facility] [address] Assigned PCP 11/13/18 04/29/19 Clarisse Mejia MD [address] [place] [address] Assigned PCP 04/30/19 06/17/19 Lorraine Castaneda MD [address] [address] Assigned PCP 06/18/19 Shell Menjivar MD [address] [place] [address] MD Dermatology 08/31/19 Matt Shaver MD [address] [place] [address] Assigned Musculoskeletal Provider 03/01/20 04/12/21 Shell Menjivar MD [address] [place] [address] Assigned Pediatric Specialist Provider 03/01/20 06/09/20 Shell Menjivar MD [address] [place] [address] Assigned Surgical Provider 03/01/20 05/31/21 [place] [address] [place] [address] Assigned Rheumatology Provider 02/23/21 02/29/24 Mere Andres PsyD [facility] [address] [address] Assigned Behavioral Health Provider 03/30/21 07/31/22 Bo Jiang MD [address] [place] [address] Physician Plastic Surgery 10/09/21 Jozef Sanchez [facility] [address] [place] [address] [facility] Family [facility] Professor Plastic Surgery 10/09/21 Alicia Montero Specialty Electronic Publisher 10/09/21 [place] [address] [place] [address] Assigned Surgical Provider 11/01/21 09/29/23 Leonides Hernandez [facility] 909 [facility] Pharmacist 05/18/23 Babar Ferrari PA-C [address] [place] [address] Physician Reeler Operator Gastroenterology 06/01/23 Priscilla Stoddard [address] [place], [place] 564476 Assigned Behavioral Health Provider 08/31/23 Yaw Mckinney MD [address] [place] [address] 858835 Physician Rheumatology 12/22/23 Edmund Patel MD [address] [place], [place] 756530 Allergy & Immunology 12/27/23 Edmund Patel MD [address] [place], [place] 129790 Assigned Allergy Provider 01/31/24 Yaw Mckinney MD [address] [place] [address] 598155 Assigned Rheumatology Provider 03/01/24 Jenny Terrazas CNM [address] [place], [place] [address] Assigned OBGYN Provider 03/01/24 Petty Hassan DO [address] [place] [address] Resident Neurology 05/01/24 Gil Danielson LSW Specialty Electronic Publisher 09/19/24 documented as of this encounter
--- OUTSIDE RECORDS SUMMARY | 2024-10-25 15:31 | XMS_ITS | Encounter Summary ---
Author Organization [place] Address [address] [place] [address] Care Team Providers Care Waste Minimization Technician Name Role Phone Lorraine Castaneda MD Unavailable [phone] Lorraine Castaneda MD Primary Care Provider Shell Menjivar MD Unavailable [phone] Chinedu Fleming MD Unavailable Bo Jiang MD Unavailable [phone] Jozef Sanchez [facility] Unavailable [phone] Alicia Montero Unavailable Unavailable Leonides Hernandez [facility] Unavailable [phone] Babar Ferrari PA-C Unavailable [phone] Priscilla Stoddard Unavailable Yaw Mckinney MD Unavailable Edmund Patel MD Unavailable [phone] Edmund Patel MD Unavailable [phone] Yaw Mckinney MD Unavailable Jenny Terrazas CNPascual Unavailable + [phone] Petty Hassan DO Unavailable [phone] Gil Danielson BOOKKEEPING TEACHER Unavailable Unavailable Encounter Details Date Type Department Care Team (Late st Contact Info) Description 02/15/[address] [facility] [address] [facility] [address] [place] [phone] Edmund Patel MD 290 [place] [address] Social History Tobacco Use Types Packs/Day Years Used Date Smoking Tobacco: Never Passive Smoke Exposure: Never Smokeless Tobacco: Never Alcohol Use Standard Drinks/Week Comments No 0 (1 standard drink = 0.6 oz pur e alcohol) PHQ-2 Answer Date Recorded PHQ-2 Score 2 02/11/2024 Adolescent Education Answer Date Record ed Getting [...] in an abandoned building, in an overnight nursing home, or couch-surfing.) Yes 05/11/2023 Are you [...] CDT Gender Identity Genderqueer 04/15/2024 10:21 PM BOAT GARNISHER Sexual Orientation Lesbian 04/15/2024 10 :21 PM BOAT GARNISHER Sexual Orientation Something else 04/15/2024 10 :21 PM BOAT GARNISHER documented as of this encounter Plan of Treatment Not on file documented as of this encounter Visit Diagnoses Not on filedocumented in this encounter Additional Health Concerns Assessment Noted Time PHQ-9 Depression Total Score: 11 024 9:51 AM CDT documented as of this encounter Care Teams Waste Minimization Technician Relationship Specialty Start Date End Date Lorraine Castaneda MD [address] [employer] [address] PCP - General Family Practice 07/25/19 Lorraine Castaneda MD [address] [place] [address] Assigned PCP 06/18/19 Shell Menjivar MD 909 [place] [address] Dermatology 08/31/19 [place] [address] [place] [address] Assigned Rheumatology Provider 02/23/21 02/29/24 Bo Jiang MD 2945 [facility] 200 [place] [address] Physician Plastic Surgery 10/09/21 Jozef Sanchez [facility] 500 [place], [place] 864[address] Mechanic Chief Plastic Surgery 10/09/21 Alicia Montero Specialty Order Desk Clerk 10/09/21 Leonides Hernandez [facility] [address] [place] [address] Pharmacist 05/18/23 Babar Ferrari PA-C [address] [place], [place] [address] Physician Insole Tack Puller Hand Gastroenterology 06/01/23 Priscilla Stoddard 30[address] [place], [place] 228506 Assigned Behavioral Health Provider 08/31/23 Yaw Mckinney MD 420 [place], [place] 218215 Physician Rheumatology 12/22/23 Edmund Patel MD [address] [place], [place] 9[address]10 Allergy & Immunology 12/27/23 Edmund Patel MD [address] [place], [place] 782030 Assigned Allergy Provider 01/31/24 Yaw Mckinney MD [address] [place], [place] 049205 Assigned Rheumatology Provider 03/01/24 Jenny Terrazas CNM [address] [place] [address] Assigned OBGYN Provider 03/01/24 Petty Hassan DO [address] [place] [address] Resident Neurology 05/01/24 Gil Danielson LSW Specialty Order Desk Clerk 09/19/24 documented as of this encounter
--- OUTSIDE RECORDS SUMMARY | 2024-10-25 15:31 | XMS_ITS | Encounter Summary ---
Author Organization [place] Address [address] [place] [address] Care Team Providers Care Lead Carpenter Name Role Phone Lorraine Castaneda MD Unavailable [phone] Lorraine Castaneda MD Primary Care Provider Shell Menjivar MD Unavailable [phone] Bo Jiang MD Unavailable [phone] Jozef Sanchez [facility] Unavailable [phone] Alicia Montero Unavailable Unavailable Leonides Hernandez [facility] Unavailable [phone] Babar Ferrari PA-C Unavailable [phone] Priscilla Stoddard Unavailable Yaw Mckinney MD Unavailable [phone] Edmund Patel MD Unavailable [phone] Edmund Patel MD Unavailable [phone] Yaw Mckinney MD Unavailable [phone] Jenny Terrazas [facility] Unavailable + [phone] Petty Hassan DO Unavailable [phone] Gil Danielson MED CARE MANAGER Unavailable Unavailable Encounter Details Date Type Department Care Team (Latest Contact Info) Description 09/30/2024 Travel Social History Tobacco Use Types Packs/Day Years [...] in an abandoned building, in an overnight prison, or couch-surfing.) Yes 05/11/2023 Are you worried [...] CDT Gender Identity Genderqueer 04/15/2024 10:21 PM RETAIL LOAN ORIGINATOR ASSISTANT Sexual Orientation Lesbian 04/15/2024 10 :21 PM RETAIL LOAN ORIGINATOR ASSISTANT Sexual Orientation Something else 04/15/2024 10 :21 PM RETAIL LOAN ORIGINATOR ASSISTANT documented as of this encounter Functional Status * Calculated C-SSRS [...] 2 10/01/19 25 9:33 PM CDT Megan Hall, CONFERENCE INTERPRETER Controllability (Past 1 Month) 2 09/30/2024 9:33 PM CDT Megan Hall LICSW Deterrents (Past 1 Month) 1 2024 9:33 PM CDT Megan Hall CONFERENCE INTERPRETER Reasons for Ideation (Past 1 Month) 5 09/30/2024 9:33 PM CDT Megan Hall CONFERENCE INTERPRETER * Question Answer Date of Assessment Author Actual Attempt (Past 3 Months) No 09/30/2024 9:33 PM CDT Megan Hall LICSW Total Number of Actual Attem pts (Past 3 Months) 0 09/30/2024 9:33 PM CDT Megan Hall LICSW Has subject engaged in non-suicidal self-injurious behavior? (Past 3 Months) No 09/30/2024 9:33 PM CDT StottrupEmiey, CONFERENCE INTERPRETER Interrupted Attempts (Past 3 Months) No 09/30/2024 9:33 PM CDT Stottrup, Megan, CONFERENCE INTERPRETER Total Number of Interrupted Attempts (Past 3 Months) 0 09/30/2024 9:33 PM CDT Stottrup, Ba alpay, CONFERENCE INTERPRETER Aborted or Self-Interrupted Attempt (Past 3 Months) No 09/30/2024 9:33 PM CDT Stottrup, Divine javad, CONFERENCE INTERPRETER Total Number of Aborted or Self-Interrupted Attempts (Past 3 Months) 0 09/30/2024 9:33 PM CDT Stottrup, Megan, CONFERENCE INTERPRETER Preparatory Acts or Behavior (Past 3 Months) No 09/30/2024 9:33 PM CDT Stottrup, Megan, CONFERENCE INTERPRETER Total Number of Preparatory Acts (Past 3 Months) 0 09/30/2024 9:33 PM CDT Stottrup, Megan , CONFERENCE INTERPRETER * Question Answer Date of Assessment Author Actual Attempt (Lifetime) No 09/30/2024 9:30 PM CDT Stottrup, Megan, CONFERENCE INTERPRETER Has subject engaged in non-suicidal self-injurious behavior? (Lifetime) No 09/30/2024 9:30 PM CDT Stottrup, Megan , CONFERENCE INTERPRETER Interrupted Attempts (Lifetime) No 9:30 PM CDT Stottrup, Megan, CONFERENCE INTERPRETER Aborted or Self-Interrupted Attempt (Lifetime) No 09/30/2024 9:30 PM CDT Stottrup, Megan, CONFERENCE INTERPRETER Preparatory Acts or Behavior (Lifetime) No 09/30/2024 9:30 PM CDT Stottrup, Megan, CONFERENCE INTERPRETER * Question Answer Date of Assessment Author Most Severe Ideation Rating (Lifetime) 2 09/30/2024 9:30 PM CDT Stottrup, Megan, CONFERENCE INTERPRETER Frequency (Lifetime) 1 09/30/2024 9:30 PM C DT Stottrup, Megan, CONFERENCE INTERPRETER Duration (Lifetime) 1 09/30/2024 9:30 PM CD T Stottrup, Megan, CONFERENCE INTERPRETER Controllability (Lifetime) 1 09/30/2024 9:3 0 PM CDT Megan Hall LICSW Deterrents (Lifetime) 1 09/30/2024 9:30 PM CDT Megan Hall LICSW Reasons for Ideation (Lifetime) 5 5 9:30 PM CDT Megan Hall LICSW documented as of this encounter Plan of Treatment Not on file documented as of this encounter Visit Diagnoses Not on filedocumented in this encounter Additional Health Concerns Assessment Noted Time PHQ-9 Depression Total Score: 20 025 10:01 AM CDT documented as of this encounter Care Teams Lead Carpenter Relationship Specialty Start Date End Date Lorraine Castaneda MD [address] [address] [address] PCP - General Family Practice 07/25/19 Lorraine Castaneda MD [address] [address] [address] Assigned PCP 06/18/19 Shell Menjivar MD [address] [place] [address] Dermatology 08/31/19 Bo Jiang MD 2945 [facility] 200 [place] [address] Physician Plastic Surgery 10/09/21 Jozef Sanchez [facility] [address] [place] [address] Manager Er Plastic Surgery 10/09/21 Alicia Montero Specialty Senior Treasury Consultant 10/09/[address] [facility] [address] [place] [address] Pharmacist 05/18/23 Babar Ferrari PA-C [address] [place] [address] Physician Metal Mockup Maker Gastroenterology 06/01/23 Priscilla Stoddard [address] [place] [address] Assigned Behavioral Health Provider 08/31/23 Yaw Mckinney MD [address] [place] [address] Physician Rheumatology 12/22/23 Edmund Patel MD [address] [place] [address] Allergy & Immunology 12/27/23 Edmund Patel MD [address] [place] [address] Assigned Allergy Provider 01/31/24 Yaw Mckinney MD [address] [place] [address] Assigned Rheumatology Provider 03/01/24 Jenny Terrazas CNM [address] [place] [address] Assigned OBGYN Provider 03/01/24 Petty Hassan DO [address] [place] [address] 6[address]95 Resident Neurology 05/01/24 Gil Danielson LSW Specialty Senior Treasury Consultant 09/19/24 documented as of this encounter
--- OUTSIDE RECORDS SUMMARY | 2024-10-25 15:31 | XMS_ITS | Encounter Summary ---
Author Organization [place] Address [address] [place] [address] Care Team Providers Care Ibm Bpm Architect Name Role Phone Lorraine Castaneda MD Unavailable [phone] Lorraine Castaneda MD Primary Care Provider Shell Menjivar MD Unavailable [phone] Bo Jiang MD Unavailable [phone] Jozef Sanchez [facility] Unavailable [phone] Alicia Montero Unavailable Unavailable Leonides Hernandez [facility] Unavailable [phone] Babar Ferrari PA-C Unavailable [phone] Priscilla Stoddard Unavailable Yaw Mckinney MD Unavailable [phone] Edmund Patel MD Unavailable [phone] Edmund Patel MD Unavailable [phone] Yaw Mckinney MD Unavailable +[phone] Jenny Terrazas [facility] Unavailable + [phone] Petty Hassan DO Unavailable [phone] Gil Danielson CREW LEADER/CONTROL ROOM OPERATOR Unavailable Unavailable Encounter Details Date Type Department Care Team (Late st Contact Info) Description 03/29/2024 [facility] Mental Health & Addiction [facility] [address] [place] [phone] Priscilla Stoddard [address] [place] [address] Social History Tobacco Use Types Packs/Day Years [...] in an abandoned building, in an overnight long term, or couch-surfing.) Yes 05/11/2023 Are you worried [...] CDT Gender Identity Genderqueer 04/15/2024 10:21 PM MINE CAR DISPATCHER Sexual Orientation Lesbian 04/15/2024 10 :21 PM MINE CAR DISPATCHER Sexual Orientation Something else 04/15/2024 10 :21 PM MINE CAR DISPATCHER documented as of this encounter Plan of Treatment Not on file documented as of this encounter Visit Diagnoses Not on filedocumented in this encounter Additional Health Concerns Assessment Noted Time PHQ-9 Depression Total Score: 7 03/20/20 24 9:49 AM MINE CAR DISPATCHER documented as of this encounter Care Teams Ibm Bpm Architect Relationship Specialty Start Date End Date Lorraine Castaneda MD [address] [employer] [address] [address] PCP - General Family Practice 07/25/19 Lorraine Castaneda MD [address] [employer] [address] [address] Assigned PCP 06/18/19 Shell Menjivar MD [address] [place] [address] 440835 Dermatology 08/31/19 Bo Jiang MD [address] [facility] 200 [place] [address] Physician Plastic Surgery 10/09/[address] [facility] [address] [place] [address] Computed Tomography Scanner Operator Plastic Surgery 10/09/21 Alicia Montero Specialty Product Line Manager 10/09/21 Leonides Hernandez [facility] [address] [place] [address] Pharmacist 05/18/23 Babar Ferrari PA-C [address] [place] [address] Physician Furniture Inspector Gastroenterology 06/01/23 Priscilla Stoddard [address] [place] [address] Assigned Behavioral Health Provider 08/31/23 Yaw Mckinney MD [address] [place] [address] Physician Rheumatology 12/22/23 Edmund Patel MD 290 [place] [address] Allergy & Immunology 12/27/23 Edmund Patel MD [address] [place] [address] Assigned Allergy Provider 01/31/24 Yaw Mckinney MD [address] [place] [address] Assigned Rheumatology Provider 03/01/24 Jenny Terrazas CNM [address] [place], [place] [address] Assigned OBGYN Provider 03/01/24 Petty Hassan DO [address] [place] [address] 585895 Resident Neurology 05/01/24 Gil Danielson LSW Specialty Product Line Manager 09/19/24 documented as of this encounter
--- OUTSIDE RECORDS SUMMARY | 2024-10-25 15:31 | XMS_ITS | Encounter Summary ---
Author Organization [place] Address [address] [place] [address] Care Team Providers Care Competitive Intelligence Analyst Name Role Phone Lorraine Castaneda MD Unavailable [phone] Lorraine Castaneda MD Primary Care Provider Shell Menjivar MD Unavailable +[phone] Chinedu Fleming MD Unavailable +[phone] Bo Jiang MD Unavailable Jozef Sanchez [facility] Unavailable [phone] Alicia Montero Unavailable Unavailable Leonides Hernandez [facility] Unavailable [phone] Babar Ferrari PA-C Unavailable [phone] Priscilla Stoddard Unavailable Yaw Mckinney MD Unavailable Edmund Patel MD Unavailable [phone] Edmund Patel MD Unavailable [phone] Yaw Mckinney MD Unavailable Jenny Terrazas CNPascual Unavailable + [phone] Petty Hassan DO Unavailable +[phone] Gil Danielson YACHT BUILDER Unavailable Unavailable Encounter Details Date Type Department Care Team (Late st Contact Info) Description 02/14/2024 MyC Medical [facility] & [facility] [address] [place] [phone] Priscilla Stoddard 3033 [place] [address] Social History Tobacco Use Types Packs/Day Years [...] CDT Gender Identity Genderqueer 04/15/2024 10:21 PM CLOTH DYER Sexual Orientation Lesbian 04/15/2024 10 :21 PM CLOTH DYER Sexual Orientation Something else 04/15/2024 10 :21 PM CLOTH DYER documented as of this encounter Plan of Treatment Not on file documented as of this encounter Visit Diagnoses Not on filedocumented in this encounter Additional Health Concerns Assessment Noted Time PHQ-9 Depression Total Score: 11 024 9:51 AM CDT documented as of this encounter Care Teams Competitive Intelligence Analyst Relationship Specialty Start Date End Date Lorraine Castaneda MD 3033 [employer] [address] [address] PCP - General Family Practice 07/25/19 Lorraine Castaneda MD 303 [employer] [address] [address] Assigned PCP 06/18/19 Shell Menjivar MD 909 [place] [address] Dermatology 08/31/19 [place] [address] [place] [address] Assigned Rheumatology Provider 02/23/21 02/29/24 Bo Jiang MD 2945 [facility] 200 [place] [address] Physician Plastic Surgery 10/09/21 Jozef Sanchez [facility] 500 [place], [place] [address] Sales Driver Plastic Surgery 10/09/21 Alicia Montero Specialty Drafting Engineer 10/09/21 Leonides Hernandez [facility] [address] [place] [address] Pharmacist 05/18/23 Babar Ferrari PA-C [address] [place], [place] [address] Physician Golf Club Assembler Gastroenterology 06/01/23 Priscilla Stoddard 3033 [place], [place] 736706 Assigned Behavioral Health Provider 08/31/23 Yaw Mckinney MD [address] [place] [address] 696075 Physician Rheumatology 12/22/23 Edmund Patel MD 290 [place], [place] [address] Allergy & Immunology 12/27/23 Edmund Patel MD 290 [place], [place] 037340 Assigned Allergy Provider 01/31/24 Yaw Mckinney MD [address] [place] [address] 969795 Assigned Rheumatology Provider 03/01/24 Jenny Terrazas CNM [address] [place] [address] Assigned OBGYN Provider 03/01/24 Petty Hassan DO [address] [place] [address] Resident Neurology 05/01/24 Gil Danielson LSW Specialty Drafting Engineer 09/19/24 documented as of this encounter
--- OUTSIDE RECORDS SUMMARY | 2024-10-25 15:31 | XMS_ITS | Encounter Summary ---
Author Organization [place] Address [address] [place] [address] Care Team Providers Care Credit Risk Associate Name Role Phone Lorraine Castaneda MD Unavailable [phone] Lorraine Castaneda MD Primary Care Provider Shell Menjivar MD Unavailable +[phone] Chinedu Fleming MD Unavailable +[phone] Bo Jiang MD Unavailable [phone] Jozef Sanchez [facility] Unavailable [phone] Alicia Montero Unavailable Unavailable Leonides Hernandez [facility] Unavailable +[phone] Babar Ferrari PA-C Unavailable [phone] Priscilla Stoddard Unavailable Yaw Mckinney MD Unavailable +[phone] Edmund Patel MD Unavailable [phone] Edmund Patel MD Unavailable [phone] Yaw Mckinney MD Unavailable +[phone] Jenny Terrazas CNPascual Unavailable + [phone] Petty Hassan DO Unavailable [phone] Gil Danielson FACILITY ASSISTANT Unavailable Unavailable Encounter Details Date Type Department Care Team (Late st Contact Info) Description 02/28/2024 MyC Medical [facility] Health & Addiction [facility] [address] [place] [phone] Priscilla Stoddard 3033 [place] [address] Social History Tobacco Use Types Packs/Day Years [...] CDT Gender Identity Genderqueer 04/15/2024 10:21 PM WORKERS COMPENSATION MANAGER Sexual Orientation Lesbian 04/15/2024 10 :21 PM WORKERS COMPENSATION MANAGER Sexual Orientation Something else 04/15/2024 10 :21 PM WORKERS COMPENSATION MANAGER documented as of this encounter Plan of Treatment Not on file documented as of this encounter Visit Diagnoses Not on filedocumented in this encounter Additional Health Concerns Assessment Noted Time PHQ-9 Depression Total Score: 11 024 9:51 AM CDT documented as of this encounter Care Teams Credit Risk Associate Relationship Specialty Start Date End Date Lorraine Castaneda MD 3033 [employer] [address] [address] PCP - General Family Practice 07/25/19 Lorraine Castaneda MD 303 [employer] [address] [address] Assigned PCP 06/18/19 Shell Menjivar MD 909 [place] [address] Dermatology 08/31/19 [place] [address] [place] [address] Assigned Rheumatology Provider 02/23/21 02/29/24 Bo Jiang MD 2945 [facility] 200 [place] [address] Physician Plastic Surgery 10/09/21 Jozef Sanchez [facility] 500 [place], [place] 423265 Cyber Policy And Strategy Planner Plastic Surgery 10/09/21 Alicia Montero Specialty Landscaping Supervisor 10/09/21 Leonides Hernandez [facility] [address] [place] [address] Pharmacist 05/18/23 Babar Ferrari PA-C [address] [place], [place] [address] Physician Tier And Detonator Gastroenterology 06/01/23 Priscilla Stoddard 3033 [place], [place] 9569[address] Assigned Behavioral Health Provider 08/31/23 Yaw Mckinney MD [address] [place] [address] 199625 Physician Rheumatology 12/22/23 Edmund Patel MD 290 [place], [place] 9386[address] Allergy & Immunology 12/27/23 Edmund Patel MD 290 [place], [place] 227540 Assigned Allergy Provider 01/31/24 Yaw Mckinney MD [address] [place] [address] 832415 Assigned Rheumatology Provider 03/01/24 Jenny Terrazas CNM [address] [place] [address] Assigned OBGYN Provider 03/01/24 Petty Hassan DO [address] [place] [address] Resident Neurology 05/01/24 Gil Danielson LSW Specialty Landscaping Supervisor 09/19/24 documented as of this encounter
--- OUTSIDE RECORDS SUMMARY | 2024-10-25 15:31 | XMS_ITS | Encounter Summary ---
Author Organization [place] Address [address] [place] [address] Care Team Providers Care Telesales Consultant Name Role Phone Lorraine Castaneda MD Unavailable [phone] Lorraine Castaneda MD Primary Care Provider Shell Menjivar MD Unavailable +[phone] Bo Jiang MD Unavailable [phone] Jozef Sanchez [facility] Unavailable [phone] Alicia Montero Unavailable Unavailable Leonides Hernandez [facility] Unavailable [phone] Babar Ferrari PA-C Unavailable [phone] Priscilla Stoddard Unavailable Yaw Mckinney MD Unavailable +[phone] Edmund Patel MD Unavailable [phone] Edmund Patel MD Unavailable [phone] Yaw Mckinney MD Unavailable +[phone] Jenny Terrazas [facility] Unavailable + [phone] Petty Hassan DO Unavailable +[phone] Gil Danielson CULLET CRUSHER AND WASHER Unavailable Unavailable Encounter Details Date Type Department Care Team (Late st Contact Info) Description 10/12/2024 Andrew Medical Advice [facility] Care Coordination [facility] [address] [place] [phone] Gil Danielson LSW Social History Tobacco Use Types Packs/Day Years [...] CDT Gender Identity Genderqueer 04/15/2024 10:[address] Sexual Orientation Lesbian 04/15/2024 10 :[address] [place] Sexual Orientation Something else 04/15/2024 10 :[address] [place] documented as of this encounter Plan of Treatment Not on file documented as of this encounter Visit Diagnoses Not on filedocumented in this encounter Additional Health Concerns Assessment Noted Time PHQ-9 Depression Total Score: 20 08/21/ 025 10:01 AM CDT documented as of this encounter Care Teams Telesales Consultant Relationship Specialty Start Date End Date Lorraine Castaneda MD [address] [employer] [address] [address] PCP - General Family Practice 07/25/19 Lorraine Castaneda MD [address] [address] [address] Assigned PCP 06/18/19 Shell Menjivar MD [address] [place] [address] Dermatology 08/31/19 [place] [address] [place] [address] 200 [place] [address] Physician Plastic Surgery 10/09/[address] [facility] [address] [place] [address] Green Building Energy Engineer Plastic Surgery 10/09/21 Alicia Montero Specialty Lieutenant Ballistics 10/09/21 Leonides Hernandez, [facility] [address] [place] [address] Pharmacist 05/18/23 Babar Ferrari PA-C [address] [place] [address] Physician Parts Manager Gastroenterology 06/01/23 Priscilla Stoddard 3033 [place], [place] 950166 Assigned Behavioral Health Provider 08/31/23 Yaw Mckinney MD [address] [place] [address]879[address] Physician Rheumatology 12/22/23 Edmund Patel MD 290 [place], [place] [address] Allergy & Immunology 12/27/23 Edmund Patel MD 290 [place], [place] 207720 Assigned Allergy Provider 01/31/24 Yaw Mckinney MD [address] [place] [address] 216945 Assigned Rheumatology Provider 03/01/24 Jenny Terrazas CNM [address] [place], [place] [address] Assigned OBGYN Provider 03/01/24 Petty Hassan DO [address] [place] [address] Resident Neurology 05/01/24 Gil Danielson LSW Specialty Lieutenant Ballistics 09/19/24 documented as of this encounter
--- OUTSIDE RECORDS SUMMARY | 2024-10-25 15:31 | XMS_ITS | Encounter Summary ---
Author Organization [facility] Address [address] [place] [address] Care Team Providers Care Slitting Machine Feeder Name Role Phone Lorraine Castaneda MD Unavailable [phone] Lorraine Castaneda MD Primary Care Provider Shell Menjivar MD Unavailable +[phone] Bo Jiang MD Unavailable [phone] Jozef Sanchez [facility] Unavailable [phone] Alicia Montero Unavailable Unavailable Leonides Hernandez [facility] Unavailable [phone] Babar Ferrari PA-C Unavailable [phone] Priscilla Stoddard Unavailable Yaw Mckinney MD Unavailable Edmund Patel MD Unavailable [phone] Edmund Patel MD Unavailable [phone] Yaw Mckinney MD Unavailable [phone] Jenny Terrazas [facility] Unavailable + [phone] Petty Hassan DO Unavailable [phone] Gil Danielson SOLUTION ADVISOR Unavailable Unavailable Encounter Details Date Type Department Care Team (Late st Contact Info) Description 08/25/[address] [facility] [address], [address] [place] [address] Lorraine Castaneda MD 3036 [employer] [facility] [address] [place], [place] [id number] Social History Tobacco Use Types Packs/Day Years [...] CDT Gender Identity Genderqueer 04/15/2024 10:21 PM SOIL SAMPLER Sexual Orientation Lesbian 04/15/2024 10 :21 PM SOIL SAMPLER Sexual Orientation Something else 04/15/2024 10 :21 PM SOIL SAMPLER documented as of this encounter Plan of Treatment Not on file documented as of this encounter Visit Diagnoses Not on filedocumented in this encounter Additional Health Concerns Assessment Noted Time PHQ-9 Depression Total Score: 20 025 10:01 AM CDT documented as of this encounter Care Teams Slitting Machine Feeder Relationship Specialty Start Date End Date Lorraine Castaneda MD [address] [employer] [address] [address] PCP - General Family Practice 07/25/19 Lorraine Castaneda MD [facility] [employer] [address] [address] Assigned PCP 06/18/19 Shell Menjivar MD [address] [place] [address] Dermatology 08/31/19 Bo Jiang MD 2945 [facility] 200 [place] [address] Physician Plastic Surgery 10/09/21 [facility] [address] [place] [address] 789875 Digging Machine Operator Plastic Surgery 10/09/21 Alicia Montero Specialty Medical Staff Manager 10/09/21 Leonides Hernandez [facility] [address] [place] [address] Pharmacist 05/18/23 Babar Ferrari PA-C [address] [place] [address] Physician Cone Marker Gastroenterology 06/01/23 Priscilla Stoddard 3033 [place] [address] Assigned Behavioral Health Provider 08/31/23 Yaw Mckinney MD [address] [place] [address] 315975 Physician Rheumatology 12/22/23 Edmund Patel MD 290 [place] [address] Allergy & Immunology 12/27/23 Edmund Patel MD 290 [place] [address] Assigned Allergy Provider 01/31/24 Yaw Mckinney MD [address] [place] [address] Assigned Rheumatology Provider 03/01/24 Jenny Terrazas CNM [address] [place] [address] Assigned OBGYN Provider 03/01/24 Petty Hassan DO [address] [place], [place] [address] Resident Neurology 05/01/24 Gil Danielson LSW Specialty Medical Staff Manager 09/19/24 documented as of this encounter
--- OUTSIDE RECORDS SUMMARY | 2024-10-25 15:31 | XMS_ITS | Encounter Summary ---
Author Organization [place] Address [address] [place] [address] Care Team Providers Care Garage Hand Name Role Phone Lorraine Castaneda MD Unavailable [phone] Lorraine Castaneda MD Primary Care Provider Shell Menjivar MD Unavailable +[phone] Bo Jiang MD Unavailable [phone] Jozef Sanchez [facility] Unavailable [phone] Alicia Montero Unavailable Unavailable Leonides Hernandez [facility] Unavailable [phone] Babar Ferrari PA-C Unavailable [phone] Priscilla Stoddard Unavailable Yaw Mckinney MD Unavailable [phone] Edmund Patel MD Unavailable [phone] Edmund Patel MD Unavailable [phone] Yaw Mckinney MD Unavailable Jenny Terrazas [facility] Unavailable + [phone] Petty Hassan DO Unavailable [phone] Gil Danielson Unavailable Unavailable Reason for Visit * Reason Onset Date Comments Forms 09/19/2024 Encounter Details Date Type Department Care Team (Late st Contact Info) Description 09/19/2024 Telephone [facility] [address], [address] [place] [address] Lorraine Castaneda MD 3032 [facility] [facility] 275 [place] [address] Forms Social History Tobacco Use Types Packs/Day Years [...] in an abandoned building, in an overnight assisted, or couch-surfing.) Yes 05/11/2023 Are you worried [...] CDT Gender Identity Genderqueer 04/15/2024 10:21 PM CAR REFINISHER Sexual Orientation Lesbian 04/15/2024 10 :21 PM CAR REFINISHER Sexual Orientation Something else 04/15/2024 10 :21 PM CAR REFINISHER documented as of this encounter Miscellaneous Notes * Telephone Encounter - Daniela Malik - 10/06/2024 9:26 AM CDT Called patient and left non-detailed voicemail to call clinic back at [phone]. Second outreach. Net[employer]on message sent again. Daniela BLACKWELL * Telephone Encounter - Daniela Malik - 09/25/2024 10:08 AM CDT Called patient and left non-detailed voicemail to call clinic back at [phone]. When patient calls back, please schedule a virtual visit to review forms. Vertical Knowledget message sent. Daniela BLACKWELL * Telephone Encounter - Lorraine Castaneda MD - 09/22/2024 4:40 PM CDT Please help pt arrange video appointment so we can review issues to be able to complete paperwork with their input. Will keep paperwork in my box in the meantime. Thanks! CW * Telephone Encounter - Lorrie Kamara MA - 09/22/2024 9:35 AM CDT Placed in Dr Castaneda's forms folder in Leaf in provider office. Lorrie Kamara CMA * Telephone Encounter - Lupe Grayson - 09/19/2024 1:29 PM CDT Forms/Letter Request Type of form/letter: Medical opinion Do we have the form/letter: Yes: Who is the form from? [place] dept of human services -[facility] (if other please explain) Where did/will the form come from? form was faxed in When is form/letter needed by: kelly How would you like the form/letter returned: Patient Notified form requests are processed in 5-7 business days:N/A Could we send this information to you in InSpat or would you prefer to receive a phone call?: No preference Okay to leave a detailed message?: N/A documented in this encounter Plan of Treatment Not on file documented as of this encounter Visit Diagnoses Not on filedocumented in this encounter Additional Health Concerns Assessment Noted Time PHQ-9 Depression Total Score: 20 025 10:01 AM CDT documented as of this encounter Care Teams Garage Hand Relationship Specialty Start Date End Date Lorraine Castaneda MD [address] [address] PCP - General Family Practice 07/25/19 Lorraine Castaneda MD [address] [address] Assigned PCP 06/18/19 Shell Menjivar MD 909 [place] [address] Dermatology 08/31/19 Bo Jiang MD 2945 [facility] 200 [place] [address] Physician Plastic Surgery 10/09/21 Jozef Sanchez [facility] [address] [place] [address] 803565 Time Buyer Plastic Surgery 10/09/21 Alicia Montero Specialty Care Management Assistant 10/09/21 Leonides Hernandez, [facility] [address] [place] [address] Pharmacist 05/18/23 Babar Ferrari PA-C [address] [place], [place] [address] Physician Financial Services Rep Gastroenterology 06/01/23 Priscilla Stoddard 3033 [place], [place] 032766 Assigned Behavioral Health Provider 08/31/23 Yaw Mckinney MD [address] [place] [address] 117795 Physician Rheumatology 12/22/23 Edmund Patel MD 290 [place], [place] [address] Allergy & Immunology 12/27/23 Edmund Patel MD 290 [place], [place] 931450 Assigned Allergy Provider 01/31/24 Yaw Mckinney MD [address] [place] [address] Assigned Rheumatology Provider 03/01/24 Jenny eTrrazas CNM [address] [place] [address] Assigned OBGYN Provider 03/01/24 Petty Hassan DO [address] [place] [address] Resident Neurology 05/01/24 Gil Danielson LSW Specialty Care Management Assistant 09/19/24 documented as of this encounter
--- OUTSIDE RECORDS SUMMARY | 2024-10-25 15:31 | XMS_ITS | Encounter Summary ---
Author Organization [place] Address [address] [place] [address] Care Team Providers Care Die Holder Name Role Phone Lorraine Castaneda MD Unavailable [phone] Lorraine Castaneda MD Primary Care Provider Shell Menjivar MD Unavailable +[phone] Bo Jiang MD Unavailable [phone] Jozef Sanchez [facility] Unavailable [phone] Alicia Montero Unavailable Unavailable Leonides Hernandez [facility] Unavailable [phone] Babar Ferrari PA-C Unavailable [phone] Priscilla Stoddard Unavailable Yaw Mckinney MD Unavailable +[phone] Edmund Patel MD Unavailable [phone] Edmund Patel MD Unavailable [phone] Yaw Mckinney MD Unavailable Jenny Terrazas [facility] Unavailable + [phone] Petty Hassan DO Unavailable +[phone] Gil Danielson GLOBAL HEAD ADVERTIS[employer] Unavailable Unavailable Encounter Details Date Type Department Care Team (Late st Contact Info) Description 10/02/2024 Telephone [facility]0 [place] [address] Carl Figueroa Social History Tobacco Use Types Packs/Day Years [...] in an abandoned building, in an overnight longterm, or couch-surfing.) Yes 05/11/2023 Are you worried [...] CDT Gender Identity Genderqueer 04/15/2024 10:21 PM CANVAS CUTTER MACHINE Sexual Orientation Lesbian 04/15/2024 10 :21 PM CANVAS CUTTER MACHINE Sexual Orientation Something else 04/15/2024 10 :21 PM CANVAS CUTTER MACHINE documented as of this encounter Miscellaneous Notes * Telephone Encounter - Carl Figueroa Aretha - 10/02/2024 8:16 AM CDT Called Patient to speak with them about the possible need for further appointments and resources. phone # doesn't belong to patient. asked for patient to call at their earliest convienence. documented in this encounter Plan of Treatment Not on file documented as of this encounter Visit Diagnoses Not on filedocumented in this encounter Additional Health Concerns Assessment Noted Time PHQ-9 Depression Total Score: 20 025 10:01 AM CDT documented as of this encounter Care Teams Die Holder Relationship Specialty Start Date End Date Lorraine Castaneda MD [address] [address] PCP - General Family Practice 07/25/19 [place] [address] [place] [address] Assigned PCP 06/18/19 Shell Menjivar MD [address] [place] [address] 318605 Dermatology 08/31/19 Bo Jiang MD 2945 [facility] 200 [place] [address] Physician Plastic Surgery 10/09/21 [facility] 500 [place] [address] Material Engineer Plastic Surgery 10/09/21 Alicia Montero Specialty Design/Animation Instructor 10/09/21 Leonides Hernandez [facility] 909 [facility] Pharmacist 05/18/23 Babar Ferrari PA-C [address] [place] [address] Physician Shim Plug Cutter Gastroenterology 06/01/23 Priscilla Stoddard 3033 [place], [place] 453316 Assigned Behavioral Health Provider 08/31/23 Yaw Mckinney MD [address] [place] [address] 681905 Physician Rheumatology 12/22/23 Edmund Patel MD 290 [place], [place] 216900 Allergy & Immunology 12/27/23 Edmund Patel MD [address] [place] [address] 424840 Assigned Allergy Provider 01/31/24 Yaw Mckinney MD [address] [place] [address] 511455 Assigned Rheumatology Provider 03/01/24 Jenny Terrazas CNM [address] [place], [place] [address] Assigned OBGYN Provider 03/01/24 Petty Hassan DO [address] [place] [address] [id number] Resident Neurology 05/01/24 Gil Danielson LSW Specialty Design/Animation Instructor 09/19/24 documented as of this encounter
--- OUTSIDE RECORDS SUMMARY | 2024-10-25 15:31 | XMS_ITS | Encounter Summary ---
Author Organization [facility] Address [address] [place] [address] Care Team Providers Care Tax Attorney Name Role Phone Lorraine Castaneda MD Unavailable [phone] Lorraine Castaneda MD Primary Care Provider Shell Menjivar MD Unavailable [phone] Chinedu Fleming MD Unavailable Bo Jiang MD Unavailable Jozef Sanchez [facility] Unavailable [phone] Alicia Montero Unavailable Unavailable Leonides Hernandez [facility] Unavailable [phone] Babar Ferrari PA-C Unavailable [phone] Priscilla Stoddard Unavailable Yaw Mckinney MD Unavailable [phone] Edmund Patel MD Unavailable [phone] Edmund Patel MD Unavailable [phone] Yaw Mckinney MD Unavailable [phone] Jenny Terrazas CNM Unavailable + [phone] Petty Hassan DO Unavailable +[phone] Gil Danielson WAREHOUSE GUARD Unavailable Unavailable Reason for Referral * Consultation (Routine: Next available opening) - Pending Review Specialty Diagnoses / Procedures Referred By Lazaro t Referred To Contact Otolaryngology Diagnoses Vocal cord dysfunction Edmund Patel MD [address] [place] [address] Phone: tel: fax: Referral ID Status Reason Start Date Expiration Date V isits Requested Visits Authorized [id number] Pending Review 02/02/2024 02/01/2025 1 1 Question Answer Reason for Referral: Voice/Throat Scheduling Instructions: [facility] will call you to coordinate your care as prescribed by the provider. If you don t hear from a international representative within 2 business days, please call [phone]. Comments [facility] [address] [facility] [facility] [address] [facility] will call you to coordinate your care as prescribed by the provider. If you don t hear from a international representative within 2 business days, please call [phone]. Encounter Details Date Type Department Care Team (Late st Contact Info) Description 02/02/2024 My[facility] Medical Advice [address] [place] [id number] Edmund Patel MD [address] [place] [address] Vocal cord dysfunction (Primary Dx) Social History Tobacco Use Types Packs/Day Years [...] in an abandoned building, in an overnight fdc, or couch-surfing.) Yes 05/11/2023 Are you worried [...] CDT Gender Identity Genderqueer 04/15/2024 10:21 PM MEDIA ANALYST Sexual Orientation Lesbian 04/15/2024 10 :21 PM MEDIA ANALYST Sexual Orientation Something else 04/15/2024 10 :21 PM MEDIA ANALYST documented as of this encounter Miscellaneous Notes * Telephone Encounter - Edmund Patel MD - 02/02/2024 12:57 PM CDT I placed the referral to voice clinic. Edmund Patel MD documented in this encounter Plan of Treatment Scheduled Referrals Name Type Priority Associated Diagnoses Orde r Schedule Adult ENT Detailer Referral Referral Routine: Next available opening Vocal cord dysfunction Expected: 02/02/2024 (Approximate), Expires: 02/01/2025 documented as of this encounter Visit Diagnoses Diagnosis Vocal cord dysfunction- Primary Other diseases of vocal cords documented in this encounter Additional Health Concerns Assessment Noted Time PHQ-9 Depression Total Score: 12 024 8:56 AM CDT documented as of this encounter Care Teams Tax Attorney Relationship Specialty Start Date End Date Lorraine Castaneda MD [address] [facility] [address] [place] [address] PCP - General Family Practice 07/25/19 Lorraine Castaneda MD [address] [facility] [address] [place] [address] Assigned PCP 06/18/19 Shell Menjivar MD [address] [place] [address] Dermatology 08/31/19 [place] [address] [place] [address] Assigned Rheumatology Provider 02/23/21 02/29/24 Bo Jiang MD 2945 [facility] 200 [place] [address] Physician Plastic Surgery 10/09/21 [facility] [address] [place] [address] [id number] Laminated Plastics Assembler And Gluer Plastic Surgery 10/09/21 Alicia Montero Specialty Smt Machine Operator 10/09/[address] [facility] [address] [place] [address] Pharmacist 05/18/23 Babar Ferrari PA-C [address] [place] [address] Physician Moulder Operator Gastroenterology 06/01/23 Priscilla Stoddard [address] [place] [address] Assigned Behavioral Health Provider 08/31/23 Yaw Mckinney MD [address] [place], [place] [address] Physician Rheumatology 12/22/23 Edmund Patel MD [address] [place], [place] 645610 Allergy & Immunology 12/27/23 Edmund Patel MD [address] [place], [place] 370160 Assigned Allergy Provider 01/31/24 Yaw Mckinney MD [address] [place] [address] 811065 Assigned Rheumatology Provider 03/01/24 Jenny Terrazas CNM [address] [place] [address] Assigned OBGYN Provider 03/01/24 Petty Hassan DO [address] [place], [place] 759965 Resident Neurology 05/01/24 Gil Danielson LSW Specialty Smt Machine Operator 09/19/24 documented as of this encounter
--- OUTSIDE RECORDS SUMMARY | 2024-10-25 15:31 | XMS_ITS | Encounter Summary ---
Author Organization [facility] Address [address] [place] [address] Care Team Providers Care Carbon Paste Mixer Operator Name Role Phone Lorraine Castaneda MD Unavailable [phone] Lorraine Castaneda MD Primary Care Provider Shell Menjivar MD Unavailable [phone] Bo Jiang MD Unavailable [phone] Jozef Sanchez [facility] Unavailable [phone] Alicia Montero Unavailable Unavailable Leonides Hernandez [facility] Unavailable [phone] Babar Ferrari PA-C Unavailable [phone] Priscilla Stoddard Unavailable Yaw Mckinney MD Unavailable Edmund Patel MD Unavailable [phone] Edmund Patel MD Unavailable [phone] Yaw Mckinney MD Unavailable [phone] Jenny Terrazas [facility] Unavailable + [phone] Petty Hassan DO Unavailable [phone] Gil Danielson WALL MAN Unavailable Unavailable Encounter Details Date Type Department Care Team (Late st Contact Info) Description 04/03/2024 Andrew Medical Advice [facility] Rheumatology [address] [place] [address] Radha Chamorro Emmy, MEDICAL UNIT SECRETARY Social History Tobacco Use Types Packs/Day Years [...] in an abandoned building, in an overnight senior living, or couch-surfing.) Yes 05/11/2023 Are you worried [...] CDT Gender Identity Genderqueer 04/15/2024 10:21 PM INCINERATOR ATTENDANT Sexual Orientation Lesbian 04/15/2024 10 :21 PM INCINERATOR ATTENDANT Sexual Orientation Something else 04/15/2024 10 :21 PM INCINERATOR ATTENDANT documented as of this encounter Plan of Treatment Not on file documented as of this encounter Visit Diagnoses Not on filedocumented in this encounter Additional Health Concerns Assessment Noted Time PHQ-9 Depression Total Score: 7 03/20/20 24 9:49 AM INCINERATOR ATTENDANT documented as of this encounter Care Teams Carbon Paste Mixer Operator Relationship Specialty Start Date End Date Lorraine Castaneda MD [address] [address] PCP - General Family Practice 07/25/19 Lorraine Castaneda MD [facility] [address] [address] Assigned PCP 06/18/19 Shell Menjivar MD [address] [place] [address] Dermatology 08/31/19 [place] [address] [place] [address] 200 [place] [address] Physician Plastic Surgery 10/09/21 [facility] [address] [place] [address] Supervisory Forester Plastic Surgery 10/09/21 Alicia Montero Specialty Steel Pan Form Placing Supervisor 10/09/21 Leonides Hernandez, [facility] [address] [place] [address] Pharmacist 05/18/23 Babar Ferrari PA-C [address] [place] [address] Physician Choir Director Gastroenterology 06/01/23 Priscilla Stoddard 30[address] [place], [place] 156726 Assigned Behavioral Health Provider 08/31/23 Yaw Mckinney MD [address] [place] [address] 906695 Physician Rheumatology 12/22/23 Edmund Patel MD [address] [place] [address] Allergy & Immunology 12/27/23 Edmund Patel MD [address] [place], [place] 681490 Assigned Allergy Provider 01/31/24 Yaw Mckinney MD [address] [place] [address] 398705 Assigned Rheumatology Provider 03/01/24 Jenny Terrazas CNM [address] [place], [place] [address] Assigned OBGYN Provider 03/01/24 Petty Hassan DO [address] [place] [address] 580925 Resident Neurology 05/01/24 Gil Danielson LSW Specialty Steel Pan Form Placing Supervisor 09/19/24 documented as of this encounter
--- OUTSIDE RECORDS SUMMARY | 2024-10-25 15:31 | XMS_ITS | Encounter Summary ---
Author Organization [facility] Address [address] [place] [address] Care Team Providers Care Cavity Pump Operator Name Role Phone Lorraine Castaneda MD Unavailable [phone] Lorraine Castaneda MD Primary Care Provider Shell Menjivar MD Unavailable [phone] Bo Jiang MD Unavailable [phone] Jozef Sanchez [facility] Unavailable [phone] Alicia Montero Unavailable Unavailable Leonides Hernandez [facility] Unavailable [phone] Babar Ferrari PA-C Unavailable [phone] Priscilla Stoddard Unavailable Yaw Mckinney MD Unavailable [phone] Edmund Patel MD Unavailable [phone] Edmund Patel MD Unavailable [phone] Yaw Mckinney MD Unavailable [phone] Jenny Terrazas [facility] Unavailable + [phone] Petty Hassan DO Unavailable [phone] Gil Danielson CHOPPER FEEDER Unavailable Unavailable Encounter Details Date Type Department Care Team (Late st Contact Info) Description 09/27/2024 Andrew Medical Advice [facility] Care Coordination [facility] [address] [place] [phone] Gil Danielson LSW Social History Tobacco Use [...] CDT Gender Identity Genderqueer 04/15/2024 10:21 PM FRUIT OR NUT PICKER Sexual Orientation Lesbian 04/15/2024 10 :21 PM FRUIT OR NUT PICKER Sexual Orientation Something else 04/15/2024 10 :21 PM FRUIT OR NUT PICKER documented as of this encounter Functional Status [...] Megan Hall LICSW Total Number of Actual Attempts (Past 3 Months) 0 09/30/2024 9:33 PM CDT [place]ottrup, Ba iley, SENIOR COMPENSATION CONSULTANT Has subject engaged in non-suicidal self-injurious behavior? (Past 3 Months) No 09/30/2024 9:33 PM CDT Stottrup, B ailey, SENIOR COMPENSATION CONSULTANT Interrupted Attempts (Past 3 Months) No 09/30/2024 9:33 PM CDT Stottrup, Megan, SENIOR COMPENSATION CONSULTANT Total Number of Interrupted Attempts (Past 3 Months) 0 09/30/2024 9:33 PM CDT Stottr[place], Ba iley, SENIOR COMPENSATION CONSULTANT Aborted or Self-Interrupted Attempt (Past 3 Months) No 09/30/2024 9:33 PM CDT Stottrup, Divine javad, SENIOR COMPENSATION CONSULTANT Total Number of Aborted or Self-Interrupted Attempts (Past 3 Months) 0 09/30/2024 9:33 PM CDT Stottrup, Megan , SENIOR COMPENSATION CONSULTANT Preparatory Acts or Behavior (Past 3 Months) No 09/30/2024 9:33 PM CDT Stottrup, Megan, SENIOR COMPENSATION CONSULTANT Total Number of Preparatory Acts (Past 3 Months) 0 09/30/2024 9:33 PM CDT Stottrup, Megan , SENIOR COMPENSATION CONSULTANT * Question Answer Date of Assessment Author Actual Attempt (Lifetime) No 09/30/2024 9:30 PM CDT Stottrup, Megan, SENIOR COMPENSATION CONSULTANT Has subject engaged in non-suicidal self-injurious behavior? (Lifetime) No 09/30/2024 9:30 PM CDT Stottrup, Megan , SENIOR COMPENSATION CONSULTANT Interrupted Attempts (Lifetime) No 9:30 PM CDT Stottrup, Megan, SENIOR COMPENSATION CONSULTANT Aborted or Self-Interrupted Attempt (Lifetime) No 09/30/2024 9:30 PM CDT Stottrup, Megan, SENIOR COMPENSATION CONSULTANT Preparatory Acts or Behavior (Lifetime) No 09/30/2024 9:30 PM CDT Stottrup, Megan, SENIOR COMPENSATION CONSULTANT * Question Answer Date of Assessment Author Most Severe Ideation Rating (Lifetime) 2 09/30/2024 9:30 PM CDT Stottrup, Megan, SENIOR COMPENSATION CONSULTANT Frequency (Lifetime) 1 09/30/2024 9:30 PM C DT Stottrup, Megan, SENIOR COMPENSATION CONSULTANT Duration (Lifetime) 1 09/30/2024 9:30 PM CD T Megan Hall LICSW Controllability (Lifetime) 1 09/30/2024 9:3 0 PM [...] documented as of this encounter Care Teams Cavity Pump Operator Relationship Specialty Start Date End Date Lorraine Castaneda MD [address] [address] PCP - General Family Practice 07/25/19 Lorraine Castaneda MD [address] [address] Assigned PCP 06/18/19 Shell Menjivar MD [address] [place] [address] Dermatology 08/31/19 Bo Jiang MD [address] [place] [address] 200 [place] [address] Physician Plastic Surgery 10/09/21 Jozef Sanchez [facility] [address] [place] [address] Vegetable Washer Plastic Surgery 10/09/21 Alicia Montero Specialty Supervisor Customer Complaint Service 10/09/[address] [facility] 909 [facility] Pharmacist 05/18/23 Babar Ferrari PA-C [address] [place] [address] Physician Roving Teller Gastroenterology 06/01/23 Priscilla Stoddard [address] [place], [place] 331066 Assigned Behavioral Health Provider 08/31/23 Yaw Mckinney MD [address] [place] [address] 281375 Physician Rheumatology 12/22/23 Edmund Patel MD [address] [place], [place] 287340 Allergy & Immunology 12/27/23 Edmund Patel MD [address] [place], [place] 003480 Assigned Allergy Provider 01/31/24 Yaw Mckinney MD [address] [place] [address] 969645 Assigned Rheumatology Provider 03/01/24 Jenny Terrazas CNM [address] [place], [place] [address] Assigned OBGYN Provider 03/01/24 Petty Hassan DO [address] [place], [place] 132025 Resident Neurology 05/01/24 Gil Danielson LSW Specialty Supervisor Customer Complaint Service 09/19/24 documented as of this encounter
--- OUTSIDE RECORDS SUMMARY | 2024-10-25 15:31 | XMS_ITS | Encounter Summary ---
Author Organization [facility] Address [address] [place] [address] Care Team Providers Care Academy Director Name Role Phone Lorraine Castaneda MD Unavailable [phone] Lorraine Castaneda MD Primary Care Provider Shell Menjivar MD Unavailable [phone] Bo Jiang MD Unavailable [phone] Jozef Sanchez [facility] Unavailable [phone] Alicia Montero Unavailable Unavailable Leonides Hernandez [facility] Unavailable [phone] Babar Ferrari PA-C Unavailable [phone] Priscilla Stoddard Unavailable Yaw Mckinney MD Unavailable [phone] Edmund Patel MD Unavailable [phone] Edmund Patel MD Unavailable [phone] Yaw Mckinney MD Unavailable Jenny Terrazas [facility] Unavailable + [phone] Petty Hassan DO Unavailable [phone] Gil Danielson SOFTWARE APPLICATIONS DEVELOPER Unavailable Unavailable Encounter Details Date Type Department Care Team (Late st Contact Info) Description 09/21/2024 Andrew Medical Advice [facility] Care Coordination [facility] [address] [place] [phone] Gil Danielson LSW Social History Tobacco Use [...] in an abandoned building, in an overnight chcf, or couch-surfing.) Yes 05/11/2023 Are you worried [...] CDT Gender Identity Genderqueer 04/15/2024 10:21 PM MATERIALS PLANNING MANAGER Sexual Orientation Lesbian 04/15/2024 10 :21 PM MATERIALS PLANNING MANAGER Sexual Orientation Something else 04/15/2024 10 :21 PM MATERIALS PLANNING MANAGER documented as of this encounter Plan of Treatment Not on file documented as of this encounter Visit Diagnoses Not on filedocumented in this encounter Additional Health Concerns Assessment Noted Time PHQ-9 Depression Total Score: 20 08/21/ 025 10:01 AM CDT documented as of this encounter Care Teams Academy Director Relationship Specialty Start Date End Date Lorraine Castaneda MD [address] [employer] [address] [address] PCP - General Family Practice 07/25/19 Lorraine Castaneda MD [address] [employer] [address] [address] Assigned PCP 06/18/19 Shell Menjivar MD [address] [place] [address] Dermatology 08/31/19 [place] [address] [place] [address] 200 [place] [address] Physician Plastic Surgery 10/09/21 [facility] [address] [place] [address] Sales And Distribution Clerk Plastic Surgery 10/09/21 Alicia Montero Specialty Appeals Rn 10/09/21 Leonides Hernandez, [facility] [address] [place] [address] Pharmacist 05/18/23 Babar Ferrari PA-C [address] [place] [address] Physician Data Management Associate Gastroenterology 06/01/23 Priscilla Stoddard 30[address] [place], [place] 917096 Assigned Behavioral Health Provider 08/31/23 Yaw Mckinney MD [address] [place] [address] 214945 Physician Rheumatology 12/22/23 Edmund Patel MD [address] [place], [place] 725150 Allergy & Immunology 12/27/23 Edmund Patel MD [address] [place], [place] 211700 Assigned Allergy Provider 01/31/24 Yaw Mckinney MD [address] [place] [address] 021455 Assigned Rheumatology Provider 03/01/24 Jenny Terrazas CNM [address] [place], [place] [address] Assigned OBGYN Provider 03/01/24 Petty Hassan DO [address] [place] [address] 418895 Resident Neurology 05/01/24 Gil Danielson LSW Specialty Appeals Rn 09/19/24 documented as of this encounter
--- OUTSIDE RECORDS SUMMARY | 2024-10-25 15:31 | XMS_ITS | Encounter Summary ---
Author Organization [facility] Address [address] [place] [address] Care Team Providers Care Engineering Psychologist Name Role Phone Lorraine Castaneda MD Unavailable [phone] Lorraine Castaneda MD Primary Care Provider Shell Menjivar MD Unavailable [phone] Chinedu Fleming MD Unavailable Bo Jiang MD Unavailable [phone] Jozef Sanchez [facility] Unavailable [phone] Alicia Montero Unavailable Unavailable Leonides Hernandez [facility] Unavailable [phone] Babar Ferrari PA-C Unavailable [phone] Priscilla Stoddard Unavailable Yaw Mckinney MD Unavailable Edmund Patel MD Unavailable [phone] Edmund Patel MD Unavailable [phone] Yaw Mckinney MD Unavailable Jenny Terrazas CNPascual Unavailable [phone] Petty Hassan DO Unavailable [phone] Gil Danielson TRAINING INTERN Unavailable Unavailable Reason for Referral * Diagnostic Imaging MRI (Routine) - Closed Specialty Diagnoses / Procedures Referred By Contac t Referred To Contact Radiology. Diagnoses Polyarthralgia Bilateral hand pain Procedures MR Hand Left w/o & w Contrast Yaw Mckinney MD [address] [place] [address] Phone: tel: fax: [facility] [place] [address] [facility] [address] [place] [address] Phone: tel: fax: Referral ID Status Reason Start Date Expiration Date Visits Re quested Visits Authorized [id number] Closed 03/02/2024 03/02/2025 1 1 Encounter Details Date Type Department Care Team (Late st Contact Info) Description 02/28/2024 MyC Medical Advice [facility] Rheumatology [address] [place] [address] [address] [place] [address] Yaw Mckinney MD [address] [place] [address] Polyarthralgia (Primary Dx); Bilateral hand pain Social History Tobacco Use Types Packs/Day Years [...] CDT Gender Identity Genderqueer 04/15/2024 10:21 PM PROFILE MILL OPERATOR TAPE CONTROL Sexual Orientation Lesbian 04/15/2024 10 :21 PM PROFILE MILL OPERATOR TAPE CONTROL Sexual Orientation Something else 04/15/2024 10 :21 PM PROFILE MILL OPERATOR TAPE CONTROL documented as of this encounter Plan of Treatment Not on file documented as of this encounter Results * MR Hand Left w/o & w Contrast (03/31/2024 8:27 AM PROFILE MILL OPERATOR TAPE CONTROL) Anatomical Region Laterality Modality Left Hand, SUBRAD MR MSK, UMP MR MSK, RAD MR Magnetic Resonance Impressions 03/31/2024 5:25 PM PROFILE MILL OPERATOR TAPE CONTROL Impression: 1. In proximity to the external marker there is tendinosis of extensor and flexor tendons of the third digit with mild extensor tenosynovitis. 2. No MR evidence of inflammatory arthropathy. I have personally reviewed the examination and initial interpretation and I agree with the findings. RAFA KNAPP MD (Joe) Narrative 03/31/2024 5:25 PM PROFILE MILL OPERATOR TAPE CONTROL MR left hand with and without contrast 03/31/2024 8:27 AM Techniques: Multiplanar multisequence imaging of the left hand was obtained with and without administration of intravenous contrast using synovitis protocol. Contrast: 7.5mL Gadavist History: persistent joint pain without noticeable swelling on examination, negative previous MRI, negative X-ray and negative serology for rheumatoid arthritis; Polyarthralgia; Bilateral hand pain; Bilateral hand pain Comparison: Hand radiographs 02/24/2024 Findings: External marker placed over the dorsal aspect of the third MCP joint. Osseous structures Osseous structures: No acute osseous abnormality. No discrete erosion. Cystic or vascular focus in the partially visualized distal scaphoid. Joint and periarticular soft tissue Internal derangement of joints are not well assessed owing to chosen field of view. Polyarticular degenerative changes involving fourth and fifth PIP, lesser degree in the fifth DIP. No marked synovial enhancement. No joint effusion. Collateral ligaments of the second through fifth metacarpophalangeal joints appear intact. Muscles and tendons Tendinosis in the area of external marker involving flexor and extensor tendons with soft tissue edema along the extensor tendon sheath. Nonvisualized musculature. Nerves: Unremarkable. Other Findings: None. Procedure Note Rafa Knapp, - 03/31/2024 MR left hand with and without contrast 03/31/2024 8:27 AM Techniques: Multiplanar multisequence imaging of the left hand was obtained with and without administration of intravenous contrast using synovitis protocol. Contrast: 7.5mL Gadavist History: persistent joint pain without noticeable swelling on examination, negative previous MRI, negative X-ray and negative serology for rheumatoid arthritis; Polyarthralgia; Bilateral hand pain; Bilateral hand pain Comparison: Hand radiographs 02/24/2024 Findings: External marker placed over the dorsal aspect of the third MCP joint. Osseous structures Osseous structures: No acute osseous abnormality. No discrete erosion. Cystic or vascular focus in the partially visualized distal scaphoid. Joint and periarticular soft tissue Internal derangement of joints are not well assessed owing to chosen field of view. Polyarticular degenerative changes involving fourth and fifth PIP, lesser degree in the fifth DIP. No marked synovial enhancement. No joint effusion. Collateral ligaments of the second through fifth metacarpophalangeal joints appear intact. Muscles and tendons Tendinosis in the area of external marker involving flexor and extensor tendons with soft tissue edema along the extensor tendon sheath. Nonvisualized musculature. Nerves: Unremarkable. Other Findings: None. Impression: 1. In proximity to the external marker there is tendinosis of extensor and flexor tendons of the third digit with mild extensor tenosynovitis. 2. No MR evidence of inflammatory arthropathy. I have personally reviewed the examination and initial interpretation and I agree with the findings. RAFA KNAPP MD (Joe) Yaw Mckinney MD IMG MRI ORDERABLES Final Result documented in this encounter Visit Diagnoses Diagnosis Polyarthralgia- Primary Pain in joint, multiple sites Bilateral hand pain Pain in limb Polyarthralgia Pain in joint, multiple sites Bilateral hand pain Pain in limb documented in this encounter Additional Health Concerns Assessment Noted Time PHQ-9 Depression Total Score: 11 024 9:51 AM CDT documented as of this encounter Care Teams Engineering Psychologist Relationship Specialty Start Date End Date Lorraine Castaneda MD [address] [employer] [address] [address] PCP - General Family Practice 07/25/19 Lorraine Castaneda MD [address] [employer] [address] [address] Assigned PCP 06/18/19 Shell Menjivar MD [address] [place], [place] [id number] Dermatology 08/31/19 [place] [address] [place] [address] Assigned Rheumatology Provider 02/23/21 02/29/24 Bo Jiang MD [address] [facility] [address] [place] [address] Physician Plastic Surgery 10/09/21 [facility] [address] [place] [address] Zumba Instructor Plastic Surgery 10/09/21 Alicia Montero Specialty Water Resources Engineer 10/09/21 Leonides Hernandez [facility] [address] [place] [address] Pharmacist 05/18/23 Babar Ferrari PA-C [address] [place], [place] [address] Physician Environmental Services Technician Gastroenterology 06/01/23 Priscilla Stoddard [address] [place], [place] [address] Assigned Behavioral Health Provider 08/31/23 Yaw Mckinney MD [address] [place] [address] Physician Rheumatology 12/22/23 Edmund Patel MD [address] [place], [place] [address] Allergy & Immunology 12/27/23 Edmund Patel MD [address] [place] [address] Assigned Allergy Provider 01/31/24 Yaw Mckinney MD [address] [place] [address] Assigned Rheumatology Provider 03/01/24 Jenny Terrazas CNM [address] [place] [address] Assigned OBGYN Provider 03/01/24 Petty Hassan DO [address] [place] [address] Resident Neurology 05/01/24 Gil Danielson LSW Specialty Water Resources Engineer 09/19/24 documented as of this encounter
[2024-10-25 15:49] LABS: HCG Quantitative* < 2.39 mIU/mL
--- NOTE | 2024-10-25 16:04 | PC.SOCIAL ---
Social work: Met at pt request. Pt states they have been homeless for two months and wants a place to stay. Discussed local resource of the [facility] where they will help with short term emergency placement locally or referral to a retirement outside of [place] if needed. Pt states they went there yesterday and was told there was no emergency housing available. Additional questions clarified pt was offered emergency housing but that her two cats were not allowed to be with her in this housing so pt declined what the [facility] offered. Pt shared that her cats are her emotional support animals and help her mental health and autism. When asked about mental health history, pt states mental health is not a concern and they are taking medications for mental health. Then they stated that the stress of being homeless has caused challenges with their mental health. Pt was tearful throughout assessment and apologized to hospital social worker for being upset. Pt was respectful and clearly frustrated by not being able to locate housing for themselves and their cats. Discussed option of having someone else watch the cats and going into an emergency retirement. Pt initially stated that was a possibility but then stated that their therapist had told them not to go to a retirement because it would not be good for their mental health and is not safe for people who are trans. Pt states they have been mostly staying in their car with their cats but bought a tent and air mattress and camped last night. Pt states they grew up in [place] so they know this area and feel comfortable being in [place]. At pt's request, called the [facility] and left a message asking if they could return for additional homelessness resources and placement. Provided pt with written information on housing and community resources as well as mental health resources. Pt is aware of option to return to the [facility] for assistance with homelessness and community resources.
[2024-10-25 16:11] LABS: Erythrocyte SedimentationRate* 7 mm/hr (2-20)
== END 2024-10-25 18:11 | disposition home or self-care (01) ==
PROVIDERS: Emergency Provider Student in an Organized Health Care Education/Training Program
DX: M15.0 Primary generalized (osteo)arthritis (principal)
CPT/HCPCS: 36415; 80053; 81001; 84443; 84702; 85025; 85651; 86140; 86618; 87086; 87468; 87469; 87484; 87798; 99283; 99284; J7030